=== PATIENT | female | born 1940 | race Two or more races ===

== ENCOUNTER 2018-12-18 15:25 | Emergency (ER) | payer OTHER ==
[~2018-12-18] VITALS: Ht 167.6 cm; Wt 72.6 kg
[2018-12-18] MEDS ORDERED: NKM (15:26)
[2018-12-18 15:50] VITALS: BP 106/74
--- NOTE | 2018-12-18 15:50 | NUR ---
ED Nurse Note: pt walked in with son c/o of vomiting and nause x more than a week. pt denies any past medical problems. per pt son, pt is healthy 79 yo but begining to have symptoms of dementia. ermd on bedside. will continue to monitor.
[2018-12-18 15:59] LABS: HEMATOCRIT 48.1 % (37.0-47.0); MEAN CORPUSCULAR VOLUME 87 FL (80-99); PLATELET COUNT 243 K/UL (150-450); RED BLOOD COUNT 5.52 M/UL (4.20-5.40); RED CELL DISTRIBUTION WIDTH 11.5 % (11.6-14.8); WHITE BLOOD COUNT 8.3 K/UL (4.8-10.8)
[2018-12-18 16:00] LABS: EOSINOPHILS % (AUTO) 0.1 % (0.0-3.0); LYMPHOCYTES % (AUTO) 7.9 % (20.0-45.0); MONOCYTES % (AUTO) 5.6 % (1.0-10.0)
[2018-12-18 16:01] LABS: BASOPHILS % (AUTO) 0.4 % (0.0-2.0)
[2018-12-18 16:05] LABS: ANION GAP 15 mmol/L (5-15); BLOOD UREA NITROGEN 45 mg/dL (7-18); CALCIUM 9.6 MG/DL (8.5-10.1); CARBON DIOXIDE 27 MMOL/L (21-32); CHLORIDE 98 MMOL/L (98-107); CREATININE 1.4 MG/DL (0.55-1.30); POTASSIUM 3.1 MMOL/L (3.5-5.1); SODIUM 140 MMOL/L (136-145)
--- NOTE | 2018-12-18 16:11 | NUR ---
ED Nurse Note: xray on bedside
[2018-12-18 16:16] LABS: ALANINE AMINOTRANSFERASE 74 U/L (12-78); ALBUMIN 4.1 G/DL (3.4-5.0); ALBUMIN/GLOBULIN RATIO 0.9 (1.0-2.7); ALKALINE PHOSPHATASE 79 U/L (46-116); ASPARTATE AMINO TRANSFERASE 55 U/L (15-37); BILIRUBIN,TOTAL 1.3 MG/DL (0.2-1.0)
[2018-12-18 16:18] LABS: BILIRUBIN,DIRECT 0.5 MG/DL (0.0-0.3)
--- NOTE | 2018-12-18 16:27 | Diagnostic Imaging Report ---
Indication: Dyspnea Comparison: None A single view chest radiograph was obtained. Findings: Lung volumes are low. Heart is borderline enlarged. Aorta is ectatic. Bones are slightly osteopenic. IMPRESSION: No acute findings
[2018-12-18] MEDS ORDERED: NS w/KCl 40mEq 1,000 ML IV SCH (17:15)
[2018-12-18 17:17] LABS: APPEARANCE,URINE CLEAR; BILIRUBIN, URINE 2+ (NEGATIVE); GLUCOSE, URINE (UA) NEGATIVE (NEGATIVE); KETONES,URINE 2+ (NEGATIVE); LEUKOCYTE ESTERASE ,URINE 1+ (NEGATIVE); NITRITE,URINE NEGATIVE (NEGATIVE); PH,URINE 5 (4.5-8.0); PROTEIN,URINE 2+ (NEGATIVE); UROBILINOGEN,URINE 4 MG/DL (0.0-1.0)
[2018-12-18 17:20] LABS: COLOR,URINE AMBER
--- NOTE | 2018-12-18 17:30 | NUR ---
ED Nurse Note: respiratory technician on bedside.
[2018-12-18 18:15] VITALS: BP 119/66
--- NOTE | 2018-12-18 18:20 | Diagnostic Imaging Report ---
Indication:Abdominal pain Technique: Grayscale and duplex Doppler imaging of the abdomen performed. Comparison: None Findings: Study is limited due to patient being uncooperative and body habitus. The demonstrated part of the pancreas appears unremarkable. Gallbladder sludge noted. There is no wall thickening. Sonographic Justice's is negative per technologist. There is no evidence of gallstones. The liver is unremarkable. The CBD is poorly seen but no obvious biliary ductal dilatation identified. The main portal vein is patent by Doppler examination. There is no hydronephrosis. There is no ascites. Spleen is normal in size. IMPRESSION: Gallbladder sludge. No obvious stones. Limited evaluation
--- NOTE | 2018-12-18 18:59 | Emergency Room Report ---
History of Present Illness General Chief Complaint: Vomiting Source: Patient, Family Member Present Illness HPI 78-year-old female presents ED for evaluation. Brought in by EMS from home. Family at bedside states patient is been complaining of vomiting times one week. Patient denies any abdominal pain. Has had multiple episodes of vomiting a day. Denies any fevers or chills. Denies dysuria or hematuria. Denies any diarrhea. No other aggravating relieving factors. Denies any other associated symptoms Allergies: Uncoded Allergies: PENACILLIN (Allergy, Unknown, 12/18/18) Patient History Past Medical History: none Past Surgical History: none Pertinent Family History: none Social History: Denies: smoking, alcohol use, drug use Now: No Immunizations: UTD Reviewed Nursing Documentation: PMH: Agreed; PSxH: Agreed Nursing Documentation-PMH Past Medical History: No Stated History Review of Systems All Other Systems: negative except mentioned in HPI Physical Exam Vital Signs Date Time Temp Pulse Resp B/P (MAP) Pulse Ox O2 Delivery O2 Flow Rate FiO2 12/18/18 15:21 97.3 100 16 97 Room Air 12/18/18 15:50 106/74 Sp02 EP Interpretation: reviewed, normal General Appearance: no apparent distress, alert, GCS 15, non-toxic Head: normocephalic, atraumatic Eyes: bilateral eye normal inspection, bilateral eye PERRL ENT: hearing grossly normal, normal pharynx, no angioedema, normal voice Neck: full range of motion, supple/symm/no masses Respiratory: chest non-tender, lungs clear, normal breath sounds, speaking full sentences Cardiovascular #1: regular rate, rhythm, no edema Cardiovascular #2: 2+ carotid (R), 2+ carotid (L), 2+ radial (R), 2+ radial (L) , 2+ dorsalis pedis (R), 2+ dorsalis pedis (L) Gastrointestinal: normal bowel sounds, non tender, soft, non-distended, no guarding, no rebound Rectal: deferred Genitourinary: normal inspection, no CVA tenderness Musculoskeletal: back normal, gait/station normal, normal range of motion, non- tender Neurologic: alert, oriented x3, responsive, motor strength/tone normal, sensory intact, speech normal Psychiatric: judgement/insight normal, memory normal, mood/affect normal, no suicidal/homicidal ideation Reflexes: 3+ bicep (R), 3+ bicep (L), 3+ tricep (R), 3+ tricep (L), 3+ knee (R) , 3+ knee (L) Skin: normal color, no rash, warm/dry, well hydrated Lymphatic: no adenopathy Medical Decision Making Diagnostic Impression: Primary Impression: Vomiting Qualified Codes: R11.2 - Nausea with vomiting, unspecified Additional Impressions: Dehydration Weakness ER Course Hospital Course 78-year-old female presents ED complaining of weakness, vomiting differential diagnosis: UTI, dehydration, anemia Clinical course Patient placed on stretcher. On cardiac surgeon. After initial history and physical I ordered labs, IV fluids, zofran Labs - no leukocytosis, K 3.1, BUN/Cr elevated, UA negative, LFts elevated CXR - no acute process US - sludege in GB, no stones, no evidence of cholecysitits Potassium repleted. IV hydration continued. Patient will be admitted. Because of insurance patient will be transferred I feel this is a highly complex case requiring extensive working including EKG/ Rhythm strip, Xray/CT/US, Blood/urine lab work, repeat exams while in ED, and administration of strong opiates/narcotics for pain control, admission to hospital or close patient follow up. Diagnosis - weakness, dehydration, vomiting Transferred in serious condition Labs Test 12/18/18 15:40 12/18/18 16:05 12/18/18 16:15 12/18/18 17:55 White Blood Count 8.3 K/UL (4.8-10.8) Red Blood Count 5.52 M/UL (4.20-5.40) Hemoglobin 17.0 G/DL (12.0-16.0) Hematocrit 48.1 % (37.0-47.0) Mean Corpuscular Volume 87 FL (80-99) Mean Corpuscular Hemoglobin 30.7 PG (27.0-31.0) Mean Corpuscular Hemoglobin Concent 35.2 G/DL (32.0-36.0) Red Cell Distribution Width 11.5 % (11.6-14.8) Platelet Count 243 K/UL (150-450) Mean Platelet Volume 6.9 FL (6.5-10.1) Neutrophils (%) (Auto) 86.0 % (45.0-75.0) Lymphocytes (%) (Auto) 7.9 % (20.0-45.0) Monocytes (%) (Auto) 5.6 % (1.0-10.0) Eosinophils (%) (Auto) 0.1 % (0.0-3.0) Basophils (%) (Auto) 0.4 % (0.0-2.0) Sodium Level 140 MMOL/L (136-145) Potassium Level 3.1 MMOL/L (3.5-5.1) Chloride Level 98 MMOL/L (98-107) Carbon Dioxide Level 27 MMOL/L (21-32) Anion Gap 15 mmol/L (5-15) Blood Urea Nitrogen 45 mg/dL (7-18) Creatinine 1.4 MG/DL (0.55-1.30) Estimat Glomerular Filtration Rate mL/min (>60) Glucose Level 247 MG/DL (74-106) Calcium Level 9.6 MG/DL (8.5-10.1) Total Bilirubin 1.3 MG/DL (0.2-1.0) Direct Bilirubin 0.5 MG/DL (0.0-0.3) Aspartate Amino Transf (AST/SGOT) 55 U/L (15-37) Alanine Aminotransferase (ALT/SGPT) 74 U/L (12-78) Alkaline Phosphatase 79 U/L (46-116) Total Protein 8.6 G/DL (6.4-8.2) Albumin 4.1 G/DL (3.4-5.0) Globulin 4.5 g/dL Albumin/Globulin Ratio 0.9 (1.0-2.7) Lactic Acid Level 3.30 mmol/L (0.4-2.0) 2.00 mmol/L (0.66-2.22) Urine Color Rosina Urine Appearance Clear Urine pH 5 (4.5-8.0) Urine Specific [place] 1.015 (1.005-1.035) Urine Protein 2+ (NEGATIVE) Urine Glucose (UA) Negative (NEGATIVE) Urine Ketones 2+ (NEGATIVE) Urine Blood 1+ (NEGATIVE) Urine Nitrite Negative (NEGATIVE) Urine Bilirubin 2+ (NEGATIVE) Urine Ictotest Negative (NEGATIVE) Urine Urobilinogen 4 MG/DL (0.0-1.0) Urine Leukocyte Esterase 1+ (NEGATIVE) Urine RBC 0-2 /HPF (0 - 2) Urine WBC 2-4 /HPF (0 - 2) Urine Squamous Epithelial Cells Occasional /LPF Urine Bacteria Few /HPF (NONE) Chest X-Ray Diagnostic Results Chest X-Ray Diagnostic Results : Chest X-Ray Ordered: Yes # of Views/Limited/Complete: 1 View Indication: Other EP Interpretation: Yes Interpretation: no consolidation, no effusion, no pneumothorax, no acute cardiopulmonary disease Impression: No acute disease Electronically Signed by: Electronically signed by West Le MD CT/MRI/US Diagnostic Results CT/MRI/US Diagnostic Results : Imaging Test Ordered: GB US Impression Study is limited due to patient being uncooperative and body habitus. The demonstrated part of the pancreas appears unremarkable. Gallbladder sludge noted. There is no wall thickening. Sonographic Justice's is negative per technologist. There is no evidence of gallstones. The liver is unremarkable. The CBD is poorly seen but no obvious biliary ductal dilatation identified. The main portal vein is patent by Doppler examination. There is no hydronephrosis. There is no ascites. Spleen is normal in size. Last Vital Signs Date Time Temp Pulse Resp B/P (MAP) Pulse Ox O2 Delivery O2 Flow Rate FiO2 12/18/18 18:15 98.8 68 18 119/66 98 Room Air Status: improved Disposition: XFER SHT-TRM HOSP Condition: Serious Referrals: [facility],REFERRING (PCP) West Le MD December 18, 2018 18:59
--- NOTE | 2018-12-18 19:22 | NUR ---
ED Nurse Note: RECEIVED PATIENT FROM [facility]. PATIENT RESTING IN BED WITH NO ACUTE DISTRESS. FAMILY MEMBER AT BEDSIDE. AWARE OF TRANSFER; AWAITING TRANSPORTATION.
[2018-12-18 19:32] VITALS: BP 116/58
--- NOTE | 2018-12-18 19:43 | NUR ---
ED Nurse Note: called for report to [facility]. per OLRNA Sánchez receiving RN unable to be found and request to call back. Will call back in 15 min
--- NOTE | 2018-12-18 19:59 | NUR ---
ED Nurse Note: telephone report given to lily alvarado of [facility]. patient tp be admitted to [facility] surg [facility]-a under the care of md huy
[2018-12-18 20:30] VITALS: BP 116/58
--- NOTE | 2018-12-18 20:30 | NUR ---
ED Nurse Note: REPORT GIVEN TO AMBULANCE PERSONNEL. PATIENT LEFT WITH [facility]. ACCOMPANIED BY FAMILY MEMBER. LEFT WITH ALL BELONGINGS.
== END 2018-12-18 20:30 | disposition short-term general hospital (02) ==
LOC: EDBD 15:25 → EMR 16:11
DX: R11.2 Nausea with vomiting, unspecified (principal); E86.0 Dehydration; R53.1 Weakness; Z88.0 Allergy status to penicillin
CPT/HCPCS: 36415; 71045; 76700; 80053; 81003; 82248; 83605; 85025; 87040; 96361; 96365; 96366; 96375; 99285; J2405

== ENCOUNTER 2019-12-13 01:02 | Inpatient (IN) | payer MEDICARE, MEDICAID ==
[~2019-12-13] VITALS: Ht 167.6 cm; Wt 64.6 kg
[2019-12-13] VITALS (40 sets, daily range): BP systolic 66–112; BP diastolic 33–66
[~2019-12-13 01:02] MED LIST: NKM
--- NOTE | 2019-12-13 01:10 | NUR ---
ED Nurse Note: Patient BG was critical value, over 600.
--- NOTE | 2019-12-13 01:10 | NUR ---
ED Nurse Note: Pt brought into ED by [facility] RA 58 for c/o respiratory distress and decreased altered mental status from [facility]. Pt is awake, opening eyes and nonverbal at this time. Per EMS, pt is normally able to moan and nod head, but staff states she has not been able to do so tonight. Last known well time is unknown. Upon [facility] arrival on scene pt oxygen saturation was 86% on RA, pt placed on 4L oxygen via NC and per [facility] oxygen saturation is now 97%. Pt presents in the ED tachypneic and has labored breathing. Per [facility], pt was also hypotensive on scene at 82/44, [facility] established IV line on L AC and gave approx 200ml NS bolus. Pt connected to court recording monitor and is tachy in the 120's. ERMD bedside.
[2019-12-13] MEDS ORDERED: Acetaminophen 650mg/20.3ml GT ONE (01:15)
[2019-12-13] MEDS ORDERED: Vancomycin 1.5 GM in NS 275 ML IVPB ONE (01:15)
[2019-12-13] MEDS ORDERED: Insulin Human Regular 100units/ml 3ml IV ONE (01:15)
--- NOTE | 2019-12-13 01:15 | NUR ---
ED Nurse Note: All labs sent.
--- NOTE | 2019-12-13 01:18 | Emergency Room Report ---
History of Present Illness General Source: Medical Record, EMS, Caregiver Present Illness HPI Patient is a 79-year-old female sent in from nursing facility after increased respiratory distress and hypotension. Patient had prior history of dementia and had been noted to have increased work of breathing. Per patient's paperwork patient is full code. Was noted to have blood sugar with EMS reading critical "high" patient was noted to be hypotensive at the facility as well as having diminished oxygen saturation in the 80s on room air. Patient was started on supplemental oxygen with some improvement in her saturation. History is limited by patient's mental status. Allergies: Coded Allergies: PENICILLINS (Verified Allergy, Unknown, 12/13/19) Patient History Past Medical History: see triage record Reviewed Nursing Documentation: PMH: Agreed; PSxH: Agreed Review of Systems All Other Systems: limited - Limited by mental status Physical Exam General Appearance: severe distress, Chronically Ill ENT: moist mucus membranes Neck: limited range of motion Respiratory: lungs clear, normal breath sounds Cardiovascular #1: tachycardia Gastrointestinal: soft, other - G-tube present Musculoskeletal: moves extm spontaneously Neurologic: motor weakness, aphasia Psychiatric: depressed affect Skin: no rash Procedures Critical Care Time Critical Care Time Patient had a critical medical condition which untreated could potentially result in life or limb threatening injury. Total critical care time excluding procedures approximately 45 minutes. Medical Decision Making Diagnostic Impression: Primary Impression: Suspected 2019 novel coronavirus infection Additional Impression: Uncontrolled diabetes mellitus ER Course Patient presented for respiratory distress. Differential diagnosis include was not limited to pneumonia, myocardial infarction, coronavirus infection, sepsis, abscess, diabetic ketoacidosis among others. Because of complexity of patient' s case laboratory tests and imaging studies were ordered. Patient was noted to have a initially high blood sugar consistent with possible diabetic ketoacidosis. Patient was given IV insulin. Patient was noted to be somewhat tachypneic and was started on IV fluids due to hypotension. Patient was noted to have adequate oxygen saturation. Arterial blood gas was ordered. Patient will require admission for further evaluation and treatment of presumed sepsis and possible coronavirus infection.Patient started on supplemental oxygen as well as IV antibiotics after cultures were obtained. Rhythm strip interpreted by me showed sinus tachycardia with a rate of 105 without PVCs or ectopy.EKG interpreted by me showed sinus tachycardia without any evidence of acute ST or T wave changes. QTC 458. Patient's initial troponin was 0.1. Patient was noted to have some evidence of urinary infection as well as lactic acidosis elevation. ABG showed metabolic acidosis with respiratory compensation. Patient was given IV fluids with improvement in her blood pressure and perfusion. Respiratory rate also somewhat improved.I attempted a central line without any success. Post procedure chest x-ray showed no evidence of pneumothorax. With increased vascular congestion. Dr. Humphrey was contacted for inpatient management due to panel physician.Dr. Campbell was contacted for surgical consult for placement of central line. Labs Test 12/13/19 01:00 12/13/19 01:15 12/13/19 01:30 12/13/19 02:15 White Blood Count 15.5 K/UL (4.8-10.8) Red Blood Count 3.87 M/UL (4.20-5.40) Hemoglobin 10.6 G/DL (12.0-16.0) Hematocrit 34.1 % (37.0-47.0) Mean Corpuscular Volume 88 FL (80-99) Mean Corpuscular Hemoglobin 27.3 PG (27.0-31.0) Mean Corpuscular Hemoglobin Concent 31.0 G/DL (32.0-36.0) Red Cell Distribution Width 14.3 % (11.6-14.8) Platelet Count 174 K/UL (150-450) Mean Platelet Volume 7.9 FL (6.5-10.1) Neutrophils (%) (Auto) % (45.0-75.0) Lymphocytes (%) (Auto) % (20.0-45.0) Monocytes (%) (Auto) % (1.0-10.0) Eosinophils (%) (Auto) % (0.0-3.0) Basophils (%) (Auto) % (0.0-2.0) Prothrombin Time 11.1 SEC (9.30-11.50) Prothromb Time International Ratio 1.0 (0.9-1.1) Activated Partial Thromboplast Time 28 SEC (23-33) Sodium Level 168 MMOL/L (136-145) Potassium Level 3.9 MMOL/L (3.5-5.1) Chloride Level 127 MMOL/L (98-107) Carbon Dioxide Level 25 MMOL/L (21-32) Anion Gap 17 mmol/L (5-15) Blood Urea Nitrogen 126 mg/dL (7-18) Creatinine 2.8 MG/DL (0.55-1.30) Estimat Glomerular Filtration Rate 16.4 mL/min (>60) Glucose Level 798 MG/DL (74-106) Calcium Level 8.2 MG/DL (8.5-10.1) Phosphorus Level 5.4 MG/DL (2.5-4.9) Magnesium Level 3.4 MG/DL (1.8-2.4) Total Bilirubin 0.3 MG/DL (0.2-1.0) Aspartate Amino Transf (AST/SGOT) 45 U/L (15-37) Alanine Aminotransferase (ALT/SGPT) 44 U/L (12-78) Alkaline Phosphatase 145 U/L (46-116) Total Creatine Kinase 650 U/L (26-308) Creatine Kinase MB 1.0 NG/ML (0.0-3.6) Creatine Kinase MB Relative Index 0.1 Troponin I 0.103 ng/mL (0.000-0.056) Pro-B-Type Natriuretic Peptide 827 pg/mL (0-125) Total Protein 7.0 G/DL (6.4-8.2) Albumin 1.8 G/DL (3.4-5.0) Globulin 5.2 g/dL Albumin/Globulin Ratio 0.3 (1.0-2.7) Acetone Level Negative (NEGATIVE) Arterial Blood pH 7.315 (7.350-7.450) Arterial Blood Partial Pressure CO2 28.4 mmHg (35.0-45.0) Arterial Blood Partial Pressure O2 53.2 mmHg (75.0-100.0) Arterial Blood HCO3 14.1 mmol/L (22.0-26.0) Arterial Blood Oxygen Saturation 79.2 % (95-100) Arterial Blood Base Excess -11 (-2-2) Miki Test Positive Urine Color Yellow Urine Appearance Cloudy Urine pH 5 (4.5-8.0) Urine Specific [place] 1.025 (1.005-1.035) Urine Protein 3+ (NEGATIVE) Urine Glucose (UA) 3+ (NEGATIVE) Urine Ketones 1+ (NEGATIVE) Urine Blood 2+ (NEGATIVE) Urine Nitrite Negative (NEGATIVE) Urine Bilirubin Negative (NEGATIVE) Urine Urobilinogen 1 MG/DL (0.0-1.0) Urine Leukocyte Esterase 3+ (NEGATIVE) Urine RBC 5-10 /HPF (0 - 2) Urine WBC Tntc /HPF (0 - 2) Urine Squamous Epithelial Cells Many /LPF (NONE/OCC) Urine Bacteria Many /HPF (NONE) Urine Yeast Few /HPF (NONE) Lactic Acid Level 5.60 mmol/L (0.66-2.22) EKG Diagnostic Results Rate: tachycardiac Status: unchanged Disposition: ADMITTED INPATIENT Condition: Critical Jaskaran Urbano MD December 13, 2019 01:18
[2019-12-13 01:29] LABS: HEMATOCRIT 34.1 % (37.0-47.0); HEMOGLOBIN 10.6 G/DL (12.0-16.0); MEAN CORPUSCULAR VOLUME 88 FL (80-99); PLATELET COUNT 174 K/UL (150-450); RED BLOOD COUNT 3.87 M/UL (4.20-5.40); RED CELL DISTRIBUTION WIDTH 14.3 % (11.6-14.8); WHITE BLOOD COUNT 15.5 K/UL (4.8-10.8)
--- NOTE | 2019-12-13 01:30 | NUR ---
ED Nurse Note: Pt rectal temp is 103.1, ERMD aware. Will give tylenol.
--- NOTE | 2019-12-13 01:30 | NUR ---
ED Nurse Note: Redness to sacral area noted. Redness to L heel and healing wound to R foot 5th digit
[2019-12-13 01:37] LABS: APPEARANCE,URINE CLOUDY; BILIRUBIN, URINE NEGATIVE (NEGATIVE); GLUCOSE, URINE (UA) 3+ (NEGATIVE); KETONES,URINE 1+ (NEGATIVE); LEUKOCYTE ESTERASE ,URINE 3+ (NEGATIVE); NITRITE,URINE NEGATIVE (NEGATIVE); PH,URINE 5 (4.5-8.0); PROTEIN,URINE 3+ (NEGATIVE); UROBILINOGEN,URINE 1 MG/DL (0.0-1.0)
[2019-12-13] MEDS ORDERED: Lidocaine 1% Plain 30 ml INJ ONE ×2 (01:45→07:00)
[2019-12-13] MEDS ORDERED: BISACODYL5 MG ORAL (01:46)
[2019-12-13] MEDS ORDERED: LACTULOSE20 GM/301 ORAL (01:46)
[2019-12-13] MEDS ORDERED: LEVSIN0.125 MG ORAL (01:46)
[2019-12-13] MEDS ORDERED: FERROUS SU220 MG/53 PO (01:46)
[2019-12-13] MEDS ORDERED: FOLIC ACID1 MG ORAL (01:46)
[2019-12-13] MEDS ORDERED: COLACE100 MG/10 GT (01:46)
[2019-12-13] MEDS ORDERED: MULTI VITAMIN1 EACH ORAL (01:46)
[2019-12-13] MEDS ORDERED: MORPHINE 22 MG/1 ML IV (01:46)
[2019-12-13] MEDS ORDERED: ATIVAN1 MG ORAL (01:46)
[2019-12-13] MEDS ORDERED: VITAMIN C500 M1 ORAL (01:46)
[2019-12-13] MEDS ORDERED: ACETAMINOPHEN120 MG RECTAL (01:46)
[2019-12-13 01:49] LABS: COLOR,URINE YELLOW
--- NOTE | 2019-12-13 02:00 | NUR ---
ED Nurse Note: Pt repositioned in bed and changed into new hospital gown. Skin is clean/dry.
--- NOTE | 2019-12-13 02:00 | NUR ---
ED Nurse Note: Griffin inserted without complication. Urine collected and sent to lab.
[2019-12-13 02:04] LABS: ALANINE AMINOTRANSFERASE 44 U/L (12-78); ALBUMIN 1.8 G/DL (3.4-5.0); ALBUMIN/GLOBULIN RATIO 0.3 (1.0-2.7); ALKALINE PHOSPHATASE 145 U/L (46-116); ANION GAP 17 mmol/L (5-15); ASPARTATE AMINO TRANSFERASE 45 U/L (15-37); BILIRUBIN,TOTAL 0.3 MG/DL (0.2-1.0); BLOOD UREA NITROGEN 126 mg/dL (7-18); CALCIUM 8.2 MG/DL (8.5-10.1); CARBON DIOXIDE 25 MMOL/L (21-32); CHLORIDE 127 MMOL/L (98-107); CREATINE KINASE 650 U/L (26-308); CREATININE 2.8 MG/DL (0.55-1.30); PHOSPHORUS 5.4 MG/DL (2.5-4.9); POTASSIUM 3.9 MMOL/L (3.5-5.1)
[2019-12-13 02:05] LABS: SODIUM 168 MMOL/L (136-145)
--- NOTE | 2019-12-13 02:15 | NUR ---
ED Nurse Note: Accu check done and blood sugar is 513, ERMD aware.
--- NOTE | 2019-12-13 03:00 | NUR ---
ED Nurse Note: Pt is hypotensive at 73/58, ERMD aware. Will administer (2) 1 liter boluses of NS, verbal order by ERMD at bedside.
--- NOTE | 2019-12-13 03:15 | NUR ---
ED Nurse Note: ERMD bedside for central line placement.
--- NOTE | 2019-12-13 04:00 | NUR ---
ED Nurse Note: Pt appears to be more awake at this time and is able to move extremities. Pt respiratory status has improved since ED arrival. Pt oxygen saturation is 100% on 6L and pt is breathing at 20 respirations/min. Pt appears to be using less accessory muscle use at this time and is breathing more normal.
--- NOTE | 2019-12-13 04:00 | NUR ---
Note justin in EDM - 12/13/19 at 0412 by JALEESA ED Nurse Note: Pt respirato
--- NOTE | 2019-12-13 04:00 | NUR ---
ED Nurse Note: Central line placement not obtained, willl continue to use peripheral lines for medications per CHARITY Urbano.
--- NOTE | 2019-12-13 04:30 | NUR ---
ED Nurse Note: Pt remains hypotensive, ERMD aware. Will initiate Dopamine per order.
[2019-12-13] MEDS ORDERED: DOPamine 400mg/250ml 250 ML IV SCH ×2 (04:45→10:45)
--- NOTE | 2019-12-13 04:45 | NUR ---
ED Nurse Note: Dopamine started at 5mcg/kg/min per CHARITY Urbano order. Dr. Urbano Ok'd to use peripheral IV for Dopamine at this time.
--- NOTE | 2019-12-13 04:45 | NUR ---
ED Nurse Note: CHARITY Urbano ordered to infuse NS with Dopamine since infusion is going through a peripheral line, not a central line.
--- NOTE | 2019-12-13 05:00 | NUR ---
ED Nurse Note: Dopamine titrated up to 7 mcg/kg/min at this time per CHARITY Urbano. Pt BP is currently 84/44. Will continue to monitor pt.
--- NOTE | 2019-12-13 05:15 | NUR ---
ED Nurse Note: Pt BP is currently 98/47 after titrating Dopamine up to 7 mcg/kg/min. ERMD is aware and orders to hold dopamine at 7 mcg/kg/min. Pt vital signs are otherwise stable, no acute distress. Pt is currently breathing normal with oxygen saturation of 100% on 6L O2 via NC.
--- NOTE | 2019-12-13 05:45 | NUR ---
ED Nurse Note: Endorsed plan to receiving LORNA Gomez that Dopamine will remain running at 7 mcg/kg/min per ERMD.
--- NOTE | 2019-12-13 05:45 | NUR ---
ED Nurse Note: Report given to LORNA Gomez.
--- NOTE | 2019-12-13 06:05 | NUR ---
TRANSFER TO FLOOR: Patient transferred to ICU as ordered, per CHARITY Urbano. Pt is awake, opening eyes, but remains nonverbal. Pt remains on 6L oxygen via NC with 100% oxygen saturation. She is breathing unlabored and even at this time. Pt taken to unit via gurney by ORTHODONTIC LAB TECHNICIAN and RN with dopamine infusion running as ordered by CHARITY and connected to pattern finisher. ISO precuations taken for transport. Pt belongings sent with pt. Vital signs are stable at this time per CHARITY. No acute distress noted. Pt IVs on L AC and R hand are patent and intact. Pt skin is clean/dry.
--- NOTE | 2019-12-13 06:30 | NUR ---
NURSE NOTES: Received a 79 y.o female pt from ER , with dx Resp distress and Hypotension (septic shock , DKa). pt respond to pain stimuli only, Bp labile currently 88/64. , NSR, hypothermic 95F and with multiple DTI to lower extremities, as well as open wound RT buttocks. Pt on Dopamine drip at 7mcg/kg/min infusing to RT AC. G20.Dr benson and ER md was aware. Picture taken done with pts wound and tx was initiated. Pt covered with warm blankets. will continue to monitor. And will call Dr Benson.
--- NOTE | 2019-12-13 07:46 | NUR ---
HAND-OFF: Report given to Glory ROTHMAN.
--- NOTE | 2019-12-13 08:00 | NUR ---
NURSE NOTES: Received change of shift report on a new admission from ER. Pt is drowsy, opens eyes to painful stimuli, however is nonverbal. Pt is on 4L of oxygen via nasal cannula. NSR on youth nutritional monitor. Pt is currently on Dopamine 7mcg/kg/min infusing via left AC #20G peripheral line per MD order. Pt currently has no central line and is awaiting for placement. Pt also has 2nd peripheral IV access on right hand #22G. Temp 97F axillary. Pt is cold to the touch, with weak peripheral pulses. Abdomen is soft, round, nontender to touch with hypoactive bowel sounds. GT present and NPO/no feeding order at this time. GT dressing is dry/intact, GT patent. Griffin catheter is present, draining cloudy/yellow urine to gravity. Skin has sacral and left buttock DTI, bilateral heels and scattered petechiae on extremities, all covered with optifoam dressings, wound photo taken and uploaded. HOB at 30degrees, three side rails up, bed locked, in lowest position. Will contact primary MD for new admission orders and follow plan of care.
[2019-12-13] MEDS ORDERED: Acetaminophen 650 MG SUPP RECTAL PRN (08:30)
[2019-12-13] MEDS ORDERED: Lidocaine 1% Plain 30 ml INJ PRN (08:30)
[2019-12-13] MEDS ORDERED: Heparin1,000 units/500ml Premix(Conc:2 units/ml) IV PRN (08:30)
--- NOTE | 2019-12-13 10:00 | NUR ---
NURSE NOTES: Dopamine is infusing at 7mcg/kg/min via peripheral IV access per MD order that states "ok to give Dopamine via peripheral line". Pt remains hypotensive. MD is at bedside and aware. Currently awaiting for central line placement. Pt was seen by Dr Humphrey. Order received for PICC placement. MD spoke with next of kin, pt's daughter over the phone and code status was changed to DNR/DNI per family request. Telephone consent was received for PICC placement. Dr Campbell has been contacted by Dr Humphrey to place central line. Order was received from Dr Ramirez to infuse 0.45%NS 1L wide open for BP control. MD aware of pt's lab values. Order was also noted to infuse D50.45NS at 125ml/hour.
--- NOTE | 2019-12-13 10:09 | Consultation ---
History of Present Illness General Chief Complaint: Dyspnea/Respdistress Present Illness HPI Patient is a 79-year-old female sent in from nursing facility after increased respiratory distress and hypotension. Patient had prior history of dementia and had been noted to have increased work of breathing. Per patient's paperwork patient is full code. Was noted to have blood sugar with EMS reading critical "high" patient was noted to be hypotensive at the facility as well as having diminished oxygen saturation in the 80s on room air. Patient was started on supplemental oxygen with some improvement in her saturation. History is limited by patient's mental status. admitted to ICU. surgery called to evaluate and assist with care Allergies: Coded Allergies: PENICILLINS (Verified Allergy, Unknown, 12/14/19) Medication History Scheduled Ascorbic Acid* (Vitamin C*), 500 MG ORAL DAILY, (Reported) Bisacodyl* (Dulcolax*), 10 MG ORAL ONCE, (Reported) Docusate Sodium (Docusate Sodium), 100 MG GT DAILY, (Reported) Folic Acid* (Folic Acid*), 1 MG ORAL DAILY, (Reported) Lorazepam* (Ativan*), 1 MG ORAL BEDTIME, (Reported) Multivitamin (Multi Vitamin Daily), 1 TAB ORAL DAILY, (Reported) No Known Medications* (NKM - No Known Medications*), 0 ., (Reported) Scheduled PRN Acetaminophen* (Tylenol*), 650 MG RECTAL Q4H PRN for Mild Pain/Temp > 100.5, ( Reported) Miscellaneous Medications Ferrous Sulfate (Ferrous Sulfate), 220 MG PO, (Reported) Hyoscyamine Sulfate (Levsin), 0.125 MG ORAL, (Reported) Lactulose (Lactulose*), 30 ML ORAL, (Reported) Morphine Sulfate* (Morphine Sulfate*), 2 MG IV, (Reported) Patient History Limited by: medical condition History Provided By: Medical Record Healthcare decision maker Resuscitation status Advanced Directive on File Past Medical/Surgical History Past Medical/Surgical History: (1) Uncontrolled diabetes mellitus (2) Suspected 2019 novel coronavirus infection (3) Septic shock (4) Lactic acidosis (5) Respiratory failure Review of Systems ROS Narrative unable to obtain given medical condition Physical Exam General Appearance: moderate distress Lines, tubes and drains: other HEENT: mucous membranes moist Neck: normal inspection Respiratory/Chest: decreased breath sounds, accessory muscle use Cardiovascular/Chest: tachycardia, other - hypotension Abdomen: soft, no organomegaly, no mass Extremities: no calf tenderness Skin Exam: warm/dry Neurologic: disoriented, unresponsiveness Last 24 Hour Vital Signs Date Time Temp Pulse Resp B/P (MAP) Pulse Ox O2 Delivery O2 Flow Rate FiO2 12/13/19 06:23 86 12/13/19 06:05 99.3 79 20 90/48 100 Nasal Cannula 6.0 12/13/19 06:00 90/48 12/13/19 05:30 94/50 12/13/19 05:30 99.3 82 18 94/50 100 Nasal Cannula 6.0 12/13/19 05:15 86 20 98/47 99 Nasal Cannula 6.0 12/13/19 05:15 98/47 12/13/19 05:00 81 19 84/44 100 Nasal Cannula 6.0 12/13/19 05:00 84/44 12/13/19 04:45 83/42 12/13/19 04:45 72 20 83/42 100 Nasal Cannula 6.0 12/13/19 04:00 73 20 89/50 100 Nasal Cannula 6.0 12/13/19 03:30 99.5 81 23 83/47 100 Nasal Cannula 6.0 12/13/19 03:00 99.5 84 22 73/58 100 Nasal Cannula 6.0 12/13/19 02:30 99.5 94 21 89/47 100 Nasal Cannula 6.0 12/13/19 02:00 103.1 95 35 112/52 99 Nasal Cannula 6.0 12/13/19 01:45 99.5 12/13/19 01:30 103.1 104 36 94/41 98 Nasal Cannula 4.0 12/13/19 01:10 127 35 Nasal Cannula 4.0 12/13/19 01:10 103.1 127 35 89/51 97 Nasal Cannula 4.0 12/13/19 01:09 103.1 110 26 89/51 (64) 97 Nasal Cannula 4.0 Intake and Output 12/12/19 12/13/19 19:00 07:00 Output Total 1300 ml Balance -1300 ml Output Urine Total 1300 ml Laboratory Tests Test 12/13/19 01:00 12/13/19 01:15 12/13/19 01:30 12/13/19 02:15 White Blood Count 15.5 K/UL (4.8-10.8) H Red Blood Count 3.87 M/UL (4.20-5.40) L Hemoglobin 10.6 G/DL (12.0-16.0) L Hematocrit 34.1 % (37.0-47.0) L Mean Corpuscular Volume 88 FL (80-99) Mean Corpuscular Hemoglobin 27.3 PG (27.0-31.0) Mean Corpuscular Hemoglobin Concent 31.0 G/DL (32.0-36.0) L Red Cell Distribution Width 14.3 % (11.6-14.8) Platelet Count 174 K/UL (150-450) Mean Platelet Volume 7.9 FL (6.5-10.1) Neutrophils (%) (Auto) % (45.0-75.0) Lymphocytes (%) (Auto) % (20.0-45.0) Monocytes (%) (Auto) % (1.0-10.0) Eosinophils (%) (Auto) % (0.0-3.0) Basophils (%) (Auto) % (0.0-2.0) Prothrombin Time 11.1 SEC (9.30-11.50) Prothromb Time International Ratio 1.0 (0.9-1.1) Activated Partial Thromboplast Time 28 SEC (23-33) Sodium Level 168 MMOL/L (136-145) *H Potassium Level 3.9 MMOL/L (3.5-5.1) Chloride Level 127 MMOL/L (98-107) H Carbon Dioxide Level 25 MMOL/L (21-32) Anion Gap 17 mmol/L (5-15) H Blood Urea Nitrogen 126 mg/dL (7-18) H Creatinine 2.8 MG/DL (0.55-1.30) H Estimat Glomerular Filtration Rate 16.4 mL/min (>60) Glucose Level 798 MG/DL (74-106) *H Hemoglobin A1c 8.5 % (4.3-6.0) H Lactic Acid Level 5.20 mmol/L (0.4-2.0) H 5.60 mmol/L (0.66-2.22) H Calcium Level 8.2 MG/DL (8.5-10.1) L Phosphorus Level 5.4 MG/DL (2.5-4.9) H Magnesium Level 3.4 MG/DL (1.8-2.4) H Total Bilirubin 0.3 MG/DL (0.2-1.0) Aspartate Amino Transf (AST/SGOT) 45 U/L (15-37) H Alanine Aminotransferase (ALT/SGPT) 44 U/L (12-78) Alkaline Phosphatase 145 U/L (46-116) H Total Creatine Kinase 650 U/L (26-308) H Creatine Kinase MB 1.0 NG/ML (0.0-3.6) Creatine Kinase MB Relative Index 0.1 Troponin I 0.103 ng/mL (0.000-0.056) Pro-B-Type Natriuretic Peptide 827 pg/mL (0-125) H Total Protein 7.0 G/DL (6.4-8.2) Albumin 1.8 G/DL (3.4-5.0) L Globulin 5.2 g/dL Albumin/Globulin Ratio 0.3 (1.0-2.7) L Acetone Level Negative (NEGATIVE) Arterial Blood pH 7.315 (7.350-7.450) Arterial Blood Partial Pressure CO2 28.4 mmHg (35.0-45.0) L Arterial Blood Partial Pressure O2 53.2 mmHg (75.0-100.0) L Arterial Blood HCO3 14.1 mmol/L (22.0-26.0) *L Arterial Blood Oxygen Saturation 79.2 % (95-100) *L Arterial Blood Base Excess -11 (-2-2) *L Miki Test Positive Urine Color Yellow Urine Appearance Cloudy Urine pH 5 (4.5-8.0) Urine Specific [place] 1.025 (1.005-1.035) Urine Protein 3+ (NEGATIVE) H Urine Glucose (UA) 3+ (NEGATIVE) H Urine Ketones 1+ (NEGATIVE) H Urine Blood 2+ (NEGATIVE) H Urine Nitrite Negative (NEGATIVE) Urine Bilirubin Negative (NEGATIVE) Urine Urobilinogen 1 MG/DL (0.0-1.0) H Urine Leukocyte Esterase 3+ (NEGATIVE) H Urine RBC 5-10 /HPF (0 - 2) H Urine WBC Tntc /HPF (0 - 2) H Urine Squamous Epithelial Cells Many /LPF (NONE/OCC) H Urine Bacteria Many /HPF (NONE) H Urine Yeast Few /HPF (NONE) H Microbiology Date/Time Source Procedure Growth Status 12/13/19 01:50 Nasal Nares - Final Complete 12/13/19 01:50 Nasal Nares - Final Complete 12/13/19 01:35 Rectum Received Height (Feet): 5 Height (Inches): 6.00 Weight (Pounds): 170 Medications Current Medications Medications (Trade) Dose Ordered Sig/Ebenezer Route PRN Reason Start Time Stop Time Status Last Admin Dose Admin Acetaminophen (Tylenol) 650 mg Q4H PRN RECTAL MILD/TEMP 12/13/19 08:30 01/12/20 08:29 Cefepime HCl 500 mg/Dextrose 55 ml @ 110 mls/hr EVERY 12 HOURS IVPB 12/13/19 09:00 12/20/19 08:59 UNV Chlorhexidine Gluconate (Dee-Hex 2%) 1 applic DAILY@2000 TOPIC 12/13/19 20:00 03/12/20 19:59 Dextrose (Dextrose 50%) 25 ml Q30M PRN IV Hypoglycemia 12/13/19 08:30 03/12/20 08:29 Dextrose (Dextrose 50%) 50 ml Q30M PRN IV Hypoglycemia 12/13/19 08:30 03/12/20 08:29 Dextrose/Sodium Chloride 1,000 ml @ 125 mls/hr Q8H IV 12/13/19 09:00 01/12/20 08:59 Dopamine HCl/ Dextrose 250 ml @ 0 mls/hr Q24H IV 12/13/19 04:45 03/12/20 04:44 12/13/19 04:45 Heparin Sodium (Porcine) (Heparin 5000 units/ml) 5,000 units EVERY 12 HOURS SUBQ 12/13/19 09:00 01/27/20 08:59 Heparin Sodium/ Sodium Chloride (Heparin 1000 units/500ml Premix) 1,000 unit ONCE PRN IV PICC LINE PLACEMENT 12/13/19 08:30 12/15/19 08:29 Insulin Aspart (NovoLOG) BEFORE MEALS AND HS SUBQ 12/13/19 11:30 03/12/20 11:29 Lidocaine HCl (Xylocaine 1% 30ml) 30 ml ONCE PRN INJ PICC LINE PLACEMENT 12/13/19 08:30 12/15/19 08:29 Sodium Chloride 1,000 ml @ 0 mls/hr Q0M IV 12/13/19 09:30 12/13/19 12:00 Vancomycin HCl (Vanco rx to dose) 1 ea DAILY PRN MISC Per rx protocol 12/13/19 08:30 01/12/20 08:29 Assessment/Plan Problem List: (1) Uncontrolled diabetes mellitus ICD Codes: E11.65 - Type 2 diabetes mellitus with hyperglycemia SNOMED: 53097871, 723310574 (2) Suspected 2019 novel coronavirus infection Assessment & Plan: pending test ICD Codes: Z20.828 - Contact with and (suspected) exposure to other viral communicable diseases SNOMED: 823369639 (3) Septic shock Assessment & Plan: septic hypotension line placed see note resuscitation initiated discussed in detail with daughter at bedside for ome time tren dlabs fluids pressors will follow with recs ICD Codes: A41.9 - Sepsis, unspecified organism; R65.21 - Severe sepsis with septic shock SNOMED: 26643165 (4) Lactic acidosis ICD Codes: E87.2 - Acidosis SNOMED: 57874269 (5) Respiratory failure ICD Codes: J96.90 - Respiratory failure, unspecified, unspecified whether with hypoxia or hypercapnia SNOMED: 606892690 Joce Campbell December 13, 2019 10:09
--- NOTE | 2019-12-13 10:10 | Operative Note - PDOC ---
Operative Note Operative Note Date of Operation/Procedure: December 13, 2019 Pre-op Diagnosis: covid + sepsis hypotension Procedure: left subclavian central venous catheter insertion Post-op Diagnosis: same as pre-op Surgeon: reyes Anesthesia: local Specimen: none Complications: none Condition: unstable Estimated Blood Loss: minimal Drains: none Implant(s) used?: No Indications for Procedure 79F septic in ICU on pressors need access discussed with daughter consent obtained procedure done emergently Description of Procedure patient made comfortable supine position. Trendelenburg. left cheest wall prepped and draped. finder needle used and left subclavian vein cannulated without difficulty. guidewire placed and needle removed. dilator used. line placed over wir and wire discarded. tolerate well sutured inp alce. dressings applied cxr noted okay . like okay to use. will monitor closely Joce Campbell December 13, 2019 10:10
[2019-12-13] MEDS: D5 1/2NS 1,000 ML IV SCH ×2 (10:50→17:19)
[2019-12-13] MEDS: Heparin 5000 units/ml inj SUBQ SCH ×2 (11:01→21:25)
[2019-12-13] MEDS: DOPAmine 400mg/250ml Premix IV SCH ×3 (11:02→22:25)
--- NOTE | 2019-12-13 12:00 | NUR ---
NURSE NOTES: Dr Campbell is at bedside, and is placing left subclavian TLC central line. Order received for chest xray to confirm placement. Dopamine is maintained at 7mcg/kg/hr via peripheral line per MD order while waiting for central line confirmation. Pt was visited by daughter who stood at the nurse's station and viewed her mother through the window/door.
[2019-12-13] MEDS: Cefepime HCl 500 MG in D5W 55 ML IVPB SCH ×2 (12:12→21:15)
[2019-12-13] MEDS: NovoLOG Insulin Flexpen SUBQ SCH ×3 (12:13→21:24)
--- NOTE | 2019-12-13 12:46 | NUR ---
RADIOLOGY DEPT., CHEST X-RAY FOR CENTRAL LINE PLCMT PERFORMED.-P.DYE
--- NOTE | 2019-12-13 14:28 | NUR ---
CLAIMS CUSTOMER SERVICE REPRESENTATIVE NOTE Pt has admitted to ICU on 12/13/2019. Per chart review, pt is non-verbal. Pt resids at [facility] [address] [place] [address]. There is a copy of POLST -full code signed by pt's son Ibrahima Vargas in April 2019. SW spoke w/ Ibrahima [phone] and informed this SW to contact Lucia Shetty to verify the code status as she communicated w/ earlier today. SW spoke w/ Lucia Shetty [phone] and confirmed she discussed the code status w/ and confirmed DNR and DNI. Per Ibrahima, both Ibrahima and Lucia are the decision makers for pt and the order of contact does not matter.
--- NOTE | 2019-12-13 15:00 | NUR ---
NURSE NOTES: Confirmation was received by radiologist regarding central line placement and ok to use line. Dopamine is now connected to left subclavian TLC and titrated up to 20mcg/kg/hour to maintain SBP above 90. Pt was switched from nasal cannula to venturi mask to maintain O2Sat above 90%. Pt was suctioned via nasopharynx x3 with output of large, thick, yellowish/greyinsh/white secretions. Pt has mid-chest wheezing upon auscultation.
[2019-12-13 16:30] LABS: ALANINE AMINOTRANSFERASE 37 U/L (12-78); ALBUMIN 1.4 G/DL (3.4-5.0); ALBUMIN/GLOBULIN RATIO 0.3 (1.0-2.7); ALKALINE PHOSPHATASE 148 U/L (46-116); ANION GAP 17 mmol/L (5-15); ASPARTATE AMINO TRANSFERASE 54 U/L (15-37); BILIRUBIN,TOTAL 0.3 MG/DL (0.2-1.0); BLOOD UREA NITROGEN 69 mg/dL (7-18); CALCIUM 6.5 MG/DL (8.5-10.1); CARBON DIOXIDE 21 MMOL/L (21-32); CHLORIDE 129 MMOL/L (98-107); CREATININE 1.2 MG/DL (0.55-1.30)
[2019-12-13 16:44] LABS: SODIUM 167 MMOL/L (136-145)
[2019-12-13 16:45] LABS: POTASSIUM 2.4 MMOL/L (3.5-5.1)
--- NOTE | 2019-12-13 17:00 | NUR ---
NURSE NOTES: Dr Humphrey has been contacted and message left regarding repeat CMP results, K=2.4, Ko=161. Awaiting for MD response. Charge nurse is aware. Pt remains with stable VS. Pt was cleaned and repositioned.
--- NOTE | 2019-12-13 17:05 | NUR ---
NURSE NOTES:WOUND CARE NOTES:Pt presented on admission with multiple pressure injuries. Unstageable Sacral Pressure injury with presents as open DTPI. Soft necrosis at Base of wound with marginal erythema along edges.Small opening noted to L sacrum. No odor or exudate noted. Periwound without evidence of further skin breakdown. DTPI noted to medial L malleolus. Base of wound is maroon with marginal erythema. DTPI medial L heel base of wound is maroon with fluctuance. DTPI L Hallux. Base of wound is maroon with marginal erythema along borders. Reabsorbing DTPI lateral L heel. Base of injury ids dry. Unstageable pressure injuries noted to distal/lateral R foot. Soft necrosis at base of wound. Unstageable pressure injury dorso/lateral R 5th metatarsal. Soft necrosis at base of wound. Unstageable pressure injury web space of R 4th metatarsal. Base of wound is necrotic and partially opened. no exudate noted. DTPI noted to R lateral malleolus. Base of wound is maroon and soft with marginal erythema along borders. Tx.Plan: Cleanse Sacral wound with Saline. Apply TheraHoney. Apply Moisture Barrier paste periwound. Cover with Optifoam drsg. Change every 3 days and prn. Apply Betadine to wounds Distal /lateral R foot, R 4th and 5th metatarsals. Cover with Optifoam drsg every 3 days and prn. Apply Cavilon to both heels, Both hallux and malleoli. Cover each site with Optifoam drgs. Change every 7 days and prn. Reposition at least every 2hours or as tolerated. Place Pillow between knees. Off-load heels with Pillow. APM/MELANIE Mattress overlay.
--- NOTE | 2019-12-13 17:15 | History and Physical Report ---
DATE OF ADMISSION: 12/13/2019 CHIEF COMPLAINT: Septic shock. HISTORY OF PRESENT ILLNESS: The patient is a 79-year-old female. She was transferred from a assisted facility with complaints of respiratory distress and shortness of breath. She is unable to provide any history as she is poorly responsive. She has an extensive past medical history which includes history of acute myocardial infarction, congestive heart failure, Alzheimer disease, prior history of sepsis, type 2 diabetes, atherosclerosis. She was transferred from assisted facility with complaints of respiratory distress. It appears from records from the assisted facility, she was being admitted to hospice. I spoke with family members who did state that they would spoke with hospice but were still undecided. In the ER, [place] [id number]. She was markedly dehydrated with sodium of 168, BUN of 126, creatinine of 2.8, glucose is 800. She had a lactic acid level of 5.2 and troponin 0.13. She had x-ray evidence of possible pneumonia as well as evidence of UTI. She has been started on low-dose pressors and now admitted for further evaluation and care. PAST MEDICAL HISTORY: As above. PAST SURGICAL HISTORY: Includes a history of a G-tube. CURRENT MEDICATIONS: Reconciled and reviewed. ALLERGIES: Include penicillin. FAMILY HISTORY: Noncontributory. SOCIAL HISTORY: There is no known history of tobacco, ethanol, or drugs. REVIEW OF SYSTEMS: From the patient is unobtainable as she is nonverbal and poorly responsive. PHYSICAL EXAMINATION: VITAL SIGNS: Temperature 99.3, pulse 79, respirations 20, and blood pressure 90/48. GENERAL: The patient is a chronically ill-appearing elderly female. She is poorly responsive. HEENT: Head was normocephalic atraumatic. Pupils are equal, round, reactive to light. Sclerae anicteric. The oropharynx is clear. Mucous membranes are dry. Neck is supple. There is no jugular venous distention. No thyroid masses. HEART: Regular rate and rhythm. No murmurs, rubs gallops. LUNGS: Lungs are clear to auscultation bilaterally with diminished breath sounds. No rales noted ABDOMEN: Soft, nontender, nondistended. EXTREMITIES: Without clubbing, cyanosis, or edema. NEUROLOGIC: The patient is nonverbal and does not respond to vigorous stimulation. SKIN: No rashes noted. LABORATORY AND DIAGNOSTIC DATA: White count 16, hemoglobin 10. Sodium 168, BUN of 126, creatinine was 2.8, glucose 798. Lactic acid was 5.2. Troponin was . Natriuretic peptide level 827. UA showed too numerous to count wbc's. ASSESSMENT: This is an unfortunate 79-year-old female with a history of dementia, ischemic cardiomyopathy, diabetes, hypertension admitted with septic shock secondary to urinary tract infection and pneumonia. Her status is currently critical and guarded. The family are agreeable to making her DNR at this point. We will continue conservative treatment for the time being. Family will consider hospice after discussion with the rest of the family members. Plan of care was discussed with the patient's son and the patient's daughter. Paxton Humphrey M.D. DR: Kishan JOB#: [id number] CC:
--- NOTE | 2019-12-13 17:29 | Consultation ---
DATE OF CONSULTATION: 12/13/2019 PULMONARY CONSULTATION REASON FOR CONSULTATION: Respiratory insufficiency, respiratory distress, hypoxemia. HISTORY OF PRESENT ILLNESS: The patient is a 79-year-old female admitted through the emergency room. The patient is seen and evaluated. The patient is a [facility] patient. The patient has underlying dementia, unable to give much in the way of history. The patient is noted to be with increasing respiratory distress. The patient with noted oxygen desaturations as well. The patient now admitted to ICU. I was called to assist and evaluate further. The patient's chart reviewed. ER notes reviewed. Care discussed with the primary physician. The patient's care discussed as well with the nursing staff. The patient has been tested for COVID, results are yet pending. PAST MEDICAL HISTORY: Notable for dementia, constipation, bedbound state. MEDICATIONS: Reviewed. ALLERGIES: Reviewed. SOCIAL HISTORY: long-term patient, nonsmoker, nondrinker. REVIEW OF SYSTEMS: Unobtainable. PHYSICAL EXAMINATION: GENERAL: The patient is chronically ill. VITAL SIGNS: Reviewed blood pressure 90/48, 100% on 6 liters, pulse 79, respiratory rate 20, temperature 99.3. The patient's overall T-max 103.1 HEENT: Overall negative. NECK: Supple. LUNGS: Moderate breath sounds. Scattered rhonchi. CARDIAC: S1 and S2, currently regular rate and rhythm. ABDOMEN: Overall soft, nontender. EXTREMITIES: No significant edema. Decreased range of motion. G-tube in place. Depressed affect. Aphasic. LABORATORY DATA: White count 15.5, hemoglobin 10.6, hematocrit 34. Chemistries, sodium is 168, BUN 126, creatinine 2.8, blood sugar was 798 and repeat is pending. Lactic acid elevated. Liver enzymes elevated. Troponin elevated. Albumin is 1.8. Blood gases 7.31/28/53/14. IMPRESSION: Respiratory distress, evidence of bilateral pulmonary infiltrates, hypernatremia, acute on chronic renal failure, severe protein-calorie malnutrition, toxic metabolic encephalopathy, dementia, metabolic acidosis, lactic acidemia, elevated troponin, possible demand ischemia, leukocytosis, probable sepsis, anemia. RECOMMENDATIONS: Supportive care. Agree with antibiotics, sliding scale for elevated blood sugars. DVT prophylaxis and monitor clinically. Wound care. Hydrate with hypotonic fluids, respiratory care and maintain isolation, pending COVID. Pressors as needed and close followup. Advance directives as this patient is very ill. We will resume BiPAP if arterial blood gases worsen, we will repeat and reassess and recommend. Tonny Ramirez M.D. DR: Richi JOB#: [id number] CC: JOSE CARLOS
--- NOTE | 2019-12-13 19:10 | NUR ---
HAND-OFF: Report given to Patricia ROTHMAN. Endorsed plan of care, including message left for Dr Humphrey regarding repeat CMP results; awaiting for response.
--- NOTE | 2019-12-13 19:30 | NUR ---
NURSE NOTES: Received pt hypotensive , bp been supported with Dopamine drip at 20mcg/kg/min. on warming blanket , lower extremities with scattered blancheable redness, aware charge coordinator castro, On ivf of D51/2ns at 125ml/hr, All IVF been infusing to RT SVC central line. Site with drsg dry and intact, SR on the monitor, skin warm and dry.Left buttocks wound covered with optifoam as well as lower extremities DTI. Turned q 2hrs prn with good skin care done.Griffin to gravity with lg amt of yellowish urine, Pts is NPO GT clamped. will continue to monitor.
[2019-12-13] MEDS: Dyna-Hex 2% Top Sol 2oz TOPIC SCH (20:07)
--- NOTE | 2019-12-13 22:47 | NUR ---
NURSE NOTES: Follow up call was made to Dr Abhishek Hsu regarding abnormal labs K 2.4, na 167, SBP 80s and max. out of Dopamine 20mcg/kg/min- awaiting for md to call back.
--- NOTE | 2019-12-13 23:45 | Consultation ---
DATE OF CONSULTATION: 12/13/2019 CARDIOLOGY CONSULTATION CONSULTING PHYSICIAN: Slava Hsu MD. REFERRING PHYSICIAN: Paxton Humphrey MD. REASON: Management of shock. HISTORY OF PRESENT ILLNESS: This 79-year-old female residing at a [facility] facility was transferred to the emergency room late last night with shortness of breath. She was poorly responsive and unable to give any further data. Records have been reviewed for the remainder of this text as well as discussions with the primary care physician. The patient was noted to be hypotensive with significant laboratory abnormalities. She was admitted to the intensive care unit. Pressor support was initiated and I have been asked to continue assistance with cardiovascular management. PAST MEDICAL HISTORY: Includes: 1. Coronary artery disease. 2. History of myocardial infarction. 3. History of congestive heart failure. 4. Cerebrovascular disease with dementia. 5. Type 2 diabetes mellitus. 6. Generalized atherosclerosis. 7. Osteoarthritis. 8. Dysphagia with G-tube. ALLERGIES: Penicillin. MEDICATIONS: Reviewed and reconciled. FAMILY HISTORY: Noncontributory. SOCIAL HISTORY: No record of prior smoking, alcohol, or substance abuse. REVIEW OF SYSTEMS: Cannot be obtained. However as noted above, 20 minutes time spent with reviewing [facility] records. PHYSICAL EXAMINATION: GENERAL: Ill-appearing, poorly responsive, withdrawn. VITAL SIGNS: Blood pressure 90/48, heart rate 79, respiratory rate 20, temperature 99.3. HEENT: Temporal wasting. Dry mucous membranes. Sclerae are anicteric. Conjunctiva pink. NECK: Supple. LUNGS: Diminished, but clear breath sounds. CARDIAC: Regular rhythm and rate. Normal S1, S2. A 1/6 systolic murmur at base. ABDOMEN: Soft and nontender. G-tube intact. EXTREMITIES: Without edema. SKIN: Poor turgor. No rash. LABORATORY DATA: White count 16, hemoglobin 10. Lactic acid 5.2. Natriuretic peptide 827. Urinalysis with too numerous to count white cells. Sodium 168, potassium 3.9, bicarb 25, chloride 127, BUN 126, glucose 798. Troponin 0.103. Albumin 1.8. CK is 650 with negative MB. IMPRESSION: 1. Sepsis. 2. Hypovolemia. 3. Shock. 4. Hypernatremia. 5. Dehydration. 6. Hyperchloremia. 7. Acute renal failure. 8. Rhabdomyolysis. 9. Type 2 diabetes mellitus with glucose out of control and possible hyperosmolar coma. 10. Severe protein-calorie malnutrition. 11. Ischemic heart disease. 12. Acute myocardial ischemia. 13. Chronic diastolic congestive heart failure with acute component due to coronary hypoperfusion. PLAN: 1. ICU care. 2. Condition is critical. 3. Prognosis is guarded. 4. DNR has been discussed with family members per Dr. Humphrey and that has been implemented. 5. Antimicrobials. 6. DVT prophylaxis. 7. Hypotonic IV fluids. 8. Pressor support. 9. Hold all cardiac medications otherwise at this time. 10. Maintain anti-platelet therapy. Slava Hsu M.D. DR: ANTHONY JOB#: [id number] CC:
[2019-12-14] VITALS (63 sets, daily range): BP systolic 60–139; BP diastolic 19–98
[2019-12-14] MEDS: D5W w/KCl 20mEq 1,000 ML IV SCH ×4 (00:12→20:43)
--- NOTE | 2019-12-14 00:15 | NUR ---
NURSE NOTES: Dr Hsu acknowledge the call, with orders given. pls see ordrs.
--- NOTE | 2019-12-14 02:00 | NUR ---
NURSE NOTES: Pt desat. to 70s- Suctioned tk beige secretions moderate in amt. placed on 100% nRB mask
--- NOTE | 2019-12-14 03:00 | NUR ---
NURSE NOTES: 02 sat 100% bp remained labile.
[2019-12-14] MEDS: DOPAmine 400mg/250ml Premix IV SCH ×3 (03:03→07:39)
--- NOTE | 2019-12-14 03:26 | NUR ---
NURSE NOTES: Aware DR Hsu that pt still hypotensive on the 70s and max of pressors, Dop. at 20mcg/kg/min, also aware md that pt passed some burgundy liquid stools- awaiting for md to call back., will continue to monitor.
[2019-12-14 04:15] LABS: HEMOGLOBIN 8.5 G/DL (12.0-16.0); MEAN CORPUSCULAR VOLUME 87 FL (80-99); PLATELET COUNT 88 K/UL (150-450); RED BLOOD COUNT 3.09 M/UL (4.20-5.40); RED CELL DISTRIBUTION WIDTH 14.1 % (11.6-14.8); WHITE BLOOD COUNT 8.8 K/UL (4.8-10.8)
[2019-12-14 04:37] LABS: ALANINE AMINOTRANSFERASE 30 U/L (12-78); ALBUMIN 1.2 G/DL (3.4-5.0); ALBUMIN/GLOBULIN RATIO 0.3 (1.0-2.7); ALKALINE PHOSPHATASE 100 U/L (46-116); ANION GAP 16 mmol/L (5-15); ASPARTATE AMINO TRANSFERASE 38 U/L (15-37); BILIRUBIN,TOTAL 0.3 MG/DL (0.2-1.0); BLOOD UREA NITROGEN 45 mg/dL (7-18); CALCIUM 6.3 MG/DL (8.5-10.1); CARBON DIOXIDE 21 MMOL/L (21-32); CHLORIDE 124 MMOL/L (98-107); CREATININE 1.3 MG/DL (0.55-1.30); POTASSIUM 2.9 MMOL/L (3.5-5.1)
[2019-12-14 04:47] LABS: SODIUM 162 MMOL/L (136-145)
--- NOTE | 2019-12-14 05:00 | NUR ---
NURSE NOTES: placed on [id number].
[2019-12-14] MEDS ORDERED: Vancomycin 1gm/D5W 275ml IVPB ONE ×2 (06:00)
[2019-12-14] MEDS: NovoLOG Insulin Flexpen SUBQ SCH ×4 (06:31→21:33)
--- NOTE | 2019-12-14 07:00 | NUR ---
NURSE NOTES: Dr Humphrey was here and aware that pt still hypotensive and passed some burgundy colored stools. with orders given and carried out.
--- NOTE | 2019-12-14 07:20 | NUR ---
HAND-OFF: Report given to Luz ROTHMAN.
--- NOTE | 2019-12-14 07:25 | NUR ---
NURSE NOTES: Received change of shift report from LORNA Gomez. Pt is nonverbal, opens eyes spontaneously; however not tracking. Pt is on 5L of oxygen via Simple Mask. 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 Pt is currently on Dopamine 20mcg/kg/min infusing via Left Subclavian TLC. B/P remains in the 70's- will call doc for Levophed. Pt has peripheral IV access on right AC #22G and Lt AC #20g. GT present and patent and NPO/no feeding order at this time. Griffin catheter is present, draining yellow urine to urometer. Skin has sacral and left buttock DTI, bilateral heels and scattered petechiae on extremities, all covered with optifoam dressings. HOB at 30degrees, three side rails up, bed locked, in lowest position. Will resume plan of care.
--- NOTE | 2019-12-14 08:03 | General Progress Note ---
Assessment/Plan Problem List: (1) Respiratory failure ICD Codes: J96.90 - Respiratory failure, unspecified, unspecified whether with hypoxia or hypercapnia SNOMED: 110939732 (2) Lactic acidosis ICD Codes: E87.2 - Acidosis SNOMED: 86157832 (3) Uncontrolled diabetes mellitus ICD Codes: E11.65 - Type 2 diabetes mellitus with hyperglycemia SNOMED: 27053297, 449920178 (4) Suspected 2019 novel coronavirus infection ICD Codes: Z20.828 - Contact with and (suspected) exposure to other viral communicable diseases SNOMED: 143111523 (5) Septic shock ICD Codes: A41.9 - Sepsis, unspecified organism; R65.21 - Severe sepsis with septic shock SNOMED: 49294678 Status: deteriorating Assessment/Plan: ivf added 2nd pressor monitor labs/abg o2 as needed free water flushes follow up cultures dvt/stress ulcer prophylaxis critical and guarded. prognosis grim d/w family. DNR. asked to reconsider hospice/comfort care cards/id/pulm input appreciated. Subjective ROS Limited/Unobtainable: No Constitutional: Reports: malaise, weakness HEENT: Reports: no symptoms Cardiovascular: Reports: edema Respiratory: Reports: shortness of breath Gastrointestinal/Abdominal: Reports: difficulty swallowing Genitourinary: Reports: no symptoms Neurologic/Psychiatric: Reports: pre-existing deficit Endocrine: Reports: no symptoms Hematologic/Lymphatic: Reports: anemia Allergies: Coded Allergies: PENICILLINS (Verified Allergy, Unknown, 12/13/19) All Systems: reviewed and negative except above Subjective doing poorly. worsening hypotension. shallow respiration. on iv abx. dark stools. labs noted. on dopamine max. poorly responsive. Objective Last 24 Hour Vital Signs Date Time Temp Pulse Resp B/P (MAP) Pulse Ox O2 Delivery O2 Flow Rate FiO2 12/14/19 07:39 75/30 12/14/19 07:00 81 30 83/38 (53) 100 12/14/19 06:30 85 28 71/33 (46) 100 12/14/19 06:00 83 27 73/33 (46) 100 12/14/19 05:47 78/38 12/14/19 05:30 90 30 78/38 (51) 100 12/14/19 05:00 91 31 90/39 (56) 100 12/14/19 04:30 94 35 72/37 (49) 100 12/14/19 04:21 83 28 60/38 (45) 100 12/14/19 04:00 Nasal Cannula 4.0 12/14/19 04:00 99.0 94 36 68/34 (45) 100 12/14/19 04:00 90 12/14/19 03:30 101 34 80/37 (51) 99 12/14/19 03:03 77/50 12/14/19 03:00 107 37 77/36 (50) 86 12/14/19 02:30 115 27 75/57 (63) 92 12/14/19 02:00 104 23 92/42 (59) 95 12/14/19 01:30 107 24 89/38 (55) 95 12/14/19 01:00 107 22 92/48 (63) 96 12/14/19 00:30 105 22 101/46 (64) 97 12/14/19 00:00 106 12/14/19 00:00 98.2 103 22 105/52 (69) 99 12/14/19 00:00 Nasal Cannula 4.0 12/13/19 23:30 100 24 109/53 (71) 99 12/13/19 23:00 104 25 111/54 (73) 99 12/13/19 22:30 99 21 105/53 (70) 96 12/13/19 22:25 72/28 12/13/19 22:00 108 25 99/51 (67) 95 12/13/19 21:30 113 27 98/51 (67) 96 12/13/19 21:15 113 28 93/48 (63) 96 12/13/19 21:00 117 26 101/48 (65) 96 12/13/19 20:45 117 28 97/50 (66) 97 12/13/19 20:30 122 31 103/52 (69) 96 12/13/19 20:00 Nasal Cannula 4.0 12/13/19 20:00 112 12/13/19 20:00 98.8 122 32 96/54 (68) 95 12/13/19 19:00 106/54 12/13/19 19:00 117 24 103/55 (71) 97 12/13/19 18:30 113 21 101/62 (75) 97 12/13/19 18:00 98.0 110 22 105/56 (72) 97 12/13/19 18:00 106/54 12/13/19 17:59 95 Venturi Mask 14.0 55 12/13/19 17:51 101/47 12/13/19 17:00 100/44 12/13/19 17:00 114 25 101/47 (65) 93 12/13/19 16:00 Nasal Cannula 4.0 12/13/19 16:00 110/53 12/13/19 16:00 110 25 104/49 (67) 94 12/13/19 16:00 112 12/13/19 15:00 106/62 12/13/19 15:00 94 22 66/33 (44) 100 12/13/19 14:00 98 29 92/48 (63) 100 12/13/19 14:00 81/44 12/13/19 13:00 75 16 78/40 (53) 100 12/13/19 13:00 79/40 12/13/19 12:00 94/51 12/13/19 12:00 71 12/13/19 12:00 Nasal Cannula 4.0 12/13/19 12:00 97.5 82 21 101/54 (70) 100 12/13/19 12:00 6.0 12/13/19 11:30 82 16 91/49 (63) 99 12/13/19 11:02 90/48 12/13/19 11:00 65 13 79/45 (56) 100 12/13/19 10:30 70 13 82/43 (56) 98 12/13/19 10:00 87 17 96/66 (76) 98 12/13/19 10:00 83/52 12/13/19 09:30 60 13 79/45 (56) 98 12/13/19 09:00 78/45 12/13/19 09:00 62 13 81/44 (56) 96 12/13/19 08:30 62 13 81/48 (59) 96 12/13/19 08:00 97.0 62 15 87/44 (58) 100 12/13/19 08:00 Nasal Cannula 6.0 12/13/19 08:00 69 12/13/19 08:00 83/50 12/13/19 08:00 6.0 12/13/19 08:00 Nasal Cannula 4.0 Intake and Output 12/13/19 12/14/19 19:00 07:00 Intake Total 1628.221 ml 500 ml Output Total 1090 ml 890 ml Balance 538.221 ml -390 ml Intake IV Total 1628.221 ml 500 ml Output Urine Total 1090 ml 890 ml # Bowel Movements 1 Laboratory Tests 12/13/19 15:50: Sodium Level 167*H, Potassium Level 2.4*L, Chloride Level 129H, Carbon Dioxide Level 21, Anion Gap 17H, Blood Urea Nitrogen 69H, Creatinine 1.2#, Estimat Glomerular Filtration Rate 43.6, Glucose Level 400#H, Lactic Acid Level 2.30H, Calcium Level 6.5#L, Total Bilirubin 0.3, Aspartate Amino Transf (AST/SGOT) 54H , Alanine Aminotransferase (ALT/SGPT) 37, Alkaline Phosphatase 148H, Total Protein 6.0L, Albumin 1.4L, Globulin 4.6, Albumin/Globulin Ratio 0.3L 12/13/19 21:50: Lactic Acid Level 4.50H 12/14/19 03:55: Sodium Level 162*H, Potassium Level 2.9L, Chloride Level 124H, Carbon Dioxide Level 21, Anion Gap 16H, Blood Urea Nitrogen 45H, Creatinine 1.3, Estimat Glomerular Filtration Rate 39.7, Glucose Level 533#*H, Lactic Acid Level 6.50H, Calcium Level 6.3L, Total Bilirubin 0.3, Aspartate Amino Transf (AST/SGOT) 38H, Alanine Aminotransferase (ALT/SGPT) 30, Alkaline Phosphatase 100, Total Protein 5.1L, Albumin 1.2L, Globulin 3.9, Albumin/Globulin Ratio 0.3L, White Blood Count 8.8, Red Blood Count 3.09L, Hemoglobin 8.5L, Hematocrit 27.0L, Mean Corpuscular Volume 87, Mean Corpuscular Hemoglobin 27.6, Mean Corpuscular Hemoglobin Concent 31.6L, Red Cell Distribution Width 14.1, Platelet Count 88L, Mean Platelet Volume 8.8, Neutrophils (%) (Auto) , Lymphocytes (%) (Auto) , Monocytes (%) (Auto) , Eosinophils (%) (Auto) , Basophils (%) (Auto) , Neutrophils % (Manual) [Pending], Lymphocytes % (Manual) [Pending], Platelet Estimate [Pending], Platelet Morphology [Pending], Magnesium Level 2.0, Troponin I 0.062H, Random Vancomycin Level 10.2 Height (Feet): 5 Height (Inches): 6.00 Weight (Pounds): 172 General Appearance: WD/WN, alert, confused EENT: PERRL/EOMI, normal ENT inspection Neck: non-tender, normal alignment, supple Cardiovascular: normal peripheral pulses, normal rate, regular rhythm Respiratory/Chest: chest wall non-tender, lungs clear, normal breath sounds, no respiratory distress, respiratory distress, accessory muscle use Abdomen: normal bowel sounds, non tender, soft, no organomegaly Edema: moderate edema Neurologic: disoriented, unresponsive, aphasia Skin: normal pigmentation Paxton Humphrey MD December 14, 2019 08:03
--- NOTE | 2019-12-14 08:30 | Critical Care Progress Note ---
Assessment/Plan Assessment/Plan IMPRESSION: Respiratory distress, evidence of bilateral pulmonary infiltrates, hypernatremia, acute on chronic renal failure, severe protein-calorie malnutrition, toxic metabolic encephalopathy, dementia, metabolic acidosis, lactic acidemia, elevated troponin, possible demand ischemia, leukocytosis, probable sepsis, anemia. PLAN care noted monitor blood pressure iv antibiotics oxygen needs DNR close follow up critical medications/laboratory data/nursing notes/ICU care reviewed in detail note reviewed and edited care discussed with RN and RT ICU time spent >40 minutes Critical Care - Subjective Interval Events: hypotensive DNR reduced LOC oxygen needs reviewed ROS Limited/Unobtainable: Yes Condition: critical EKG Rhythm: Sinus Rhythm I&O: Intake and Output 12/13/19 12/14/19 19:00 07:00 Intake Total 1628.221 ml 2243.900 ml Output Total 1090 ml 890 ml Balance 538.221 ml 1353.900 ml Intake IV Total 1628.221 ml 2243.900 ml Output Urine Total 1090 ml 890 ml # Bowel Movements 1 Critical Care - Objective Last 24 Hour Vital Signs Date Time Temp Pulse Resp B/P (MAP) Pulse Ox O2 Delivery O2 Flow Rate FiO2 12/14/19 07:39 75/30 12/14/19 07:00 81 30 83/38 (53) 100 12/14/19 07:00 78/50 12/14/19 06:30 85 28 71/33 (46) 100 12/14/19 06:00 83 27 73/33 (46) 100 12/14/19 06:00 75/30 12/14/19 05:47 78/38 12/14/19 05:30 90 30 78/38 (51) 100 12/14/19 05:00 55/42 12/14/19 05:00 91 31 90/39 (56) 100 12/14/19 04:30 94 35 72/37 (49) 100 12/14/19 04:21 83 28 60/38 (45) 100 12/14/19 04:00 Nasal Cannula 4.0 12/14/19 04:00 99.0 94 36 68/34 (45) 100 12/14/19 04:00 70/36 12/14/19 04:00 90 12/14/19 03:30 101 34 80/37 (51) 99 12/14/19 03:03 77/50 12/14/19 03:00 80/56 12/14/19 03:00 107 37 77/36 (50) 86 12/14/19 02:30 115 27 75/57 (63) 92 12/14/19 02:00 104 23 92/42 (59) 95 12/14/19 02:00 80/37 12/14/19 01:30 107 24 89/38 (55) 95 12/14/19 01:00 93/48 12/14/19 01:00 107 22 92/48 (63) 96 12/14/19 00:30 105 22 101/46 (64) 97 12/14/19 00:00 106/54 12/14/19 00:00 106 12/14/19 00:00 98.2 103 22 105/52 (69) 99 12/14/19 00:00 Nasal Cannula 4.0 12/13/19 23:30 100 24 109/53 (71) 99 12/13/19 23:00 104 25 111/54 (73) 99 12/13/19 23:00 108/56 12/13/19 22:30 99 21 105/53 (70) 96 12/13/19 22:25 72/28 12/13/19 22:00 108 25 99/51 (67) 95 12/13/19 22:00 68/35 12/13/19 21:30 113 27 98/51 (67) 96 12/13/19 21:15 113 28 93/48 (63) 96 12/13/19 21:00 93/46 12/13/19 21:00 117 26 101/48 (65) 96 12/13/19 20:45 117 28 97/50 (66) 97 12/13/19 20:30 122 31 103/52 (69) 96 12/13/19 20:00 Nasal Cannula 4.0 12/13/19 20:00 100/53 12/13/19 20:00 112 12/13/19 20:00 98.8 122 32 96/54 (68) 95 12/13/19 19:00 106/54 12/13/19 19:00 117 24 103/55 (71) 97 12/13/19 18:30 113 21 101/62 (75) 97 12/13/19 18:00 98.0 110 22 105/56 (72) 97 12/13/19 18:00 106/54 12/13/19 17:59 95 Venturi Mask 14.0 55 12/13/19 17:51 101/47 12/13/19 17:00 100/44 12/13/19 17:00 114 25 101/47 (65) 93 12/13/19 16:00 Nasal Cannula 4.0 12/13/19 16:00 110/53 12/13/19 16:00 110 25 104/49 (67) 94 12/13/19 16:00 112 12/13/19 15:00 106/62 12/13/19 15:00 94 22 66/33 (44) 100 12/13/19 14:00 98 29 92/48 (63) 100 12/13/19 14:00 81/44 12/13/19 13:00 75 16 78/40 (53) 100 12/13/19 13:00 79/40 12/13/19 12:00 94/51 12/13/19 12:00 71 12/13/19 12:00 Nasal Cannula 4.0 12/13/19 12:00 97.5 82 21 101/54 (70) 100 12/13/19 12:00 6.0 12/13/19 11:30 82 16 91/49 (63) 99 12/13/19 11:02 90/48 12/13/19 11:00 65 13 79/45 (56) 100 12/13/19 10:30 70 13 82/43 (56) 98 12/13/19 10:00 87 17 96/66 (76) 98 12/13/19 10:00 83/52 12/13/19 09:30 60 13 79/45 (56) 98 12/13/19 09:00 78/45 12/13/19 09:00 62 13 81/44 (56) 96 12/13/19 08:30 62 13 81/48 (59) 96 Labs: Labs Test 12/13/19 01:00 12/13/19 01:15 12/13/19 01:30 12/13/19 02:15 White Blood Count 15.5 K/UL (4.8-10.8) Red Blood Count 3.87 M/UL (4.20-5.40) Hemoglobin 10.6 G/DL (12.0-16.0) Hematocrit 34.1 % (37.0-47.0) Mean Corpuscular Volume 88 FL (80-99) Mean Corpuscular Hemoglobin 27.3 PG (27.0-31.0) Mean Corpuscular Hemoglobin Concent 31.0 G/DL (32.0-36.0) Red Cell Distribution Width 14.3 % (11.6-14.8) Platelet Count 174 K/UL (150-450) Mean Platelet Volume 7.9 FL (6.5-10.1) Neutrophils (%) (Auto) % (45.0-75.0) Lymphocytes (%) (Auto) % (20.0-45.0) Monocytes (%) (Auto) % (1.0-10.0) Eosinophils (%) (Auto) % (0.0-3.0) Basophils (%) (Auto) % (0.0-2.0) Prothrombin Time 11.1 SEC (9.30-11.50) Prothromb Time International Ratio 1.0 (0.9-1.1) Activated Partial Thromboplast Time 28 SEC (23-33) Sodium Level 168 MMOL/L (136-145) Potassium Level 3.9 MMOL/L (3.5-5.1) Chloride Level 127 MMOL/L (98-107) Carbon Dioxide Level 25 MMOL/L (21-32) Anion Gap 17 mmol/L (5-15) Blood Urea Nitrogen 126 mg/dL (7-18) Creatinine 2.8 MG/DL (0.55-1.30) Estimat Glomerular Filtration Rate 16.4 mL/min (>60) Glucose Level 798 MG/DL (74-106) Hemoglobin A1c 8.5 % (4.3-6.0) Lactic Acid Level 5.20 mmol/L (0.4-2.0) 5.60 mmol/L (0.66-2.22) Calcium Level 8.2 MG/DL (8.5-10.1) Phosphorus Level 5.4 MG/DL (2.5-4.9) Magnesium Level 3.4 MG/DL (1.8-2.4) Total Bilirubin 0.3 MG/DL (0.2-1.0) Aspartate Amino Transf (AST/SGOT) 45 U/L (15-37) Alanine Aminotransferase (ALT/SGPT) 44 U/L (12-78) Alkaline Phosphatase 145 U/L (46-116) Total Creatine Kinase 650 U/L (26-308) Creatine Kinase MB 1.0 NG/ML (0.0-3.6) Creatine Kinase MB Relative Index 0.1 Troponin I 0.103 ng/mL (0.000-0.056) Pro-B-Type Natriuretic Peptide 827 pg/mL (0-125) Total Protein 7.0 G/DL (6.4-8.2) Albumin 1.8 G/DL (3.4-5.0) Globulin 5.2 g/dL Albumin/Globulin Ratio 0.3 (1.0-2.7) Acetone Level Negative (NEGATIVE) Arterial Blood pH 7.315 (7.350-7.450) Arterial Blood Partial Pressure CO2 28.4 mmHg (35.0-45.0) Arterial Blood Partial Pressure O2 53.2 mmHg (75.0-100.0) Arterial Blood HCO3 14.1 mmol/L (22.0-26.0) Arterial Blood Oxygen Saturation 79.2 % (95-100) Arterial Blood Base Excess -11 (-2-2) Miki Test Positive Urine Color Yellow Urine Appearance Cloudy Urine pH 5 (4.5-8.0) Urine Specific [place] 1.025 (1.005-1.035) Urine Protein 3+ (NEGATIVE) Urine Glucose (UA) 3+ (NEGATIVE) Urine Ketones 1+ (NEGATIVE) Urine Blood 2+ (NEGATIVE) Urine Nitrite Negative (NEGATIVE) Urine Bilirubin Negative (NEGATIVE) Urine Urobilinogen 1 MG/DL (0.0-1.0) Urine Leukocyte Esterase 3+ (NEGATIVE) Urine RBC 5-10 /HPF (0 - 2) Urine WBC Tntc /HPF (0 - 2) Urine Squamous Epithelial Cells Many /LPF (NONE/OCC) Urine Bacteria Many /HPF (NONE) Urine Yeast Few /HPF (NONE) Test 12/13/19 15:50 12/13/19 21:50 12/14/19 03:55 Sodium Level 167 MMOL/L (136-145) 162 MMOL/L (136-145) Potassium Level 2.4 MMOL/L (3.5-5.1) 2.9 MMOL/L (3.5-5.1) Chloride Level 129 MMOL/L (98-107) 124 MMOL/L (98-107) Carbon Dioxide Level 21 MMOL/L (21-32) 21 MMOL/L (21-32) Anion Gap 17 mmol/L (5-15) 16 mmol/L (5-15) Blood Urea Nitrogen 69 mg/dL (7-18) 45 mg/dL (7-18) Creatinine 1.2 MG/DL (0.55-1.30) 1.3 MG/DL (0.55-1.30) Estimat Glomerular Filtration Rate 43.6 mL/min (>60) 39.7 mL/min (>60) Glucose Level 400 MG/DL (74-106) 533 MG/DL (74-106) Lactic Acid Level 2.30 mmol/L (0.4-2.0) 4.50 mmol/L (0.4-2.0) 6.50 mmol/L (0.4-2.0) Calcium Level 6.5 MG/DL (8.5-10.1) 6.3 MG/DL (8.5-10.1) Total Bilirubin 0.3 MG/DL (0.2-1.0) 0.3 MG/DL (0.2-1.0) Aspartate Amino Transf (AST/SGOT) 54 U/L (15-37) 38 U/L (15-37) Alanine Aminotransferase (ALT/SGPT) 37 U/L (12-78) 30 U/L (12-78) Alkaline Phosphatase 148 U/L (46-116) 100 U/L (46-116) Total Protein 6.0 G/DL (6.4-8.2) 5.1 G/DL (6.4-8.2) Albumin 1.4 G/DL (3.4-5.0) 1.2 G/DL (3.4-5.0) Globulin 4.6 g/dL 3.9 g/dL Albumin/Globulin Ratio 0.3 (1.0-2.7) 0.3 (1.0-2.7) White Blood Count 8.8 K/UL (4.8-10.8) Red Blood Count 3.09 M/UL (4.20-5.40) Hemoglobin 8.5 G/DL (12.0-16.0) Hematocrit 27.0 % (37.0-47.0) Mean Corpuscular Volume 87 FL (80-99) Mean Corpuscular Hemoglobin 27.6 PG (27.0-31.0) Mean Corpuscular Hemoglobin Concent 31.6 G/DL (32.0-36.0) Red Cell Distribution Width 14.1 % (11.6-14.8) Platelet Count 88 K/UL (150-450) Mean Platelet Volume 8.8 FL (6.5-10.1) Neutrophils (%) (Auto) % (45.0-75.0) Lymphocytes (%) (Auto) % (20.0-45.0) Monocytes (%) (Auto) % (1.0-10.0) Eosinophils (%) (Auto) % (0.0-3.0) Basophils (%) (Auto) % (0.0-2.0) Magnesium Level 2.0 MG/DL (1.8-2.4) Troponin I 0.062 ng/mL (0.000-0.056) Random Vancomycin Level 10.2 ug/mL Objective: GENERAL: The patient is chronically ill. HEENT: Overall negative. NECK: Supple. LUNGS: Moderate breath sounds. Scattered rhonchi. no wheeze CARDIAC: S1 and S2, currently regular rate and rhythm. ABDOMEN: Overall soft, nontender. EXTREMITIES: No significant edema. Decreased range of motion. G-tube in place. Depressed affect. Aphasic. reviewed and edited Micro: Microbiology Date/Time Source Procedure Growth Status 12/13/19 01:15 Blood Blood Culture - Preliminary NO GROWTH AFTER 24 HOURS Resulted 12/13/19 01:00 Blood Blood Culture - Preliminary NO GROWTH AFTER 24 HOURS Resulted 12/13/19 01:50 Nasal Nares - Final Complete 12/13/19 01:50 Nasal Nares - Final Complete 12/13/19 01:30 Urine,Clean Catch Urine Culture - Preliminary Gram Negative Jose Carlos Strep Species, Gamma-Hemolytic Resulted 12/13/19 01:35 Rectum Received Accucheck: 433 Tonny Ramirez MD December 14, 2019 08:30
--- NOTE | 2019-12-14 08:44 | NUR ---
CASE MANAGEMENT: INITIAL REVIEW 79YR OLD FEMALE [facility] CC: DYSPNEA / RESPIRATORY DISTRESS / O2 SAT 86% / HYPOTENSIVE 59/51 PMH: END STAGE RENAL DISEASE; ON HOSPICE; CHANGE TO FULL CODE SI: UNCONTROLLED DIABETES MELLITUS . COVID-19 SUSPECTED R/O . UTI 103.1 110 26 97 89% ON 4L NC TROP 0.103 BNP 827 ALB 1.8 NA+ 168 BG 798 CL-127 ANION GAP 17 BUN/CREAT 126/2.8 LACTIC ACID 5.2 PHOS 5.4 MG 3.4 ALKP 145 T CK 650 K+2.4 ABG: pH 7.315 pCO2 28.4 pO2 53.2 HCO3 14.1 O2 SAT 79.2 IS:IVF NS BOLUS X1 IV FLAGYL X1 IV VANCOMYCIN X1 TYLENOL GT X1 IV NOVOLIN R X1 \: INTENSIVE CARE UNIT DCP:[facility] PLAN: HYDRATE MONITOR BG START ON DOPAMINE URINE CX BLOOD CX CASE MANAGEMENT: REVIEW 12/14/2019 SI: UNCONTROLLED DIABETES MELLITUS . COVID-19 SUSPECTED R/O . UTI 99.0 94 36 68/34 100% ON 4L NC TROP 0.062 ALB 1.2 NA+ 162 K+ 2.9 BG 533 CL-124 BUN 45 LACTIC ACID 6.50 ABG: pH 7.478 pCO2 22.1 pO2 322.3 HCO3 16.0 IS:DOPAMINE Q24 IV CEFEPIME BID IV D5@ 150ML/HR HEPARIN SQ BID \: INTENSIVE CARE UNIT DCP:[facility] PLAN: HYDRATE MONITOR BG
--- NOTE | 2019-12-14 08:59 | NUR ---
RADIOLOGY DEPT., CHEST X-RAY DONE.-P.DYE
[2019-12-14] MEDS ORDERED: NovoLOG Insulin Flexpen SUBQ SCH (09:00)
--- NOTE | 2019-12-14 09:00 | NUR ---
NURSE NOTES: After ABG result, RT placed pt on Simple Mask 5L. Pt tolerating well. O2Sat 94%.
[2019-12-14] MEDS: Cefepime HCl 500 MG in D5W 55 ML IVPB SCH ×2 (09:29→20:47)
[2019-12-14] MEDS: Heparin 5000 units/ml inj SUBQ SCH ×2 (09:30→20:47)
[2019-12-14] MEDS: Levemir Flexpen SUBQ SCH ×2 (10:13→21:34)
--- NOTE | 2019-12-14 11:00 | NUR ---
NURSE NOTES: Dr Hsu at bedside assessing pt. Updated him on pt's current condition. No new orders at this time. Pt remains on Levophed at 14mcg/min to maintain SBP >90. No distress noted.
--- NOTE | 2019-12-14 13:00 | NUR ---
NURSE NOTES: Pt turned and repositioned for comfort. Oral care completed. No distress noted at this time. SBP being maintained >90.
--- NOTE | 2019-12-14 14:14 | Surgery Progress Note ---
Surgery Progress Note Subjective Procedure Performed left subclavian central venous catheter insertion Additional Comments Left central venous catheter remains in place. Prominent vascular markings again noted. There is slight increase in prominence of the bibasilar densities although this may be slightly exaggerated by underpenetrated technique. Cardiac and mediastinal silhouette are within normal limits. CP angles are sharp. The bony thorax appear unremarkable Bibasilar infiltrates may be slightly more prominent although this may be exaggerated by underpenetrated technique. resp unchaged Objective Last 24 Hour Vital Signs Date Time Temp Pulse Resp B/P (MAP) Pulse Ox O2 Delivery O2 Flow Rate FiO2 12/14/19 12:00 Simple Mask 5.0 12/14/19 11:00 83/42 12/14/19 10:00 132 25 138/58 (84) 96 12/14/19 10:00 138/58 12/14/19 10:00 138/58 12/14/19 09:45 87 31 92/45 (61) 97 12/14/19 09:31 71/29 12/14/19 09:30 90 31 73/30 (44) 97 12/14/19 09:15 84 29 71/29 (43) 96 12/14/19 09:00 65/31 12/14/19 09:00 84 31 65/31 (42) 97 12/14/19 08:45 89 33 66/31 (43) 100 12/14/19 08:30 78 28 70/33 (45) 100 12/14/19 08:15 78 29 62/35 (44) 100 12/14/19 08:00 Simple Mask 5.0 12/14/19 08:00 99.4 80 27 71/34 (46) 100 12/14/19 08:00 71/34 12/14/19 08:00 5.0 12/14/19 07:45 81 29 78/35 (49) 100 12/14/19 07:39 75/30 12/14/19 07:30 78 29 75/30 (45) 100 12/14/19 07:15 90 Non-Rebreather 15.0 100 12/14/19 07:00 81 30 83/38 (53) 100 12/14/19 07:00 78/50 12/14/19 06:30 85 28 71/33 (46) 100 12/14/19 06:00 83 27 73/33 (46) 100 12/14/19 06:00 75/30 12/14/19 05:47 78/38 12/14/19 05:30 90 30 78/38 (51) 100 12/14/19 05:00 55/42 12/14/19 05:00 91 31 90/39 (56) 100 12/14/19 04:30 94 35 72/37 (49) 100 12/14/19 04:21 83 28 60/38 (45) 100 12/14/19 04:00 Nasal Cannula 4.0 12/14/19 04:00 99.0 94 36 68/34 (45) 100 12/14/19 04:00 70/36 12/14/19 04:00 90 12/14/19 03:30 101 34 80/37 (51) 99 12/14/19 03:03 77/50 12/14/19 03:00 80/56 12/14/19 03:00 107 37 77/36 (50) 86 12/14/19 02:30 115 27 75/57 (63) 92 12/14/19 02:00 104 23 92/42 (59) 95 12/14/19 02:00 80/37 12/14/19 01:30 107 24 89/38 (55) 95 12/14/19 01:00 93/48 12/14/19 01:00 107 22 92/48 (63) 96 12/14/19 00:30 105 22 101/46 (64) 97 12/14/19 00:00 106/54 12/14/19 00:00 106 12/14/19 00:00 98.2 103 22 105/52 (69) 99 12/14/19 00:00 Nasal Cannula 4.0 12/13/19 23:30 100 24 109/53 (71) 99 12/13/19 23:00 104 25 111/54 (73) 99 12/13/19 23:00 108/56 12/13/19 22:30 99 21 105/53 (70) 96 12/13/19 22:25 72/28 12/13/19 22:00 108 25 99/51 (67) 95 12/13/19 22:00 68/35 12/13/19 21:30 113 27 98/51 (67) 96 12/13/19 21:15 113 28 93/48 (63) 96 12/13/19 21:00 93/46 12/13/19 21:00 117 26 101/48 (65) 96 12/13/19 20:45 117 28 97/50 (66) 97 12/13/19 20:30 122 31 103/52 (69) 96 12/13/19 20:00 Nasal Cannula 4.0 12/13/19 20:00 100/53 12/13/19 20:00 112 12/13/19 20:00 98.8 122 32 96/54 (68) 95 12/13/19 19:00 106/54 12/13/19 19:00 117 24 103/55 (71) 97 12/13/19 18:30 113 21 101/62 (75) 97 12/13/19 18:00 98.0 110 22 105/56 (72) 97 12/13/19 18:00 106/54 12/13/19 17:59 95 Venturi Mask 14.0 55 12/13/19 17:51 101/47 12/13/19 17:00 100/44 12/13/19 17:00 114 25 101/47 (65) 93 12/13/19 16:00 Nasal Cannula 4.0 12/13/19 16:00 110/53 12/13/19 16:00 110 25 104/49 (67) 94 12/13/19 16:00 112 12/13/19 15:00 106/62 12/13/19 15:00 94 22 66/33 (44) 100 I&O Intake and Output 12/13/19 12/14/19 19:00 07:00 Intake Total 1628.221 ml 2243.900 ml Output Total 1090 ml 890 ml Balance 538.221 ml 1353.900 ml IV Total 1628.221 ml 2243.900 ml Output Urine Total 1090 ml 890 ml # Bowel Movements 1 Dressing: other Wound: other Drains: other Cardiovascular: RSR Respiratory: decreased breath sounds Abdomen: soft, decreased bowel sounds Extremities: edema, no cyanosis Laboratory Tests Test 12/13/19 15:50 12/13/19 21:50 12/14/19 03:55 12/14/19 08:30 Sodium Level 167 MMOL/L (136-145) *H 162 MMOL/L (136-145) *H Potassium Level 2.4 MMOL/L (3.5-5.1) *L 2.9 MMOL/L (3.5-5.1) L Chloride Level 129 MMOL/L (98-107) H 124 MMOL/L (98-107) H Carbon Dioxide Level 21 MMOL/L (21-32) 21 MMOL/L (21-32) Anion Gap 17 mmol/L (5-15) H 16 mmol/L (5-15) H Blood Urea Nitrogen 69 mg/dL (7-18) H 45 mg/dL (7-18) H Creatinine 1.2 MG/DL (0.55-1.30) # 1.3 MG/DL (0.55-1.30) Estimat Glomerular Filtration Rate 43.6 mL/min (>60) 39.7 mL/min (>60) Glucose Level 400 MG/DL (74-106) #H 533 MG/DL (74-106) #*H Lactic Acid Level 2.30 mmol/L (0.4-2.0) H 4.50 mmol/L (0.4-2.0) H 6.50 mmol/L (0.4-2.0) H Calcium Level 6.5 MG/DL (8.5-10.1) #L 6.3 MG/DL (8.5-10.1) L Total Bilirubin 0.3 MG/DL (0.2-1.0) 0.3 MG/DL (0.2-1.0) Aspartate Amino Transf (AST/SGOT) 54 U/L (15-37) H 38 U/L (15-37) H Alanine Aminotransferase (ALT/SGPT) 37 U/L (12-78) 30 U/L (12-78) Alkaline Phosphatase 148 U/L (46-116) H 100 U/L (46-116) Total Protein 6.0 G/DL (6.4-8.2) L 5.1 G/DL (6.4-8.2) L Albumin 1.4 G/DL (3.4-5.0) L 1.2 G/DL (3.4-5.0) L Globulin 4.6 g/dL 3.9 g/dL Albumin/Globulin Ratio 0.3 (1.0-2.7) L 0.3 (1.0-2.7) L White Blood Count 8.8 K/UL (4.8-10.8) Red Blood Count 3.09 M/UL (4.20-5.40) L Hemoglobin 8.5 G/DL (12.0-16.0) L Hematocrit 27.0 % (37.0-47.0) L Mean Corpuscular Volume 87 FL (80-99) Mean Corpuscular Hemoglobin 27.6 PG (27.0-31.0) Mean Corpuscular Hemoglobin Concent 31.6 G/DL (32.0-36.0) L Red Cell Distribution Width 14.1 % (11.6-14.8) Platelet Count 88 K/UL (150-450) L Mean Platelet Volume 8.8 FL (6.5-10.1) Neutrophils (%) (Auto) % (45.0-75.0) Lymphocytes (%) (Auto) % (20.0-45.0) Monocytes (%) (Auto) % (1.0-10.0) Eosinophils (%) (Auto) % (0.0-3.0) Basophils (%) (Auto) % (0.0-2.0) Differential Total Cells Counted 100 Neutrophils % (Manual) 91 % (45-75) H Lymphocytes % (Manual) 6 % (20-45) L Monocytes % (Manual) 3 % (1-10) Eosinophils % (Manual) 0 % (0-3) Basophils % (Manual) 0 % (0-2) Band Neutrophils 0 % (0-8) Platelet Estimate Decreased L Platelet Morphology Normal Hypochromasia 1+ Anisocytosis 1+ Magnesium Level 2.0 MG/DL (1.8-2.4) Troponin I 0.062 ng/mL (0.000-0.056) Random Vancomycin Level 10.2 ug/mL Arterial Blood pH 7.478 (7.350-7.450) Arterial Blood Partial Pressure CO2 22.1 mmHg (35.0-45.0) *L Arterial Blood Partial Pressure O2 322.3 mmHg (75.0-100.0) H Arterial Blood HCO3 16.0 mmol/L (22.0-26.0) *L Arterial Blood Oxygen Saturation 98.9 % (95-100) Arterial Blood Base Excess -6.5 (-2-2) L Miki Test Positive Test 12/14/19 08:50 Lactic Acid Level 6.40 mmol/L (0.4-2.0) H Plan Problems: (1) Uncontrolled diabetes mellitus (2) Suspected 2019 novel coronavirus infection Assessment & Plan: pending test (3) Septic shock Assessment & Plan: septic hypotension line placed see note resuscitation initiated discussed in detail with daughter at bedside for ome time tren dlabs fluids pressors will follow with recs (4) Lactic acidosis (5) Respiratory failure (6) Decubitus skin ulcer Assessment & Plan: Pt presented on admission with multiple pressure injuries. Unstageable Sacral Pressure injury with presents as open DTPI. Soft necrosis at Base of wound with marginal erythema along edges.Small opening noted to L sacrum. No odor or exudate noted. Periwound without evidence of further skin breakdown. DTPI noted to medial L malleolus. Base of wound is maroon with marginal erythema. DTPI medial L heel base of wound is maroon with fluctuance. DTPI L Hallux. Base of wound is maroon with marginal erythema along borders. Reabsorbing DTPI lateral L heel. Base of injury ids dry. Unstageable pressure injuries noted to distal/lateral R foot. Soft necrosis at base of wound. Unstageable pressure injury dorso/lateral R 5th metatarsal. Soft necrosis at base of wound. Unstageable pressure injury web space of R 4th metatarsal. Base of wound is necrotic and partially opened. no exudate noted. DTPI noted to R lateral malleolus. Base of wound is maroon and soft with marginal erythema along borders. Tx.Plan: Cleanse Sacral wound with Saline. Apply TheraHoney. Apply Moisture Barrier paste periwound. Cover with Optifoam drsg. Change every 3 days and prn. Apply Betadine to wounds Distal /lateral R foot, R 4th and 5th metatarsals. Cover with Optifoam drsg every 3 days and prn. Apply Cavilon to both heels, Both hallux and malleoli. Cover each site with Optifoam drgs. Change every 7 days and prn. Reposition at least every 2hours or as tolerated. Place Pillow between knees. Off-load heels with Pillow. APM/MELANIE Mattress overlay. Joce Campbell December 14, 2019 14:14
--- NOTE | 2019-12-14 15:00 | NUR ---
NURSE NOTES: Pt on Levophed 12mcg/min. SBP maintained above 90. Pt turned and repositioned for comfort. Oral care done. Pt remains on a simple mask 5L. No respiratory distress noted.
--- NOTE | 2019-12-14 16:30 | Diagnostic Imaging Report ---
Procedure: XRAY Chest 1v Reason for study: Reason For Exam: SOB Comparison films: 12/13/2019. FINDINGS: Left central venous catheter remains in place. Prominent vascular markings again noted. There is slight increase in prominence of the bibasilar densities although this may be slightly exaggerated by underpenetrated technique. Cardiac and mediastinal silhouette are within normal limits. CP angles are sharp. The bony thorax appear unremarkable. IMPRESSION: Bibasilar infiltrates may be slightly more prominent although this may be exaggerated by underpenetrated technique.
--- NOTE | 2019-12-14 16:30 | Diagnostic Imaging Report ---
Procedure: XRAY Chest 1v Reason for study: Central line placement. Comparison films: 12/13/2019. FINDINGS: There is a left subclavian line with the tip in the SVC. No pneumothorax noted. Vascularity is normal. Bilateral alveolar infiltrates unchanged. Cardiac and mediastinal silhouette are within normal limits. CP angles are sharp. The bony thorax appear unremarkable. IMPRESSION: Left central venous catheter in place with tip in SVC. No pneumothorax. No change alveolar infiltrates.
--- NOTE | 2019-12-14 16:30 | Diagnostic Imaging Report ---
Procedure: XRAY Chest 1v Reason for study: Reason For Exam: SOB Comparison films: None. FINDINGS: A single one view chest is obtained. Vascularity is normal. Mild hazy bibasilar infiltrates noted. Cardiac and mediastinal silhouette are within normal limits. CP angles are sharp. The bony thorax appear unremarkable. IMPRESSION: Bibasilar infiltrates.
--- NOTE | 2019-12-14 17:00 | NUR ---
NURSE NOTES: Pt fully cleaned after a large soft brown/reddish tint BM. Pt turned and repositioned for comfort. Oral care done. Pt has difficulty clearing secretions and are easily heard when pt breathes; RT informed.
--- NOTE | 2019-12-14 19:12 | NUR ---
HAND-OFF: Report given to LORNA Nixon.
--- NOTE | 2019-12-14 19:15 | NUR ---
NURSE NOTES: Received change of shift report from LORNA Escobar. Pt is nonverbal, opens eyes spontaneously not tracking. Pt is on 5L of oxygen via Simple Mask satting 85-90% ST on cardiac monitor technician HR 111. Left Subclavian TLC infusing Levophed at 12mcg/min. BP 114/50. Pt has peripheral IV access on right AC #22G and Lt AC #20g. GT present and patent and NPO/no feeding order at this time. HOB elevated. Griffin catheter intact draining yellow urine to urometer. Skin has sacral and left buttock DTI, bilateral heels and scattered petechiae on extremities, all covered with Optifoam dressings. Droplet and contact isolation maintained and observed. PUI. Bed alarm on. bed locked and in low position. Code status DNR/DNI comfort measure provided. Will continue plan of care.
[2019-12-14] MEDS: Dyna-Hex 2% Top Sol 2oz TOPIC SCH (20:43)
--- NOTE | 2019-12-14 21:15 | NUR ---
NURSE NOTES: Patient in bed sleeping comfortably. continue on Levophed at 12mcg/min BP98/19. repositioned patient in bed. comfort measure provided. will continue plan of care. Addendum: 12/15/19 at 2220 by CESAR CAST RN noted patient with redness on right ear, initial treatment done.
--- NOTE | 2019-12-14 23:15 | NUR ---
NURSE NOTES: Patient in bed sleeping comfortably. continue on Levophed at 12mcg/min BP95/50. repositioned patient in bed. comfort measure provided. will continue plan of care.
[2019-12-15] VITALS (79 sets, daily range): BP systolic 58–151; BP diastolic 32–83
--- NOTE | 2019-12-15 01:00 | NUR ---
NURSE NOTES: Bed bath given. with large BM. Titrated Levophed to 15mcg/min BP 105/65. repositioned patient in bed. comfort measure provided. will continue plan of care.
--- NOTE | 2019-12-15 03:00 | NUR ---
NURSE NOTES: Patient in bed sleeping comfortably. Titrated Levophed to 20mcg/min BP96/48. repositioned patient in bed. comfort measure provided. will continue plan of care.
[2019-12-15] MEDS: D5W w/KCl 20mEq 1,000 ML IV SCH ×3 (03:02→15:17)
--- NOTE | 2019-12-15 03:44 | Progress Note ---
DATE: 12/14/2019 CARDIOLOGY PROGRESS NOTE SUBJECTIVE: The patient remains on pressor support. Blood pressure is tenuous. She remains in sinus rhythm. Low-grade temperatures. Episodes of sinus tachycardia as well. The patient has also had bright red blood per rectum. PHYSICAL EXAMINATION: VITAL SIGNS: Blood pressure 83/38, pulse 81, respiratory rate 30, afebrile, T-max 99. LUNGS: Bilateral breath sounds with rhonchi. CARDIAC: Regular rhythm and rate. Normal S1 and S2. ABDOMEN: Soft. Poorly responsive. EXTREMITIES: Positive dependent edema. LABORATORY DATA: White count 8.8, hemoglobin 8.5. Lactic acid 6.5. Troponin 0.062. Albumin 1.2. Glucose 533, BUN 45, creatinine 1.3. Sodium 162, potassium 2.9, chloride 124, bicarb 21. IMPRESSION: 1. Multiorgan system failure, critical and guarded. 2. Dehydration. 3. Hypokalemia. 4. Hypernatremia. 5. Hyperchloremia. 6. Prerenal azotemia. 7. Acute renal failure. 8. Type 2 diabetes mellitus, uncontrolled. 9. Sepsis with shock. 10. Hypovolemic shock. 11. Lactic acidosis. 12. Acute myocardial ischemia. PLAN: 1. Pressor support. 2. Respiratory hygiene. 3. Volume support. 4. Hypotonic fluids. 5. Replace potassium. 6. DVT prophylaxis. 7. Broad-spectrum antimicrobials. 8. Monitor acid-based status. 9. The patient is DNR and appropriate measure in this clinical scenario as per the patient's family discussions with Dr. Humphrey. Slava Hsu M.D. DR: MINA JOB#: [id number] CC:
[2019-12-15] MEDS: NovoLOG Insulin Flexpen SUBQ SCH ×6 (04:00→20:57)
--- NOTE | 2019-12-15 05:00 | NUR ---
NURSE NOTES: Patient in bed oral care provided. HOB elevated. Continue on 100% Non-rebreather mask satting 100%. HOB elevated. Comfort measure provided. Droplet nad contact isolation maintained and observed.
[2019-12-15 06:07] LABS: HEMATOCRIT 29.5 % (37.0-47.0); HEMOGLOBIN 9.7 G/DL (12.0-16.0); MEAN CORPUSCULAR VOLUME 84 FL (80-99); PLATELET COUNT 105 K/UL (150-450); RED BLOOD COUNT 3.52 M/UL (4.20-5.40); RED CELL DISTRIBUTION WIDTH 13.3 % (11.6-14.8); WHITE BLOOD COUNT 14.1 K/UL (4.8-10.8)
[2019-12-15 07:30] LABS: ANION GAP 16 mmol/L (5-15); BLOOD UREA NITROGEN 20 mg/dL (7-18); CALCIUM 6.4 MG/DL (8.5-10.1); CARBON DIOXIDE 20 MMOL/L (21-32); CHLORIDE 111 MMOL/L (98-107); CREATININE 0.9 MG/DL (0.55-1.30); POTASSIUM 3.4 MMOL/L (3.5-5.1); SODIUM 147 MMOL/L (136-145)
--- NOTE | 2019-12-15 07:38 | NUR ---
HAND-OFF: Report given to LORNA Doyle.
--- NOTE | 2019-12-15 07:39 | NUR ---
NURSE NOTES: Received patient in bed from Tiffani ROTHMAN. 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 patient is on 15L nonrebreather, tachypnic RR of 30's. patient has left subclavian TLC dressing dry intact, infusing Levophed at 20mcg/min. patient gtube intact, patent. HOB elevated. Griffin catheter intact draining clear yellow urine by gravity. patient's covid 19 test result came back negative, notified to CN. Contact isolation maintained. Bed in lowest position, bed alarm on and locked. Will continue to monitor.
--- NOTE | 2019-12-15 07:58 | NUR ---
RD ASSESSMENT & RECOMMENDATIONS SEE CARE ACTIVITY FOR COMPLETE ASSESSMENT DAILY ESTIMATED NEEDS: Needs based on Pulmonary, wounds, sepsis/ 51kg abw 25-30 kcals/kg 8659-6058 total kcals 1.25-2 g protein/kg 63-102 g total protein 25-30 mL/kg 2939-6004 total fluid mLs NUTRITION DIAGNOSIS: * Increased kcal/prot needs R/T wound healing as evidenced by pt admitted w/ multiple unstageable and DTPI wounds, refer to WC eval. * Swallowing difficulty R/T dysphagia as evidenced by PEG dep. CURRENT TF:NPO ENTERAL NUTRITION RECOMMENDATIONS: Glucerna 1.5 @ 40ml/hr x 24 hrs to provide 960ml, 1440kcal, 79g prot, 729ml free water * W/ hemodynamic stability, initiate Glucerna 1.5 @ 20ml/hr x 6hrs * Advance 10ml q 4-6 hrs as tolerated to goal rate * HOB over 30 degrees/ water flush per MD. WITHOUT HEMODYNAMIC STABILITY: rec trophic feeding of Glucerna 1.5 @ 10ml/hr x 24 hrs ADDITIONAL RECOMMENDATIONS: * Per SNF: HT=61" PO=825vtq ("October wts" per SNF) -> rec to re-calibrate bedscale wt * Monitor hemodynamic stability: on NE @ 20mcg * Monitor BGs closely: BG 798 upon adm -> improved monitor for hypoglycemia while NPO- on D5 IVF at this time * Wound healing: add Vit C 500mg QD Sae BID w/ TF order
[2019-12-15] MEDS: Heparin 5000 units/ml inj SUBQ SCH ×2 (08:30→21:00)
[2019-12-15] MEDS: Cefepime HCl 500 MG in D5W 55 ML IVPB SCH (08:30)
[2019-12-15] MEDS: Levemir Flexpen SUBQ SCH ×2 (08:31→20:56)
--- NOTE | 2019-12-15 09:20 | NUR ---
NURSE NOTES: Dr. Humphrey at bedside. notified to Dr. Humphrey regarding patient's covid 19 test done on 12/13/[address] Humphrey ok with the patient on levophed drip and not on dopamine drip. Dr. Humphrey made aware that patient is on nonrebreather 15L and urinary output is good.
--- NOTE | 2019-12-15 10:07 | General Progress Note ---
Assessment/Plan Problem List: (1) Respiratory failure ICD Codes: J96.90 - Respiratory failure, unspecified, unspecified whether with hypoxia or hypercapnia SNOMED: 930360399 (2) Lactic acidosis ICD Codes: E87.2 - Acidosis SNOMED: 79733820 (3) Uncontrolled diabetes mellitus ICD Codes: E11.65 - Type 2 diabetes mellitus with hyperglycemia SNOMED: 35828625, 120837176 (4) Suspected 2019 novel coronavirus infection ICD Codes: Z20.828 - Contact with and (suspected) exposure to other viral communicable diseases SNOMED: 566815889 (5) Septic shock ICD Codes: A41.9 - Sepsis, unspecified organism; R65.21 - Severe sepsis with septic shock SNOMED: 90109831 Status: deteriorating Assessment/Plan: ivf pressors as needed monitor labs/abg o2 as needed free water flushes follow up cultures replace lytes dvt/stress ulcer prophylaxis critical and guarded. prognosis grim d/w family. DNR. asked to reconsider hospice/comfort care cards/id/pulm input appreciated. Subjective ROS Limited/Unobtainable: No Constitutional: Reports: malaise, weakness HEENT: Reports: no symptoms Cardiovascular: Reports: edema Respiratory: Reports: shortness of breath Gastrointestinal/Abdominal: Reports: difficulty swallowing Genitourinary: Reports: no symptoms Neurologic/Psychiatric: Reports: pre-existing deficit Endocrine: Reports: no symptoms Hematologic/Lymphatic: Reports: anemia Allergies: Coded Allergies: PENICILLINS (Verified Allergy, Unknown, 12/14/19) All Systems: reviewed and negative except above Subjective doing poorly. worsening hypotension. on levophed. off dopamine, on nrb. on iv abx. dark stools. labs noted. poorly responsive. Objective Last 24 Hour Vital Signs Date Time Temp Pulse Resp B/P (MAP) Pulse Ox O2 Delivery O2 Flow Rate FiO2 12/15/19 09:50 112/52 12/15/19 08:00 15.0 12/15/19 08:00 86 12/15/19 08:00 Non-Rebreather 15.0 12/15/19 08:00 94 28 112/52 (72) 100 12/15/19 07:30 82 21 103/53 (70) 100 12/15/19 07:00 88 22 135/68 (90) 100 12/15/19 06:30 83 22 121/61 (81) 100 12/15/19 06:25 109/52 12/15/19 06:21 87 23 140/69 (92) 100 12/15/19 06:15 93 28 73/35 (48) 100 12/15/19 06:13 91 31 77/42 (54) 100 12/15/19 06:11 92 28 74/41 (52) 100 12/15/19 05:45 99.1 87 21 110/70 (83) 100 12/15/19 05:30 87 25 109/52 (71) 100 12/15/19 05:15 91 17 120/66 (84) 100 12/15/19 05:00 91 29 114/52 (72) 100 12/15/19 05:00 120/66 12/15/19 04:45 84 24 102/49 (66) 100 12/15/19 04:30 98 30 114/59 (77) 100 12/15/19 04:15 92 28 120/62 (81) 100 12/15/19 04:00 98.4 92 26 119/57 (77) 100 12/15/19 04:00 89 12/15/19 04:00 120/62 12/15/19 04:00 Non-Rebreather 12/15/19 03:45 82 21 103/58 (73) 100 12/15/19 03:30 81 19 101/54 (70) 100 12/15/19 03:26 91 25 109/60 (76) 100 12/15/19 03:15 77 22 81/45 (57) 100 12/15/19 03:08 85 27 96/48 (64) 100 12/15/19 03:00 96/48 12/15/19 03:00 77 21 79/45 (56) 100 12/15/19 02:45 87 26 96/42 (60) 100 12/15/19 02:34 109/76 12/15/19 02:33 109/76 12/15/19 02:30 87 25 109/76 (87) 100 12/15/19 02:23 91 26 120/66 (84) 100 12/15/19 02:19 96 28 74/41 (52) 100 12/15/19 02:16 97 29 83/41 (55) 100 12/15/19 02:15 97 26 76/45 (55) 100 12/15/19 02:00 76/45 12/15/19 02:00 83 25 105/57 (73) 100 12/15/19 01:45 83 27 109/63 (78) 100 12/15/19 01:30 94 31 118/51 (73) 100 12/15/19 01:15 103 29 105/65 (78) 100 12/15/19 01:00 105/65 12/15/19 01:00 91 28 96/48 (64) 100 12/15/19 00:49 95 34 98/52 (67) 100 12/15/19 00:45 85 25 83/53 (63) 100 12/15/19 00:30 88 27 85/36 (52) 100 12/15/19 00:15 92 26 107/59 (75) 100 12/15/19 00:00 107/59 12/15/19 00:00 98.5 99 30 94/45 (61) 100 12/15/19 00:00 100 12/15/19 00:00 Simple Mask 5.0 12/14/19 23:30 97 30 114/53 (73) 100 12/14/19 23:15 96 31 95/50 (65) 100 12/14/19 23:00 98 31 99/51 (67) 100 12/14/19 23:00 95/50 12/14/19 22:45 96 33 109/52 (71) 100 12/14/19 22:30 106 38 114/45 (68) 99 12/14/19 22:15 104 31 101/42 (61) 100 12/14/19 22:00 101/42 12/14/19 22:00 109 33 104/44 (64) 99 12/14/19 21:45 114 31 137/59 (85) 90 12/14/19 21:30 114 33 96/47 (63) 85 12/14/19 21:19 109 35 139/59 (85) 88 12/14/19 21:15 106 32 71/57 (62) 85 12/14/19 21:13 98/19 12/14/19 21:12 98/19 12/14/19 21:00 116 36 98/19 (45) 85 12/14/19 21:00 98/19 12/14/19 20:45 120 40 93/53 (66) 85 12/14/19 20:30 111 32 122/52 (75) 91 12/14/19 20:15 113 33 109/57 (74) 90 12/14/19 20:00 113 12/14/19 20:00 109/57 12/14/19 20:00 99.9 114 32 123/53 (76) 90 12/14/19 20:00 Simple Mask 8.0 12/14/19 19:45 111 29 114/80 (91) 85 12/14/19 19:30 116 32 118/67 (84) 89 12/14/19 19:00 102 30 123/58 (79) 93 12/14/19 19:00 123/58 12/14/19 18:44 87 Simple Mask 8.0 12/14/19 18:30 100 31 129/62 (84) 93 12/14/19 18:00 121/43 12/14/19 18:00 96 31 121/43 (69) 94 12/14/19 17:45 102 31 109/52 (71) 96 12/14/19 17:30 92 25 112/98 (103) 97 12/14/19 17:00 95 29 103/64 (77) 100 12/14/19 17:00 103/64 12/14/19 16:30 90 30 103/64 (77) 100 12/14/19 16:00 99.1 90 29 113/48 (69) 100 12/14/19 16:00 85 12/14/19 16:00 Simple Mask 5.0 12/14/19 15:30 100 32 113/48 (69) 98 12/14/19 15:00 81 24 114/48 (70) 100 12/14/19 15:00 113/48 12/14/19 14:30 80 24 114/48 (70) 100 12/14/19 14:29 99/48 12/14/19 14:00 99/48 12/14/19 14:00 85 31 99/48 (65) 100 12/14/19 13:30 86 27 102/54 (70) 100 12/14/19 13:00 103/46 12/14/19 13:00 83 28 103/46 (65) 100 5/15/20 12:30 82 29 102/45 (64) 100 12/14/19 12:00 Simple Mask 5.0 12/14/19 12:00 89 12/14/19 12:00 94/45 12/14/19 12:00 98.9 83 29 94/45 (61) 100 12/14/19 11:00 88 31 98/48 (65) 99 12/14/19 11:00 83/42 12/14/19 10:30 94 31 84/40 (55) 98 Intake and Output 12/14/19 12/15/19 19:00 07:00 Intake Total 2349.765 ml 2744.25 ml Output Total 1600 ml 930 ml Balance 749.765 ml 1814.25 ml Intake Free Water 300 ml 300 ml IV Total 2049.765 ml 2444.25 ml Output Urine Total 1600 ml 930 ml # Bowel Movements 1 4 Laboratory Tests 12/15/19 04:30: White Blood Count 14.1#H, Red Blood Count 3.52L, Hemoglobin 9.7L, Hematocrit 29.5L, Mean Corpuscular Volume 84, Mean Corpuscular Hemoglobin 27.6, Mean Corpuscular Hemoglobin Concent 33.0, Red Cell Distribution Width 13.3, Platelet Count 105L, Mean Platelet Volume 10.2H, Neutrophils (%) (Auto) , Lymphocytes (% ) (Auto) , Monocytes (%) (Auto) , Eosinophils (%) (Auto) , Basophils (%) (Auto) , Differential Total Cells Counted 100, Neutrophils % (Manual) 71, Lymphocytes % (Manual) 9L, Monocytes % (Manual) 2, Eosinophils % (Manual) 0, Basophils % ( Manual) 0, Band Neutrophils 18H, Platelet Estimate DecreasedL, Platelet Morphology Normal, Anisocytosis 1+, Sodium Level 147H, Potassium Level 3.4L, Chloride Level 111H, Carbon Dioxide Level 20L, Anion Gap 16H, Blood Urea Nitrogen 20H, Creatinine 0.9, Estimat Glomerular Filtration Rate > 60, Glucose Level 260#H, Lactic Acid Level 5.20H, Calcium Level 6.4L, Magnesium Level 1.4L, Troponin I 0.013 Height (Feet): 5 Height (Inches): 6.00 Weight (Pounds): 169 Objective General Appearance: WD/WN, alert, confused EENT: PERRL/EOMI, normal ENT inspection Neck: non-tender, normal alignment, supple Cardiovascular: normal peripheral pulses, normal rate, regular rhythm Respiratory/Chest: chest wall non-tender, lungs clear, normal breath sounds, no respiratory distress, respiratory distress, accessory muscle use Abdomen: normal bowel sounds, non tender, soft, no organomegaly Edema: moderate edema Neurologic: disoriented, unresponsive, aphasia Skin: normal pigmentation Paxton Humphrey MD December 15, 2019 10:07
[2019-12-15] MEDS: DOPAmine 400mg/250ml Premix IV SCH (10:17)
--- NOTE | 2019-12-15 10:27 | Critical Care Progress Note ---
Assessment/Plan Assessment/Plan IMPRESSION: Respiratory distress, evidence of bilateral pulmonary infiltrates, hypernatremia, acute on chronic renal failure, severe protein-calorie malnutrition, toxic metabolic encephalopathy, dementia, metabolic acidosis, lactic acidemia, elevated troponin, possible demand ischemia, leukocytosis, probable sepsis, anemia. worsening hypoxemia with hypoxemic respiratory failure PLAN care noted monitor blood pressure iv antibiotics oxygen needs worssening cxr worse difficult to optimze consider BIPAP DNR close follow up critical medications/laboratory data/nursing notes/ICU care reviewed in detail note reviewed and edited care discussed with RN and RT ICU time spent >40 minutes Critical Care - Subjective Interval Events: doing poorly on 100% still DNR poor hemodynamics ROS Limited/Unobtainable: Yes Condition: critical EKG Rhythm: Sinus Rhythm Residuals: minimal Tube Feeding Tolerated: yes I&O: Intake and Output 12/14/19 12/15/19 19:00 07:00 Intake Total 2349.765 ml 2744.25 ml Output Total 1600 ml 930 ml Balance 749.765 ml 1814.25 ml Intake Free Water 300 ml 300 ml IV Total 2049.765 ml 2444.25 ml Output Urine Total 1600 ml 930 ml # Bowel Movements 1 4 Critical Care - Objective Last 24 Hour Vital Signs Date Time Temp Pulse Resp B/P (MAP) Pulse Ox O2 Delivery O2 Flow Rate FiO2 12/15/19 10:00 97 30 129/64 (85) 100 12/15/19 09:50 112/52 12/15/19 09:30 100 42 58/40 (46) 99 12/15/19 09:00 99 35 109/51 (70) 100 12/15/19 08:30 99.0 90 24 114/48 (70) 100 12/15/19 08:00 15.0 12/15/19 08:00 86 12/15/19 08:00 Non-Rebreather 15.0 12/15/19 08:00 94 28 112/52 (72) 100 12/15/19 07:30 82 21 103/53 (70) 100 12/15/19 07:00 88 22 135/68 (90) 100 12/15/19 06:30 83 22 121/61 (81) 100 12/15/19 06:25 109/52 12/15/19 06:21 87 23 140/69 (92) 100 12/15/19 06:15 93 28 73/35 (48) 100 12/15/19 06:13 91 31 77/42 (54) 100 12/15/19 06:11 92 28 74/41 (52) 100 12/15/19 05:45 99.1 87 21 110/70 (83) 100 12/15/19 05:30 87 25 109/52 (71) 100 12/15/19 05:15 91 17 120/66 (84) 100 12/15/19 05:00 91 29 114/52 (72) 100 12/15/19 05:00 120/66 12/15/19 04:45 84 24 102/49 (66) 100 12/15/19 04:30 98 30 114/59 (77) 100 12/15/19 04:15 92 28 120/62 (81) 100 12/15/19 04:00 98.4 92 26 119/57 (77) 100 12/15/19 04:00 89 12/15/19 04:00 120/62 12/15/19 04:00 Non-Rebreather 12/15/19 03:45 82 21 103/58 (73) 100 12/15/19 03:30 81 19 101/54 (70) 100 12/15/19 03:26 91 25 109/60 (76) 100 12/15/19 03:15 77 22 81/45 (57) 100 12/15/19 03:08 85 27 96/48 (64) 100 12/15/19 03:00 96/48 12/15/19 03:00 77 21 79/45 (56) 100 12/15/19 02:45 87 26 96/42 (60) 100 12/15/19 02:34 109/76 12/15/19 02:33 109/76 12/15/19 02:30 87 25 109/76 (87) 100 12/15/19 02:23 91 26 120/66 (84) 100 12/15/19 02:19 96 28 74/41 (52) 100 12/15/19 02:16 97 29 83/41 (55) 100 12/15/19 02:15 97 26 76/45 (55) 100 12/15/19 02:00 76/45 12/15/19 02:00 83 25 105/57 (73) 100 12/15/19 01:45 83 27 109/63 (78) 100 12/15/19 01:30 94 31 118/51 (73) 100 12/15/19 01:15 103 29 105/65 (78) 100 12/15/19 01:00 105/65 12/15/19 01:00 91 28 96/48 (64) 100 12/15/19 00:49 95 34 98/52 (67) 100 12/15/19 00:45 85 25 83/53 (63) 100 12/15/19 00:30 88 27 85/36 (52) 100 12/15/19 00:15 92 26 107/59 (75) 100 12/15/19 00:00 107/59 12/15/19 00:00 98.5 99 30 94/45 (61) 100 12/15/19 00:00 100 12/15/19 00:00 Simple Mask 5.0 12/14/19 23:30 97 30 114/53 (73) 100 12/14/19 23:15 96 31 95/50 (65) 100 12/14/19 23:00 98 31 99/51 (67) 100 12/14/19 23:00 95/50 12/14/19 22:45 96 33 109/52 (71) 100 12/14/19 22:30 106 38 114/45 (68) 99 12/14/19 22:15 104 31 101/42 (61) 100 12/14/19 22:00 101/42 12/14/19 22:00 109 33 104/44 (64) 99 12/14/19 21:45 114 31 137/59 (85) 90 12/14/19 21:30 114 33 96/47 (63) 85 12/14/19 21:19 109 35 139/59 (85) 88 12/14/19 21:15 106 32 71/57 (62) 85 12/14/19 21:13 98/19 12/14/19 21:12 98/19 12/14/19 21:00 116 36 98/19 (45) 85 12/14/19 21:00 98/19 12/14/19 20:45 120 40 93/53 (66) 85 12/14/19 20:30 111 32 122/52 (75) 91 5/15/20 20:15 113 33 109/57 (74) 90 12/14/19 20:00 113 12/14/19 20:00 109/57 12/14/19 20:00 99.9 114 32 123/53 (76) 90 12/14/19 20:00 Simple Mask 8.0 12/14/19 19:45 111 29 114/80 (91) 85 12/14/19 19:30 116 32 118/67 (84) 89 12/14/19 19:00 102 30 123/58 (79) 93 12/14/19 19:00 123/58 12/14/19 18:44 87 Simple Mask 8.0 12/14/19 18:30 100 31 129/62 (84) 93 12/14/19 18:00 121/43 12/14/19 18:00 96 31 121/43 (69) 94 12/14/19 17:45 102 31 109/52 (71) 96 12/14/19 17:30 92 25 112/98 (103) 97 12/14/19 17:00 95 29 103/64 (77) 100 12/14/19 17:00 103/64 12/14/19 16:30 90 30 103/64 (77) 100 12/14/19 16:00 99.1 90 29 113/48 (69) 100 12/14/19 16:00 85 12/14/19 16:00 Simple Mask 5.0 12/14/19 15:30 100 32 113/48 (69) 98 12/14/19 15:00 81 24 114/48 (70) 100 12/14/19 15:00 113/48 12/14/19 14:30 80 24 114/48 (70) 100 12/14/19 14:29 99/48 12/14/19 14:00 99/48 12/14/19 14:00 85 31 99/48 (65) 100 12/14/19 13:30 86 27 102/54 (70) 100 12/14/19 13:00 103/46 12/14/19 13:00 83 28 103/46 (65) 100 12/14/19 12:30 82 29 102/45 (64) 100 12/14/19 12:00 Simple Mask 5.0 12/14/19 12:00 89 12/14/19 12:00 94/45 12/14/19 12:00 98.9 83 29 94/45 (61) 100 12/14/19 11:00 88 31 98/48 (65) 99 12/14/19 11:00 83/42 12/14/19 10:30 94 31 84/40 (55) 98 Labs: Laboratory Tests Test 12/15/19 04:30 White Blood Count 14.1 K/UL (4.8-10.8) #H Red Blood Count 3.52 M/UL (4.20-5.40) L Hemoglobin 9.7 G/DL (12.0-16.0) L Hematocrit 29.5 % (37.0-47.0) L Mean Corpuscular Volume 84 FL (80-99) Mean Corpuscular Hemoglobin 27.6 PG (27.0-31.0) Mean Corpuscular Hemoglobin Concent 33.0 G/DL (32.0-36.0) Red Cell Distribution Width 13.3 % (11.6-14.8) Platelet Count 105 K/UL (150-450) L Mean Platelet Volume 10.2 FL (6.5-10.1) H Neutrophils (%) (Auto) % (45.0-75.0) Lymphocytes (%) (Auto) % (20.0-45.0) Monocytes (%) (Auto) % (1.0-10.0) Eosinophils (%) (Auto) % (0.0-3.0) Basophils (%) (Auto) % (0.0-2.0) Differential Total Cells Counted 100 Neutrophils % (Manual) 71 % (45-75) Lymphocytes % (Manual) 9 % (20-45) L Monocytes % (Manual) 2 % (1-10) Eosinophils % (Manual) 0 % (0-3) Basophils % (Manual) 0 % (0-2) Band Neutrophils 18 % (0-8) H Platelet Estimate Decreased L Platelet Morphology Normal Anisocytosis 1+ Sodium Level 147 MMOL/L (136-145) H Potassium Level 3.4 MMOL/L (3.5-5.1) L Chloride Level 111 MMOL/L (98-107) H Carbon Dioxide Level 20 MMOL/L (21-32) L Anion Gap 16 mmol/L (5-15) H Blood Urea Nitrogen 20 mg/dL (7-18) H Creatinine 0.9 MG/DL (0.55-1.30) Estimat Glomerular Filtration Rate > 60 mL/min (>60) Glucose Level 260 MG/DL (74-106) #H Lactic Acid Level 5.20 mmol/L (0.4-2.0) H Calcium Level 6.4 MG/DL (8.5-10.1) L Magnesium Level 1.4 MG/DL (1.8-2.4) L Troponin I 0.013 ng/mL (0.000-0.056) Objective: GENERAL: The patient is chronically ill. HEENT: Overall negative. NECK: Supple. LUNGS: Moderate breath sounds. worsening rhonchi. no wheeze CARDIAC: S1 and S2, currently regular rate and rhythm. ABDOMEN: Overall soft, nontender. EXTREMITIES: No significant edema. Decreased range of motion. G-tube in place. Depressed affect. Aphasic. reviewed and edited Micro: Microbiology Date/Time Source Procedure Growth Status 12/13/19 01:15 Blood Blood Culture - Preliminary NO GROWTH AFTER 48 HOURS Resulted 12/13/19 01:00 Blood Blood Culture - Preliminary Gram Positive Cocci Resulted 12/13/19 01:50 Nasal Nares - Final Complete 12/13/19 01:50 Nasal Nares - Final Complete 12/13/19 01:35 Nasal Nares MRSA Culture - Final Staphylococcus Aureus - Mrsa Complete 12/13/19 01:30 Nasopharynx Coronavirus COVID-19 PCR ([facility]) - Final Complete 12/13/19 01:30 Urine,Clean Catch Urine Culture - Final Escherichia Coli - Esbl Streptococcus Viridans Complete 12/13/19 01:35 Rectum - Final NO CARBAPENEM-RESISTANT ENTEROBACTERI... Complete 12/13/19 01:35 Rectum VRE Culture - Final NO VANCOMYCIN RESISTANT ENTEROCOCCUS ... Complete Accucheck: 246 Tonny Ramirez MD December 15, 2019 10:27
--- NOTE | 2019-12-15 10:54 | NUR ---
NURSE NOTES: Dr. Ramirez at bedside, notified patient is on 15L nonrebreather and covid [address] Ramirez gave verbal order to give patient 2 amp of sodium bicarb, 100ml of sodium bicarb IV was placed after consulting with pharmacist Campbell.
[2019-12-15] MEDS ORDERED: Sodium Bicarbonate 50ml Carp IV SCH ×2 (10:56→11:15)
--- NOTE | 2019-12-15 11:11 | NUR ---
NURSE NOTES: sodium bicarb 1 amp was dropped on the floor and glass vial broke. spoke with Campbell pharmacist. placed additional order of sodium biacarb 1 amp.
[2019-12-15] MEDS: Norepinephrine Bitartrate 8 MG in D5W 500ml 492 ML IV SCH ×2 (12:44→20:17)
--- NOTE | 2019-12-15 13:00 | NUR ---
NURSE NOTES: patient switched to venturi mask 50%, tolerating well with O2 sat of 98% RR of 28. patient suctioned.
--- NOTE | 2019-12-15 14:43 | Surgery Progress Note ---
Surgery Progress Note Subjective Procedure Performed left subclavian central venous catheter insertion Additional Comments leukocytosis lactic acidosis ill appearing cxr reviewed Objective Last 24 Hour Vital Signs Date Time Temp Pulse Resp B/P (MAP) Pulse Ox O2 Delivery O2 Flow Rate FiO2 12/15/19 13:00 109 33 126/60 (82) 98 12/15/19 12:44 101/51 12/15/19 12:00 108 12/15/19 12:00 101/51 12/15/19 12:00 Non-Rebreather 15.0 12/15/19 12:00 106 31 101/51 (68) 98 12/15/19 11:30 110 27 121/59 (79) 100 12/15/19 11:07 98 Non-Rebreather 15.0 100 12/15/19 11:00 111/60 12/15/19 11:00 99 35 111/60 (77) 98 12/15/19 10:30 102 25 116/56 (76) 98 12/15/19 10:00 129/64 12/15/19 10:00 97 30 129/64 (85) 100 12/15/19 09:50 112/52 12/15/19 09:30 100 42 58/40 (46) 99 12/15/19 09:00 99 35 109/51 (70) 100 12/15/19 09:00 109/51 12/15/19 08:30 99.0 90 24 114/48 (70) 100 12/15/19 08:25 114/48 12/15/19 08:00 15.0 12/15/19 08:00 86 12/15/19 08:00 Non-Rebreather 15.0 12/15/19 08:00 94 28 112/52 (72) 100 12/15/19 07:30 82 21 103/53 (70) 100 12/15/19 07:25 103/53 12/15/19 07:00 88 22 135/68 (90) 100 12/15/19 06:30 83 22 121/61 (81) 100 12/15/19 06:25 109/52 12/15/19 06:21 87 23 140/69 (92) 100 12/15/19 06:15 93 28 73/35 (48) 100 12/15/19 06:13 91 31 77/42 (54) 100 12/15/19 06:11 92 28 74/41 (52) 100 12/15/19 05:45 99.1 87 21 110/70 (83) 100 12/15/19 05:30 87 25 109/52 (71) 100 12/15/19 05:15 91 17 120/66 (84) 100 12/15/19 05:00 91 29 114/52 (72) 100 12/15/19 05:00 120/66 12/15/19 04:45 84 24 102/49 (66) 100 12/15/19 04:30 98 30 114/59 (77) 100 12/15/19 04:15 92 28 120/62 (81) 100 12/15/19 04:00 98.4 92 26 119/57 (77) 100 12/15/19 04:00 89 12/15/19 04:00 120/62 12/15/19 04:00 Non-Rebreather 12/15/19 03:45 82 21 103/58 (73) 100 12/15/19 03:30 81 19 101/54 (70) 100 12/15/19 03:26 91 25 109/60 (76) 100 12/15/19 03:15 77 22 81/45 (57) 100 12/15/19 03:08 85 27 96/48 (64) 100 12/15/19 03:00 96/48 12/15/19 03:00 77 21 79/45 (56) 100 12/15/19 02:45 87 26 96/42 (60) 100 12/15/19 02:34 109/76 12/15/19 02:33 109/76 12/15/19 02:30 87 25 109/76 (87) 100 12/15/19 02:23 91 26 120/66 (84) 100 12/15/19 02:19 96 28 74/41 (52) 100 12/15/19 02:16 97 29 83/41 (55) 100 12/15/19 02:15 97 26 76/45 (55) 100 12/15/19 02:00 76/45 12/15/19 02:00 83 25 105/57 (73) 100 12/15/19 01:45 83 27 109/63 (78) 100 12/15/19 01:30 94 31 118/51 (73) 100 12/15/19 01:15 103 29 105/65 (78) 100 12/15/19 01:00 105/65 12/15/19 01:00 91 28 96/48 (64) 100 12/15/19 00:49 95 34 98/52 (67) 100 12/15/19 00:45 85 25 83/53 (63) 100 12/15/19 00:30 88 27 85/36 (52) 100 12/15/19 00:15 92 26 107/59 (75) 100 12/15/19 00:00 107/59 12/15/19 00:00 98.5 99 30 94/45 (61) 100 12/15/19 00:00 100 12/15/19 00:00 Simple Mask 5.0 12/14/19 23:30 97 30 114/53 (73) 100 12/14/19 23:15 96 31 95/50 (65) 100 12/14/19 23:00 98 31 99/51 (67) 100 12/14/19 23:00 95/50 12/14/19 22:45 96 33 109/52 (71) 100 12/14/19 22:30 106 38 114/45 (68) 99 12/14/19 22:15 104 31 101/42 (61) 100 12/14/19 22:00 101/42 12/14/19 22:00 109 33 104/44 (64) 99 12/14/19 21:45 114 31 137/59 (85) 90 12/14/19 21:30 114 33 96/47 (63) 85 12/14/19 21:19 109 35 139/59 (85) 88 12/14/19 21:15 106 32 71/57 (62) 85 12/14/19 21:13 98/19 12/14/19 21:12 98/19 12/14/19 21:00 116 36 98/19 (45) 85 12/14/19 21:00 98/19 12/14/19 20:45 120 40 93/53 (66) 85 12/14/19 20:30 111 32 122/52 (75) 91 12/14/19 20:15 113 33 109/57 (74) 90 12/14/19 20:00 113 12/14/19 20:00 109/57 12/14/19 20:00 99.9 114 32 123/53 (76) 90 12/14/19 20:00 Simple Mask 8.0 12/14/19 19:45 111 29 114/80 (91) 85 12/14/19 19:30 116 32 118/67 (84) 89 12/14/19 19:00 102 30 123/58 (79) 93 12/14/19 19:00 123/58 12/14/19 18:44 87 Simple Mask 8.0 12/14/19 18:30 100 31 129/62 (84) 93 12/14/19 18:00 121/43 12/14/19 18:00 96 31 121/43 (69) 94 12/14/19 17:45 102 31 109/52 (71) 96 12/14/19 17:30 92 25 112/98 (103) 97 12/14/19 17:00 95 29 103/64 (77) 100 12/14/19 17:00 103/64 12/14/19 16:30 90 30 103/64 (77) 100 12/14/19 16:00 99.1 90 29 113/48 (69) 100 12/14/19 16:00 85 12/14/19 16:00 Simple Mask 5.0 12/14/19 15:30 100 32 113/48 (69) 98 12/14/19 15:00 81 24 114/48 (70) 100 12/14/19 15:00 113/48 I&O Intake and Output 12/14/19 12/15/19 19:00 07:00 Intake Total 2349.765 ml 2744.25 ml Output Total 1600 ml 930 ml Balance 749.765 ml 1814.25 ml Intake Free Water 300 ml 300 ml IV Total 2049.765 ml 2444.25 ml Output Urine Total 1600 ml 930 ml # Bowel Movements 1 4 Dressing: other Wound: other Drains: other Cardiovascular: RSR Respiratory: decreased breath sounds Abdomen: soft, present bowel sounds, non-distended Extremities: no cyanosis, other Laboratory Tests Test 12/15/19 04:30 12/15/19 12:10 White Blood Count 14.1 K/UL (4.8-10.8) #H Red Blood Count 3.52 M/UL (4.20-5.40) L Hemoglobin 9.7 G/DL (12.0-16.0) L Hematocrit 29.5 % (37.0-47.0) L Mean Corpuscular Volume 84 FL (80-99) Mean Corpuscular Hemoglobin 27.6 PG (27.0-31.0) Mean Corpuscular Hemoglobin Concent 33.0 G/DL (32.0-36.0) Red Cell Distribution Width 13.3 % (11.6-14.8) Platelet Count 105 K/UL (150-450) L Mean Platelet Volume 10.2 FL (6.5-10.1) H Neutrophils (%) (Auto) % (45.0-75.0) Lymphocytes (%) (Auto) % (20.0-45.0) Monocytes (%) (Auto) % (1.0-10.0) Eosinophils (%) (Auto) % (0.0-3.0) Basophils (%) (Auto) % (0.0-2.0) Differential Total Cells Counted 100 Neutrophils % (Manual) 71 % (45-75) Lymphocytes % (Manual) 9 % (20-45) L Monocytes % (Manual) 2 % (1-10) Eosinophils % (Manual) 0 % (0-3) Basophils % (Manual) 0 % (0-2) Band Neutrophils 18 % (0-8) H Platelet Estimate Decreased L Platelet Morphology Normal Anisocytosis 1+ Sodium Level 147 MMOL/L (136-145) H Potassium Level 3.4 MMOL/L (3.5-5.1) L Chloride Level 111 MMOL/L (98-107) H Carbon Dioxide Level 20 MMOL/L (21-32) L Anion Gap 16 mmol/L (5-15) H Blood Urea Nitrogen 20 mg/dL (7-18) H Creatinine 0.9 MG/DL (0.55-1.30) Estimat Glomerular Filtration Rate > 60 mL/min (>60) Glucose Level 260 MG/DL (74-106) #H Lactic Acid Level 5.20 mmol/L (0.4-2.0) H 4.70 mmol/L (0.66-2.22) H Calcium Level 6.4 MG/DL (8.5-10.1) L Magnesium Level 1.4 MG/DL (1.8-2.4) L Troponin I 0.013 ng/mL (0.000-0.056) Plan Problems: (1) Uncontrolled diabetes mellitus (2) Suspected 2019 novel coronavirus infection Assessment & Plan: pending test (3) Septic shock Assessment & Plan: septic hypotension line placed see note resuscitation initiated discussed in detail with daughter at bedside for ome time tren dlabs fluids pressors will follow with recs (4) Lactic acidosis (5) Respiratory failure (6) Decubitus skin ulcer Assessment & Plan: Pt presented on admission with multiple pressure injuries. Unstageable Sacral Pressure injury with presents as open DTPI. Soft necrosis at Base of wound with marginal erythema along edges.Small opening noted to L sacrum. No odor or exudate noted. Periwound without evidence of further skin breakdown. DTPI noted to medial L malleolus. Base of wound is maroon with marginal erythema. DTPI medial L heel base of wound is maroon with fluctuance. DTPI L Hallux. Base of wound is maroon with marginal erythema along borders. Reabsorbing DTPI lateral L heel. Base of injury ids dry. Unstageable pressure injuries noted to distal/lateral R foot. Soft necrosis at base of wound. Unstageable pressure injury dorso/lateral R 5th metatarsal. Soft necrosis at base of wound. Unstageable pressure injury web space of R 4th metatarsal. Base of wound is necrotic and partially opened. no exudate noted. DTPI noted to R lateral malleolus. Base of wound is maroon and soft with marginal erythema along borders. Tx.Plan: Cleanse Sacral wound with Saline. Apply TheraHoney. Apply Moisture Barrier paste periwound. Cover with Optifoam drsg. Change every 3 days and prn. Apply Betadine to wounds Distal /lateral R foot, R 4th and 5th metatarsals. Cover with Optifoam drsg every 3 days and prn. Apply Cavilon to both heels, Both hallux and malleoli. Cover each site with Optifoam drgs. Change every 7 days and prn. Reposition at least every 2hours or as tolerated. Place Pillow between knees. Off-load heels with Pillow. APM/MELANIE Mattress overlay. Joce Campbell December 15, 2019 14:43
--- NOTE | 2019-12-15 15:30 | NUR ---
NURSE NOTES: patient is now on 6L NC, tolerating well O2 sat is 94-96%.
--- NOTE | 2019-12-15 17:00 | NUR ---
NURSE NOTES: patient had soft pasty BM x1, patient cleaned and kept dry. bed linens and gowns changed. patient had episode of desatting to 90% on 6L NC while changing position and cleaning. will continue to monitor.
--- NOTE | 2019-12-15 18:23 | NUR ---
NURSE NOTES: patient is clean and dry. patient is 96% on NC 2L RR 26.
--- NOTE | 2019-12-15 19:17 | NUR ---
HAND-OFF: Report given to Tiffani ROTHMAN. endorsed all plan of care using SBAR
--- NOTE | 2019-12-15 19:30 | NUR ---
NURSE NOTES: Received report from Yanira ROTHMAN. Pt is nonverbal, opens eyes spontaneously. 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 Left Subclavian TLC infusing Levophed at 30mcg/min. BP 88/41. Pt has peripheral IV access on right AC #22G and Lt AC #20g. GT present and patent and NPO/no feeding order at this time. HOB elevated. Griffin catheter intact draining yellow urine to urometer. Skin has sacral and left buttock DTI, bilateral heels and scattered petechiae on extremities, all covered with Optifoam dressings. Droplet and contact isolation maintained and observed. PUI. Bed alarm on. bed locked and in low position. Code status DNR/DNI comfort measure provided. Will continue plan of care.
[2019-12-15] MEDS: Dyna-Hex 2% Top Sol 2oz TOPIC SCH (20:17)
--- NOTE | 2019-12-15 21:30 | NUR ---
NURSE NOTES: Patient in bed awake,alert non verbal. no s/s of acute respiratory distress. Comfort measure provided. will continue plan of care.
[2019-12-16] VITALS (79 sets, daily range): BP systolic 68–164; BP diastolic 40–135
--- NOTE | 2019-12-16 | NUR ---
NURSE NOTES: bed bath given tolerated well.
[2019-12-16] MEDS: D5W w/KCl 20mEq 1,000 ML IV SCH ×3 (00:02→12:46)
[2019-12-16] MEDS: NovoLOG Insulin Flexpen SUBQ SCH ×6 (00:10→21:09)
--- NOTE | 2019-12-16 00:44 | Progress Note ---
DATE: 12/15/2019 SUBJECTIVE: The patient's condition remains critical. Prognosis guarded. She continues on intensive care unit care. The patient's blood pressure is marginal. She is on high-dose pressors with norepinephrine. Monitored rhythm sinus and sinus tachycardia. OBJECTIVE: VITAL SIGNS: Blood pressure down to 73/35, heart rate 93, respiratory rate 28. LUNGS: Bilateral breath sounds. CARDIAC: Regular rhythm and rate. Normal S1 and S2 with no murmur. ABDOMEN: Soft and slightly distended. EXTREMITIES: There is 1+ dependent edema. LABORATORY DATA: White count 14 and hemoglobin 9.7. Lactic acid remains elevated above 5. Magnesium is 1.4. Sodium 147, potassium 3.4, bicarb 20, BUN 20, creatinine 0.9. Troponin yesterday was 0.062. IMPRESSION: 1. Multiorgan system failure. 2. Sepsis with shock, hypovolemic shock. 3. Lactic acidosis. 4. Acute myocardial ischemia and possible non-ST elevation infarction. 5. Secondary sinus tachycardia. 6. Bilateral pneumonia. 7. Toxic and metabolic encephalopathies. 8. Hypomagnesemia. 9. Hypokalemia PLAN: 1. Oxygenation. 2. Respiratory hygiene. 3. BiPAP support as needed. 4. Volume support. 5. Antimicrobials. 6. Intravenous magnesium. 7. DVT and stress ulcer prophylaxis. 8. Replace potassium. 9. IV fluids with bicarb. Slava Hsu M.D. DR: MICHAEL JOB#: [id number] CC:
[2019-12-16] MEDS: Norepinephrine Bitartrate 8 MG in D5W 500ml 492 ML IV SCH ×5 (00:54→22:03)
--- NOTE | 2019-12-16 02:00 | NUR ---
NURSE NOTES: Patient in bed sleeping comfortably. Titrated Levophed to 30mcg/min BP 106/50, HR 90. repositioned patient in bed. comfort measure provided. will continue plan of care.
--- NOTE | 2019-12-16 04:00 | NUR ---
NURSE NOTES: Patient on Levophed to 24mcg/min BP 102/46, HR 90. repositioned patient in bed. comfort measure provided. will continue plan of care.
--- NOTE | 2019-12-16 06:00 | NUR ---
NURSE NOTES: Patient on Levophed to 24mcg/min BP 122/51 HR 90. repositioned patient in bed. comfort measure provided. will continue plan of care.
--- NOTE | 2019-12-16 07:30 | NUR ---
NURSE NOTES: Report received from Tiffani BallesterosRN Pt resting in bed drowsy, lethargic doesnt follow commands,noted no resp distress on 4 L NC,no signs of pain or discomfort,SR on the monitor,with GT clamped,NPO ,Griffin cath draining yellow urine,skin warm and dry with IV sites to LT SC with IVF D5 W + 20 meq KCL at 150ml/hr and Levephed at 24 mcg/kg /hr,Heplock sites LAC and RH intact,upper extremities swollen,SR up x2 HOB elevated bed lock in lowest position will continue with plans of care.
--- NOTE | 2019-12-16 07:30 | NUR ---
HAND-OFF: Report given to Rao ROTHMAN.
--- NOTE | 2019-12-16 08:08 | General Progress Note ---
Assessment/Plan Problem List: (1) Respiratory failure ICD Codes: J96.90 - Respiratory failure, unspecified, unspecified whether with hypoxia or hypercapnia SNOMED: 020718539 (2) Lactic acidosis ICD Codes: E87.2 - Acidosis SNOMED: 31554910 (3) Uncontrolled diabetes mellitus ICD Codes: E11.65 - Type 2 diabetes mellitus with hyperglycemia SNOMED: 35713648, 858112311 (4) Suspected 2019 novel coronavirus infection ICD Codes: Z20.828 - Contact with and (suspected) exposure to other viral communicable diseases SNOMED: 363895728 (5) Septic shock ICD Codes: A41.9 - Sepsis, unspecified organism; R65.21 - Severe sepsis with septic shock SNOMED: 57706721 Status: deteriorating Assessment/Plan: ivf pressors as needed monitor labs/abg o2 as needed free water flushes start feeds follow up cultures dvt/stress ulcer prophylaxis critical and guarded. prognosis poor dnr Subjective ROS Limited/Unobtainable: Yes Constitutional: Reports: malaise, weakness HEENT: Reports: no symptoms Cardiovascular: Reports: no symptoms Respiratory: Reports: shortness of breath Gastrointestinal/Abdominal: Reports: difficulty swallowing Genitourinary: Reports: no symptoms Neurologic/Psychiatric: Reports: pre-existing deficit Endocrine: Reports: no symptoms Hematologic/Lymphatic: Reports: anemia Allergies: Coded Allergies: PENICILLINS (Verified Allergy, Unknown, 12/14/19) All Systems: reviewed and negative except above Subjective no change. off nrb on nasal cannula. still on high dose pressor- levophed at 24. labs pending. poorly responsive. Objective Last 24 Hour Vital Signs Date Time Temp Pulse Resp B/P (MAP) Pulse Ox O2 Delivery O2 Flow Rate FiO2 12/16/19 07:11 99 Nasal Cannula 5.0 40 12/16/19 07:00 81 18 144/57 (86) 100 12/16/19 07:00 118/51 12/16/19 06:45 86 19 126/63 (84) 100 12/16/19 06:30 87 22 130/59 (82) 99 12/16/19 06:15 85 20 143/61 (88) 100 12/16/19 06:00 122/51 12/16/19 06:00 83 20 128/55 (79) 100 12/16/19 05:45 93 23 113/40 (64) 98 12/16/19 05:40 138/55 12/16/19 05:39 101/70 12/16/19 05:30 96 29 126/63 (84) 98 12/16/19 05:15 77 18 136/59 (84) 100 12/16/19 05:00 83 20 124/50 (74) 99 12/16/19 05:00 101/70 12/16/19 04:45 85 19 126/70 (88) 100 12/16/19 04:30 85 20 117/53 (74) 100 12/16/19 04:00 99.0 12/16/19 04:00 102/46 12/16/19 04:00 80 12/16/19 04:00 Nasal Cannula 4.0 12/16/19 03:15 84 20 138/55 (82) 99 12/16/19 03:00 128/56 12/16/19 03:00 88 24 139/56 (83) 98 12/16/19 02:45 87 27 131/95 (107) 96 12/16/19 02:30 86 27 133/60 (84) 98 12/16/19 02:00 87 27 134/53 (80) 99 12/16/19 02:00 106/50 12/16/19 01:30 95 27 144/67 (92) 98 12/16/19 01:00 90 27 139/61 (87) 99 12/16/19 01:00 144/49 12/16/19 00:54 106/54 12/16/19 00:53 132/58 12/16/19 00:30 86 26 128/77 (94) 99 12/16/19 00:15 94 27 132/58 (82) 97 12/16/19 00:00 99.0 93 29 145/77 (99) 100 12/16/19 00:00 105 12/16/19 00:00 88 12/16/19 00:00 132/58 12/16/19 00:00 Nasal Cannula 4.0 12/15/19 23:54 95 28 151/58 (89) 99 12/15/19 23:30 106 30 90/68 (75) 95 12/15/19 23:15 105 31 124/72 (89) 93 12/15/19 23:00 97 24 106/54 (71) 97 20 23:00 106/54 12/15/19 22:45 90 23 136/54 (81) 99 12/15/19 22:30 95 23 130/64 (86) 98 12/15/19 22:15 102 26 129/54 (79) 97 20 22:00 123/66 520 22:00 97 25 123/66 (85) 96 12/15/19 21:45 108 29 116/52 (73) 96 12/15/19 21:30 91 23 129/59 (82) 99 12/15/19 21:15 98 22 122/53 (76) 96 12/15/19 21:00 102 27 115/52 (73) 95 20 21:00 115/52 12/15/19 20:45 103 28 126/63 (84) 96 12/15/19 20:30 105 28 128/67 (87) 99 12/15/19 20:17 85/32 12/15/19 20:15 89 27 110/62 (78) 100 12/15/19 20:00 Nasal Cannula 6.0 12/15/19 20:00 85/32 20 20:00 102 12/15/19 20:00 99.9 108 38 85/32 (49) 95 12/15/19 19:45 106 37 94/54 (67) 94 12/15/19 19:30 98 Nasal Cannula 5.0 40 12/15/19 19:30 108 37 116/83 (94) 93 12/15/19 19:18 102 33 95/60 (72) 96 12/15/19 19:15 96 30 88/41 (57) 96 12/15/19 19:00 97/45 12/15/19 19:00 107 34 97/45 (62) 95 12/15/19 18:30 101 26 92/60 (71) 97 12/15/19 18:00 104 33 107/44 (65) 95 20 18:00 107/44 12/15/19 17:30 103 29 107/41 (63) 94 12/15/19 17:15 103 31 103/37 (59) 95 12/15/19 17:04 117 35 111/49 (69) 95 12/15/19 17:00 111/49 12/15/19 16:30 100 23 107/49 (68) 100 12/15/19 16:00 105 12/15/19 16:00 102 24 96/45 (62) 98 12/15/19 16:00 96/45 12/15/19 16:00 Non-Rebreather 15.0 12/15/19 15:30 107 33 112/55 (74) 99 12/15/19 15:00 110/52 12/15/19 15:00 100 24 110/52 (71) 99 12/15/19 14:30 104 34 110/53 (72) 98 12/15/19 14:00 100/47 12/15/19 14:00 101 32 100/47 (64) 98 12/15/19 13:00 126/60 12/15/19 13:00 109 33 126/60 (82) 98 12/15/19 12:44 101/51 12/15/19 12:00 108 12/15/19 12:00 101/51 12/15/19 12:00 Non-Rebreather 15.0 12/15/19 12:00 106 31 101/51 (68) 98 12/15/19 11:30 110 27 121/59 (79) 100 12/15/19 11:07 98 Non-Rebreather 15.0 100 12/15/19 11:00 111/60 12/15/19 11:00 99 35 111/60 (77) 98 12/15/19 10:30 102 25 116/56 (76) 98 12/15/19 10:00 129/64 12/15/19 10:00 97 30 129/64 (85) 100 12/15/19 09:50 112/52 12/15/19 09:30 100 42 58/40 (46) 99 12/15/19 09:00 99 35 109/51 (70) 100 12/15/19 09:00 109/51 12/15/19 08:30 99.0 90 24 114/48 (70) 100 12/15/19 08:25 114/48 Intake and Output 12/15/19 12/16/19 19:00 07:00 Intake Total 2677.5 ml 3090.750 ml Output Total 1800 ml 2370 ml Balance 877.5 ml 720.750 ml Intake Free Water 260 ml 150 ml IV Total 2417.5 ml 2940.750 ml Output Urine Total 1800 ml 2370 ml # Bowel Movements 4 Laboratory Tests 12/15/19 12:10: Lactic Acid Level 4.70H 12/15/19 14:30: Lactic Acid Level 5.80H 12/16/19 02:10: Lactic Acid Level 5.80H Height (Feet): 5 Height (Inches): 6.00 Weight (Pounds): 169 Objective General Appearance: WD/WN, alert, confused EENT: PERRL/EOMI, normal ENT inspection Neck: non-tender, normal alignment, supple Cardiovascular: normal peripheral pulses, normal rate, regular rhythm Respiratory/Chest: chest wall non-tender, lungs clear, normal breath sounds, no respiratory distress, respiratory distress, accessory muscle use Abdomen: normal bowel sounds, non tender, soft, no organomegaly Edema: moderate edema Neurologic: disoriented, unresponsive, aphasia Skin: normal pigmentation Paxton Humphrey MD December 16, 2019 08:08
--- NOTE | 2019-12-16 08:30 | NUR ---
NURSE NOTES: Dr Humphrey at bedside,updated re pt's status,ordered to start tube feeding Glucerna 1.5 at 20 ml/hr,order carried out.
[2019-12-16 08:40] LABS: ALANINE AMINOTRANSFERASE 39 U/L (12-78); ALBUMIN 1.2 G/DL (3.4-5.0); ALBUMIN/GLOBULIN RATIO 0.3 (1.0-2.7); ALKALINE PHOSPHATASE 129 U/L (46-116); ANION GAP 14 mmol/L (5-15); ASPARTATE AMINO TRANSFERASE 60 U/L (15-37); BILIRUBIN,TOTAL 0.6 MG/DL (0.2-1.0); BLOOD UREA NITROGEN 12 mg/dL (7-18); CALCIUM 6.5 MG/DL (8.5-10.1); CARBON DIOXIDE 23 MMOL/L (21-32); CHLORIDE 107 MMOL/L (98-107); CREATININE 0.8 MG/DL (0.55-1.30); POTASSIUM 3.1 MMOL/L (3.5-5.1); SODIUM 144 MMOL/L (136-145)
[2019-12-16] MEDS ORDERED: Cefepime HCl 1 GM in D5W 55 ML IVPB SCH (09:00)
[2019-12-16] MEDS: Heparin 5000 units/ml inj SUBQ SCH ×2 (09:01→20:10)
[2019-12-16] MEDS: Vancomycin 750 MG in NS 275 ML IVPB SCH (10:09)
[2019-12-16] MEDS: Levemir Flexpen SUBQ SCH ×2 (10:10→21:09)
[2019-12-16] MEDS: DOPAmine 400mg/250ml Premix IV SCH (11:00)
--- NOTE | 2019-12-16 11:00 | NUR ---
NURSE NOTES: Pt very congested,suctioned orally to large amount of thich white to gaona secretions,pulled up ,turned and repositioned,oral care done ,pt lips dry and cracking.
[2019-12-16 11:24] LABS: HEMATOCRIT 26.4 % (37.0-47.0); MEAN CORPUSCULAR VOLUME 82 FL (80-99); PLATELET COUNT 76 K/UL (150-450); RED BLOOD COUNT 3.23 M/UL (4.20-5.40); WHITE BLOOD COUNT 16.9 K/UL (4.8-10.8)
[2019-12-16] MEDS: Ertapenem 1gm in NS 55ml IVPB SCH (12:48)
--- NOTE | 2019-12-16 13:03 | Surgery Progress Note ---
Surgery Progress Note Subjective Procedure Performed left subclavian central venous catheter insertion Additional Comments on Levophed titrating labs noted ill appearing Objective Last 24 Hour Vital Signs Date Time Temp Pulse Resp B/P (MAP) Pulse Ox O2 Delivery O2 Flow Rate FiO2 12/16/19 12:00 Nasal Cannula 4.0 12/16/19 12:00 97.4 96 31 142/59 (86) 95 12/16/19 11:00 105 33 119/72 (88) 96 12/16/19 11:00 128/61 12/16/19 10:00 96 33 114/57 (76) 93 12/16/19 09:00 101 33 118/47 (70) 98 12/16/19 08:00 5.0 12/16/19 08:00 98.2 88 22 115/53 (73) 100 12/16/19 08:00 Nasal Cannula 4.0 12/16/19 08:00 85 12/16/19 07:11 99 Nasal Cannula 5.0 40 12/16/19 07:00 81 18 144/57 (86) 100 12/16/19 07:00 118/51 12/16/19 06:45 86 19 126/63 (84) 100 12/16/19 06:30 87 22 130/59 (82) 99 12/16/19 06:15 85 20 143/61 (88) 100 12/16/19 06:00 122/51 12/16/19 06:00 83 20 128/55 (79) 100 12/16/19 05:45 93 23 113/40 (64) 98 12/16/19 05:40 138/55 12/16/19 05:39 101/70 12/16/19 05:30 96 29 126/63 (84) 98 12/16/19 05:15 77 18 136/59 (84) 100 12/16/19 05:00 83 20 124/50 (74) 99 12/16/19 05:00 101/70 12/16/19 04:45 85 19 126/70 (88) 100 12/16/19 04:30 85 20 117/53 (74) 100 12/16/19 04:00 99.0 12/16/19 04:00 102/46 12/16/19 04:00 80 12/16/19 04:00 Nasal Cannula 4.0 12/16/19 03:15 84 20 138/55 (82) 99 12/16/19 03:00 128/56 12/16/19 03:00 88 24 139/56 (83) 98 12/16/19 02:45 87 27 131/95 (107) 96 12/16/19 02:30 86 27 133/60 (84) 98 12/16/19 02:00 87 27 134/53 (80) 99 12/16/19 02:00 106/50 12/16/19 01:30 95 27 144/67 (92) 98 12/16/19 01:00 90 27 139/61 (87) 99 12/16/19 01:00 144/49 12/16/19 00:54 106/54 12/16/19 00:53 132/58 12/16/19 00:30 86 26 128/77 (94) 99 12/16/19 00:15 94 27 132/58 (82) 97 12/16/19 00:00 99.0 93 29 145/77 (99) 100 12/16/19 00:00 105 12/16/19 00:00 88 12/16/19 00:00 132/58 12/16/19 00:00 Nasal Cannula 4.0 12/15/19 23:54 95 28 151/58 (89) 99 12/15/19 23:30 106 30 90/68 (75) 95 12/15/19 23:15 105 31 124/72 (89) 93 12/15/19 23:00 97 24 106/54 (71) 97 12/15/19 23:00 106/54 12/15/19 22:45 90 23 136/54 (81) 99 12/15/19 22:30 95 23 130/64 (86) 98 12/15/19 22:15 102 26 129/54 (79) 97 12/15/19 22:00 123/66 12/15/19 22:00 97 25 123/66 (85) 96 12/15/19 21:45 108 29 116/52 (73) 96 12/15/19 21:30 91 23 129/59 (82) 99 12/15/19 21:15 98 22 122/53 (76) 96 12/15/19 21:00 102 27 115/52 (73) 95 5/16/20 21:00 115/52 12/15/19 20:45 103 28 126/63 (84) 96 12/15/19 20:30 105 28 128/67 (87) 99 20 20:17 85/32 12/15/19 20:15 89 27 110/62 (78) 100 12/15/19 20:00 Nasal Cannula 6.0 12/15/19 20:00 85/32 12/15/19 20:00 102 12/15/19 20:00 99.9 108 38 85/32 (49) 95 12/15/19 19:45 106 37 94/54 (67) 94 12/15/19 19:30 98 Nasal Cannula 5.0 40 12/15/19 19:30 108 37 116/83 (94) 93 12/15/19 19:18 102 33 95/60 (72) 96 12/15/19 19:15 96 30 88/41 (57) 96 12/15/19 19:00 97/45 12/15/19 19:00 107 34 97/45 (62) 95 12/15/19 18:30 101 26 92/60 (71) 97 12/15/19 18:00 104 33 107/44 (65) 95 12/15/19 18:00 107/44 12/15/19 17:30 103 29 107/41 (63) 94 12/15/19 17:15 103 31 103/37 (59) 95 12/15/19 17:04 117 35 111/49 (69) 95 12/15/19 17:00 111/49 12/15/19 16:30 100 23 107/49 (68) 100 12/15/19 16:00 105 12/15/19 16:00 102 24 96/45 (62) 98 12/15/19 16:00 96/45 12/15/19 16:00 Non-Rebreather 15.0 12/15/19 15:30 107 33 112/55 (74) 99 12/15/19 15:00 110/52 12/15/19 15:00 100 24 110/52 (71) 99 12/15/19 14:30 104 34 110/53 (72) 98 12/15/19 14:00 100/47 12/15/19 14:00 101 32 100/47 (64) 98 I&O Intake and Output 12/15/19 12/16/19 19:00 07:00 Intake Total 2677.5 ml 3090.750 ml Output Total 1800 ml 2370 ml Balance 877.5 ml 720.750 ml Intake Free Water 260 ml 150 ml IV Total 2417.5 ml 2940.750 ml Output Urine Total 1800 ml 2370 ml # Bowel Movements 4 Dressing: other Wound: other Drains: other Cardiovascular: RSR Respiratory: decreased breath sounds Abdomen: soft, non-distended, decreased bowel sounds Extremities: no cyanosis Laboratory Tests Test 12/15/19 14:30 12/16/19 02:10 12/16/19 07:15 12/16/19 11:00 Lactic Acid Level 5.80 mmol/L (0.4-2.0) H 5.80 mmol/L (0.4-2.0) H 2.90 mmol/L (0.66-2.22) H Sodium Level 144 MMOL/L (136-145) Potassium Level 3.1 MMOL/L (3.5-5.1) L Chloride Level 107 MMOL/L (98-107) Carbon Dioxide Level 23 MMOL/L (21-32) Anion Gap 14 mmol/L (5-15) Blood Urea Nitrogen 12 mg/dL (7-18) Creatinine 0.8 MG/DL (0.55-1.30) Estimat Glomerular Filtration Rate > 60 mL/min (>60) Glucose Level 300 MG/DL (74-106) H Calcium Level 6.5 MG/DL (8.5-10.1) L Total Bilirubin 0.6 MG/DL (0.2-1.0) Aspartate Amino Transf (AST/SGOT) 60 U/L (15-37) H Alanine Aminotransferase (ALT/SGPT) 39 U/L (12-78) Alkaline Phosphatase 129 U/L (46-116) H Total Protein 5.3 G/DL (6.4-8.2) L Albumin 1.2 G/DL (3.4-5.0) L Globulin 4.1 g/dL Albumin/Globulin Ratio 0.3 (1.0-2.7) L White Blood Count 16.9 K/UL (4.8-10.8) H Red Blood Count 3.23 M/UL (4.20-5.40) L Hemoglobin 9.0 G/DL (12.0-16.0) L Hematocrit 26.4 % (37.0-47.0) L Mean Corpuscular Volume 82 FL (80-99) Mean Corpuscular Hemoglobin 27.9 PG (27.0-31.0) Mean Corpuscular Hemoglobin Concent 34.2 G/DL (32.0-36.0) Red Cell Distribution Width 13.0 % (11.6-14.8) Platelet Count 76 K/UL (150-450) L Mean Platelet Volume 13.4 FL (6.5-10.1) H Neutrophils (%) (Auto) % (45.0-75.0) Lymphocytes (%) (Auto) % (20.0-45.0) Monocytes (%) (Auto) % (1.0-10.0) Eosinophils (%) (Auto) % (0.0-3.0) Basophils (%) (Auto) % (0.0-2.0) Differential Total Cells Counted 100 Neutrophils % (Manual) 97 % (45-75) H Lymphocytes % (Manual) 2 % (20-45) L Monocytes % (Manual) 0 % (1-10) L Eosinophils % (Manual) 1 % (0-3) Basophils % (Manual) 0 % (0-2) Band Neutrophils 0 % (0-8) Platelet Estimate Decreased L Platelet Morphology Normal Hypochromasia 1+ Plan Problems: (1) Uncontrolled diabetes mellitus (2) Suspected 2019 novel coronavirus infection Assessment & Plan: pending test (3) Septic shock Assessment & Plan: septic hypotension line placed see note resuscitation initiated discussed in detail with daughter at bedside for ome time tren dlabs fluids pressors will follow with recs (4) Lactic acidosis (5) Respiratory failure (6) Decubitus skin ulcer Assessment & Plan: Pt presented on admission with multiple pressure injuries. Unstageable Sacral Pressure injury with presents as open DTPI. Soft necrosis at Base of wound with marginal erythema along edges.Small opening noted to L sacrum. No odor or exudate noted. Periwound without evidence of further skin breakdown. DTPI noted to medial L malleolus. Base of wound is maroon with marginal erythema. DTPI medial L heel base of wound is maroon with fluctuance. DTPI L Hallux. Base of wound is maroon with marginal erythema along borders. Reabsorbing DTPI lateral L heel. Base of injury ids dry. Unstageable pressure injuries noted to distal/lateral R foot. Soft necrosis at base of wound. Unstageable pressure injury dorso/lateral R 5th metatarsal. Soft necrosis at base of wound. Unstageable pressure injury web space of R 4th metatarsal. Base of wound is necrotic and partially opened. no exudate noted. DTPI noted to R lateral malleolus. Base of wound is maroon and soft with marginal erythema along borders. Tx.Plan: Cleanse Sacral wound with Saline. Apply TheraHoney. Apply Moisture Barrier paste periwound. Cover with Optifoam drsg. Change every 3 days and prn. Apply Betadine to wounds Distal /lateral R foot, R 4th and 5th metatarsals. Cover with Optifoam drsg every 3 days and prn. Apply Cavilon to both heels, Both hallux and malleoli. Cover each site with Optifoam drgs. Change every 7 days and prn. Reposition at least every 2hours or as tolerated. Place Pillow between knees. Off-load heels with Pillow. APM/MELANIE Mattress overlay. Joce Campbell December 16, 2019 13:03
--- NOTE | 2019-12-16 14:22 | Critical Care Progress Note ---
Assessment/Plan Assessment/Plan IMPRESSION: Respiratory distress, evidence of bilateral pulmonary infiltrates, hypernatremia, acute on chronic renal failure, severe protein-calorie malnutrition, toxic metabolic encephalopathy, dementia, metabolic acidosis, lactic acidemia, elevated troponin, possible demand ischemia, leukocytosis, probable sepsis, anemia. worsening hypoxemia with hypoxemic respiratory failure PLAN care noted monitor blood pressure iv antibiotics oxygen needs noted follow up needs for BIPAP DNR no intubation close follow up critical medications/laboratory data/nursing notes/ICU care reviewed in detail note reviewed and edited care discussed with RN and RT ICU time spent >40 minutes Critical Care - Subjective Interval Events: overall oxygenation improved seen earlier oxygenation improved ROS Limited/Unobtainable: Yes Condition: critical EKG Rhythm: Sinus Rhythm I&O: Intake and Output 12/15/19 12/16/19 19:00 07:00 Intake Total 2677.5 ml 3090.750 ml Output Total 1800 ml 2370 ml Balance 877.5 ml 720.750 ml Intake Free Water 260 ml 150 ml IV Total 2417.5 ml 2940.750 ml Output Urine Total 1800 ml 2370 ml # Bowel Movements 4 Critical Care - Objective Last 24 Hour Vital Signs Date Time Temp Pulse Resp B/P (MAP) Pulse Ox O2 Delivery O2 Flow Rate FiO2 12/16/19 12:00 Nasal Cannula 4.0 12/16/19 12:00 97.4 96 31 142/59 (86) 95 12/16/19 11:00 105 33 119/72 (88) 96 12/16/19 11:00 128/61 12/16/19 10:00 96 33 114/57 (76) 93 12/16/19 09:00 101 33 118/47 (70) 98 12/16/19 08:00 5.0 12/16/19 08:00 98.2 88 22 115/53 (73) 100 12/16/19 08:00 Nasal Cannula 4.0 12/16/19 08:00 85 12/16/19 07:11 99 Nasal Cannula 5.0 40 12/16/19 07:00 81 18 144/57 (86) 100 12/16/19 07:00 118/51 12/16/19 06:45 86 19 126/63 (84) 100 12/16/19 06:30 87 22 130/59 (82) 99 12/16/19 06:15 85 20 143/61 (88) 100 5/17/20 06:00 122/51 12/16/19 06:00 83 20 128/55 (79) 100 12/16/19 05:45 93 23 113/40 (64) 98 12/16/19 05:40 138/55 12/16/19 05:39 101/70 12/16/19 05:30 96 29 126/63 (84) 98 12/16/19 05:15 77 18 136/59 (84) 100 12/16/19 05:00 83 20 124/50 (74) 99 12/16/19 05:00 101/70 12/16/19 04:45 85 19 126/70 (88) 100 12/16/19 04:30 85 20 117/53 (74) 100 12/16/19 04:00 99.0 12/16/19 04:00 102/46 12/16/19 04:00 80 12/16/19 04:00 Nasal Cannula 4.0 12/16/19 03:15 84 20 138/55 (82) 99 12/16/19 03:00 128/56 12/16/19 03:00 88 24 139/56 (83) 98 12/16/19 02:45 87 27 131/95 (107) 96 12/16/19 02:30 86 27 133/60 (84) 98 12/16/19 02:00 87 27 134/53 (80) 99 12/16/19 02:00 106/50 12/16/19 01:30 95 27 144/67 (92) 98 12/16/19 01:00 90 27 139/61 (87) 99 12/16/19 01:00 144/49 12/16/19 00:54 106/54 12/16/19 00:53 132/58 12/16/19 00:30 86 26 128/77 (94) 99 12/16/19 00:15 94 27 132/58 (82) 97 12/16/19 00:00 99.0 93 29 145/77 (99) 100 12/16/19 00:00 105 12/16/19 00:00 88 12/16/19 00:00 132/58 12/16/19 00:00 Nasal Cannula 4.0 12/15/19 23:54 95 28 151/58 (89) 99 5/16/20 23:30 106 30 90/68 (75) 95 5/16/20 23:15 105 31 124/72 (89) 93 5/16/20 23:00 97 24 106/54 (71) 97 5/16/20 23:00 106/54 5/16/20 22:45 90 23 136/54 (81) 99 5/16/20 22:30 95 23 130/64 (86) 98 5/16/20 22:15 102 26 129/54 (79) 97 5/16/20 22:00 123/66 516/20 22:00 97 25 123/66 (85) 96 5/16/20 21:45 108 29 116/52 (73) 96 1620 21:30 91 23 129/59 (82) 99 516/20 21:15 98 22 122/53 (76) 96 5/1620 21:00 102 27 115/52 (73) 95 1620 21:00 115/52 51620 20:45 103 28 126/63 (84) 96 516/20 20:30 105 28 128/67 (87) 99 516/20 20:17 85/32 5/16/20 20:15 89 27 110/62 (78) 100 5/16/20 20:00 Nasal Cannula 6.0 516/20 20:00 85/32 5/16/20 20:00 102 5/16/20 20:00 99.9 108 38 85/32 (49) 95 20 19:45 106 37 94/54 (67) 94 516/20 19:30 98 Nasal Cannula 5.0 40 5/16/20 19:30 108 37 116/83 (94) 93 5/16/20 19:18 102 33 95/60 (72) 96 5/16/20 19:15 96 30 88/41 (57) 96 5/16/20 19:00 97/45 5/16/20 19:00 107 34 97/45 (62) 95 5/16/20 18:30 101 26 92/60 (71) 97 5/16/20 18:00 104 33 107/44 (65) 95 516/20 18:00 107/44 5/16/20 17:30 103 29 107/41 (63) 94 12/15/19 17:15 103 31 103/37 (59) 95 12/15/19 17:04 117 35 111/49 (69) 95 12/15/19 17:00 111/49 12/15/19 16:30 100 23 107/49 (68) 100 12/15/19 16:00 105 12/15/19 16:00 102 24 96/45 (62) 98 12/15/19 16:00 96/45 12/15/19 16:00 Non-Rebreather 15.0 12/15/19 15:30 107 33 112/55 (74) 99 12/15/19 15:00 110/52 12/15/19 15:00 100 24 110/52 (71) 99 12/15/19 14:30 104 34 110/53 (72) 98 Labs: Laboratory Tests Test 12/15/19 14:30 12/16/19 02:10 12/16/19 07:15 12/16/19 11:00 Lactic Acid Level 5.80 mmol/L (0.4-2.0) H 5.80 mmol/L (0.4-2.0) H 2.90 mmol/L (0.66-2.22) H Sodium Level 144 MMOL/L (136-145) Potassium Level 3.1 MMOL/L (3.5-5.1) L Chloride Level 107 MMOL/L (98-107) Carbon Dioxide Level 23 MMOL/L (21-32) Anion Gap 14 mmol/L (5-15) Blood Urea Nitrogen 12 mg/dL (7-18) Creatinine 0.8 MG/DL (0.55-1.30) Estimat Glomerular Filtration Rate > 60 mL/min (>60) Glucose Level 300 MG/DL (74-106) H Calcium Level 6.5 MG/DL (8.5-10.1) L Total Bilirubin 0.6 MG/DL (0.2-1.0) Aspartate Amino Transf (AST/SGOT) 60 U/L (15-37) H Alanine Aminotransferase (ALT/SGPT) 39 U/L (12-78) Alkaline Phosphatase 129 U/L (46-116) H Total Protein 5.3 G/DL (6.4-8.2) L Albumin 1.2 G/DL (3.4-5.0) L Globulin 4.1 g/dL Albumin/Globulin Ratio 0.3 (1.0-2.7) L White Blood Count 16.9 K/UL (4.8-10.8) H Red Blood Count 3.23 M/UL (4.20-5.40) L Hemoglobin 9.0 G/DL (12.0-16.0) L Hematocrit 26.4 % (37.0-47.0) L Mean Corpuscular Volume 82 FL (80-99) Mean Corpuscular Hemoglobin 27.9 PG (27.0-31.0) Mean Corpuscular Hemoglobin Concent 34.2 G/DL (32.0-36.0) Red Cell Distribution Width 13.0 % (11.6-14.8) Platelet Count 76 K/UL (150-450) L Mean Platelet Volume 13.4 FL (6.5-10.1) H Neutrophils (%) (Auto) % (45.0-75.0) Lymphocytes (%) (Auto) % (20.0-45.0) Monocytes (%) (Auto) % (1.0-10.0) Eosinophils (%) (Auto) % (0.0-3.0) Basophils (%) (Auto) % (0.0-2.0) Differential Total Cells Counted 100 Neutrophils % (Manual) 97 % (45-75) H Lymphocytes % (Manual) 2 % (20-45) L Monocytes % (Manual) 0 % (1-10) L Eosinophils % (Manual) 1 % (0-3) Basophils % (Manual) 0 % (0-2) Band Neutrophils 0 % (0-8) Platelet Estimate Decreased L Platelet Morphology Normal Hypochromasia 1+ Objective: GENERAL: The patient is chronically ill. HEENT: Overall negative. NECK: Supple. LUNGS: Moderate breath sounds. worsening rhonchi. no wheeze CARDIAC: S1 and S2, currently regular rate and rhythm. ABDOMEN: Overall soft, nontender. EXTREMITIES: No significant edema. Decreased range of motion. G-tube in place. Depressed affect. Aphasic. reviewed and edited Accucheck: 292 Tonny Ramirez MD December 16, 2019 14:21
--- NOTE | 2019-12-16 15:00 | NUR ---
NURSE NOTES: Pt with BM to soft brown stools in mod amount,kept dry and clean and turned to sides HOB elevated.
[2019-12-16] MEDS ORDERED: NS 275ml ONE (15:50)
--- NOTE | 2019-12-16 17:00 | NUR ---
NURSE NOTES: Pt very congested,with rales,called Dr Humphrey,ordered to hold IVF D5W+20 meq KCL at 150 ml/hr,and give Lasix 40 mg IV x1.Informed re K level 3.1 ordered to give 40 meq KCL IV,orders done and carried out.
--- NOTE | 2019-12-16 19:19 | NUR ---
HAND-OFF: Report given to Tiffani Ballesteros RN.
--- NOTE | 2019-12-16 19:30 | NUR ---
NURSE NOTES: Received report from Rao RN. Pt is nonverbal, opens eyes spontaneously. 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 Left Subclavian TLC infusing Levophed at 24mcg/min. BP 95/44, respiration 36. Pt has peripheral IV access on right AC #22G and Lt AC #20g. GT intact, running Glucerna 1.5 at 20cc/hr goal. no residual.HOB elevated. Griffin catheter intact draining yellow urine to urometer. Skin has sacral and left buttock DTI, bilateral heels and scattered petechiae on extremities, all covered with Optifoam dressings. Droplet and contact isolation maintained and observed. PUI negative x1. Bed alarm on. bed locked and in low position. Code status DNR/DNI comfort measure provided. Will continue plan of care.
--- NOTE | 2019-12-16 20:00 | NUR ---
NURSE NOTES: Patient desat to 85% with 4L oxygen via NC, suctioned patient.Placed patient on non-rebreather mask 100%. HOB elevated. Saturation increase to 100%.will continue to monitor patient.
[2019-12-16] MEDS: Dyna-Hex 2% Top Sol 2oz TOPIC SCH (20:07)
--- NOTE | 2019-12-16 22:00 | NUR ---
NURSE NOTES: Left Subclavian TLC infusing Levophed at 30mcg/min. BP 138/64 respiration 31. cooling measure provided. Temp 99.0 axillary. HOB elevated. patient DNR/DNI. Comfort measure provided. frequent visual checks continued. will continue plan of care.
--- NOTE | 2019-12-16 23:30 | Progress Note ---
DATE: 12/16/2019 CARDIOLOGY PROGRESS NOTE SUBJECTIVE: Condition remains critical. Prognosis guarded. Patient remains on pressor support with tapering ongoing. The patient has been on non-rebreather mask, but oxygen needs are being decreased as well. PHYSICAL EXAMINATION: VITAL SIGNS: Blood pressure 126/63, heart rate 86, respirations 19, afebrile, temperature max 99.9. LUNGS: Coarse breath sounds. Rhonchi. CARDIAC: Regular rhythm and rate. Normal S1, S2. ABDOMEN: Soft. EXTREMITIES: Trace edema. LABORATORY DATA: Urine culture positive for E. coli ESBL and strep viridans. Blood culture positive for gram-positive cocci. White count 17, hemoglobin 9. Sodium 144, potassium 3.1, bicarb 23, BUN 12, creatinine 0.8. Lactic acid 4.7. Albumin 1.2. IMPRESSION: 1. Sepsis with shock. 2. Hypokalemia. 3. Acute diastolic congestive heart failure. 4. Respiratory failure. 5. Hypoxia improved. 6. Non ST-elevation myocardial infarction. PLAN: 1. Taper oxygen. 2. Taper off pressors. 3. Cautious diuresis. 4. Replace potassium. 5. Recheck magnesium. 6. Continue DVT prophylaxis. 7. Adjust IV fluids. Slava Hsu M.D. DR: ANTHONY JOB#: [id number] CC:
[2019-12-17] VITALS (70 sets, daily range): BP systolic 68–169; BP diastolic 32–114
--- NOTE | 2019-12-17 00:15 | NUR ---
NURSE NOTES: Patient in bed sleeping comfortably. Continue on Non-rebreather 100% at 15L satting 100%. Left Subclavian TLC infusing Levophed at 30mcg/min. BP 99/54, Resp 38, HR 105 . cooling measure provided. HOB elevated. patient DNR/DNI. Comfort measure provided. frequent visual checks continued. will continue plan of care.
[2019-12-17] MEDS: Norepinephrine Bitartrate 8 MG in D5W 500ml 492 ML IV SCH ×4 (00:27→17:11)
[2019-12-17] MEDS: NovoLOG Insulin Flexpen SUBQ SCH ×6 (00:29→20:00)
--- NOTE | 2019-12-17 02:00 | NUR ---
NURSE NOTES: Patient in bed sleeping comfortably. Continue on Non-rebreather 100% at 15L satting 100%. Left Subclavian TLC infusing Levophed at 30mcg/min. BP 149/76, Resp 38, HR 86 . cooling measure provided. HOB elevated. patient DNR/DNI. Comfort measure provided. frequent visual checks continued. Repositioned patient in bed. Griffin draining 100-200cc/hr. will continue plan of care.
--- NOTE | 2019-12-17 03:00 | NUR ---
NURSE NOTES: Bed bath given tolerated well.
--- NOTE | 2019-12-17 05:00 | NUR ---
NURSE NOTES: Patient in bed awake. Continue on Non-rebreather 100% at 15L satting 100%. Left Subclavian TLC infusing Levophed at 26mcg/min. BP 130/114, Resp 31, HR 81. cooling measure provided. HOB elevated. patient DNR/DNI. Comfort measure provided. frequent visual checks continued. Repositioned patient in bed. Griffin draining 100-200cc/hr. will continue plan of care.
[2019-12-17 05:29] LABS: HEMOGLOBIN 8.5 G/DL (12.0-16.0); MEAN CORPUSCULAR VOLUME 81 FL (80-99); PLATELET COUNT 67 K/UL (150-450); RED BLOOD COUNT 3.08 M/UL (4.20-5.40); RED CELL DISTRIBUTION WIDTH 12.8 % (11.6-14.8); WHITE BLOOD COUNT 15.5 K/UL (4.8-10.8)
[2019-12-17 06:01] LABS: ALANINE AMINOTRANSFERASE 37 U/L (12-78); ALBUMIN 1.3 G/DL (3.4-5.0); ALBUMIN/GLOBULIN RATIO 0.3 (1.0-2.7); ALKALINE PHOSPHATASE 148 U/L (46-116); ANION GAP 11 mmol/L (5-15); ASPARTATE AMINO TRANSFERASE 53 U/L (15-37); BILIRUBIN,TOTAL 0.4 MG/DL (0.2-1.0); BLOOD UREA NITROGEN 17 mg/dL (7-18); CALCIUM 6.2 MG/DL (8.5-10.1); CARBON DIOXIDE 31 MMOL/L (21-32); CHLORIDE 101 MMOL/L (98-107); CREATININE 0.9 MG/DL (0.55-1.30); SODIUM 143 MMOL/L (136-145)
[2019-12-17 06:06] LABS: POTASSIUM 2.5 MMOL/L (3.5-5.1)
--- NOTE | 2019-12-17 07:19 | NUR ---
HAND-OFF: Report given to Yanira ROTHMAN. Called Dr. Humphrey regarding pottasium level 2.5 MD gave order noted and carried out.
--- NOTE | 2019-12-17 07:20 | NUR ---
NURSE NOTES: Received patient in bed from Tiffani ROTHMAN. patient is nonverbal, patient opens eyes spontaneously but does not follow commands. patient is on NRB 15L O2 sat 100%, labored breathing RR of 26. patient on a hall monitor SR of 76. patient has left subclavian TLC, levophed drip infusing at 26mcg/min. patient has gtube infusing glucerna 1.5 @ 20ml/hr. Griffin catheter intact draining clear yellow urine by gravity. Skin has sacral and left buttock DTI, bilateral heels and scattered petechiae on extremities noted, all covered with Optifoam dressings. patient's bed locked in lowest positions, bed brakes on.
--- NOTE | 2019-12-17 07:52 | NUR ---
NURSE NOTES: Dr. Humphrey at bedside updates given on K2.5 and patient on NRB 15L.
[2019-12-17] MEDS: Heparin 5000 units/ml inj SUBQ SCH ×2 (08:10→21:20)
--- NOTE | 2019-12-17 08:11 | NUR ---
NURSE NOTES: Heparin sub q held due to platelet level of 67.
[2019-12-17] MEDS: Vancomycin 750 MG in NS 275 ML IVPB SCH (08:30)
[2019-12-17] MEDS: Levemir Flexpen SUBQ SCH ×2 (08:34→21:21)
--- NOTE | 2019-12-17 09:41 | General Progress Note ---
Assessment/Plan Problem List: (1) Respiratory failure ICD Codes: J96.90 - Respiratory failure, unspecified, unspecified whether with hypoxia or hypercapnia SNOMED: 116423608 (2) Lactic acidosis ICD Codes: E87.2 - Acidosis SNOMED: 28246195 (3) Uncontrolled diabetes mellitus ICD Codes: E11.65 - Type 2 diabetes mellitus with hyperglycemia SNOMED: 97510401, 508698082 (4) Suspected 2019 novel coronavirus infection ICD Codes: Z20.828 - Contact with and (suspected) exposure to other viral communicable diseases SNOMED: 303217650 (5) Septic shock ICD Codes: A41.9 - Sepsis, unspecified organism; R65.21 - Severe sepsis with septic shock SNOMED: 33537858 Status: deteriorating Assessment/Plan: ivf dcd pressors as needed- try to wean monitor labs/abg o2 as needed free water flushes hold feeds until congestion better follow up cultures dvt/stress ulcer prophylaxis critical and guarded. prognosis poor dnr hospice offered but family declined xray labs cultures reviewed d/w cardiology poc time spent 60mins Subjective ROS Limited/Unobtainable: Yes Constitutional: Reports: malaise, weakness HEENT: Reports: no symptoms Cardiovascular: Reports: no symptoms Respiratory: Reports: cough, shortness of breath, SOB at rest Gastrointestinal/Abdominal: Reports: difficulty swallowing Genitourinary: Reports: no symptoms Neurologic/Psychiatric: Reports: pre-existing deficit Endocrine: Reports: no symptoms Hematologic/Lymphatic: Reports: anemia Allergies: Coded Allergies: PENICILLINS (Verified Allergy, Unknown, 12/14/19) All Systems: reviewed and negative except above Subjective more congested and sob yesterday. ivf dcd. given lasix x 1. on nrb(was on nasal cannula yesterday.) weak and poorly responsive. labs reviewed. levophed at 26 Objective Last 24 Hour Vital Signs Date Time Temp Pulse Resp B/P (MAP) Pulse Ox O2 Delivery O2 Flow Rate FiO2 12/17/19 08:00 15.0 12/17/19 08:00 97.6 77 26 130/52 (78) 100 12/17/19 08:00 130/52 12/17/19 07:30 83 29 125/48 (73) 100 12/17/19 07:15 80 33 115/54 (74) 100 5/18/20 07:00 130/52 20 07:00 86 30 130/52 (78) 100 12/17/19 06:45 83 30 134/61 (85) 100 12/17/19 06:30 81 28 123/39 (67) 100 12/17/19 06:15 80 26 141/56 (84) 100 12/17/19 06:00 82 27 140/57 (84) 100 12/17/19 06:00 140/57 12/17/19 05:46 63/32 12/17/19 05:46 91 27 160/73 (102) 100 12/17/19 05:45 63/47 12/17/19 05:30 84 35 68/32 (44) 100 12/17/19 05:15 83 30 137/55 (82) 100 12/17/19 05:00 88 34 130/114 (119) 100 12/17/19 05:00 130/114 12/17/19 04:48 104 37 117/46 (69) 97 12/17/19 04:47 107 36 72/35 (47) 97 12/17/19 04:30 103 33 112/74 (87) 100 12/17/19 04:15 97 35 134/63 (86) 100 12/17/19 04:00 98.9 96 32 131/67 (88) 100 12/17/19 04:00 Non-Rebreather 15.0 12/17/19 04:00 131/67 12/17/19 04:00 81 12/17/19 03:45 100 36 130/69 (89) 100 12/17/19 03:30 94 33 146/70 (95) 100 12/17/19 03:15 95 34 146/68 (94) 100 12/17/19 03:00 146/68 12/17/19 03:00 88 28 143/67 (92) 100 12/17/19 02:45 92 30 140/66 (90) 100 12/17/19 02:30 92 29 134/68 (90) 100 20 02:15 95 27 144/65 (91) 100 12/17/19 02:00 95 24 149/76 (100) 100 12/17/19 02:00 144/65 12/17/19 01:45 91 24 152/79 (103) 100 12/17/19 01:30 91 26 141/75 (97) 100 12/17/19 01:15 95 29 124/64 (84) 100 12/17/19 01:00 124/64 12/17/19 01:00 91 21 160/78 (105) 100 12/17/19 00:45 94 23 146/90 (108) 100 12/17/19 00:30 94 29 169/88 (115) 100 12/17/19 00:27 99/54 12/17/19 00:26 99/54 12/17/19 00:15 105 38 99/54 (69) 100 12/17/19 00:00 Non-Rebreather 15.0 12/17/19 00:00 98.8 90 30 152/78 (102) 100 12/17/19 00:00 99/54 12/17/19 00:00 86 12/16/19 23:45 99 29 139/74 (95) 100 12/16/19 23:30 105 39 127/75 (92) 100 12/16/19 23:15 103 34 134/69 (90) 100 12/16/19 23:00 97 31 131/79 (96) 100 12/16/19 23:00 134/69 12/16/19 22:45 93 30 120/63 (82) 100 12/16/19 22:30 85 28 142/61 (88) 100 12/16/19 22:15 88 30 138/64 (88) 100 12/16/19 22:03 123/56 12/16/19 22:00 88 28 137/68 (91) 100 12/16/19 21:45 90 30 131/69 (89) 100 12/16/19 21:30 93 35 117/62 (80) 100 12/16/19 21:15 99 35 123/56 (78) 100 12/16/19 21:00 95 32 126/57 (80) 100 12/16/19 20:45 101 39 116/64 (81) 100 12/16/19 20:30 95 29 122/53 (76) 99 12/16/19 20:15 94 34 142/61 (88) 100 12/16/19 20:09 68/44 12/16/19 20:09 108 32 147/71 (96) 100 12/16/19 20:04 120 42 68/44 (52) 94 12/16/19 20:00 95 Non-Rebreather 15.0 100 12/16/19 20:00 102 12/16/19 20:00 104 12/16/19 20:00 Non-Rebreather 15.0 12/16/19 20:00 99.8 115 43 79/45 (56) 94 12/16/19 19:45 114 40 89/42 (58) 88 12/16/19 19:30 102 34 95/44 (61) 95 12/16/19 19:15 105 35 110/54 (72) 94 12/16/19 19:00 98 34 99/47 (64) 93 12/16/19 18:01 102/49 12/16/19 18:00 104 33 95 12/16/19 17:02 115/45 12/16/19 17:00 92 31 114/60 (78) 94 12/16/19 16:30 81 33 105/49 (67) 99 12/16/19 16:15 92 39 154/79 (104) 97 12/16/19 16:10 129/72 12/16/19 16:01 104 12/16/19 16:00 98.0 105 29 129/72 (91) 96 12/16/19 16:00 Nasal Cannula 4.0 12/16/19 15:30 104 31 95/41 (59) 99 12/16/19 15:15 82 21 125/49 (74) 100 12/16/19 15:00 96 32 125/49 (74) 99 12/16/19 14:45 87 23 131/42 (71) 100 12/16/19 14:30 85 23 115/55 (75) 100 12/16/19 14:15 85 26 116/55 (75) 100 12/16/19 14:00 93 32 116/45 (68) 99 12/16/19 13:45 91 31 75/45 (55) 97 12/16/19 13:30 89 29 142/100 (114) 96 12/16/19 13:15 102 32 142/97 (112) 96 12/16/19 13:00 93 31 142/97 (112) 96 12/16/19 13:00 100 33 152/135 (141) 97 12/16/19 13:00 149/97 12/16/19 12:45 82 27 142/59 (86) 100 12/16/19 12:30 97 30 128/61 (83) 95 12/16/19 12:15 96 29 164/70 (101) 92 12/16/19 12:00 92 12/16/19 12:00 Nasal Cannula 4.0 12/16/19 12:00 98 32 152/70 (97) 95 12/16/19 12:00 152/70 12/16/19 12:00 97.4 96 31 142/59 (86) 95 12/16/19 11:45 100 32 153/62 (92) 93 12/16/19 11:30 105 31 142/79 (100) 92 12/16/19 11:15 83 24 119/72 (88) 98 12/16/19 11:00 105 33 119/72 (88) 96 12/16/19 11:00 119/72 12/16/19 11:00 128/61 12/16/19 10:15 91 29 114/57 (76) 98 12/16/19 10:00 96 33 114/57 (76) 93 12/16/19 10:00 114/57 12/16/19 09:45 101 31 110/46 (67) 97 Intake and Output 12/16/19 12/17/19 19:00 07:00 Intake Total 1115.0 ml 1329.25 ml Output Total 2000 ml 1800 ml Balance -885.0 ml -470.75 ml Intake Free Water 150 ml 50 ml IV Total 685.0 ml 1019.25 ml Tube Feeding 220 ml 260 ml Other 60 ml Output Urine Total 2000 ml 1800 ml # Bowel Movements 1 4 Laboratory Tests 12/16/19 11:00: White Blood Count 16.9H, Red Blood Count 3.23L, Hemoglobin 9.0L, Hematocrit 26.4L, Mean Corpuscular Volume 82, Mean Corpuscular Hemoglobin 27.9, Mean Corpuscular Hemoglobin Concent 34.2, Red Cell Distribution Width 13.0, Platelet Count 76L, Mean Platelet Volume 13.4H, Neutrophils (%) (Auto) , Lymphocytes (%) (Auto) , Monocytes (%) (Auto) , Eosinophils (%) (Auto) , Basophils (%) (Auto) , Differential Total Cells Counted 100, Neutrophils % (Manual) 97H, Lymphocytes % (Manual) 2L, Monocytes % (Manual) 0L, Eosinophils % (Manual) 1, Basophils % ( Manual) 0, Band Neutrophils 0, Platelet Estimate DecreasedL, Platelet Morphology Normal, Hypochromasia 1+ 12/16/19 15:35: Lactic Acid Level 4.70H 12/16/19 22:20: Lactic Acid Level 4.30H 12/16/19 23:40: Lactic Acid Level 3.00H 12/17/19 03:55: White Blood Count 15.5H, Red Blood Count 3.08L, Hemoglobin 8.5L, Hematocrit 25.0L, Mean Corpuscular Volume 81, Mean Corpuscular Hemoglobin 27.6, Mean Corpuscular Hemoglobin Concent 34.0, Red Cell Distribution Width 12.8, Platelet Count 67L, Mean Platelet Volume 9.3, Neutrophils (%) (Auto) , Lymphocytes (%) ( Auto) , Monocytes (%) (Auto) , Eosinophils (%) (Auto) , Basophils (%) (Auto) , Differential Total Cells Counted 100, Neutrophils % (Manual) 94H, Lymphocytes % (Manual) 6L, Monocytes % (Manual) 0L, Eosinophils % (Manual) 0, Basophils % ( Manual) 0, Band Neutrophils 0, Platelet Estimate DecreasedL, Platelet Morphology Normal, Hypochromasia 1+, Sodium Level 143, Potassium Level 2.5*L, Chloride Level 101, Carbon Dioxide Level 31, Anion Gap 11, Blood Urea Nitrogen 17, Creatinine 0.9, Estimat Glomerular Filtration Rate > 60, Glucose Level 229H , Lactic Acid Level 3.00H, Calcium Level 6.2L, Total Bilirubin 0.4, Aspartate Amino Transf (AST/SGOT) 53H, Alanine Aminotransferase (ALT/SGPT) 37, Alkaline Phosphatase 148H, Troponin I 0.009, Pro-B-Type Natriuretic Peptide 2949H, Total Protein 5.5L, Albumin 1.3L, Globulin 4.2, Albumin/Globulin Ratio 0.3L Height (Feet): 5 Height (Inches): 6.00 Weight (Pounds): 170 Objective General Appearance: WD/WN, alert, confused. on nrb EENT: PERRL/EOMI, normal ENT inspection Neck: non-tender, normal alignment, supple Cardiovascular: normal peripheral pulses, normal rate, regular rhythm Respiratory/Chest: chest wall non-tender, lungs clear, normal breath sounds, no respiratory distress, respiratory distress, accessory muscle use Abdomen: normal bowel sounds, non tender, soft, no organomegaly Edema: moderate edema Neurologic: disoriented, unresponsive, aphasia Skin: normal pigmentation Paxton Humphrey MD December 17, 2019 09:41
--- NOTE | 2019-12-17 10:00 | NUR ---
NURSE NOTES: patient switched to venturi mask 12L 50%, tolerating without complications.
--- NOTE | 2019-12-17 10:59 | Critical Care Progress Note ---
Assessment/Plan Assessment/Plan IMPRESSION: Respiratory distress, evidence of bilateral pulmonary infiltrates, hypernatremia, acute on chronic renal failure, severe protein-calorie malnutrition, toxic metabolic encephalopathy, dementia, metabolic acidosis, lactic acidemia, elevated troponin, possible demand ischemia, leukocytosis, probable sepsis, anemia. worsening hypoxemia with hypoxemic respiratory failure PLAN care noted taper fio2 as able d/w nursing in detail iv antibiotics had episodic desaturation follow up needs for BIPAP DNR no intubation per advance directives close follow up critical with guarded prognosis medications/laboratory data/nursing notes/ICU care reviewed in detail note reviewed and edited care discussed with RN and RT ICU time spent >40 minutes Critical Care - Subjective ROS Limited/Unobtainable: Yes Condition: critical EKG Rhythm: Sinus Rhythm I&O: Intake and Output 12/16/19 12/17/19 19:00 07:00 Intake Total 1115.0 ml 1329.25 ml Output Total 2000 ml 1800 ml Balance -885.0 ml -470.75 ml Intake Free Water 150 ml 50 ml IV Total 685.0 ml 1019.25 ml Tube Feeding 220 ml 260 ml Other 60 ml Output Urine Total 2000 ml 1800 ml # Bowel Movements 1 4 Critical Care - Objective Last 24 Hour Vital Signs Date Time Temp Pulse Resp B/P (MAP) Pulse Ox O2 Delivery O2 Flow Rate FiO2 12/17/19 10:54 101/45 12/17/19 10:00 91 29 101/45 (63) 97 12/17/19 09:30 88 26 126/56 (79) 100 12/17/19 09:00 126/50 12/17/19 09:00 77 21 126/50 (75) 100 12/17/19 08:00 Non-Rebreather 15.0 12/17/19 08:00 73 12/17/19 08:00 15.0 12/17/19 08:00 97.6 77 26 130/52 (78) 100 12/17/19 08:00 130/52 12/17/19 07:30 83 29 125/48 (73) 100 12/17/19 07:15 80 33 115/54 (74) 100 12/17/19 07:00 130/52 12/17/19 07:00 86 30 130/52 (78) 100 12/17/19 06:55 100 Non-Rebreather 15.0 100 12/17/19 06:45 83 30 134/61 (85) 100 12/17/19 06:30 81 28 123/39 (67) 100 12/17/19 06:15 80 26 141/56 (84) 100 12/17/19 06:00 82 27 140/57 (84) 100 12/17/19 06:00 140/57 12/17/19 05:46 63/32 12/17/19 05:46 91 27 160/73 (102) 100 12/17/19 05:45 63/47 12/17/19 05:30 84 35 68/32 (44) 100 12/17/19 05:15 83 30 137/55 (82) 100 12/17/19 05:00 88 34 130/114 (119) 100 12/17/19 05:00 130/114 12/17/19 04:48 104 37 117/46 (69) 97 12/17/19 04:47 107 36 72/35 (47) 97 12/17/19 04:30 103 33 112/74 (87) 100 12/17/19 04:15 97 35 134/63 (86) 100 12/17/19 04:00 98.9 96 32 131/67 (88) 100 12/17/19 04:00 Non-Rebreather 15.0 12/17/19 04:00 131/67 12/17/19 04:00 81 12/17/19 03:45 100 36 130/69 (89) 100 12/17/19 03:30 94 33 146/70 (95) 100 12/17/19 03:15 95 34 146/68 (94) 100 12/17/19 03:00 146/68 12/17/19 03:00 88 28 143/67 (92) 100 12/17/19 02:45 92 30 140/66 (90) 100 12/17/19 02:30 92 29 134/68 (90) 100 12/17/19 02:15 95 27 144/65 (91) 100 12/17/19 02:00 95 24 149/76 (100) 100 12/17/19 02:00 144/65 12/17/19 01:45 91 24 152/79 (103) 100 12/17/19 01:30 91 26 141/75 (97) 100 12/17/19 01:15 95 29 124/64 (84) 100 12/17/19 01:00 124/64 12/17/19 01:00 91 21 160/78 (105) 100 12/17/19 00:45 94 23 146/90 (108) 100 12/17/19 00:30 94 29 169/88 (115) 100 12/17/19 00:27 99/54 12/17/19 00:26 99/54 12/17/19 00:15 105 38 99/54 (69) 100 12/17/19 00:00 Non-Rebreather 15.0 12/17/19 00:00 98.8 90 30 152/78 (102) 100 12/17/19 00:00 99/54 12/17/19 00:00 86 12/16/19 23:45 99 29 139/74 (95) 100 12/16/19 23:30 105 39 127/75 (92) 100 12/16/19 23:15 103 34 134/69 (90) 100 12/16/19 23:00 97 31 131/79 (96) 100 12/16/19 23:00 134/69 12/16/19 22:45 93 30 120/63 (82) 100 12/16/19 22:30 85 28 142/61 (88) 100 12/16/19 22:15 88 30 138/64 (88) 100 12/16/19 22:03 123/56 12/16/19 22:00 88 28 137/68 (91) 100 12/16/19 21:45 90 30 131/69 (89) 100 12/16/19 21:30 93 35 117/62 (80) 100 12/16/19 21:15 99 35 123/56 (78) 100 12/16/19 21:00 95 32 126/57 (80) 100 12/16/19 20:45 101 39 116/64 (81) 100 12/16/19 20:30 95 29 122/53 (76) 99 12/16/19 20:15 94 34 142/61 (88) 100 12/16/19 20:09 68/44 12/16/19 20:09 108 32 147/71 (96) 100 12/16/19 20:04 120 42 68/44 (52) 94 12/16/19 20:00 95 Non-Rebreather 15.0 100 12/16/19 20:00 102 12/16/19 20:00 104 12/16/19 20:00 Non-Rebreather 15.0 12/16/19 20:00 99.8 115 43 79/45 (56) 94 12/16/19 19:45 114 40 89/42 (58) 88 12/16/19 19:30 102 34 95/44 (61) 95 12/16/19 19:15 105 35 110/54 (72) 94 12/16/19 19:00 98 34 99/47 (64) 93 12/16/19 18:01 102/49 12/16/19 18:00 104 33 95 12/16/19 17:02 115/45 12/16/19 17:00 92 31 114/60 (78) 94 12/16/19 16:30 81 33 105/49 (67) 99 12/16/19 16:15 92 39 154/79 (104) 97 12/16/19 16:10 129/72 12/16/19 16:01 104 12/16/19 16:00 98.0 105 29 129/72 (91) 96 12/16/19 16:00 Nasal Cannula 4.0 12/16/19 15:30 104 31 95/41 (59) 99 12/16/19 15:15 82 21 125/49 (74) 100 12/16/19 15:00 96 32 125/49 (74) 99 12/16/19 14:45 87 23 131/42 (71) 100 12/16/19 14:30 85 23 115/55 (75) 100 12/16/19 14:15 85 26 116/55 (75) 100 12/16/19 14:00 93 32 116/45 (68) 99 12/16/19 13:45 91 31 75/45 (55) 97 12/16/19 13:30 89 29 142/100 (114) 96 12/16/19 13:15 102 32 142/97 (112) 96 12/16/19 13:00 93 31 142/97 (112) 96 12/16/19 13:00 100 33 152/135 (141) 97 12/16/19 13:00 149/97 12/16/19 12:45 82 27 142/59 (86) 100 12/16/19 12:30 97 30 128/61 (83) 95 12/16/19 12:15 96 29 164/70 (101) 92 12/16/19 12:00 92 12/16/19 12:00 Nasal Cannula 4.0 12/16/19 12:00 98 32 152/70 (97) 95 12/16/19 12:00 152/70 12/16/19 12:00 97.4 96 31 142/59 (86) 95 12/16/19 11:45 100 32 153/62 (92) 93 12/16/19 11:30 105 31 142/79 (100) 92 12/16/19 11:15 83 24 119/72 (88) 98 12/16/19 11:00 105 33 119/72 (88) 96 12/16/19 11:00 119/72 12/16/19 11:00 128/61 Labs: Labs Test 12/15/19 04:30 12/15/19 12:10 12/15/19 14:30 12/16/19 02:10 White Blood Count 14.1 K/UL (4.8-10.8) Red Blood Count 3.52 M/UL (4.20-5.40) Hemoglobin 9.7 G/DL (12.0-16.0) Hematocrit 29.5 % (37.0-47.0) Mean Corpuscular Volume 84 FL (80-99) Mean Corpuscular Hemoglobin 27.6 PG (27.0-31.0) Mean Corpuscular Hemoglobin Concent 33.0 G/DL (32.0-36.0) Red Cell Distribution Width 13.3 % (11.6-14.8) Platelet Count 105 K/UL (150-450) Mean Platelet Volume 10.2 FL (6.5-10.1) Neutrophils (%) (Auto) % (45.0-75.0) Lymphocytes (%) (Auto) % (20.0-45.0) Monocytes (%) (Auto) % (1.0-10.0) Eosinophils (%) (Auto) % (0.0-3.0) Basophils (%) (Auto) % (0.0-2.0) Differential Total Cells Counted 100 Neutrophils % (Manual) 71 % (45-75) Lymphocytes % (Manual) 9 % (20-45) Monocytes % (Manual) 2 % (1-10) Eosinophils % (Manual) 0 % (0-3) Basophils % (Manual) 0 % (0-2) Band Neutrophils 18 % (0-8) Platelet Estimate Decreased Platelet Morphology Normal Anisocytosis 1+ Sodium Level 147 MMOL/L (136-145) Potassium Level 3.4 MMOL/L (3.5-5.1) Chloride Level 111 MMOL/L (98-107) Carbon Dioxide Level 20 MMOL/L (21-32) Anion Gap 16 mmol/L (5-15) Blood Urea Nitrogen 20 mg/dL (7-18) Creatinine 0.9 MG/DL (0.55-1.30) Estimat Glomerular Filtration Rate > 60 mL/min (>60) Glucose Level 260 MG/DL (74-106) Lactic Acid Level 5.20 mmol/L (0.4-2.0) 4.70 mmol/L (0.66-2.22) 5.80 mmol/L (0.4-2.0) 5.80 mmol/L (0.4-2.0) Calcium Level 6.4 MG/DL (8.5-10.1) Magnesium Level 1.4 MG/DL (1.8-2.4) Troponin I 0.013 ng/mL (0.000-0.056) Test 12/16/19 07:15 12/16/19 11:00 12/16/19 15:35 12/16/19 22:20 Sodium Level 144 MMOL/L (136-145) Potassium Level 3.1 MMOL/L (3.5-5.1) Chloride Level 107 MMOL/L (98-107) Carbon Dioxide Level 23 MMOL/L (21-32) Anion Gap 14 mmol/L (5-15) Blood Urea Nitrogen 12 mg/dL (7-18) Creatinine 0.8 MG/DL (0.55-1.30) Estimat Glomerular Filtration Rate > 60 mL/min (>60) Glucose Level 300 MG/DL (74-106) Lactic Acid Level 2.90 mmol/L (0.66-2.22) 4.70 mmol/L (0.4-2.0) 4.30 mmol/L (0.4-2.0) Calcium Level 6.5 MG/DL (8.5-10.1) Total Bilirubin 0.6 MG/DL (0.2-1.0) Aspartate Amino Transf (AST/SGOT) 60 U/L (15-37) Alanine Aminotransferase (ALT/SGPT) 39 U/L (12-78) Alkaline Phosphatase 129 U/L (46-116) Total Protein 5.3 G/DL (6.4-8.2) Albumin 1.2 G/DL (3.4-5.0) Globulin 4.1 g/dL Albumin/Globulin Ratio 0.3 (1.0-2.7) White Blood Count 16.9 K/UL (4.8-10.8) Red Blood Count 3.23 M/UL (4.20-5.40) Hemoglobin 9.0 G/DL (12.0-16.0) Hematocrit 26.4 % (37.0-47.0) Mean Corpuscular Volume 82 FL (80-99) Mean Corpuscular Hemoglobin 27.9 PG (27.0-31.0) Mean Corpuscular Hemoglobin Concent 34.2 G/DL (32.0-36.0) Red Cell Distribution Width 13.0 % (11.6-14.8) Platelet Count 76 K/UL (150-450) Mean Platelet Volume 13.4 FL (6.5-10.1) Neutrophils (%) (Auto) % (45.0-75.0) Lymphocytes (%) (Auto) % (20.0-45.0) Monocytes (%) (Auto) % (1.0-10.0) Eosinophils (%) (Auto) % (0.0-3.0) Basophils (%) (Auto) % (0.0-2.0) Differential Total Cells Counted 100 Neutrophils % (Manual) 97 % (45-75) Lymphocytes % (Manual) 2 % (20-45) Monocytes % (Manual) 0 % (1-10) Eosinophils % (Manual) 1 % (0-3) Basophils % (Manual) 0 % (0-2) Band Neutrophils 0 % (0-8) Platelet Estimate Decreased Platelet Morphology Normal Hypochromasia 1+ Test 12/16/19 23:40 12/17/19 03:55 Lactic Acid Level 3.00 mmol/L (0.66-2.22) 3.00 mmol/L (0.4-2.0) White Blood Count 15.5 K/UL (4.8-10.8) Red Blood Count 3.08 M/UL (4.20-5.40) Hemoglobin 8.5 G/DL (12.0-16.0) Hematocrit 25.0 % (37.0-47.0) Mean Corpuscular Volume 81 FL (80-99) Mean Corpuscular Hemoglobin 27.6 PG (27.0-31.0) Mean Corpuscular Hemoglobin Concent 34.0 G/DL (32.0-36.0) Red Cell Distribution Width 12.8 % (11.6-14.8) Platelet Count 67 K/UL (150-450) Mean Platelet Volume 9.3 FL (6.5-10.1) Neutrophils (%) (Auto) % (45.0-75.0) Lymphocytes (%) (Auto) % (20.0-45.0) Monocytes (%) (Auto) % (1.0-10.0) Eosinophils (%) (Auto) % (0.0-3.0) Basophils (%) (Auto) % (0.0-2.0) Differential Total Cells Counted 100 Neutrophils % (Manual) 94 % (45-75) Lymphocytes % (Manual) 6 % (20-45) Monocytes % (Manual) 0 % (1-10) Eosinophils % (Manual) 0 % (0-3) Basophils % (Manual) 0 % (0-2) Band Neutrophils 0 % (0-8) Platelet Estimate Decreased Platelet Morphology Normal Hypochromasia 1+ Sodium Level 143 MMOL/L (136-145) Potassium Level 2.5 MMOL/L (3.5-5.1) Chloride Level 101 MMOL/L (98-107) Carbon Dioxide Level 31 MMOL/L (21-32) Anion Gap 11 mmol/L (5-15) Blood Urea Nitrogen 17 mg/dL (7-18) Creatinine 0.9 MG/DL (0.55-1.30) Estimat Glomerular Filtration Rate > 60 mL/min (>60) Glucose Level 229 MG/DL (74-106) Calcium Level 6.2 MG/DL (8.5-10.1) Total Bilirubin 0.4 MG/DL (0.2-1.0) Aspartate Amino Transf (AST/SGOT) 53 U/L (15-37) Alanine Aminotransferase (ALT/SGPT) 37 U/L (12-78) Alkaline Phosphatase 148 U/L (46-116) Troponin I 0.009 ng/mL (0.000-0.056) Pro-B-Type Natriuretic Peptide 2949 pg/mL (0-125) Total Protein 5.5 G/DL (6.4-8.2) Albumin 1.3 G/DL (3.4-5.0) Globulin 4.2 g/dL Albumin/Globulin Ratio 0.3 (1.0-2.7) Objective: GENERAL: The patient is chronically ill. HEENT: Overall negative. NECK: Supple. LUNGS: Moderate breath sounds. noted rhonchi. CARDIAC: S1 and S2, currently regular rate and rhythm. ABDOMEN: Overall soft, nontender. EXTREMITIES: No significant edema. Decreased range of motion. G-tube in place. Depressed affect. Aphasic. reviewed and edited Accucheck: 232 Tonny Ramirez MD December 17, 2019 10:59
--- NOTE | 2019-12-17 11:16 | NUR ---
NURSE NOTES: updated daughter Lucia regarding patient's status.
--- NOTE | 2019-12-17 11:21 | Diagnostic Imaging Report ---
EXAM: ULTRASOUND Venous Duplex Scan [place] Leg CLINICAL HISTORY: Leg pain and edema. COMPARISON: None TECHNIQUE: Doppler examination include grayscale images obtained with and without compression, and color and spectral doppler analysis. FINDINGS: Doppler examination shows normal spontaneity, phasicity, compressibility in the bilateral lower extremities. There is no thrombus identified by grayscale. Normal color and spectral flow is identified. There is no evidence of valvular incompetency or insufficiency. IMPRESSION: UNREMARKABLE VENOUS DUPLEX.
--- NOTE | 2019-12-17 11:54 | NUR ---
CASE MANAGEMENT: REVIEW SI: DKA . SEPSIS LEFT SUBCLAVIAN CENTRAL VENOUS CATHETER INSERTION 12/13 T 97.6 HR 77 RR 26 BP 130/52 SAT 100% NON-REBREATHER FLOW RATE 15.0 WBC 15.5 H/H 8.5/25.0 K 2.5 GLUCOSE 229 BNP 2949 IS: LEVOPHED GTT VANCOMYCIN IV QD ERTAPENEM IV Q24HR NO INTUBATION PER ADVANCE DIRECTIVE ICU STATUS DCP: PATIENT IS FROM [facility]
--- NOTE | 2019-12-17 12:30 | NUR ---
NURSE NOTES: covid 19 swab done and sent to lab.
[2019-12-17] MEDS: Ertapenem 1gm in NS 55ml IVPB SCH (12:38)
--- NOTE | 2019-12-17 15:30 | NUR ---
NURSE NOTES: patient had moderate large soft brown BM. patient cleaned and kept dry. patient's gown and linens changed.
--- NOTE | 2019-12-17 16:50 | NUR ---
NURSE NOTES: patient switched to 3L 28% venturi mask tolerating without complication. will continue to monitor.
--- NOTE | 2019-12-17 17:00 | Consultation ---
DATE OF CONSULTATION: 12/17/2019 INFECTIOUS DISEASES CONSULTATION CONSULTING PHYSICIAN: Albert Scanlon MD. REFERRING PHYSICIAN: Paxton Humphrey MD. REASON FOR CONSULTATION: Pneumonia. HISTORY OF PRESENTING ILLNESS: This is a 79-year-old lady who was transferred from a [facility] facility with shortness of breath. She was found to have a pneumonia and a possible urinary tract infection. An Infectious Diseases consultation has been obtained for antibiotics. PAST MEDICAL HISTORY: 1. History of G-tube placement. 2. History of myocardial infarction. 3. Congestive heart failure. 4. Diabetes. 5. Dementia. SOCIAL HISTORY: No history of smoking, alcohol, or drug use. FAMILY HISTORY: Unknown. REVIEW OF SYSTEMS: Unable to obtain currently. MEDICATIONS: As an inpatient, she is on norepinephrine, ertapenem, IV vancomycin, insulin, chlorhexidine gluconate, subcutaneous heparin, Tylenol. ALLERGIES: To penicillin noted. PHYSICAL EXAMINATION: VITAL SIGNS: Temperature of 97.6, T-max of 98.9, pulse of 94, respiratory rate 27, blood pressure 106/56, O2 saturation of 96% on FiO2 of 100% on a non-rebreather mask. Examination deferred due to possibility of COVID-19. LABORATORY AND DIAGNOSTIC DATA: White count 15.5, hemoglobin 8.5, hematocrit 25, MCV 81, platelet count of 67, with neutrophils of 94%. Sodium 143, potassium 2.5, chloride 101, bicarb 31, BUN 17, creatinine 0.9, glucose 229, calcium 6.2. Total bilirubin 0.4, AST 53, ALT 37, alkaline phosphatase 148, total protein 5.5, albumin 1.3. UA is showing too numerous to count white cells. Blood cultures growing coagulase-negative Staph. On 12/13/2019 COVID-19 test is negative. Urine culture is growing E.coli which is an ESBL as well as Streptococcus viridans. Nasal swab was positive for MRSA. Rectal swab was negative for VRE. Nasal swab was negative for viruses. Chest x-ray is showing bibasilar infiltrate. Venous ultrasound legs was unremarkable. ASSESSMENT: This is a 79-year-old lady with history of congestive heart failure, diabetes who comes in with shortness of breath and is found to have. 1. Possible pneumonia. COVID-19 test is negative. 2. E.coli and Streptococcus urinary tract infection. 3. Positive blood cultures with coagulase-negative Staph is most likely a contaminant. PLAN: 1. Continue IV vancomycin and meropenem. 2. Continue isolation for now. 3. We will follow up cultures and adjust antibiotics accordingly. 4. We will order repeat COVID-19 testing. I would like to thank, Dr. Humphrey, for this consultation. Albert Scanlon M.D. DR: Tico JOB#: [id number] CC: Paxton Humphrey M.D.
--- NOTE | 2019-12-17 18:54 | Surgery Progress Note ---
Surgery Progress Note Subjective Procedure Performed left subclavian central venous catheter insertion Additional Comments ill appearing labs reviewed Objective Last 24 Hour Vital Signs Date Time Temp Pulse Resp B/P (MAP) Pulse Ox O2 Delivery O2 Flow Rate FiO2 12/17/19 18:30 83 24 115/44 (67) 96 12/17/19 18:00 80 23 136/53 (80) 96 12/17/19 17:30 81 26 132/49 (76) 96 12/17/19 17:11 108/45 12/17/19 17:10 88 29 128/54 (78) 94 12/17/19 16:30 97.8 87 32 108/45 (66) 96 12/17/19 16:00 90 31 131/44 (73) 96 12/17/19 16:00 102 12/17/19 16:00 Venturi Mask 12.0 12/17/19 16:00 131/44 12/17/19 15:30 84 29 124/49 (74) 97 12/17/19 15:00 121/53 12/17/19 15:00 83 29 121/53 (75) 98 12/17/19 14:30 90 35 118/53 (74) 98 12/17/19 14:00 86 30 118/47 (70) 99 12/17/19 14:00 118/47 12/17/19 13:30 86 29 117/43 (67) 97 12/17/19 13:00 83 32 141/60 (87) 98 12/17/19 13:00 141/60 12/17/19 12:00 97.8 90 29 120/51 (74) 99 12/17/19 12:00 83 12/17/19 12:00 120/51 12/17/19 12:00 Non-Rebreather 15.0 12/17/19 11:00 94 27 106/56 (73) 96 12/17/19 11:00 106/56 12/17/19 10:54 101/45 12/17/19 10:00 91 29 101/45 (63) 97 12/17/19 10:00 101/45 12/17/19 09:30 88 26 126/56 (79) 100 12/17/19 09:00 126/50 12/17/19 09:00 77 21 126/50 (75) 100 12/17/19 08:00 Non-Rebreather 15.0 12/17/19 08:00 73 12/17/19 08:00 15.0 12/17/19 08:00 97.6 77 26 130/52 (78) 100 12/17/19 08:00 130/52 12/17/19 07:30 83 29 125/48 (73) 100 12/17/19 07:15 80 33 115/54 (74) 100 12/17/19 07:00 130/52 12/17/19 07:00 86 30 130/52 (78) 100 12/17/19 06:55 100 Non-Rebreather 15.0 100 12/17/19 06:45 83 30 134/61 (85) 100 12/17/19 06:30 81 28 123/39 (67) 100 12/17/19 06:15 80 26 141/56 (84) 100 12/17/19 06:00 82 27 140/57 (84) 100 12/17/19 06:00 140/57 12/17/19 05:46 63/32 12/17/19 05:46 91 27 160/73 (102) 100 12/17/19 05:45 63/47 12/17/19 05:30 84 35 68/32 (44) 100 12/17/19 05:15 83 30 137/55 (82) 100 12/17/19 05:00 88 34 130/114 (119) 100 12/17/19 05:00 130/114 12/17/19 04:48 104 37 117/46 (69) 97 12/17/19 04:47 107 36 72/35 (47) 97 12/17/19 04:30 103 33 112/74 (87) 100 12/17/19 04:15 97 35 134/63 (86) 100 12/17/19 04:00 98.9 96 32 131/67 (88) 100 12/17/19 04:00 Non-Rebreather 15.0 12/17/19 04:00 131/67 12/17/19 04:00 81 12/17/19 03:45 100 36 130/69 (89) 100 12/17/19 03:30 94 33 146/70 (95) 100 12/17/19 03:15 95 34 146/68 (94) 100 12/17/19 03:00 146/68 12/17/19 03:00 88 28 143/67 (92) 100 12/17/19 02:45 92 30 140/66 (90) 100 12/17/19 02:30 92 29 134/68 (90) 100 12/17/19 02:15 95 27 144/65 (91) 100 12/17/19 02:00 95 24 149/76 (100) 100 12/17/19 02:00 144/65 12/17/19 01:45 91 24 152/79 (103) 100 12/17/19 01:30 91 26 141/75 (97) 100 12/17/19 01:15 95 29 124/64 (84) 100 12/17/19 01:00 124/64 12/17/19 01:00 91 21 160/78 (105) 100 12/17/19 00:45 94 23 146/90 (108) 100 12/17/19 00:30 94 29 169/88 (115) 100 12/17/19 00:27 99/54 12/17/19 00:26 99/54 12/17/19 00:15 105 38 99/54 (69) 100 12/17/19 00:00 Non-Rebreather 15.0 12/17/19 00:00 98.8 90 30 152/78 (102) 100 12/17/19 00:00 99/54 12/17/19 00:00 86 12/16/19 23:45 99 29 139/74 (95) 100 12/16/19 23:30 105 39 127/75 (92) 100 12/16/19 23:15 103 34 134/69 (90) 100 12/16/19 23:00 97 31 131/79 (96) 100 12/16/19 23:00 134/69 12/16/19 22:45 93 30 120/63 (82) 100 12/16/19 22:30 85 28 142/61 (88) 100 12/16/19 22:15 88 30 138/64 (88) 100 12/16/19 22:03 123/56 12/16/19 22:00 88 28 137/68 (91) 100 12/16/19 21:45 90 30 131/69 (89) 100 12/16/19 21:30 93 35 117/62 (80) 100 12/16/19 21:15 99 35 123/56 (78) 100 12/16/19 21:00 95 32 126/57 (80) 100 12/16/19 20:45 101 39 116/64 (81) 100 12/16/19 20:30 95 29 122/53 (76) 99 12/16/19 20:15 94 34 142/61 (88) 100 12/16/19 20:09 68/44 12/16/19 20:09 108 32 147/71 (96) 100 12/16/19 20:04 120 42 68/44 (52) 94 12/16/19 20:00 95 Non-Rebreather 15.0 100 12/16/19 20:00 102 12/16/19 20:00 104 12/16/19 20:00 Non-Rebreather 15.0 12/16/19 20:00 99.8 115 43 79/45 (56) 94 12/16/19 19:45 114 40 89/42 (58) 88 12/16/19 19:30 102 34 95/44 (61) 95 12/16/19 19:15 105 35 110/54 (72) 94 12/16/19 19:00 98 34 99/47 (64) 93 I&O Intake and Output 12/16/19 12/17/19 19:00 07:00 Intake Total 1115.0 ml 1329.25 ml Output Total 2000 ml 1800 ml Balance -885.0 ml -470.75 ml Intake Free Water 150 ml 50 ml IV Total 685.0 ml 1019.25 ml Tube Feeding 220 ml 260 ml Other 60 ml Output Urine Total 2000 ml 1800 ml # Bowel Movements 1 4 Dressing: other Wound: other Drains: other Cardiovascular: RSR Respiratory: decreased breath sounds Abdomen: soft, non-tender Extremities: no cyanosis Laboratory Tests Test 12/16/19 22:20 12/16/19 23:40 12/17/19 03:55 Lactic Acid Level 4.30 mmol/L (0.4-2.0) H 3.00 mmol/L (0.66-2.22) H 3.00 mmol/L (0.4-2.0) H White Blood Count 15.5 K/UL (4.8-10.8) H Red Blood Count 3.08 M/UL (4.20-5.40) L Hemoglobin 8.5 G/DL (12.0-16.0) L Hematocrit 25.0 % (37.0-47.0) L Mean Corpuscular Volume 81 FL (80-99) Mean Corpuscular Hemoglobin 27.6 PG (27.0-31.0) Mean Corpuscular Hemoglobin Concent 34.0 G/DL (32.0-36.0) Red Cell Distribution Width 12.8 % (11.6-14.8) Platelet Count 67 K/UL (150-450) L Mean Platelet Volume 9.3 FL (6.5-10.1) Neutrophils (%) (Auto) % (45.0-75.0) Lymphocytes (%) (Auto) % (20.0-45.0) Monocytes (%) (Auto) % (1.0-10.0) Eosinophils (%) (Auto) % (0.0-3.0) Basophils (%) (Auto) % (0.0-2.0) Differential Total Cells Counted 100 Neutrophils % (Manual) 94 % (45-75) H Lymphocytes % (Manual) 6 % (20-45) L Monocytes % (Manual) 0 % (1-10) L Eosinophils % (Manual) 0 % (0-3) Basophils % (Manual) 0 % (0-2) Band Neutrophils 0 % (0-8) Platelet Estimate Decreased L Platelet Morphology Normal Hypochromasia 1+ Sodium Level 143 MMOL/L (136-145) Potassium Level 2.5 MMOL/L (3.5-5.1) *L Chloride Level 101 MMOL/L (98-107) Carbon Dioxide Level 31 MMOL/L (21-32) Anion Gap 11 mmol/L (5-15) Blood Urea Nitrogen 17 mg/dL (7-18) Creatinine 0.9 MG/DL (0.55-1.30) Estimat Glomerular Filtration Rate > 60 mL/min (>60) Glucose Level 229 MG/DL (74-106) H Calcium Level 6.2 MG/DL (8.5-10.1) L Total Bilirubin 0.4 MG/DL (0.2-1.0) Aspartate Amino Transf (AST/SGOT) 53 U/L (15-37) H Alanine Aminotransferase (ALT/SGPT) 37 U/L (12-78) Alkaline Phosphatase 148 U/L (46-116) H Troponin I 0.009 ng/mL (0.000-0.056) Pro-B-Type Natriuretic Peptide 2949 pg/mL (0-125) H Total Protein 5.5 G/DL (6.4-8.2) L Albumin 1.3 G/DL (3.4-5.0) L Globulin 4.2 g/dL Albumin/Globulin Ratio 0.3 (1.0-2.7) L Plan Problems: (1) Uncontrolled diabetes mellitus (2) Suspected 2019 novel coronavirus infection Assessment & Plan: pending test (3) Septic shock Assessment & Plan: septic hypotension line placed see note resuscitation initiated discussed in detail with daughter at bedside for ome time tren dlabs fluids pressors will follow with recs (4) Lactic acidosis (5) Respiratory failure (6) Decubitus skin ulcer Assessment & Plan: Pt presented on admission with multiple pressure injuries. Unstageable Sacral Pressure injury with presents as open DTPI. Soft necrosis at Base of wound with marginal erythema along edges.Small opening noted to L sacrum. No odor or exudate noted. Periwound without evidence of further skin breakdown. DTPI noted to medial L malleolus. Base of wound is maroon with marginal erythema. DTPI medial L heel base of wound is maroon with fluctuance. DTPI L Hallux. Base of wound is maroon with marginal erythema along borders. Reabsorbing DTPI lateral L heel. Base of injury ids dry. Unstageable pressure injuries noted to distal/lateral R foot. Soft necrosis at base of wound. Unstageable pressure injury dorso/lateral R 5th metatarsal. Soft necrosis at base of wound. Unstageable pressure injury web space of R 4th metatarsal. Base of wound is necrotic and partially opened. no exudate noted. DTPI noted to R lateral malleolus. Base of wound is maroon and soft with marginal erythema along borders. Tx.Plan: Cleanse Sacral wound with Saline. Apply TheraHoney. Apply Moisture Barrier paste periwound. Cover with Optifoam drsg. Change every 3 days and prn. Apply Betadine to wounds Distal /lateral R foot, R 4th and 5th metatarsals. Cover with Optifoam drsg every 3 days and prn. Apply Cavilon to both heels, Both hallux and malleoli. Cover each site with Optifoam drgs. Change every 7 days and prn. Reposition at least every 2hours or as tolerated. Place Pillow between knees. Off-load heels with Pillow. APM/MELANIE Mattress overlay. Joce Campbell December 17, 2019 18:54
--- NOTE | 2019-12-17 19:09 | NUR ---
HAND-OFF: Report given to Herminia RN. endorsed all plan of care to Herminia RN using SBAR
--- NOTE | 2019-12-17 20:00 | NUR ---
NURSE NOTES: received report from xuna bautista vm 28% with o2 sat 90-93 pt congested suction and reposition levo drip at 18 mcg /min iv infusing lt subscl site intact and patent dressing dry and intact urinary output good
[2019-12-17] MEDS: Dyna-Hex 2% Top Sol 2oz TOPIC SCH (20:28)
[2019-12-17] MEDS ORDERED: Levophed 4mg/4mL Inj IV ONE (20:48)
--- NOTE | 2019-12-17 22:00 | NUR ---
NURSE NOTES: pt o2 sat 80%pt suction and reposition fio2>30% o2 sat 90-94 % pt dnr-dni
[2019-12-18] VITALS (53 sets, daily range): BP systolic 77–140; BP diastolic 37–74
--- NOTE | 2019-12-18 | NUR ---
NURSE NOTES: bs 190 insulin coverage tolerating tube feeding reposition and suction
[2019-12-18] MEDS: Norepinephrine Bitartrate 8 MG in D5W 500ml 492 ML IV SCH ×2 (02:40→11:34)
--- NOTE | 2019-12-18 04:00 | NUR ---
NURSE NOTES: complete bed bath oral care donereposition and suction
[2019-12-18] MEDS: NovoLOG Insulin Flexpen SUBQ SCH ×6 (04:08→20:39)
[2019-12-18 05:24] LABS: HEMOGLOBIN 7.8 G/DL (12.0-16.0); MEAN CORPUSCULAR VOLUME 81 FL (80-99); PLATELET COUNT 69 K/UL (150-450); RED BLOOD COUNT 2.84 M/UL (4.20-5.40); RED CELL DISTRIBUTION WIDTH 13.3 % (11.6-14.8); WHITE BLOOD COUNT 9.8 K/UL (4.8-10.8)
[2019-12-18 05:39] LABS: ALANINE AMINOTRANSFERASE 51 U/L (12-78); ALBUMIN 1.2 G/DL (3.4-5.0); ALBUMIN/GLOBULIN RATIO 0.3 (1.0-2.7); ALKALINE PHOSPHATASE 185 U/L (46-116); ANION GAP 8 mmol/L (5-15); ASPARTATE AMINO TRANSFERASE 91 U/L (15-37); BILIRUBIN,TOTAL 0.4 MG/DL (0.2-1.0); BLOOD UREA NITROGEN 20 mg/dL (7-18); CALCIUM 6.6 MG/DL (8.5-10.1); CARBON DIOXIDE 33 MMOL/L (21-32); CHLORIDE 104 MMOL/L (98-107); CREATININE 0.8 MG/DL (0.55-1.30); PHOSPHORUS 3.7 MG/DL (2.5-4.9); SODIUM 145 MMOL/L (136-145)
[2019-12-18 05:42] LABS: POTASSIUM 2.7 MMOL/L (3.5-5.1)
--- NOTE | 2019-12-18 06:00 | NUR ---
NURSE NOTES: pt levo drip at 16mcg/min with bp 127/6o well notify dr benson with k 2.7 and hg 7.8
--- NOTE | 2019-12-18 07:13 | NUR ---
HAND-OFF: Report given to .faib bautista using sbar
--- NOTE | 2019-12-18 07:29 | Progress Note ---
DATE: 12/17/2019 CARDIOLOGY PROGRESS NOTE SUBJECTIVE: The patient's condition remains critical. Prognosis guarded. Patient remains in the intensive care unit. The patient has been on pressor support, but that has now been discontinued. PHYSICAL EXAMINATION: VITAL SIGNS: Blood pressure 130/53, heart rate 77, respirations 26, afebrile. LUNGS: Bilateral breath sounds. Few rhonchi. CARDIAC: Regular rhythm and rate. Normal S1, S2. ABDOMEN: Soft. EXTREMITIES: 1+ dependent edema. LABORATORY DATA: White count 15, hemoglobin 8.5. Potassium 2.5, BUN 17, creatinine 0.9. Lactic acid 3. Troponin negative and Pro-natriuretic peptide 2900. Venous duplex negative for DVT. IMPRESSION: 1. Shock. 2. Sepsis. 3. Respiratory failure. 4. Lactic acidosis. 5. Hypokalemia. 6. Acute myocardial ischemia. 7. Acute diastolic congestive heart failure. PLAN: 1. Antimicrobials. 2. Pressors as needed. 3. Volume support. 4. Oxygenation. 5. Respiratory hygiene. 6. Electrolyte replacement. 7. Cautious diuresis. Slava Hsu M.D. DR: ANTHONY JOB#: [id number] CC:
--- NOTE | 2019-12-18 07:55 | NUR ---
NURSE NOTES Report received from LORNA Arora.Patient non verbal , afebrile at this time.Venturi mask in place at 30% and saturate between 88-91% at this time.Will follow up with RT and MD regarding low Hgb 7.8 and potassium 2.7.GT feeding running Glucerna 1.5 at 20cc with no residual at this time.HOB elevated to prevent aspiration. Left subclavian TLC running Levophed at 16mcg/hr .Mouth care done, turned and repositioned for skin management, patient on P200 for skin management.Will continue close monitoring.Isolation precaution to be maintained at all the times:MRSA nares and ESBL urine. Good handwashing done before and after care.COV (-) 12/12.
--- NOTE | 2019-12-18 08:18 | NUR ---
RADIOLOGY DEPT., CHEST X-RAY DONE.-P.DYE
[2019-12-18] MEDS: Heparin 5000 units/ml inj SUBQ SCH ×2 (08:20→20:41)
[2019-12-18] MEDS: Vancomycin 750 MG in NS 275 ML IVPB SCH (08:22)
[2019-12-18] MEDS: Levemir Flexpen SUBQ SCH ×2 (08:23→20:41)
--- NOTE | 2019-12-18 08:25 | Critical Care Progress Note ---
Assessment/Plan Assessment/Plan IMPRESSION: Respiratory distress, evidence of bilateral pulmonary infiltrates, hypernatremia, acute on chronic renal failure, severe protein-calorie malnutrition, toxic metabolic encephalopathy, dementia, metabolic acidosis, lactic acidemia, elevated troponin, possible demand ischemia, leukocytosis, probable sepsis, anemia. worsening hypoxemia with hypoxemic respiratory failure PLAN care noted taper fio2 as able venous US negative d/w nursing in detail iv antibiotics follow up needs for BIPAP and monitor acid base DNR no intubation per advance directives close follow up and monitoring in ICU off load position change critical with guarded prognosis medications/laboratory data/nursing notes/ICU care reviewed in detail note reviewed and edited care discussed with RN and RT ICU time spent >40 minutes Critical Care - Subjective Interval Events: still on high oxygen care noted reduced LOC overnight events reviewed seen earlier ROS Limited/Unobtainable: Yes Condition: critical EKG Rhythm: Sinus Rhythm I&O: Intake and Output 12/17/19 12/18/19 19:00 07:00 Intake Total 1545.000 ml 895.0 ml Output Total 1200 ml 1350 ml Balance 345.000 ml -455.0 ml Intake Free Water 100 ml IV Total 1305.000 ml 555.0 ml Tube Feeding 240 ml 240 ml Output Urine Total 1200 ml 1350 ml # Bowel Movements 1 5 Critical Care - Objective Last 24 Hour Vital Signs Date Time Temp Pulse Resp B/P (MAP) Pulse Ox O2 Delivery O2 Flow Rate FiO2 12/18/19 06:00 121/57 12/18/19 06:00 82 30 121/57 (78) 95 12/18/19 05:45 86 33 126/56 (79) 92 12/18/19 05:30 84 26 133/55 (81) 95 12/18/19 05:15 82 23 124/55 (78) 91 12/18/19 05:00 124/55 12/18/19 05:00 91 36 122/56 (78) 89 12/18/19 04:45 89 28 134/74 (94) 97 12/18/19 04:30 79 29 129/57 (81) 94 12/18/19 04:15 89 24 133/57 (82) 95 12/18/19 04:00 85 12/18/19 04:00 Venturi Mask 12.0 12/18/19 04:00 98.5 83 26 135/62 (86) 94 12/18/19 03:45 82 31 132/60 (84) 96 12/18/19 03:30 86 33 120/60 (80) 95 12/18/19 03:15 96 29 123/54 (77) 89 12/18/19 03:00 123/54 12/18/19 03:00 86 35 118/54 (75) 93 12/18/19 02:45 86 29 121/55 (77) 92 12/18/19 02:40 80/39 12/18/19 02:30 106 34 78/40 (53) 91 12/18/19 02:15 106 34 77/44 (55) 91 12/18/19 02:00 108 36 81/38 (52) 90 12/18/19 01:00 129/40 12/18/19 00:47 94 36 92/39 (56) 91 12/18/19 00:45 87 33 98/38 (58) 92 12/18/19 00:30 96 31 124/64 (84) 90 12/18/19 00:15 85 27 115/48 (70) 95 12/18/19 00:00 98.5 90 31 111/47 (68) 94 12/18/19 00:00 Venturi Mask 12.0 12/18/19 00:00 115/48 12/18/19 00:00 108 12/17/19 23:45 91 28 107/47 (67) 92 12/17/19 23:30 90 28 107/42 (63) 92 12/17/19 23:15 93 28 98/47 (64) 90 12/17/19 23:00 97 30 94/41 (58) 89 12/17/19 23:00 98/47 20 22:45 101 33 95/44 (61) 89 1820 22:30 110 31 127/55 (79) 86 12/17/19 22:15 109 38 113/46 (68) 81 20 22:00 98 33 114/48 (70) 81 1820 22:00 113/46 20 21:45 98 33 129/52 (77) 86 20 21:30 98 29 124/49 (74) 86 20 21:15 96 32 120/46 (70) 86 5/18/20 21:00 90 26 122/44 (70) 89 5/18/20 21:00 120/46 5/18/20 20:45 94 28 123/52 (75) 91 5/18/20 20:30 87 29 114/51 (72) 91 5/18/20 20:15 92 34 85/38 (54) 92 5/18/20 20:02 95 Venturi Mask 4.0 30 5/18/20 20:00 Venturi Mask 12.0 5/18/20 20:00 89 5/18/20 20:00 98.0 92 31 122/51 (74) 89 5/18/20 20:00 85/38 5/18/20 19:45 94 28 115/47 (69) 92 5/18/20 19:30 89 30 120/49 (72) 89 5/18/20 19:15 88 29 121/47 (71) 92 5/18/20 19:00 115/47 5/18/20 19:00 83 27 115/50 (71) 95 5/18/20 18:30 83 24 115/44 (67) 96 5/18/20 18:00 80 23 136/53 (80) 96 5/18/20 18:00 136/53 5/18/20 17:30 81 26 132/49 (76) 96 5/18/20 17:11 108/45 5/18/20 17:10 88 29 128/54 (78) 94 5/18/20 17:00 128/54 5/18/20 16:30 97.8 87 32 108/45 (66) 96 5/18/20 16:00 90 31 131/44 (73) 96 5/18/20 16:00 102 5/18/20 16:00 Venturi Mask 12.0 5/18/20 16:00 131/44 5/18/20 15:30 84 29 124/49 (74) 97 5/18/20 15:00 121/53 5/18/20 15:00 83 29 121/53 (75) 98 5/18/20 14:30 90 35 118/53 (74) 98 5/18/20 14:00 86 30 118/47 (70) 99 5/18/20 14:00 118/47 5/18/20 13:30 86 29 117/43 (67) 97 12/17/19 13:00 83 32 141/60 (87) 98 12/17/19 13:00 141/60 12/17/19 12:00 97.8 90 29 120/51 (74) 99 12/17/19 12:00 83 12/17/19 12:00 120/51 12/17/19 12:00 Non-Rebreather 15.0 12/17/19 11:00 94 27 106/56 (73) 96 12/17/19 11:00 106/56 12/17/19 10:54 101/45 12/17/19 10:00 91 29 101/45 (63) 97 12/17/19 10:00 101/45 12/17/19 09:30 88 26 126/56 (79) 100 12/17/19 09:00 126/50 12/17/19 09:00 77 21 126/50 (75) 100 Labs: Laboratory Tests Test 12/18/19 03:50 White Blood Count 9.8 K/UL (4.8-10.8) Red Blood Count 2.84 M/UL (4.20-5.40) L Hemoglobin 7.8 G/DL (12.0-16.0) L Hematocrit 23.0 % (37.0-47.0) L Mean Corpuscular Volume 81 FL (80-99) Mean Corpuscular Hemoglobin 27.4 PG (27.0-31.0) Mean Corpuscular Hemoglobin Concent 33.8 G/DL (32.0-36.0) Red Cell Distribution Width 13.3 % (11.6-14.8) Platelet Count 69 K/UL (150-450) L Mean Platelet Volume 10.9 FL (6.5-10.1) H Neutrophils (%) (Auto) % (45.0-75.0) Lymphocytes (%) (Auto) % (20.0-45.0) Monocytes (%) (Auto) % (1.0-10.0) Eosinophils (%) (Auto) % (0.0-3.0) Basophils (%) (Auto) % (0.0-2.0) Neutrophils % (Manual) Pending Lymphocytes % (Manual) Pending Platelet Estimate Pending Platelet Morphology Pending Sodium Level 145 MMOL/L (136-145) Potassium Level 2.7 MMOL/L (3.5-5.1) *L Chloride Level 104 MMOL/L (98-107) Carbon Dioxide Level 33 MMOL/L (21-32) H Anion Gap 8 mmol/L (5-15) Blood Urea Nitrogen 20 mg/dL (7-18) H Creatinine 0.8 MG/DL (0.55-1.30) Estimat Glomerular Filtration Rate > 60 mL/min (>60) Glucose Level 194 MG/DL (74-106) H Calcium Level 6.6 MG/DL (8.5-10.1) L Phosphorus Level 3.7 MG/DL (2.5-4.9) Magnesium Level 1.9 MG/DL (1.8-2.4) Total Bilirubin 0.4 MG/DL (0.2-1.0) Aspartate Amino Transf (AST/SGOT) 91 U/L (15-37) H Alanine Aminotransferase (ALT/SGPT) 51 U/L (12-78) Alkaline Phosphatase 185 U/L (46-116) H Total Protein 5.2 G/DL (6.4-8.2) L Albumin 1.2 G/DL (3.4-5.0) L Globulin 4.0 g/dL Albumin/Globulin Ratio 0.3 (1.0-2.7) L Objective: GENERAL: The patient is chronically ill. HEENT: Overall negative. NECK: Supple. LUNGS: Moderate breath sounds. noted scattered rhonchi. CARDIAC: S1 and S2, currently regular rate and rhythm. without MRG ABDOMEN: Overall soft, nontender. EXTREMITIES: No significant edema. Decreased range of motion. G-tube in place. Depressed affect. Aphasic. reviewed and edited Accucheck: 171 Tonny Ramirez MD December 18, 2019 08:25
--- NOTE | 2019-12-18 09:03 | General Progress Note ---
Assessment/Plan Problem List: (1) Respiratory failure ICD Codes: J96.90 - Respiratory failure, unspecified, unspecified whether with hypoxia or hypercapnia SNOMED: 999756663 (2) Lactic acidosis ICD Codes: E87.2 - Acidosis SNOMED: 06023670 (3) Uncontrolled diabetes mellitus ICD Codes: E11.65 - Type 2 diabetes mellitus with hyperglycemia SNOMED: 04020441, 113372171 (4) Suspected 2019 novel coronavirus infection ICD Codes: Z20.828 - Contact with and (suspected) exposure to other viral communicable diseases SNOMED: 817389972 (5) Septic shock ICD Codes: A41.9 - Sepsis, unspecified organism; R65.21 - Severe sepsis with septic shock SNOMED: 99933495 Status: deteriorating Assessment/Plan: ivf dcd pressors as needed- try to wean monitor labs/abg o2 as needed free water flushes retry low rate feeds follow up cultures dvt/stress ulcer prophylaxis monitor h/h may need transfusion critical and guarded. prognosis poor dnr hospice offered but family declined xray labs cultures reviewed d/w cardiology poc time spent 60mins Subjective ROS Limited/Unobtainable: Yes Constitutional: Reports: malaise, weakness HEENT: Reports: no symptoms Cardiovascular: Reports: no symptoms Respiratory: Reports: cough, shortness of breath Gastrointestinal/Abdominal: Reports: difficulty swallowing Genitourinary: Reports: no symptoms Neurologic/Psychiatric: Reports: pre-existing deficit Endocrine: Reports: no symptoms Hematologic/Lymphatic: Reports: anemia Allergies: Coded Allergies: PENICILLINS (Verified Allergy, Unknown, 12/14/19) All Systems: reviewed and negative except above Subjective less congested now. on venti mask. appears more comfortable. levo weaned to 16. off feeds due to increased congestion. wbc trending down. h/h lower. no signs of bleeding. d/w staff Objective Last 24 Hour Vital Signs Date Time Temp Pulse Resp B/P (MAP) Pulse Ox O2 Delivery O2 Flow Rate FiO2 12/18/19 06:00 121/57 12/18/19 06:00 82 30 121/57 (78) 95 12/18/19 05:45 86 33 126/56 (79) 92 12/18/19 05:30 84 26 133/55 (81) 95 12/18/19 05:15 82 23 124/55 (78) 91 12/18/19 05:00 124/55 12/18/19 05:00 91 36 122/56 (78) 89 12/18/19 04:45 89 28 134/74 (94) 97 12/18/19 04:30 79 29 129/57 (81) 94 12/18/19 04:15 89 24 133/57 (82) 95 12/18/19 04:00 85 12/18/19 04:00 Venturi Mask 12.0 12/18/19 04:00 98.5 83 26 135/62 (86) 94 12/18/19 03:45 82 31 132/60 (84) 96 12/18/19 03:30 86 33 120/60 (80) 95 12/18/19 03:15 96 29 123/54 (77) 89 12/18/19 03:00 123/54 12/18/19 03:00 86 35 118/54 (75) 93 12/18/19 02:45 86 29 121/55 (77) 92 12/18/19 02:40 80/39 12/18/19 02:30 106 34 78/40 (53) 91 12/18/19 02:15 106 34 77/44 (55) 91 12/18/19 02:00 108 36 81/38 (52) 90 12/18/19 01:00 129/40 12/18/19 00:47 94 36 92/39 (56) 91 12/18/19 00:45 87 33 98/38 (58) 92 12/18/19 00:30 96 31 124/64 (84) 90 12/18/19 00:15 85 27 115/48 (70) 95 12/18/19 00:00 98.5 90 31 111/47 (68) 94 12/18/19 00:00 Venturi Mask 12.0 12/18/19 00:00 115/48 12/18/19 00:00 108 18 23:45 91 28 107/47 (67) 92 12/17/19 23:30 90 28 107/42 (63) 92 12/17/19 23:15 93 28 98/47 (64) 90 12/17/19 23:00 97 30 94/41 (58) 89 12/17/19 23:00 98/47 5/18/20 22:45 101 33 95/44 (61) 89 5/18/20 22:30 110 31 127/55 (79) 86 5/18/20 22:15 109 38 113/46 (68) 81 5/18/20 22:00 98 33 114/48 (70) 81 5/18/20 22:00 113/46 5/18/20 21:45 98 33 129/52 (77) 86 5/18/20 21:30 98 29 124/49 (74) 86 5/18/20 21:15 96 32 120/46 (70) 86 5/18/20 21:00 90 26 122/44 (70) 89 5/18/20 21:00 120/46 5/18/20 20:45 94 28 123/52 (75) 91 5/18/20 20:30 87 29 114/51 (72) 91 5/18/20 20:15 92 34 85/38 (54) 92 5/18/20 20:02 95 Venturi Mask 4.0 30 5/18/20 20:00 Venturi Mask 12.0 5/18/20 20:00 89 5/18/20 20:00 98.0 92 31 122/51 (74) 89 5/18/20 20:00 85/38 5/18/20 19:45 94 28 115/47 (69) 92 5/18/20 19:30 89 30 120/49 (72) 89 5/18/20 19:15 88 29 121/47 (71) 92 5/18/20 19:00 115/47 5/18/20 19:00 83 27 115/50 (71) 95 5/18/20 18:30 83 24 115/44 (67) 96 5/18/20 18:00 80 23 136/53 (80) 96 5/18/20 18:00 136/53 5/18/20 17:30 81 26 132/49 (76) 96 5/18/20 17:11 108/45 5/18/20 17:10 88 29 128/54 (78) 94 5/18/20 17:00 128/54 5/18/20 16:30 97.8 87 32 108/45 (66) 96 5/18/20 16:00 90 31 131/44 (73) 96 5/18/20 16:00 102 5/18/20 16:00 Venturi Mask 12.0 12/17/19 16:00 131/44 12/17/19 15:30 84 29 124/49 (74) 97 12/17/19 15:00 121/53 12/17/19 15:00 83 29 121/53 (75) 98 12/17/19 14:30 90 35 118/53 (74) 98 12/17/19 14:00 86 30 118/47 (70) 99 12/17/19 14:00 118/47 12/17/19 13:30 86 29 117/43 (67) 97 12/17/19 13:00 83 32 141/60 (87) 98 12/17/19 13:00 141/60 12/17/19 12:00 97.8 90 29 120/51 (74) 99 12/17/19 12:00 83 12/17/19 12:00 120/51 12/17/19 12:00 Non-Rebreather 15.0 12/17/19 11:00 94 27 106/56 (73) 96 12/17/19 11:00 106/56 12/17/19 10:54 101/45 12/17/19 10:00 91 29 101/45 (63) 97 12/17/19 10:00 101/45 12/17/19 09:30 88 26 126/56 (79) 100 Intake and Output 12/17/19 12/18/19 19:00 07:00 Intake Total 1545.000 ml 895.0 ml Output Total 1200 ml 1350 ml Balance 345.000 ml -455.0 ml Intake Free Water 100 ml IV Total 1305.000 ml 555.0 ml Tube Feeding 240 ml 240 ml Output Urine Total 1200 ml 1350 ml # Bowel Movements 1 5 Laboratory Tests 12/18/19 03:50: White Blood Count 9.8, Red Blood Count 2.84L, Hemoglobin 7.8L, Hematocrit 23.0L , Mean Corpuscular Volume 81, Mean Corpuscular Hemoglobin 27.4, Mean Corpuscular Hemoglobin Concent 33.8, Red Cell Distribution Width 13.3, Platelet Count 69L, Mean Platelet Volume 10.9H, Neutrophils (%) (Auto) , Lymphocytes (%) (Auto) , Monocytes (%) (Auto) , Eosinophils (%) (Auto) , Basophils (%) (Auto) , Neutrophils % (Manual) [Pending], Lymphocytes % (Manual) [Pending], Platelet Estimate [Pending], Platelet Morphology [Pending], Sodium Level 145, Potassium Level 2.7*L, Chloride Level 104, Carbon Dioxide Level 33H, Anion Gap 8, Blood Urea Nitrogen 20H, Creatinine 0.8, Estimat Glomerular Filtration Rate > 60, Glucose Level 194H, Calcium Level 6.6L, Phosphorus Level 3.7, Magnesium Level 1.9, Total Bilirubin 0.4, Aspartate Amino Transf (AST/SGOT) 91H, Alanine Aminotransferase (ALT/SGPT) 51, Alkaline Phosphatase 185H, Total Protein 5.2L, Albumin 1.2L, Globulin 4.0, Albumin/Globulin Ratio 0.3L Height (Feet): 5 Height (Inches): 6.00 Weight (Pounds): 168 Objective General Appearance: WD/WN, alert, confused. on venti mask EENT: PERRL/EOMI, normal ENT inspection Neck: non-tender, normal alignment, supple Cardiovascular: normal peripheral pulses, normal rate, regular rhythm Respiratory/Chest: chest wall non-tender, lungs clear, normal breath sounds, no respiratory distress, respiratory distress, accessory muscle use Abdomen: normal bowel sounds, non tender, soft, no organomegaly Edema: moderate edema Neurologic: disoriented, unresponsive, aphasia Skin: normal pigmentation Paxton Humphrey MD December 18, 2019 09:03
--- NOTE | 2019-12-18 09:34 | Diagnostic Imaging Report ---
Procedure: XRAY Chest 1v Reason for study: Reason For Exam: SOB Comparison films: 12/18/2018. FINDINGS: There is a left central venous catheter in place with the tip in the SVC. No pneumothorax noted. Vascular markings are indistinct. There is increased hazy densities of both lungs left greater than right likely developing infiltrates. Underlying edema cannot be excluded. Cardiac and mediastinal silhouette are within normal limits. CP angles are sharp. The bony thorax appear unremarkable. IMPRESSION: New left central venous catheter with the tip in the SVC. No pneumothorax. Increased bilateral alveolar densities left greater than right suggestive of infiltrate. Underlying edema cannot be excluded.
--- NOTE | 2019-12-18 09:57 | NUR ---
RD ASSESSMENT & RECOMMENDATIONS SEE CARE ACTIVITY FOR COMPLETE ASSESSMENT DAILY ESTIMATED NEEDS: Needs based on Pulmonary, wounds, sepsis/ 51kg abw 25-30 kcals/kg 5495-3946 total kcals 1.25-2 g protein/kg 63-102 g total protein 25-30 mL/kg 1675-6714 total fluid mLs NUTRITION DIAGNOSIS: * Increased kcal/prot needs R/T wound healing as evidenced by pt admitted w/ multiple unstageable and DTPI wounds, refer to WC eval. * Swallowing difficulty R/T dysphagia as evidenced by PEG dep. ENTERAL NUTRITION RECOMMENDATIONS: Glucerna 1.5 @ 40ml/hr x 24 hrs to provide 960ml, 1440kcal, 79g prot, 729ml free water * W/ hemodynamic stability, initiate Glucerna 1.5 @ 20ml/hr x 6hrs * Advance 10ml q 4-6 hrs as tolerated to goal rate * HOB over 30 degrees/ water flush per MD. WITHOUT HEMODYNAMIC STABILITY: rec trophic feeding of Glucerna 1.5 @ 10ml/hr x 24 hrs ADDITIONAL RECOMMENDATIONS: * Per SNF: HT=61" VX=476ota ("October wts" per SNF) -> rec to re-calibrate bedscale wt * Monitor hemodynamic stability: on NE @ 20mcg * Monitor BGs closely: BG 798 upon adm -> improved rec D5 while NPO to prevent hypoglycemia. * Wound healing: add Vit C 500mg QD Sae BID w/ TF order
--- NOTE | 2019-12-18 10:24 | NUR ---
NURSE NOTES: Spoke with daughter Lucia and update given.Patient turned and repositioned, HOB elevated at 35 degree to prevent aspiration.No significant change, patient continuously suctioned due to large amount of suction.Will continue close monitoring
--- NOTE | 2019-12-18 11:38 | Infectious Diseases Prog Note ---
Assessment/Plan Assessment/Plan antibiotics ; vancomycin iv, ertapenem A 1. Possible pneumonia. COVID-19 test is negative. 2. E.coli and Streptococcus urinary tract infection. 3. Positive blood cultures with coagulase-negative Staph is most likely a contaminant. PLAN: 1. Continue ertapenem. 2. d/c iv vancomycin 3. Continue isolation for now. 3. We will follow up cultures and adjust antibiotics Subjective ROS Limited/Unobtainable: Yes Allergies: Coded Allergies: PENICILLINS (Verified Allergy, Unknown, 12/14/19) Objective Vital Signs Last 24 Hour Vital Signs Date Time Temp Pulse Resp B/P (MAP) Pulse Ox O2 Delivery O2 Flow Rate FiO2 12/18/19 11:00 85 29 83/38 (53) 95 12/18/19 10:00 72 23 138/60 (86) 100 12/18/19 10:00 138/60 12/18/19 09:30 82 33 124/50 (74) 97 12/18/19 09:00 84 26 137/60 (85) 96 12/18/19 09:00 137/60 12/18/19 08:30 78 23 109/50 (69) 95 12/18/19 08:00 86 31 126/55 (78) 91 12/18/19 08:00 Venturi Mask 12.0 12/18/19 08:00 85 12/18/19 08:00 126/55 12/18/19 08:00 4.0 12/18/19 07:30 85 24 129/63 (85) 92 12/18/19 07:00 137/57 12/18/19 07:00 98.8 86 23 137/66 (89) 92 12/18/19 06:00 121/57 12/18/19 06:00 82 30 121/57 (78) 95 12/18/19 05:45 86 33 126/56 (79) 92 12/18/19 05:30 84 26 133/55 (81) 95 12/18/19 05:15 82 23 124/55 (78) 91 12/18/19 05:00 124/55 12/18/19 05:00 91 36 122/56 (78) 89 12/18/19 04:45 89 28 134/74 (94) 97 12/18/19 04:30 79 29 129/57 (81) 94 12/18/19 04:15 89 24 133/57 (82) 95 12/18/19 04:00 85 12/18/19 04:00 Venturi Mask 12.0 12/18/19 04:00 98.5 83 26 135/62 (86) 94 12/18/19 03:45 82 31 132/60 (84) 96 12/18/19 03:30 86 33 120/60 (80) 95 12/18/19 03:15 96 29 123/54 (77) 89 12/18/19 03:00 123/54 12/18/19 03:00 86 35 118/54 (75) 93 12/18/19 02:45 86 29 121/55 (77) 92 12/18/19 02:40 80/39 12/18/19 02:30 106 34 78/40 (53) 91 12/18/19 02:15 106 34 77/44 (55) 91 12/18/19 02:00 108 36 81/38 (52) 90 12/18/19 01:00 129/40 12/18/19 00:47 94 36 92/39 (56) 91 12/18/19 00:45 87 33 98/38 (58) 92 12/18/19 00:30 96 31 124/64 (84) 90 12/18/19 00:15 85 27 115/48 (70) 95 12/18/19 00:00 98.5 90 31 111/47 (68) 94 12/18/19 00:00 Venturi Mask 12.0 12/18/19 00:00 115/48 12/18/19 00:00 108 12/17/19 23:45 91 28 107/47 (67) 92 20 23:30 90 28 107/42 (63) 92 12/17/19 23:15 93 28 98/47 (64) 90 12/17/19 23:00 97 30 94/41 (58) 89 12/17/19 23:00 98/47 12/17/19 22:45 101 33 95/44 (61) 89 12/17/19 22:30 110 31 127/55 (79) 86 12/17/19 22:15 109 38 113/46 (68) 81 12/17/19 22:00 98 33 114/48 (70) 81 5/18/20 22:00 113/46 5/18/20 21:45 98 33 129/52 (77) 86 5/18/20 21:30 98 29 124/49 (74) 86 5/18/20 21:15 96 32 120/46 (70) 86 5/18/20 21:00 90 26 122/44 (70) 89 5/18/20 21:00 120/46 5/18/20 20:45 94 28 123/52 (75) 91 5/18/20 20:30 87 29 114/51 (72) 91 5/18/20 20:15 92 34 85/38 (54) 92 5/18/20 20:02 95 Venturi Mask 4.0 30 5/18/20 20:00 Venturi Mask 12.0 5/18/20 20:00 89 5/18/20 20:00 98.0 92 31 122/51 (74) 89 5/18/20 20:00 85/38 5/18/20 19:45 94 28 115/47 (69) 92 5/18/20 19:30 89 30 120/49 (72) 89 5/18/20 19:15 88 29 121/47 (71) 92 5/18/20 19:00 115/47 5/18/20 19:00 83 27 115/50 (71) 95 5/18/20 18:30 83 24 115/44 (67) 96 5/18/20 18:00 80 23 136/53 (80) 96 5/18/20 18:00 136/53 5/18/20 17:30 81 26 132/49 (76) 96 5/18/20 17:11 108/45 5/18/20 17:10 88 29 128/54 (78) 94 5/18/20 17:00 128/54 5/18/20 16:30 97.8 87 32 108/45 (66) 96 5/18/20 16:00 90 31 131/44 (73) 96 5/18/20 16:00 102 5/18/20 16:00 Venturi Mask 12.0 5/18/20 16:00 131/44 5/18/20 15:30 84 29 124/49 (74) 97 5/18/20 15:00 121/53 5/18/20 15:00 83 29 121/53 (75) 98 12/17/19 14:30 90 35 118/53 (74) 98 12/17/19 14:00 86 30 118/47 (70) 99 12/17/19 14:00 118/47 12/17/19 13:30 86 29 117/43 (67) 97 12/17/19 13:00 83 32 141/60 (87) 98 12/17/19 13:00 141/60 12/17/19 12:00 97.8 90 29 120/51 (74) 99 12/17/19 12:00 83 12/17/19 12:00 120/51 12/17/19 12:00 Non-Rebreather 15.0 Height (Feet): 5 Height (Inches): 6.00 Weight (Pounds): 168 HEENT: other - face mask Laboratory Tests Test 12/18/19 03:50 12/18/19 08:59 12/18/19 10:15 White Blood Count 9.8 K/UL (4.8-10.8) Red Blood Count 2.84 M/UL (4.20-5.40) L Hemoglobin 7.8 G/DL (12.0-16.0) L Hematocrit 23.0 % (37.0-47.0) L Mean Corpuscular Volume 81 FL (80-99) Mean Corpuscular Hemoglobin 27.4 PG (27.0-31.0) Mean Corpuscular Hemoglobin Concent 33.8 G/DL (32.0-36.0) Red Cell Distribution Width 13.3 % (11.6-14.8) Platelet Count 69 K/UL (150-450) L Mean Platelet Volume 10.9 FL (6.5-10.1) H Neutrophils (%) (Auto) % (45.0-75.0) Lymphocytes (%) (Auto) % (20.0-45.0) Monocytes (%) (Auto) % (1.0-10.0) Eosinophils (%) (Auto) % (0.0-3.0) Basophils (%) (Auto) % (0.0-2.0) Differential Total Cells Counted 100 Neutrophils % (Manual) 92 % (45-75) H Lymphocytes % (Manual) 5 % (20-45) L Monocytes % (Manual) 2 % (1-10) Eosinophils % (Manual) 1 % (0-3) Basophils % (Manual) 0 % (0-2) Band Neutrophils 0 % (0-8) Platelet Estimate Decreased L Platelet Morphology Normal Hypochromasia 3+ Spherocytes 1+ Sodium Level 145 MMOL/L (136-145) Potassium Level 2.7 MMOL/L (3.5-5.1) *L Chloride Level 104 MMOL/L (98-107) Carbon Dioxide Level 33 MMOL/L (21-32) H Anion Gap 8 mmol/L (5-15) Blood Urea Nitrogen 20 mg/dL (7-18) H Creatinine 0.8 MG/DL (0.55-1.30) Estimat Glomerular Filtration Rate > 60 mL/min (>60) Glucose Level 194 MG/DL (74-106) H Calcium Level 6.6 MG/DL (8.5-10.1) L Phosphorus Level 3.7 MG/DL (2.5-4.9) Magnesium Level 1.9 MG/DL (1.8-2.4) Total Bilirubin 0.4 MG/DL (0.2-1.0) Aspartate Amino Transf (AST/SGOT) 91 U/L (15-37) H Alanine Aminotransferase (ALT/SGPT) 51 U/L (12-78) Alkaline Phosphatase 185 U/L (46-116) H Total Protein 5.2 G/DL (6.4-8.2) L Albumin 1.2 G/DL (3.4-5.0) L Globulin 4.0 g/dL Albumin/Globulin Ratio 0.3 (1.0-2.7) L Arterial Blood pH 7.424 (7.350-7.450) Arterial Blood Partial Pressure CO2 55.6 mmHg (35.0-45.0) *H Arterial Blood Partial Pressure O2 66.9 mmHg (75.0-100.0) L Arterial Blood HCO3 35.6 mmol/L (22.0-26.0) H Arterial Blood Oxygen Saturation 91.4 % (95-100) L Arterial Blood Base Excess 9.9 (-2-2) *H Miki Test Positive Lactic Acid Level 2.00 mmol/L (0.4-2.0) Current Medications Medications (Trade) Dose Ordered Sig/Ebenezer Route PRN Reason Start Time Stop Time Status Last Admin Dose Admin Acetaminophen (Tylenol) 650 mg Q4H PRN RECTAL MILD/TEMP 12/13/19 08:30 01/12/20 08:29 Chlorhexidine Gluconate (Dee-Hex 2%) 1 applic DAILY@2000 TOPIC 12/13/19 20:00 03/12/20 19:59 12/17/19 20:28 Dextrose (Dextrose 50%) 25 ml Q30M PRN IV Hypoglycemia 12/13/19 08:30 03/12/20 08:29 Dextrose (Dextrose 50%) 50 ml Q30M PRN IV Hypoglycemia 12/13/19 08:30 03/12/20 08:29 Ertapenem 1 gm/ Sodium Chloride 55 ml @ 110 mls/hr Q24H IVPB 12/16/19 13:00 12/21/19 12:59 12/17/19 12:38 Heparin Sodium (Porcine) (Heparin 5000 units/ml) 5,000 units EVERY 12 HOURS SUBQ 12/13/19 09:00 01/27/20 08:59 12/17/19 21:20 Insulin Aspart (NovoLOG) Q4H SUBQ 12/14/19 12:00 03/13/20 11:59 12/18/19 08:24 Insulin Detemir (Levemir) 10 units Q12HR SUBQ 12/14/19 09:00 03/13/20 08:59 12/18/19 08:23 Norepinephrine Bitartrate 8 mg/ Dextrose 500 ml @ 0 mls/hr Q24H IV 12/16/19 21:30 01/15/20 21:29 12/18/19 02:40 Potassium Chloride 100 ml @ 100 mls/hr Q1HR IVPB 12/18/19 10:00 12/18/19 12:59 Vancomycin HCl (Vanco rx to dose) 1 ea DAILY PRN MISC Per rx protocol 12/13/19 08:30 01/12/20 08:29 Vancomycin HCl 750 mg/Sodium Chloride 275 ml @ 183.333 mls/hr DAILY IVPB 12/16/19 09:00 12/21/19 08:59 12/18/19 08:22 Albert Scanlon MD December 18, 2019 11:38
--- NOTE | 2019-12-18 12:17 | NUR ---
NURSE NOTES: Patient turned and repositioned for skin management. Suctioned as tolerate and mouth care done, remains on Levophed and titrate as tolerated.Will continue close monitoring.Call light within easy reach.
[2019-12-18] MEDS: Ertapenem 1gm in NS 55ml IVPB SCH (13:20)
--- NOTE | 2019-12-18 13:37 | Surgery Progress Note ---
Surgery Progress Note Subjective Procedure Performed left subclavian central venous catheter insertion Additional Comments leukocytosis resolved electrolytes being replaced no n/v Objective Last 24 Hour Vital Signs Date Time Temp Pulse Resp B/P (MAP) Pulse Ox O2 Delivery O2 Flow Rate FiO2 12/18/19 12:00 94 12/18/19 12:00 98.3 80 29 101/37 (58) 99 12/18/19 12:00 Venturi Mask 12.0 12/18/19 11:34 84/44 12/18/19 11:30 88 29 83/38 (53) 94 12/18/19 11:00 85 29 83/38 (53) 95 12/18/19 11:00 84/44 12/18/19 10:30 75 27 124/50 (74) 97 12/18/19 10:00 72 23 138/60 (86) 100 12/18/19 10:00 138/60 12/18/19 09:30 82 33 124/50 (74) 97 12/18/19 09:00 84 26 137/60 (85) 96 12/18/19 09:00 137/60 12/18/19 08:30 78 23 109/50 (69) 95 12/18/19 08:00 86 31 126/55 (78) 91 12/18/19 08:00 Venturi Mask 12.0 12/18/19 08:00 85 12/18/19 08:00 126/55 12/18/19 08:00 4.0 12/18/19 07:30 85 24 129/63 (85) 92 12/18/19 07:00 137/57 12/18/19 07:00 98.8 86 23 137/66 (89) 92 12/18/19 06:00 121/57 12/18/19 06:00 82 30 121/57 (78) 95 12/18/19 05:45 86 33 126/56 (79) 92 12/18/19 05:30 84 26 133/55 (81) 95 12/18/19 05:15 82 23 124/55 (78) 91 12/18/19 05:00 124/55 12/18/19 05:00 91 36 122/56 (78) 89 12/18/19 04:45 89 28 134/74 (94) 97 12/18/19 04:30 79 29 129/57 (81) 94 5/19/20 04:15 89 24 133/57 (82) 95 12/18/19 04:00 85 12/18/19 04:00 Venturi Mask 12.0 12/18/19 04:00 98.5 83 26 135/62 (86) 94 12/18/19 03:45 82 31 132/60 (84) 96 12/18/19 03:30 86 33 120/60 (80) 95 12/18/19 03:15 96 29 123/54 (77) 89 12/18/19 03:00 123/54 12/18/19 03:00 86 35 118/54 (75) 93 12/18/19 02:45 86 29 121/55 (77) 92 12/18/19 02:40 80/39 12/18/19 02:30 106 34 78/40 (53) 91 12/18/19 02:15 106 34 77/44 (55) 91 12/18/19 02:00 108 36 81/38 (52) 90 12/18/19 01:00 129/40 12/18/19 00:47 94 36 92/39 (56) 91 12/18/19 00:45 87 33 98/38 (58) 92 12/18/19 00:30 96 31 124/64 (84) 90 12/18/19 00:15 85 27 115/48 (70) 95 12/18/19 00:00 98.5 90 31 111/47 (68) 94 12/18/19 00:00 Venturi Mask 12.0 12/18/19 00:00 115/48 12/18/19 00:00 108 12/17/19 23:45 91 28 107/47 (67) 92 12/17/19 23:30 90 28 107/42 (63) 92 12/17/19 23:15 93 28 98/47 (64) 90 12/17/19 23:00 97 30 94/41 (58) 89 12/17/19 23:00 98/47 12/17/19 22:45 101 33 95/44 (61) 89 12/17/19 22:30 110 31 127/55 (79) 86 12/17/19 22:15 109 38 113/46 (68) 81 12/17/19 22:00 98 33 114/48 (70) 81 5/18/20 22:00 113/46 5/18/20 21:45 98 33 129/52 (77) 86 5/18/20 21:30 98 29 124/49 (74) 86 5/18/20 21:15 96 32 120/46 (70) 86 5/18/20 21:00 90 26 122/44 (70) 89 5/18/20 21:00 120/46 5/18/20 20:45 94 28 123/52 (75) 91 5/18/20 20:30 87 29 114/51 (72) 91 5/18/20 20:15 92 34 85/38 (54) 92 5/18/20 20:02 95 Venturi Mask 4.0 30 5/18/20 20:00 Venturi Mask 12.0 5/18/20 20:00 89 5/18/20 20:00 98.0 92 31 122/51 (74) 89 5/18/20 20:00 85/38 5/18/20 19:45 94 28 115/47 (69) 92 5/18/20 19:30 89 30 120/49 (72) 89 5/18/20 19:15 88 29 121/47 (71) 92 5/18/20 19:00 115/47 5/18/20 19:00 83 27 115/50 (71) 95 5/18/20 18:30 83 24 115/44 (67) 96 5/18/20 18:00 80 23 136/53 (80) 96 5/18/20 18:00 136/53 5/18/20 17:30 81 26 132/49 (76) 96 5/18/20 17:11 108/45 5/18/20 17:10 88 29 128/54 (78) 94 5/18/20 17:00 128/54 5/18/20 16:30 97.8 87 32 108/45 (66) 96 5/18/20 16:00 90 31 131/44 (73) 96 5/18/20 16:00 102 5/18/20 16:00 Venturi Mask 12.0 5/18/20 16:00 131/44 5/18/20 15:30 84 29 124/49 (74) 97 5/18/20 15:00 121/53 5/18/20 15:00 83 29 121/53 (75) 98 12/17/19 14:30 90 35 118/53 (74) 98 12/17/19 14:00 86 30 118/47 (70) 99 12/17/19 14:00 118/47 I&O Intake and Output 12/17/19 12/18/19 19:00 07:00 Intake Total 1545.000 ml 1035.0 ml Output Total 1200 ml 1430 ml Balance 345.000 ml -395.0 ml Intake Free Water 160 ml IV Total 1305.000 ml 615.0 ml Tube Feeding 240 ml 260 ml Output Urine Total 1200 ml 1430 ml # Bowel Movements 1 5 Dressing: saturated Wound: other Drains: other Cardiovascular: RSR Respiratory: decreased breath sounds Abdomen: soft, non-tender, present bowel sounds Extremities: no cyanosis Laboratory Tests Test 12/18/19 03:50 12/18/19 08:59 12/18/19 10:15 White Blood Count 9.8 K/UL (4.8-10.8) Red Blood Count 2.84 M/UL (4.20-5.40) L Hemoglobin 7.8 G/DL (12.0-16.0) L Hematocrit 23.0 % (37.0-47.0) L Mean Corpuscular Volume 81 FL (80-99) Mean Corpuscular Hemoglobin 27.4 PG (27.0-31.0) Mean Corpuscular Hemoglobin Concent 33.8 G/DL (32.0-36.0) Red Cell Distribution Width 13.3 % (11.6-14.8) Platelet Count 69 K/UL (150-450) L Mean Platelet Volume 10.9 FL (6.5-10.1) H Neutrophils (%) (Auto) % (45.0-75.0) Lymphocytes (%) (Auto) % (20.0-45.0) Monocytes (%) (Auto) % (1.0-10.0) Eosinophils (%) (Auto) % (0.0-3.0) Basophils (%) (Auto) % (0.0-2.0) Differential Total Cells Counted 100 Neutrophils % (Manual) 92 % (45-75) H Lymphocytes % (Manual) 5 % (20-45) L Monocytes % (Manual) 2 % (1-10) Eosinophils % (Manual) 1 % (0-3) Basophils % (Manual) 0 % (0-2) Band Neutrophils 0 % (0-8) Platelet Estimate Decreased L Platelet Morphology Normal Hypochromasia 3+ Spherocytes 1+ Sodium Level 145 MMOL/L (136-145) Potassium Level 2.7 MMOL/L (3.5-5.1) *L Chloride Level 104 MMOL/L (98-107) Carbon Dioxide Level 33 MMOL/L (21-32) H Anion Gap 8 mmol/L (5-15) Blood Urea Nitrogen 20 mg/dL (7-18) H Creatinine 0.8 MG/DL (0.55-1.30) Estimat Glomerular Filtration Rate > 60 mL/min (>60) Glucose Level 194 MG/DL (74-106) H Calcium Level 6.6 MG/DL (8.5-10.1) L Phosphorus Level 3.7 MG/DL (2.5-4.9) Magnesium Level 1.9 MG/DL (1.8-2.4) Total Bilirubin 0.4 MG/DL (0.2-1.0) Aspartate Amino Transf (AST/SGOT) 91 U/L (15-37) H Alanine Aminotransferase (ALT/SGPT) 51 U/L (12-78) Alkaline Phosphatase 185 U/L (46-116) H Total Protein 5.2 G/DL (6.4-8.2) L Albumin 1.2 G/DL (3.4-5.0) L Globulin 4.0 g/dL Albumin/Globulin Ratio 0.3 (1.0-2.7) L Arterial Blood pH 7.424 (7.350-7.450) Arterial Blood Partial Pressure CO2 55.6 mmHg (35.0-45.0) *H Arterial Blood Partial Pressure O2 66.9 mmHg (75.0-100.0) L Arterial Blood HCO3 35.6 mmol/L (22.0-26.0) H Arterial Blood Oxygen Saturation 91.4 % (95-100) L Arterial Blood Base Excess 9.9 (-2-2) *H Miki Test Positive Lactic Acid Level 2.00 mmol/L (0.4-2.0) Plan Problems: (1) Uncontrolled diabetes mellitus (2) Suspected 2019 novel coronavirus infection Assessment & Plan: neg (3) Septic shock Assessment & Plan: septic hypotension line placed see note resuscitation initiated discussed in detail with daughter at bedside for ome time tren dlabs fluids pressors will follow with recs DAILY ESTIMATED NEEDS: Needs based on Pulmonary, wounds, sepsis/ 51kg abw 25-30 kcals/kg 7451-3720 total kcals 1.25-2 g protein/kg 63-102 g total protein 25-30 mL/kg 8356-3502 total fluid mLs NUTRITION DIAGNOSIS: * Increased kcal/prot needs R/T wound healing as evidenced by pt admitted w/ multiple unstageable and DTPI wounds, refer to WC eval. * Swallowing difficulty R/T dysphagia as evidenced by PEG dep. ENTERAL NUTRITION RECOMMENDATIONS: Glucerna 1.5 @ 40ml/hr x 24 hrs to provide 960ml, 1440kcal, 79g prot, 729ml free water * W/ hemodynamic stability, initiate Glucerna 1.5 @ 20ml/hr x 6hrs * Advance 10ml q 4-6 hrs as tolerated to goal rate * HOB over 30 degrees/ water flush per MD. WITHOUT HEMODYNAMIC STABILITY: rec trophic feeding of Glucerna 1.5 @ 10ml/hr x 24 hrs ADDITIONAL RECOMMENDATIONS: * Per SNF: HT=61" NU=749ptw ("October wts" per SNF) -> rec to re-calibrate bedscale wt * Monitor hemodynamic stability: on NE @ 20mcg * Monitor BGs closely: BG 798 upon adm -> improved rec D5 while NPO to prevent hypoglycemia. * Wound healing: add Vit C 500mg QD Sae BID w/ TF order (4) Lactic acidosis (5) Respiratory failure (6) Decubitus skin ulcer Assessment & Plan: Pt presented on admission with multiple pressure injuries. Unstageable Sacral Pressure injury with presents as open DTPI. Soft necrosis at Base of wound with marginal erythema along edges.Small opening noted to L sacrum. No odor or exudate noted. Periwound without evidence of further skin breakdown. DTPI noted to medial L malleolus. Base of wound is maroon with marginal erythema. DTPI medial L heel base of wound is maroon with fluctuance. DTPI L Hallux. Base of wound is maroon with marginal erythema along borders. Reabsorbing DTPI lateral L heel. Base of injury ids dry. Unstageable pressure injuries noted to distal/lateral R foot. Soft necrosis at base of wound. Unstageable pressure injury dorso/lateral R 5th metatarsal. Soft necrosis at base of wound. Unstageable pressure injury web space of R 4th metatarsal. Base of wound is necrotic and partially opened. no exudate noted. DTPI noted to R lateral malleolus. Base of wound is maroon and soft with marginal erythema along borders. Tx.Plan: Cleanse Sacral wound with Saline. Apply TheraHoney. Apply Moisture Barrier paste periwound. Cover with Optifoam drsg. Change every 3 days and prn. Apply Betadine to wounds Distal /lateral R foot, R 4th and 5th metatarsals. Cover with Optifoam drsg every 3 days and prn. Apply Cavilon to both heels, Both hallux and malleoli. Cover each site with Optifoam drgs. Change every 7 days and prn. Reposition at least every 2hours or as tolerated. Place Pillow between knees. Off-load heels with Pillow. APM/MELANIE Mattress overlay. Joce Campbell December 18, 2019 13:37
--- NOTE | 2019-12-18 14:07 | NUR ---
NURSE NOTES: Turned and repositioned for skin management.HOB elevated at 35 degree to prevent aspiration.No significant change in condition at this time.Will continue close monitoring
--- NOTE | 2019-12-18 15:47 | NUR ---
CASE MANAGEMENT: REVIEW SI: DKA . SEPSIS . RESP FAILURE LEFT SUBCLAVIAN CENTRAL VENOUS CATHETER INSERTION 12/13 T 98.5 HR 83 RR 33 BP 77/44 SAT 91% VENTURI MASK FLOW RATE 12.0 H/H 7.8/23.0 K 2.7 ABG: PCO2 55.6 PO2 66.9 PO2 35.6 SAT 91.4 CXR -- INCREASED BILATERAL ALVEOLAR DENSITIES REPEAT COVID-19 PENDING IS: LEVOPHED GTT ERTAPENEM IV Q24HR NO INTUBATION PER ADVANCE DIRECTIVE ICU STATUS DCP: PATIENT IS FROM [facility]
--- NOTE | 2019-12-18 16:01 | NUR ---
NURSE NOTES: GT feeding held due to residual and episode of SOB. Will continue close monitoring.Turned and repositioned for skin management.On P200 for skin management. Call light within easy reach.
--- NOTE | 2019-12-18 17:02 | NUR ---
NURSE NOTES: Accu check 36 , repeat 31. Dextrose 50 % / 50cc given . Recheck BS 158, will continue to monitor
[2019-12-18 18:04] LABS: HEMATOCRIT 23.3 % (37.0-47.0); HEMOGLOBIN 7.2 G/DL (12.0-16.0); MEAN CORPUSCULAR VOLUME 87 FL (80-99); PLATELET COUNT 60 K/UL (150-450); RED BLOOD COUNT 2.67 M/UL (4.20-5.40); RED CELL DISTRIBUTION WIDTH 15.4 % (11.6-14.8); WHITE BLOOD COUNT 6.1 K/UL (4.8-10.8)
[2019-12-18 18:05] LABS: BASOPHILS % (AUTO) 0.5 % (0.0-2.0); EOSINOPHILS % (AUTO) 0.2 % (0.0-3.0); LYMPHOCYTES % (AUTO) 5.7 % (20.0-45.0); MONOCYTES % (AUTO) 3.5 % (1.0-10.0); NEUTROPHILS % (AUTO) 90.1 % (45.0-75.0)
[2019-12-18 18:10] LABS: ANION GAP 6 mmol/L (5-15); BLOOD UREA NITROGEN 17 mg/dL (7-18); CALCIUM 6.8 MG/DL (8.5-10.1); CARBON DIOXIDE 33 MMOL/L (21-32); CHLORIDE 108 MMOL/L (98-107); CREATININE 0.8 MG/DL (0.55-1.30); POTASSIUM 3.8 MMOL/L (3.5-5.1); SODIUM 147 MMOL/L (136-145)
--- NOTE | 2019-12-18 18:18 | NUR ---
NURSE NOTES: Adls done, pt turned and repositioned.HOB elevated at 35 degree to prevent aspiration.Will continue to monitor.No significant changed, still noted with large amount of secretion.Suctioned as tolerated.Pt very sensitive to titration Levophed , will continue as tolerated.
--- NOTE | 2019-12-18 19:41 | NUR ---
HAND-OFF: Report given to LORNA ROJAS.
[2019-12-18] MEDS: Dyna-Hex 2% Top Sol 2oz TOPIC SCH (20:00)
--- NOTE | 2019-12-18 20:00 | NUR ---
NURSE NOTES: received report fabi rn pt nan verbal does not follows command on vm 30% with o2 sat at 88-94% ramos/ction and oral care done reposition done tolerating tube feeding with minimal residual iv infusing site well on levo drip at 6mcg/min well nt monitor pt
--- NOTE | 2019-12-18 22:00 | NUR ---
NURSE NOTES: reposition and suction
[2019-12-19] VITALS (51 sets, daily range): BP systolic 72–129; BP diastolic 34–66
--- NOTE | 2019-12-19 | NUR ---
NURSE NOTES: reposition and suction dr saxena order made medication given as order
--- NOTE | 2019-12-19 03:00 | Progress Note ---
DATE: 12/18/2019 CARDIOLOGY PROGRESS NOTE SUBJECTIVE: The patient is on a Ventimask, appearing to be more comfortable, but still congested, remains on pressors. She continues to require ICU care and remains critical and guarded. PHYSICAL EXAMINATION: VITAL SIGNS: Blood pressure 121/57, pulse 82, respiratory rate 30, afebrile, oxygen saturation on 12 L mask is in the low 90s. LUNGS: Coarse breath sounds with rhonchi. HEART: Regular rhythm and rate. Normal S1, S2. Monitor, sinus with occasional ectopy. ABDOMEN: Soft. EXTREMITIES: No edema. LABORATORY DATA: White count 6.1, hemoglobin 7.2. Sodium 147, potassium 3.8, bicarb 108, BUN 17, and creatinine 0.8. ABG, pH 7.42, pCO2 of 56, pO2 of 67. Chest x-ray today reveals left subclavian catheter; bilateral interstitial alveolar densities, left greater than right; and possible edema. IMPRESSION: 1. Sepsis. 2. Shock. 3. Respiratory failure. 4. Healthcare-acquired pneumonia. 5. Hypokalemia, corrected. 6. Dehydration. 7. Hypernatremia, improved. 8. Acute diastolic congestive heart failure. 9. Anemia, worsening, likely due to hydration and sepsis. No signs of bleeding at this time. PLAN: 1. Tapering off pressors. 2. Continue oxygen supplementation and respiratory hygiene. 3. Consider packed red blood cell transfusion. 4. DVT and stress ulcer prophylaxis. 5. Diuresis trial. Slava Hsu M.D. DR: Leslie JOB#: [id number] CC:
[2019-12-19] MEDS: NovoLOG Insulin Flexpen SUBQ SCH ×6 (04:00→20:00)
--- NOTE | 2019-12-19 04:00 | NUR ---
NURSE NOTES: complete bed bath oral care done reposition and suction
--- NOTE | 2019-12-19 06:00 | NUR ---
NURSE NOTES: pt asleep levo drip at 6mcg/min tolerating tube feeding no distress noted
--- NOTE | 2019-12-19 07:20 | NUR ---
NURSE NOTES: Report received from LORNA Arora.Patient afebrile at this time and remains on Venturi mask in place at 50% and saturate at 98% at this time.Mouth care done and suctioned as tolerate moderate amount secretion.GT placement intact,running Glucerna 1.5 at 30cc with no residual at this time.HOB elevated to prevent aspiration. Left subclavian TLC dressing clean,dry and intact running Levophed at 6mcg/hr .Patient started on Lasix previous shift and increase urine output.Patient on P200 mattress, turned and repositioned for skin management.Good handwashing done before and after care.COV (-) 12/12, MRSA nares and ESBL urine. Isolation precaution to be maintained at all the times.Will continue close monitoring.
[2019-12-19] MEDS: Heparin 5000 units/ml inj SUBQ SCH ×2 (08:12→20:47)
[2019-12-19 08:14] LABS: HEMATOCRIT 22.8 % (37.0-47.0); HEMOGLOBIN 7.7 G/DL (12.0-16.0); MEAN CORPUSCULAR VOLUME 81 FL (80-99); PLATELET COUNT 86 K/UL (150-450); RED BLOOD COUNT 2.82 M/UL (4.20-5.40); WHITE BLOOD COUNT 7.7 K/UL (4.8-10.8)
[2019-12-19] MEDS: Levemir Flexpen SUBQ SCH ×2 (08:18→20:48)
[2019-12-19 08:37] LABS: ANION GAP 8 mmol/L (5-15); BLOOD UREA NITROGEN 18 mg/dL (7-18); CALCIUM 7.1 MG/DL (8.5-10.1); CARBON DIOXIDE 34 MMOL/L (21-32); CHLORIDE 106 MMOL/L (98-107); CREATININE 0.7 MG/DL (0.55-1.30); POTASSIUM 2.9 MMOL/L (3.5-5.1); SODIUM 147 MMOL/L (136-145)
[2019-12-19 08:42] LABS: ALANINE AMINOTRANSFERASE 57 U/L (12-78); ALBUMIN 1.2 G/DL (3.4-5.0); ALBUMIN/GLOBULIN RATIO 0.3 (1.0-2.7); ALKALINE PHOSPHATASE 187 U/L (46-116); ASPARTATE AMINO TRANSFERASE 74 U/L (15-37); BILIRUBIN,TOTAL 0.4 MG/DL (0.2-1.0)
--- NOTE | 2019-12-19 08:45 | NUR ---
NURSE NOTES: Decrease feeding rate due to instable blood pressure: increase Levophed now at 8mcg/hr
[2019-12-19] MEDS: Norepinephrine Bitartrate 8 MG in D5W 500ml 492 ML IV SCH ×2 (09:18→13:25)
--- NOTE | 2019-12-19 09:19 | Critical Care Progress Note ---
Assessment/Plan Assessment/Plan IMPRESSION: Respiratory distress, evidence of bilateral pulmonary infiltrates, hypernatremia, acute on chronic renal failure, severe protein-calorie malnutrition, toxic metabolic encephalopathy, dementia, metabolic acidosis, lactic acidemia, elevated troponin, possible demand ischemia, leukocytosis, probable sepsis, anemia. worsening hypoxemia with hypoxemic respiratory failure PLAN care noted taper fio2 as able to low flow d/w nursing in detail iv antibiotics imaging still with significant infiltrates monitor fluid status follow up needs for BIPAP and monitor acid base DNR replace K tube feeds no intubation per advance directives close follow up and monitoring in ICU off load position change critical with guarded prognosis medications/laboratory data/nursing notes/ICU care reviewed in detail note reviewed and edited care discussed with RN and RT ICU time spent >40 minutes Critical Care - Subjective Interval Events: still on high fio2 care noted imaging reviewed ICU care reviewed ROS Limited/Unobtainable: Yes Condition: critical EKG Rhythm: Sinus Rhythm I&O: Intake and Output 12/18/19 12/19/19 19:00 07:00 Intake Total 1341.60 ml 727.5 ml Output Total 615 ml 1420 ml Balance 726.60 ml -692.5 ml Intake Free Water 40 ml 120 ml IV Total 1081.60 ml 247.5 ml Tube Feeding 220 ml 360 ml Output Urine Total 615 ml 1420 ml # Bowel Movements 4 3 Critical Care - Objective CXR: Increased bilateral alveolar densities left greater than right suggestive of infiltrate. Underlying edema cannot be excluded. Last 24 Hour Vital Signs Date Time Temp Pulse Resp B/P (MAP) Pulse Ox O2 Delivery O2 Flow Rate FiO2 12/19/19 09:00 80 28 108/35 (59) 97 12/19/19 08:30 90 28 100/40 (60) 96 12/19/19 08:15 101 33 81/34 (50) 92 12/19/19 08:00 104 12/19/19 08:00 Venturi Mask 12.0 12/19/19 08:00 4.0 12/19/19 08:00 96 27 85/43 (57) 96 12/19/19 07:30 86 24 99/47 (64) 98 12/19/19 07:00 98.8 85 25 99/44 (62) 99 12/19/19 06:30 88 27 106/52 (70) 98 5/20/20 06:00 93 26 113/66 (82) 97 12/19/19 06:00 111/53 12/19/19 05:30 94 27 100/51 (67) 98 12/19/19 05:00 93/39 12/19/19 05:00 90 28 99/44 (62) 97 12/19/19 04:30 97 29 105/52 (69) 97 12/19/19 04:00 98.8 100 32 102/45 (64) 96 12/19/19 04:00 102/49 12/19/19 04:00 Venturi Mask 12.0 12/19/19 04:00 97 12/19/19 03:30 110 34 105/53 (70) 93 12/19/19 03:00 105/52 12/19/19 03:00 106 37 101/51 (68) 91 12/19/19 02:30 116 35 117/56 (76) 89 12/19/19 02:00 117/56 12/19/19 02:00 124 35 89/36 (53) 94 12/19/19 01:30 122 36 91/36 (54) 92 12/19/19 01:00 91/42 12/19/19 01:00 125 41 98/38 (58) 92 12/19/19 00:30 117 32 101/45 (63) 91 12/19/19 00:00 98.8 95 33 108/47 (67) 93 12/19/19 00:00 Venturi Mask 12.0 12/19/19 00:00 90 12/19/19 00:00 118/48 12/18/19 23:30 85 30 116/41 (66) 95 20 23:00 93 32 119/47 (71) 97 20 23:00 119/47 20 22:30 86 27 117/43 (67) 96 20 22:00 112/45 20 22:00 79 31 112/45 (67) 96 20 21:30 75 36 111/41 (64) 96 20 21:00 117/46 51920 21:00 74 28 117/46 (69) 99 20 20:30 69 29 118/47 (70) 100 12/18/19 20:18 92 Venturi Mask 14.0 55 12/18/19 20:00 98.5 67 25 111/45 (67) 100 12/18/19 20:00 111/45 12/18/19 20:00 Venturi Mask 12.0 12/18/19 20:00 86 12/18/19 19:30 66 24 104/45 (64) 99 20 19:00 101/45 12/18/19 19:00 68 27 101/48 (65) 99 12/18/19 18:00 132/51 20 18:00 62 23 140/51 (80) 100 12/18/19 17:00 77 27 101/44 (63) 12/18/19 17:00 101/44 12/18/19 16:30 75 24 85/43 (57) 98 12/18/19 16:00 83 12/18/19 16:00 Venturi Mask 12.0 12/18/19 16:00 98.8 89 28 89/46 (60) 95 12/18/19 16:00 89/46 12/18/19 15:30 93 34 92/46 (61) 98 12/18/19 15:00 116/55 12/18/19 15:00 80 25 116/55 (75) 89 20 14:30 81 28 111/53 (72) 95 12/18/19 14:00 85 28 117/57 (77) 99 12/18/19 14:00 117/57 12/18/19 13:30 83 27 119/53 (75) 99 20 13:00 119/53 12/18/19 13:00 81 28 106/55 (72) 97 20 12:00 101/37 12/18/19 12:00 94 12/18/19 12:00 98.3 80 29 101/37 (58) 99 12/18/19 12:00 Venturi Mask 12.0 12/18/19 11:34 84/44 1920 11:30 88 29 83/38 (53) 94 12/18/19 11:00 85 29 83/38 (53) 95 12/18/19 11:00 84/44 20 10:30 75 27 124/50 (74) 97 12/18/19 10:00 72 23 138/60 (86) 100 12/18/19 10:00 138/60 12/18/19 09:30 82 33 124/50 (74) 97 Labs: Laboratory Tests Test 12/18/19 10:15 12/18/19 17:20 12/19/19 08:05 Lactic Acid Level 2.00 mmol/L (0.4-2.0) White Blood Count 6.1 K/UL (4.8-10.8) 7.7 K/UL (4.8-10.8) Red Blood Count 2.67 M/UL (4.20-5.40) L 2.82 M/UL (4.20-5.40) L Hemoglobin 7.2 G/DL (12.0-16.0) L 7.7 G/DL (12.0-16.0) L Hematocrit 23.3 % (37.0-47.0) L 22.8 % (37.0-47.0) L Mean Corpuscular Volume 87 FL (80-99) 81 FL (80-99) Mean Corpuscular Hemoglobin 26.9 PG (27.0-31.0) L 27.3 PG (27.0-31.0) Mean Corpuscular Hemoglobin Concent 30.8 G/DL (32.0-36.0) L 33.8 G/DL (32.0-36.0) Red Cell Distribution Width 15.4 % (11.6-14.8) H 13.0 % (11.6-14.8) Platelet Count 60 K/UL (150-450) L 86 K/UL (150-450) L Mean Platelet Volume 11.1 FL (6.5-10.1) H 9.0 FL (6.5-10.1) Neutrophils (%) (Auto) 90.1 % (45.0-75.0) H % (45.0-75.0) Lymphocytes (%) (Auto) 5.7 % (20.0-45.0) L % (20.0-45.0) Monocytes (%) (Auto) 3.5 % (1.0-10.0) % (1.0-10.0) Eosinophils (%) (Auto) 0.2 % (0.0-3.0) % (0.0-3.0) Basophils (%) (Auto) 0.5 % (0.0-2.0) % (0.0-2.0) Sodium Level 147 MMOL/L (136-145) H 147 MMOL/L (136-145) H Potassium Level 3.8 MMOL/L (3.5-5.1) 2.9 MMOL/L (3.5-5.1) L Chloride Level 108 MMOL/L (98-107) H 106 MMOL/L (98-107) Carbon Dioxide Level 33 MMOL/L (21-32) H 34 MMOL/L (21-32) H Anion Gap 6 mmol/L (5-15) 8 mmol/L (5-15) Blood Urea Nitrogen 17 mg/dL (7-18) 18 mg/dL (7-18) Creatinine 0.8 MG/DL (0.55-1.30) 0.7 MG/DL (0.55-1.30) Estimat Glomerular Filtration Rate > 60 mL/min (>60) > 60 mL/min (>60) Glucose Level 169 MG/DL (74-106) H 140 MG/DL (74-106) H Calcium Level 6.8 MG/DL (8.5-10.1) L 7.1 MG/DL (8.5-10.1) L Neutrophils % (Manual) Pending Lymphocytes % (Manual) Pending Platelet Estimate Pending Platelet Morphology Pending Total Bilirubin 0.4 MG/DL (0.2-1.0) Aspartate Amino Transf (AST/SGOT) 74 U/L (15-37) H Alanine Aminotransferase (ALT/SGPT) 57 U/L (12-78) Alkaline Phosphatase 187 U/L (46-116) H Total Protein 5.2 G/DL (6.4-8.2) L Albumin 1.2 G/DL (3.4-5.0) L Globulin 4.0 g/dL Albumin/Globulin Ratio 0.3 (1.0-2.7) L Objective: GENERAL: The patient is chronically ill. on oxygen HEENT: Overall negative. NECK: Supple. LUNGS: Moderate breath sounds. some rhonchi noted CARDIAC: S1 and S2, currently regular rate and rhythm. without MRG ABDOMEN: Overall soft, nontender. no distention EXTREMITIES: No significant edema. Decreased range of motion. G-tube in place. Depressed affect. Aphasic. reviewed and edited Micro: Microbiology Date/Time Source Procedure Growth Status 12/17/19 12:30 Nasopharynx Coronavirus COVID-19 PCR ([facility]) - Final Complete Accucheck: 132 Tonny Ramirez MD December 19, 2019 09:19
--- NOTE | 2019-12-19 09:20 | NUR ---
NURSE NOTES: Patient seen by Dr Humphrey and Dr Marshall will follow up with new order
--- NOTE | 2019-12-19 10:25 | NUR ---
NURSE NOTES: Pt noted again with an increase amount of secretion ,episode of restless, desaturation in the 80 , tachycardia 111 and RR 50. GT feeding held.Patient placed on 15 liters non rebreathing mask and Dr Humphrey made aware for stat chest x ray, ABG, Morphine 1mg Q4HRS PRN and one time Lasix 40mg once. Order noted and carried out. Called daughter Lucia and update given, as stated she will visit at 1600. Will continue close monitoring. Addendum: 12/19/19 at 1033 by Britney Rock RN Patient turned and repositioned for skin management,HOB elevated to prevent aspiration. Good mouth care performed and suctioned as tolerated.
[2019-12-19] MEDS: Morphine Sulfate 2mg/ml Inj(IV/IM USE ONLY) IVP PRN ×2 (10:54→15:41)
--- NOTE | 2019-12-19 11:04 | Infectious Diseases Prog Note ---
Assessment/Plan Assessment/Plan antibiotics ; ertapenem A 1. Possible pneumonia. COVID-19 test is negative x2 2. E.coli and Streptococcus urinary tract infection. 3. Positive blood cultures with coagulase-negative Staph is most likely a contaminant. 4. shock improving PLAN: 1. Continue ertapenem. 2. Continue isolation for now. 3. We will follow up cultures and adjust antibiotics Subjective ROS Limited/Unobtainable: Yes Allergies: Coded Allergies: PENICILLINS (Verified Allergy, Unknown, 12/14/19) Objective Vital Signs Last 24 Hour Vital Signs Date Time Temp Pulse Resp B/P (MAP) Pulse Ox O2 Delivery O2 Flow Rate FiO2 12/19/19 10:30 94 31 90/37 (54) 96 12/19/19 10:15 108 38 108/41 (63) 84 12/19/19 10:00 90/37 12/19/19 10:00 114 42 117/45 (69) 84 12/19/19 09:30 86 25 127/53 (77) 97 12/19/19 09:18 88/41 12/19/19 09:00 80 28 108/35 (59) 97 12/19/19 08:30 90 28 100/40 (60) 96 12/19/19 08:15 101 33 81/34 (50) 92 12/19/19 08:00 104 12/19/19 08:00 Venturi Mask 12.0 12/19/19 08:00 4.0 12/19/19 08:00 96 27 85/43 (57) 96 12/19/19 07:30 86 24 99/47 (64) 98 12/19/19 07:00 98.8 85 25 99/44 (62) 99 12/19/19 06:30 88 27 106/52 (70) 98 12/19/19 06:00 93 26 113/66 (82) 97 12/19/19 06:00 111/53 12/19/19 05:30 94 27 100/51 (67) 98 12/19/19 05:00 93/39 12/19/19 05:00 90 28 99/44 (62) 97 12/19/19 04:30 97 29 105/52 (69) 97 12/19/19 04:00 98.8 100 32 102/45 (64) 96 5/20/20 04:00 102/49 5/20/20 04:00 Venturi Mask 12.0 12/19/19 04:00 97 12/19/19 03:30 110 34 105/53 (70) 93 12/19/19 03:00 105/52 12/19/19 03:00 106 37 101/51 (68) 91 12/19/19 02:30 116 35 117/56 (76) 89 12/19/19 02:00 117/56 12/19/19 02:00 124 35 89/36 (53) 94 12/19/19 01:30 122 36 91/36 (54) 92 12/19/19 01:00 91/42 12/19/19 01:00 125 41 98/38 (58) 92 12/19/19 00:30 117 32 101/45 (63) 91 12/19/19 00:00 98.8 95 33 108/47 (67) 93 12/19/19 00:00 Venturi Mask 12.0 12/19/19 00:00 90 12/19/19 00:00 118/48 12/18/19 23:30 85 30 116/41 (66) 95 12/18/19 23:00 93 32 119/47 (71) 97 20 23:00 119/47 12/18/19 22:30 86 27 117/43 (67) 96 20 22:00 112/45 20 22:00 79 31 112/45 (67) 96 20 21:30 75 36 111/41 (64) 96 20 21:00 117/46 20 21:00 74 28 117/46 (69) 99 20 20:30 69 29 118/47 (70) 100 20 20:18 92 Venturi Mask 14.0 55 12/18/19 20:00 98.5 67 25 111/45 (67) 100 20 20:00 111/45 20 20:00 Venturi Mask 12.0 12/18/19 20:00 86 20 19:30 66 24 104/45 (64) 99 1920 19:00 101/45 20 19:00 68 27 101/48 (65) 99 12/18/19 18:00 132/51 12/18/19 18:00 62 23 140/51 (80) 100 12/18/19 17:00 77 27 101/44 (63) 12/18/19 17:00 101/44 12/18/19 16:30 75 24 85/43 (57) 98 12/18/19 16:00 83 12/18/19 16:00 Venturi Mask 12.0 12/18/19 16:00 98.8 89 28 89/46 (60) 95 12/18/19 16:00 89/46 12/18/19 15:30 93 34 92/46 (61) 98 12/18/19 15:00 116/55 12/18/19 15:00 80 25 116/55 (75) 89 12/18/19 14:30 81 28 111/53 (72) 95 12/18/19 14:00 85 28 117/57 (77) 99 12/18/19 14:00 117/57 12/18/19 13:30 83 27 119/53 (75) 99 12/18/19 13:00 119/53 12/18/19 13:00 81 28 106/55 (72) 97 12/18/19 12:00 101/37 12/18/19 12:00 94 12/18/19 12:00 98.3 80 29 101/37 (58) 99 12/18/19 12:00 Venturi Mask 12.0 12/18/19 11:34 84/44 12/18/19 11:30 88 29 83/38 (53) 94 Height (Feet): 5 Height (Inches): 6.00 Weight (Pounds): 154 Microbiology Date/Time Source Procedure Growth Status 12/17/19 12:30 Nasopharynx Coronavirus COVID-19 PCR ([facility]) - Final Complete Laboratory Tests Test 12/18/19 17:20 12/19/19 08:05 12/19/19 10:33 White Blood Count 6.1 K/UL (4.8-10.8) 7.7 K/UL (4.8-10.8) Red Blood Count 2.67 M/UL (4.20-5.40) L 2.82 M/UL (4.20-5.40) L Hemoglobin 7.2 G/DL (12.0-16.0) L 7.7 G/DL (12.0-16.0) L Hematocrit 23.3 % (37.0-47.0) L 22.8 % (37.0-47.0) L Mean Corpuscular Volume 87 FL (80-99) 81 FL (80-99) Mean Corpuscular Hemoglobin 26.9 PG (27.0-31.0) L 27.3 PG (27.0-31.0) Mean Corpuscular Hemoglobin Concent 30.8 G/DL (32.0-36.0) L 33.8 G/DL (32.0-36.0) Red Cell Distribution Width 15.4 % (11.6-14.8) H 13.0 % (11.6-14.8) Platelet Count 60 K/UL (150-450) L 86 K/UL (150-450) L Mean Platelet Volume 11.1 FL (6.5-10.1) H 9.0 FL (6.5-10.1) Neutrophils (%) (Auto) 90.1 % (45.0-75.0) H % (45.0-75.0) Lymphocytes (%) (Auto) 5.7 % (20.0-45.0) L % (20.0-45.0) Monocytes (%) (Auto) 3.5 % (1.0-10.0) % (1.0-10.0) Eosinophils (%) (Auto) 0.2 % (0.0-3.0) % (0.0-3.0) Basophils (%) (Auto) 0.5 % (0.0-2.0) % (0.0-2.0) Sodium Level 147 MMOL/L (136-145) H 147 MMOL/L (136-145) H Potassium Level 3.8 MMOL/L (3.5-5.1) 2.9 MMOL/L (3.5-5.1) L Chloride Level 108 MMOL/L (98-107) H 106 MMOL/L (98-107) Carbon Dioxide Level 33 MMOL/L (21-32) H 34 MMOL/L (21-32) H Anion Gap 6 mmol/L (5-15) 8 mmol/L (5-15) Blood Urea Nitrogen 17 mg/dL (7-18) 18 mg/dL (7-18) Creatinine 0.8 MG/DL (0.55-1.30) 0.7 MG/DL (0.55-1.30) Estimat Glomerular Filtration Rate > 60 mL/min (>60) > 60 mL/min (>60) Glucose Level 169 MG/DL (74-106) H 140 MG/DL (74-106) H Calcium Level 6.8 MG/DL (8.5-10.1) L 7.1 MG/DL (8.5-10.1) L Differential Total Cells Counted 100 Neutrophils % (Manual) 90 % (45-75) H Lymphocytes % (Manual) 9 % (20-45) L Monocytes % (Manual) 1 % (1-10) Eosinophils % (Manual) 0 % (0-3) Basophils % (Manual) 0 % (0-2) Band Neutrophils 0 % (0-8) Platelet Estimate Decreased L Platelet Morphology Normal Hypochromasia 1+ Total Bilirubin 0.4 MG/DL (0.2-1.0) Aspartate Amino Transf (AST/SGOT) 74 U/L (15-37) H Alanine Aminotransferase (ALT/SGPT) 57 U/L (12-78) Alkaline Phosphatase 187 U/L (46-116) H Total Protein 5.2 G/DL (6.4-8.2) L Albumin 1.2 G/DL (3.4-5.0) L Globulin 4.0 g/dL Albumin/Globulin Ratio 0.3 (1.0-2.7) L Arterial Blood pH 7.466 (7.350-7.450) Arterial Blood Partial Pressure CO2 51.1 mmHg (35.0-45.0) H Arterial Blood Partial Pressure O2 80.1 mmHg (75.0-100.0) Arterial Blood HCO3 36.0 mmol/L (22.0-26.0) H Arterial Blood Oxygen Saturation 94.5 % (95-100) L Arterial Blood Base Excess 11.1 (-2-2) *H Miki Test Positive Current Medications Medications (Trade) Dose Ordered Sig/Ebenezer Route PRN Reason Start Time Stop Time Status Last Admin Dose Admin Acetaminophen (Tylenol) 650 mg Q4H PRN RECTAL MILD/TEMP 12/13/19 08:30 01/12/20 08:29 Chlorhexidine Gluconate (Dee-Hex 2%) 1 applic DAILY@2000 TOPIC 12/13/19 20:00 03/12/20 19:59 12/18/19 20:00 Dextrose (Dextrose 50%) 25 ml Q30M PRN IV Hypoglycemia 12/13/19 08:30 03/12/20 08:29 Dextrose (Dextrose 50%) 50 ml Q30M PRN IV Hypoglycemia 12/13/19 08:30 03/12/20 08:29 12/18/19 17:11 Ertapenem 1 gm/ Sodium Chloride 55 ml @ 110 mls/hr Q24H IVPB 12/16/19 13:00 12/21/19 12:59 12/18/19 13:20 Furosemide (Lasix) 40 mg ONCE IV 12/19/19 10:45 12/19/19 12:30 12/19/19 10:52 Heparin Sodium (Porcine) (Heparin 5000 units/ml) 5,000 units EVERY 12 HOURS SUBQ 12/13/19 09:00 01/27/20 08:59 12/17/19 21:20 Insulin Aspart (NovoLOG) Q4H SUBQ 12/14/19 12:00 03/13/20 11:59 12/18/19 20:39 Insulin Detemir (Levemir) 10 units Q12HR SUBQ 12/14/19 09:00 03/13/20 08:59 12/19/19 08:18 Morphine Sulfate (Morphine Sulfate) 1 mg Q4H PRN IVP For Pain 12/19/19 10:38 12/26/19 10:37 12/19/19 10:54 Norepinephrine Bitartrate 8 mg/ Dextrose 500 ml @ 0 mls/hr Q24H IV 12/16/19 21:30 01/15/20 21:29 12/19/19 09:18 Potassium Chloride (K-Dur) 40 meq ONCE ORAL 12/19/19 14:00 12/19/19 15:00 Albert Scanlon MD December 19, 2019 11:04
--- NOTE | 2019-12-19 11:14 | NUR ---
RADIOLOGY DEPT., CHEST X-RAY DONE.-P.DYE
--- NOTE | 2019-12-19 11:29 | Diagnostic Imaging Report ---
Procedure: XRAY Chest 1v Reason for study: Reason For Exam: [id number] Comparison films: 12/18/2019. FINDINGS: Left central venous catheter remains in place. Vascular and interstitial prominence unchanged. There is slight increase of bilateral infiltrates particularly in the left lung base. Cardiac and mediastinal silhouette are within normal limits. Small left effusion noted. The bony thorax appear unremarkable. IMPRESSION: Slight worsening of infiltrates particularly left lung base.
--- NOTE | 2019-12-19 12:11 | NUR ---
NURSE NOTES: Pt turned and repositioned.ADLs done, mouth care done and suctioned as tolerate.Improvement in respiration rate and saturation. BP remains on the low side and continue to titrate Levophed as tolerated. Call light within easy. Will continue to monitor
--- NOTE | 2019-12-19 12:29 | NUR ---
CASE MANAGEMENT: REVIEW SI: DKA . SEPSIS . RESP FAILURE LEFT SUBCLAVIAN CENTRAL VENOUS CATHETER INSERTION 12/13 T 98.8 HR 96 RR 27 BP 85/43 SAT 96% VENTURI MASK FLOW RATE 12.0 H/H 7.7/22.8 NA 147 K+ 2.9 ABG: PH 7.466 PCO2 51.1 HCO3 36.0 SAT 94.5 IS: LEVOPHED GTT ERTAPENEM IV Q24HR HEPARIN SUBQ Q12HR NOVOLOG SUBQ Q4HR NO INTUBATION PER ADVANCE DIRECTIVE ICU STATUS DCP: PATIENT IS FROM [facility]
[2019-12-19] MEDS: Ertapenem 1gm in NS 55ml IVPB SCH (13:10)
--- NOTE | 2019-12-19 14:32 | NUR ---
NURSE NOTES: Patient suctioned as tolerate and improvement of amount secretion, saturation 100% , HR 79 and respiratory rate 20. Blood pressure remains in the low size and increase to 15 mcg/hr at this time.Will continue close monitoring.Turned and repositioned for skin management. HOB elevated to prevent aspiration.Call light within easy reach.Will continue close monitoring.
--- NOTE | 2019-12-19 14:39 | Surgery Progress Note ---
Surgery Progress Note Subjective Procedure Performed left subclavian central venous catheter insertion Additional Comments labs reviewed comfortable appearing line okay Objective Last 24 Hour Vital Signs Date Time Temp Pulse Resp B/P (MAP) Pulse Ox O2 Delivery O2 Flow Rate FiO2 12/19/19 14:00 78 26 90/38 (55) 100 12/19/19 14:00 94/39 12/19/19 13:30 76 24 84/37 (53) 100 12/19/19 13:25 99/47 12/19/19 13:00 83 23 99/47 (64) 100 12/19/19 12:30 73 26 93/41 (58) 100 12/19/19 12:00 75 27 90/38 (55) 100 12/19/19 12:00 Venturi Mask 12.0 12/19/19 12:00 89 12/19/19 11:30 86 27 110/48 (68) 97 12/19/19 11:24 98.2 12/19/19 11:00 110/48 12/19/19 11:00 93 35 122/54 (76) 96 12/19/19 10:30 94 31 90/37 (54) 96 12/19/19 10:15 108 38 108/41 (63) 84 12/19/19 10:00 90/37 12/19/19 10:00 114 42 117/45 (69) 84 12/19/19 09:30 86 25 127/53 (77) 97 12/19/19 09:18 88/41 12/19/19 09:00 80 28 108/35 (59) 97 12/19/19 08:30 90 28 100/40 (60) 96 12/19/19 08:15 101 33 81/34 (50) 92 12/19/19 08:00 104 12/19/19 08:00 Venturi Mask 12.0 12/19/19 08:00 4.0 12/19/19 08:00 96 27 85/43 (57) 96 12/19/19 07:30 86 24 99/47 (64) 98 12/19/19 07:00 98.8 85 25 99/44 (62) 99 12/19/19 06:30 88 27 106/52 (70) 98 12/19/19 06:00 93 26 113/66 (82) 97 12/19/19 06:00 111/53 5/20/20 05:30 94 27 100/51 (67) 98 12/19/19 05:00 93/39 12/19/19 05:00 90 28 99/44 (62) 97 12/19/19 04:30 97 29 105/52 (69) 97 12/19/19 04:00 98.8 100 32 102/45 (64) 96 12/19/19 04:00 102/49 12/19/19 04:00 Venturi Mask 12.0 12/19/19 04:00 97 12/19/19 03:30 110 34 105/53 (70) 93 12/19/19 03:00 105/52 12/19/19 03:00 106 37 101/51 (68) 91 12/19/19 02:30 116 35 117/56 (76) 89 12/19/19 02:00 117/56 12/19/19 02:00 124 35 89/36 (53) 94 12/19/19 01:30 122 36 91/36 (54) 92 12/19/19 01:00 91/42 12/19/19 01:00 125 41 98/38 (58) 92 12/19/19 00:30 117 32 101/45 (63) 91 12/19/19 00:00 98.8 95 33 108/47 (67) 93 12/19/19 00:00 Venturi Mask 12.0 12/19/19 00:00 90 12/19/19 00:00 118/48 12/18/19 23:30 85 30 116/41 (66) 95 12/18/19 23:00 93 32 119/47 (71) 97 20 23:00 119/47 12/18/19 22:30 86 27 117/43 (67) 96 20 22:00 112/45 12/18/19 22:00 79 31 112/45 (67) 96 20 21:30 75 36 111/41 (64) 96 20 21:00 117/46 20 21:00 74 28 117/46 (69) 99 20 20:30 69 29 118/47 (70) 100 12/18/19 20:18 92 Venturi Mask 14.0 55 12/18/19 20:00 98.5 67 25 111/45 (67) 100 12/18/19 20:00 111/45 12/18/19 20:00 Venturi Mask 12.0 12/18/19 20:00 86 12/18/19 19:30 66 24 104/45 (64) 99 12/18/19 19:00 101/45 12/18/19 19:00 68 27 101/48 (65) 99 12/18/19 18:00 132/51 12/18/19 18:00 62 23 140/51 (80) 100 12/18/19 17:00 77 27 101/44 (63) 12/18/19 17:00 101/44 12/18/19 16:30 75 24 85/43 (57) 98 12/18/19 16:00 83 12/18/19 16:00 Venturi Mask 12.0 12/18/19 16:00 98.8 89 28 89/46 (60) 95 12/18/19 16:00 89/46 12/18/19 15:30 93 34 92/46 (61) 98 12/18/19 15:00 116/55 12/18/19 15:00 80 25 116/55 (75) 89 I&O Intake and Output 12/18/19 12/19/19 19:00 07:00 Intake Total 1341.60 ml 727.5 ml Output Total 615 ml 1420 ml Balance 726.60 ml -692.5 ml Intake Free Water 40 ml 120 ml IV Total 1081.60 ml 247.5 ml Tube Feeding 220 ml 360 ml Output Urine Total 615 ml 1420 ml # Bowel Movements 4 3 Dressing: other Wound: other Drains: none Cardiovascular: RSR Respiratory: decreased breath sounds Abdomen: soft, non-tender, present bowel sounds Extremities: no cyanosis Laboratory Tests Test 12/18/19 17:20 12/19/19 08:05 12/19/19 10:33 White Blood Count 6.1 K/UL (4.8-10.8) 7.7 K/UL (4.8-10.8) Red Blood Count 2.67 M/UL (4.20-5.40) L 2.82 M/UL (4.20-5.40) L Hemoglobin 7.2 G/DL (12.0-16.0) L 7.7 G/DL (12.0-16.0) L Hematocrit 23.3 % (37.0-47.0) L 22.8 % (37.0-47.0) L Mean Corpuscular Volume 87 FL (80-99) 81 FL (80-99) Mean Corpuscular Hemoglobin 26.9 PG (27.0-31.0) L 27.3 PG (27.0-31.0) Mean Corpuscular Hemoglobin Concent 30.8 G/DL (32.0-36.0) L 33.8 G/DL (32.0-36.0) Red Cell Distribution Width 15.4 % (11.6-14.8) H 13.0 % (11.6-14.8) Platelet Count 60 K/UL (150-450) L 86 K/UL (150-450) L Mean Platelet Volume 11.1 FL (6.5-10.1) H 9.0 FL (6.5-10.1) Neutrophils (%) (Auto) 90.1 % (45.0-75.0) H % (45.0-75.0) Lymphocytes (%) (Auto) 5.7 % (20.0-45.0) L % (20.0-45.0) Monocytes (%) (Auto) 3.5 % (1.0-10.0) % (1.0-10.0) Eosinophils (%) (Auto) 0.2 % (0.0-3.0) % (0.0-3.0) Basophils (%) (Auto) 0.5 % (0.0-2.0) % (0.0-2.0) Sodium Level 147 MMOL/L (136-145) H 147 MMOL/L (136-145) H Potassium Level 3.8 MMOL/L (3.5-5.1) 2.9 MMOL/L (3.5-5.1) L Chloride Level 108 MMOL/L (98-107) H 106 MMOL/L (98-107) Carbon Dioxide Level 33 MMOL/L (21-32) H 34 MMOL/L (21-32) H Anion Gap 6 mmol/L (5-15) 8 mmol/L (5-15) Blood Urea Nitrogen 17 mg/dL (7-18) 18 mg/dL (7-18) Creatinine 0.8 MG/DL (0.55-1.30) 0.7 MG/DL (0.55-1.30) Estimat Glomerular Filtration Rate > 60 mL/min (>60) > 60 mL/min (>60) Glucose Level 169 MG/DL (74-106) H 140 MG/DL (74-106) H Calcium Level 6.8 MG/DL (8.5-10.1) L 7.1 MG/DL (8.5-10.1) L Differential Total Cells Counted 100 Neutrophils % (Manual) 90 % (45-75) H Lymphocytes % (Manual) 9 % (20-45) L Monocytes % (Manual) 1 % (1-10) Eosinophils % (Manual) 0 % (0-3) Basophils % (Manual) 0 % (0-2) Band Neutrophils 0 % (0-8) Platelet Estimate Decreased L Platelet Morphology Normal Hypochromasia 1+ Total Bilirubin 0.4 MG/DL (0.2-1.0) Aspartate Amino Transf (AST/SGOT) 74 U/L (15-37) H Alanine Aminotransferase (ALT/SGPT) 57 U/L (12-78) Alkaline Phosphatase 187 U/L (46-116) H Total Protein 5.2 G/DL (6.4-8.2) L Albumin 1.2 G/DL (3.4-5.0) L Globulin 4.0 g/dL Albumin/Globulin Ratio 0.3 (1.0-2.7) L Arterial Blood pH 7.466 (7.350-7.450) Arterial Blood Partial Pressure CO2 51.1 mmHg (35.0-45.0) H Arterial Blood Partial Pressure O2 80.1 mmHg (75.0-100.0) Arterial Blood HCO3 36.0 mmol/L (22.0-26.0) H Arterial Blood Oxygen Saturation 94.5 % (95-100) L Arterial Blood Base Excess 11.1 (-2-2) *H Miki Test Positive Plan Problems: (1) Uncontrolled diabetes mellitus (2) Suspected 2019 novel coronavirus infection Assessment & Plan: neg (3) Septic shock Assessment & Plan: septic hypotension line placed see note resuscitation initiated discussed in detail with daughter at bedside for ome time tren dlabs fluids pressors will follow with recs DAILY ESTIMATED NEEDS: Needs based on Pulmonary, wounds, sepsis/ 51kg abw 25-30 kcals/kg 2673-5622 total kcals 1.25-2 g protein/kg 63-102 g total protein 25-30 mL/kg 0995-6816 total fluid mLs NUTRITION DIAGNOSIS: * Increased kcal/prot needs R/T wound healing as evidenced by pt admitted w/ multiple unstageable and DTPI wounds, refer to WC eval. * Swallowing difficulty R/T dysphagia as evidenced by PEG dep. ENTERAL NUTRITION RECOMMENDATIONS: Glucerna 1.5 @ 40ml/hr x 24 hrs to provide 960ml, 1440kcal, 79g prot, 729ml free water * W/ hemodynamic stability, initiate Glucerna 1.5 @ 20ml/hr x 6hrs * Advance 10ml q 4-6 hrs as tolerated to goal rate * HOB over 30 degrees/ water flush per MD. WITHOUT HEMODYNAMIC STABILITY: rec trophic feeding of Glucerna 1.5 @ 10ml/hr x 24 hrs ADDITIONAL RECOMMENDATIONS: * Per SNF: HT=61" CQ=536wdr ("October wts" per SNF) -> rec to re-calibrate bedscale wt * Monitor hemodynamic stability: on NE @ 20mcg * Monitor BGs closely: BG 798 upon adm -> improved rec D5 while NPO to prevent hypoglycemia. * Wound healing: add Vit C 500mg QD Sae BID w/ TF order (4) Lactic acidosis (5) Respiratory failure (6) Decubitus skin ulcer Assessment & Plan: Pt presented on admission with multiple pressure injuries. Unstageable Sacral Pressure injury with presents as open DTPI. Soft necrosis at Base of wound with marginal erythema along edges.Small opening noted to L sacrum. No odor or exudate noted. Periwound without evidence of further skin breakdown. DTPI noted to medial L malleolus. Base of wound is maroon with marginal erythema. DTPI medial L heel base of wound is maroon with fluctuance. DTPI L Hallux. Base of wound is maroon with marginal erythema along borders. Reabsorbing DTPI lateral L heel. Base of injury ids dry. Unstageable pressure injuries noted to distal/lateral R foot. Soft necrosis at base of wound. Unstageable pressure injury dorso/lateral R 5th metatarsal. Soft necrosis at base of wound. Unstageable pressure injury web space of R 4th metatarsal. Base of wound is necrotic and partially opened. no exudate noted. DTPI noted to R lateral malleolus. Base of wound is maroon and soft with marginal erythema along borders. Tx.Plan: Cleanse Sacral wound with Saline. Apply TheraHoney. Apply Moisture Barrier paste periwound. Cover with Optifoam drsg. Change every 3 days and prn. Apply Betadine to wounds Distal /lateral R foot, R 4th and 5th metatarsals. Cover with Optifoam drsg every 3 days and prn. Apply Cavilon to both heels, Both hallux and malleoli. Cover each site with Optifoam drgs. Change every 7 days and prn. Reposition at least every 2hours or as tolerated. Place Pillow between knees. Off-load heels with Pillow. APM/MELANIE Mattress overlay. Joce Campbell December 19, 2019 14:39
--- NOTE | 2019-12-19 15:05 | General Progress Note ---
Assessment/Plan Problem List: (1) Respiratory failure ICD Codes: J96.90 - Respiratory failure, unspecified, unspecified whether with hypoxia or hypercapnia SNOMED: 084003603 (2) Lactic acidosis ICD Codes: E87.2 - Acidosis SNOMED: 89380465 (3) Uncontrolled diabetes mellitus ICD Codes: E11.65 - Type 2 diabetes mellitus with hyperglycemia SNOMED: 17955154, 710288494 (4) Suspected 2019 novel coronavirus infection ICD Codes: Z20.828 - Contact with and (suspected) exposure to other viral communicable diseases SNOMED: 861306071 (5) Septic shock ICD Codes: A41.9 - Sepsis, unspecified organism; R65.21 - Severe sepsis with septic shock SNOMED: 51534140 Status: deteriorating Assessment/Plan: replace lytes pressors as needed- try to wean monitor labs/abg o2 as needed tube feeds- titrate up. monitor residuals follow up cultures dvt/stress ulcer prophylaxis monitor h/h may need transfusion critical and guarded. prognosis poor dnr d/w cardiology poc time spent 60mins Subjective ROS Limited/Unobtainable: Yes Constitutional: Reports: malaise, weakness HEENT: Reports: no symptoms Cardiovascular: Reports: no symptoms Respiratory: Reports: shortness of breath Gastrointestinal/Abdominal: Reports: difficulty swallowing, poor appetite, poor fluid intake Genitourinary: Reports: no symptoms Neurologic/Psychiatric: Reports: pre-existing deficit Endocrine: Reports: no symptoms Hematologic/Lymphatic: Reports: anemia Allergies: Coded Allergies: PENICILLINS (Verified Allergy, Unknown, 12/14/19) All Systems: reviewed and negative except above Subjective no change. remains on the facemask. poorly responsive. withdrawn. on levophed at 6. on iv abx. labs reviewed. low k noted. Objective Last 24 Hour Vital Signs Date Time Temp Pulse Resp B/P (MAP) Pulse Ox O2 Delivery O2 Flow Rate FiO2 12/19/19 14:30 76 22 129/44 (72) 100 12/19/19 14:00 78 26 90/38 (55) 100 12/19/19 14:00 94/39 12/19/19 13:30 76 24 84/37 (53) 100 12/19/19 13:25 99/47 12/19/19 13:00 83 23 99/47 (64) 100 5/20/20 12:30 73 26 93/41 (58) 100 5/20/20 12:00 75 27 90/38 (55) 100 520 12:00 Venturi Mask 12.0 520 12:00 89 5/2020 11:30 98.2 86 27 110/48 (68) 97 52020 11:24 98.2 52020 11:00 110/48 520 11:00 93 35 122/54 (76) 96 20 10:30 94 31 90/37 (54) 96 20 10:15 108 38 108/41 (63) 84 52020 10:00 90/37 52020 10:00 114 42 117/45 (69) 84 20 09:30 86 25 127/53 (77) 97 20 09:18 88/41 520 09:00 80 28 108/35 (59) 97 520 08:30 90 28 100/40 (60) 96 20 08:15 101 33 81/34 (50) 92 20 08:00 104 520 08:00 Venturi Mask 12.0 12/19/19 08:00 4.0 12/19/19 08:00 96 27 85/43 (57) 96 520 07:30 86 24 99/47 (64) 98 520 07:00 98.8 85 25 99/44 (62) 99 520 06:30 88 27 106/52 (70) 98 520 06:00 93 26 113/66 (82) 97 52020 06:00 111/53 520/20 05:30 94 27 100/51 (67) 98 52020 05:00 93/39 52020 05:00 90 28 99/44 (62) 97 520 04:30 97 29 105/52 (69) 97 52020 04:00 98.8 100 32 102/45 (64) 96 20 04:00 102/49 52020 04:00 Venturi Mask 12.0 520 04:00 97 5/2020 03:30 110 34 105/53 (70) 93 12/19/19 03:00 105/52 12/19/19 03:00 106 37 101/51 (68) 91 12/19/19 02:30 116 35 117/56 (76) 89 12/19/19 02:00 117/56 12/19/19 02:00 124 35 89/36 (53) 94 12/19/19 01:30 122 36 91/36 (54) 92 12/19/19 01:00 91/42 12/19/19 01:00 125 41 98/38 (58) 92 12/19/19 00:30 117 32 101/45 (63) 91 12/19/19 00:00 98.8 95 33 108/47 (67) 93 12/19/19 00:00 Venturi Mask 12.0 12/19/19 00:00 90 12/19/19 00:00 118/48 12/18/19 23:30 85 30 116/41 (66) 95 12/18/19 23:00 93 32 119/47 (71) 97 12/18/19 23:00 119/47 12/18/19 22:30 86 27 117/43 (67) 96 20 22:00 112/45 12/18/19 22:00 79 31 112/45 (67) 96 12/18/19 21:30 75 36 111/41 (64) 96 12/18/19 21:00 117/46 20 21:00 74 28 117/46 (69) 99 12/18/19 20:30 69 29 118/47 (70) 100 12/18/19 20:18 92 Venturi Mask 14.0 55 12/18/19 20:00 98.5 67 25 111/45 (67) 100 20 20:00 111/45 12/18/19 20:00 Venturi Mask 12.0 12/18/19 20:00 86 12/18/19 19:30 66 24 104/45 (64) 99 12/18/19 19:00 101/45 20 19:00 68 27 101/48 (65) 99 20 18:00 132/51 12/18/19 18:00 62 23 140/51 (80) 100 12/18/19 17:00 77 27 101/44 (63) 12/18/19 17:00 101/44 12/18/19 16:30 75 24 85/43 (57) 98 12/18/19 16:00 83 12/18/19 16:00 Venturi Mask 12.0 12/18/19 16:00 98.8 89 28 89/46 (60) 95 12/18/19 16:00 89/46 12/18/19 15:30 93 34 92/46 (61) 98 12/18/19 15:00 116/55 12/18/19 15:00 80 25 116/55 (75) 89 Intake and Output 12/18/19 12/19/19 19:00 07:00 Intake Total 1341.60 ml 727.5 ml Output Total 615 ml 1420 ml Balance 726.60 ml -692.5 ml Intake Free Water 40 ml 120 ml IV Total 1081.60 ml 247.5 ml Tube Feeding 220 ml 360 ml Output Urine Total 615 ml 1420 ml # Bowel Movements 4 3 Laboratory Tests 12/18/19 17:20: White Blood Count 6.1, Red Blood Count 2.67L, Hemoglobin 7.2L, Hematocrit 23.3L , Mean Corpuscular Volume 87, Mean Corpuscular Hemoglobin 26.9L, Mean Corpuscular Hemoglobin Concent 30.8L, Red Cell Distribution Width 15.4H, Platelet Count 60L, Mean Platelet Volume 11.1H, Neutrophils (%) (Auto) 90.1H, Lymphocytes (%) (Auto) 5.7L, Monocytes (%) (Auto) 3.5, Eosinophils (%) (Auto) 0.2, Basophils (%) (Auto) 0.5, Sodium Level 147H, Potassium Level 3.8, Chloride Level 108H, Carbon Dioxide Level 33H, Anion Gap 6, Blood Urea Nitrogen 17, Creatinine 0.8, Estimat Glomerular Filtration Rate > 60, Glucose Level 169H, Calcium Level 6.8L 12/19/19 08:05: White Blood Count 7.7, Red Blood Count 2.82L, Hemoglobin 7.7L, Hematocrit 22.8L , Mean Corpuscular Volume 81, Mean Corpuscular Hemoglobin 27.3, Mean Corpuscular Hemoglobin Concent 33.8, Red Cell Distribution Width 13.0, Platelet Count 86L, Mean Platelet Volume 9.0, Neutrophils (%) (Auto) , Lymphocytes (%) ( Auto) , Monocytes (%) (Auto) , Eosinophils (%) (Auto) , Basophils (%) (Auto) , Sodium Level 147H, Potassium Level 2.9L, Chloride Level 106, Carbon Dioxide Level 34H, Anion Gap 8, Blood Urea Nitrogen 18, Creatinine 0.7, Estimat Glomerular Filtration Rate > 60, Glucose Level 140H, Calcium Level 7.1L, Differential Total Cells Counted 100, Neutrophils % (Manual) 90H, Lymphocytes % (Manual) 9L, Monocytes % (Manual) 1, Eosinophils % (Manual) 0, Basophils % ( Manual) 0, Band Neutrophils 0, Platelet Estimate DecreasedL, Platelet Morphology Normal, Hypochromasia 1+, Total Bilirubin 0.4, Aspartate Amino Transf (AST/SGOT) 74H, Alanine Aminotransferase (ALT/SGPT) 57, Alkaline Phosphatase 187H, Total Protein 5.2L, Albumin 1.2L, Globulin 4.0, Albumin/ Globulin Ratio 0.3L 12/19/19 10:33: Arterial Blood pH 7.466H, Arterial Blood Partial Pressure CO2 51.1H, Arterial Blood Partial Pressure O2 80.1, Arterial Blood HCO3 36.0H, Arterial Blood Oxygen Saturation 94.5L, Arterial Blood Base Excess 11.1*H, Miki Test Positive Height (Feet): 5 Height (Inches): 6.00 Weight (Pounds): 154 Objective General Appearance: WD/WN, alert, confused. on venti mask EENT: PERRL/EOMI, normal ENT inspection Neck: non-tender, normal alignment, supple Cardiovascular: normal peripheral pulses, normal rate, regular rhythm Respiratory/Chest: chest wall non-tender, lungs clear, normal breath sounds, no respiratory distress, respiratory distress, accessory muscle use Abdomen: normal bowel sounds, non tender, soft, no organomegaly Edema: moderate edema Neurologic: disoriented, unresponsive, aphasia Skin: normal pigmentation Paxton Humphrey MD December 19, 2019 15:05
--- NOTE | 2019-12-19 16:24 | NUR ---
NURSE NOTES: ADLs done, mouth care provided and suctioned as tolerated. Morphine 1mg given due to facial grimacing and increase RR to 43.Remains on non rebreathing mask at 15L and saturate at 96-98 %. Son (Ibrahima) and daughter (Lucia) visited and were able through their phone to great their mother.Pt turned and repositioned, kept clean and comfortable.Call light within easy reach. Will continue close monitoring.
--- NOTE | 2019-12-19 18:47 | NUR ---
NURSE NOTES: Adls done, suctioned as tolerated.Remains on close monitoring. No significant change , remains with on and off episode of tachypnea. Ket on close monitoring. Wound care done and all dressings changed.
--- NOTE | 2019-12-19 19:45 | NUR ---
NURSE NOTES: received report from fabi rn pt nan verbal does not follows command on vm 30% fo2 sat98% rr21 no acute resp distress iv infusing tko site good lt ij dry and intact tolerating tube feeding on residual reposition and suction
--- NOTE | 2019-12-19 19:57 | NUR ---
HAND-OFF: Report given to LORNA Arora.
[2019-12-19] MEDS: Dyna-Hex 2% Top Sol 2oz TOPIC SCH (20:47)
--- NOTE | 2019-12-19 22:00 | NUR ---
NURSE NOTES: on levo drip at 15mcg/min with bp82/43-104/44
[2019-12-20] VITALS (71 sets, daily range): BP systolic 71–155; BP diastolic 31–85
--- NOTE | 2019-12-20 | NUR ---
NURSE NOTES: reposition and suction
--- NOTE | 2019-12-20 01:00 | Progress Note ---
DATE: 12/19/2019 CARDIOLOGY PROGRESS NOTE SUBJECTIVE: The patient's condition remains critical. Prognosis guarded. She remains in the intensive care unit. She is on oxygen mask. She is poorly responsive, withdrawn, lethargic and on pressor support with Levophed. Monitor sinus with occasional ectopic beats. PHYSICAL EXAMINATION: VITAL SIGNS: Blood pressure 90/38, heart rate 78, respiratory rate 26, no noted temperature spikes. LUNGS: Bilateral breath sounds. Coarse rhonchi. CARDIAC: Regular rhythm and rate. Normal S1, S2. ABDOMEN: Soft. EXTREMITIES: A 1+ dependent edema. LABORATORY AND DIAGNOSTIC DATA: ABG 7.46, pulse 51, 80. Sodium 147, potassium 2.9, bicarb 34, BUN 18, creatinine 0.7. Albumin 1.2. White count 7.7, hemoglobin 7.7. IMPRESSION: 1. Shock. 2. Sepsis. 3. Hypovolemia. 4. Dehydration. 5. Severe anemia. 6. Metabolic alkalosis. 7. Dehydration. 8. Hypernatremia. 9. Hypokalemia. 10. Acute myocardial ischemia. 11. Bacteremia. 12. Increased risk for endocarditis. PLAN: 1. Hydration. 2. Pressors. 3. Antimicrobials. 4. Oxygenation. 5. Respiratory hygiene. 6. Consider packed red blood cell transfusion. 7. DNR based on advanced directives. 8. Nutrition by feeding tube. Slava Hsu M.D. DR: Leslie JOB#: [id number] CC:
--- NOTE | 2019-12-20 02:00 | NUR ---
NURSE NOTES: rr 40-50 o2 sat 80-84 % hr 130 and restless 1mg ms ivp rr21 hr 90 o2sat 94% after 15min ms is given
[2019-12-20] MEDS: Morphine Sulfate 2mg/ml Inj(IV/IM USE ONLY) IVP PRN ×2 (02:03→16:45)
[2019-12-20] MEDS: Norepinephrine Bitartrate 8 MG in D5W 500ml 492 ML IV SCH ×2 (02:30→17:00)
--- NOTE | 2019-12-20 03:30 | NUR ---
NURSE NOTES: NSR on the monitor. BP 99/38. complete bed bath with bed changed was done.
[2019-12-20] MEDS: NovoLOG Insulin Flexpen SUBQ SCH ×6 (04:00→20:00)
--- NOTE | 2019-12-20 04:00 | NUR ---
NURSE NOTES: complete bed bath oral and back care done
[2019-12-20 04:51] LABS: HEMATOCRIT 22.5 % (37.0-47.0); HEMOGLOBIN 7.5 G/DL (12.0-16.0); MEAN CORPUSCULAR VOLUME 82 FL (80-99); PLATELET COUNT 112 K/UL (150-450); RED BLOOD COUNT 2.74 M/UL (4.20-5.40); RED CELL DISTRIBUTION WIDTH 13.5 % (11.6-14.8); WHITE BLOOD COUNT 10.5 K/UL (4.8-10.8)
[2019-12-20 05:19] LABS: ALANINE AMINOTRANSFERASE 51 U/L (12-78); ALBUMIN 1.2 G/DL (3.4-5.0); ALBUMIN/GLOBULIN RATIO 0.3 (1.0-2.7); ALKALINE PHOSPHATASE 167 U/L (46-116); ANION GAP 2 mmol/L (5-15); ASPARTATE AMINO TRANSFERASE 58 U/L (15-37); BILIRUBIN,TOTAL 0.3 MG/DL (0.2-1.0); BLOOD UREA NITROGEN 19 mg/dL (7-18); CARBON DIOXIDE 38 MMOL/L (21-32); CHLORIDE 105 MMOL/L (98-107); CREATININE 0.7 MG/DL (0.55-1.30); POTASSIUM 4.1 MMOL/L (3.5-5.1); SODIUM 145 MMOL/L (136-145)
--- NOTE | 2019-12-20 06:00 | NUR ---
NURSE NOTES: NURSE NOTES: asleep levo drip at 15mcg/min WITH BB 120 /60
--- NOTE | 2019-12-20 07:21 | NUR ---
HAND-OFF: Report given to dasha bautista using sbar.
--- NOTE | 2019-12-20 07:22 | NUR ---
NURSE NOTES: Pt received from LORNA Hope. Pt is obtunded, opens eyes spontaneously but does not track or follow commands, bilat pupils sluggish 3 mm bilaterally. Pt is SR to cardfiac monitor, bilateral radial pulses 3+ and dorsalis pedis pulses 2+. @+ pitting edema noted to left hand and 1+ to right hand. Pt is on 15 L O2 via non-rebreather mask with spO2 98-99%. Will attempt to titrate down O2 at this time. Pt has a GT with normal-appearing stoma without drainage, redness, or swelling- with dry and intact dressing. GT is running Glucerna 1.5 at 10 cc/hr- no gastric residuals noted- Glucerna increased to goal of 20 cc/hr at this time. Abd is soft, non-distended, and non-tender with active bowel sounds to all quadrants. Pt has a F/C with small amount of yellow urine draining. Skin alterations are noted. Pt has a Left subclavian TLC with dry and intact dressing running levophed at 15 mcg/min. Will attempt titrating levophed down at this time (SBP noted in 120s). Dr Humphrey at bedside assessing pt- care plan and labs discussed at this time- Hgb level noted. Pt in no acute distress at this time. No visible signs of bleeding notable- some bruising noted to dorsal aspect of both hands. Will continue to monitor pt. Addendum: 12/20/19 at 0929 by Daniella Proctor RN 2+ pitting edema noted to left hand. Late entry: Right lower lung lobe noted diminished, left lower lung lobe and bilateral upper lobes noted with crackles upon auscultation.
[2019-12-20] MEDS: Heparin 5000 units/ml inj SUBQ SCH ×2 (08:41→21:00)
--- NOTE | 2019-12-20 08:56 | Critical Care Progress Note ---
Assessment/Plan Assessment/Plan IMPRESSION: Respiratory distress, evidence of bilateral pulmonary infiltrates, hypernatremia, acute on chronic renal failure, severe protein-calorie malnutrition, toxic metabolic encephalopathy, dementia, metabolic acidosis, lactic acidemia, elevated troponin, possible demand ischemia, leukocytosis, probable sepsis, anemia. worsening hypoxemia with hypoxemic respiratory failure PLAN care noted taper fio2 d/w nursing in detail iv antibiotics noted imaging reviewed monitor fluid status elevate head DNR replace lytes tube feeds monitor for residuals no intubation per advance directives close follow up and monitoring in ICU off load position change critical with guarded prognosis medications/laboratory data/nursing notes/ICU care reviewed in detail note reviewed and edited care discussed with RN and RT ICU time spent >40 minutes Critical Care - Subjective Interval Events: oxygenation better CXR worse still with reduced LOC ICu care noted ROS Limited/Unobtainable: Yes Condition: critical EKG Rhythm: Sinus Rhythm Residuals: minimal Tube Feeding Tolerated: yes I&O: Intake and Output 12/19/19 12/20/19 19:00 07:00 Intake Total 475.00 ml 746.25 ml Output Total 2110 ml 655 ml Balance -1635.00 ml 91.25 ml Intake Free Water 10 ml 110 ml IV Total 365.00 ml 506.25 ml Tube Feeding 100 ml 130 ml Output Urine Total 2110 ml 655 ml # Bowel Movements 4 3 Critical Care - Objective Last 24 Hour Vital Signs Date Time Temp Pulse Resp B/P (MAP) Pulse Ox O2 Delivery O2 Flow Rate FiO2 12/20/19 08:30 94 22 95/42 (59) 100 12/20/19 08:15 84 21 96/38 (57) 100 12/20/19 08:00 15.0 30 12/20/19 08:00 98.4 99 22 102/41 (61) 98 12/20/19 08:00 102/41 12/20/19 08:00 Venturi Mask 12.0 Venturi Mask 12.0 Venturi Mask 12.0 12/20/19 08:00 97 12/20/19 07:45 90 23 104/48 (66) 94 12/20/19 07:30 90 25 105/44 (64) 93 12/20/19 07:15 97 25 101/48 (65) 91 12/20/19 07:00 124/85 12/20/19 07:00 88 29 124/85 (98) 93 12/20/19 06:30 101 42 126/56 (79) 99 12/20/19 06:00 91 31 142/80 (100) 100 12/20/19 06:00 120/57 12/20/19 05:30 91 38 85/59 (68) 100 12/20/19 05:00 107/46 12/20/19 05:00 85 26 89/50 (63) 100 12/20/19 04:30 80 25 71/31 (44) 100 12/20/19 04:00 Venturi Mask 12.0 12/20/19 04:00 75 12/20/19 04:00 78 29 99/38 (58) 100 12/20/19 04:00 95/37 12/20/19 03:30 98.2 90 26 92/43 (59) 99 12/20/19 03:00 105 31 100/49 (66) 94 12/20/19 03:00 101/62 12/20/19 02:30 91/44 12/20/19 02:30 113 31 123/56 (78) 91 12/20/19 02:00 119 38 116/73 (87) 80 12/20/19 01:30 94 24 142/67 (92) 98 12/20/19 01:00 91 22 113/49 (70) 99 12/20/19 00:30 91 28 116/64 (81) 99 12/20/19 00:00 Venturi Mask 12.0 12/20/19 00:00 97.5 92 24 120/54 (76) 100 12/19/19 23:30 90 27 116/58 (77) 100 12/19/19 23:00 94/46 12/19/19 23:00 77 24 90/46 (61) 100 12/19/19 22:30 82 20 104/44 (64) 100 12/19/19 22:00 85 23 104/57 (73) 100 12/19/19 22:00 98/52 12/19/19 21:30 87 27 125/57 (79) 100 12/19/19 21:00 101 33 82/43 (56) 99 20 21:00 125/57 12/19/19 20:30 86 24 97/54 (68) 100 12/19/19 20:00 98.0 86 23 95/46 (62) 100 5/20/20 20:00 86 5/20/20 20:00 104/46 5/20/20 20:00 Venturi Mask 12.0 5/20/20 19:30 91 25 95/49 (64) 96 5/20/20 19:00 89/46 5/20/20 19:00 95 24 100/49 (66) 95 5/20/20 18:30 96/50 5/20/20 18:30 101 26 96/50 (65) 95 5/20/20 18:00 97 27 125/58 (80) 99 5/20/20 17:30 94 32 114/65 (81) 100 5/20/20 17:00 96/50 5/20/20 17:00 97 28 125/62 (83) 100 5/20/20 16:30 89 35 118/54 (75) 100 5/20/20 16:11 98.8 520/20 16:00 97.8 81 37 126/52 (76) 100 520/20 16:00 111 520 16:00 Venturi Mask 12.0 520 16:00 126/52 5/20/20 15:45 88 25 99/59 (72) 99 5/20/20 15:30 109 34 72/47 (55) 96 520/20 15:00 107 34 81/42 (55) 100 5/20/20 15:00 81/42 5/20/20 14:30 76 22 129/44 (72) 100 5/20/20 14:00 78 26 90/38 (55) 100 520/20 14:00 94/39 5/20/20 13:30 76 24 84/37 (53) 100 5/20/20 13:25 99/47 5/20/20 13:00 83 23 99/47 (64) 100 5/20/20 12:30 73 26 93/41 (58) 100 5/20/20 12:00 75 27 90/38 (55) 100 5/20/20 12:00 Venturi Mask 12.0 520/20 12:00 89 5/20/20 11:30 98.2 86 27 110/48 (68) 97 5/20/20 11:00 110/48 5/20/20 11:00 93 35 122/54 (76) 96 12/19/19 10:30 94 31 90/37 (54) 96 12/19/19 10:15 108 38 108/41 (63) 84 12/19/19 10:00 90/37 12/19/19 10:00 114 42 117/45 (69) 84 12/19/19 09:30 86 25 127/53 (77) 97 12/19/19 09:18 88/41 12/19/19 09:00 80 28 108/35 (59) 97 Labs: Labs Test 12/18/19 03:50 12/18/19 08:59 12/18/19 10:15 12/18/19 17:20 White Blood Count 9.8 K/UL (4.8-10.8) 6.1 K/UL (4.8-10.8) Red Blood Count 2.84 M/UL (4.20-5.40) 2.67 M/UL (4.20-5.40) Hemoglobin 7.8 G/DL (12.0-16.0) 7.2 G/DL (12.0-16.0) Hematocrit 23.0 % (37.0-47.0) 23.3 % (37.0-47.0) Mean Corpuscular Volume 81 FL (80-99) 87 FL (80-99) Mean Corpuscular Hemoglobin 27.4 PG (27.0-31.0) 26.9 PG (27.0-31.0) Mean Corpuscular Hemoglobin Concent 33.8 G/DL (32.0-36.0) 30.8 G/DL (32.0-36.0) Red Cell Distribution Width 13.3 % (11.6-14.8) 15.4 % (11.6-14.8) Platelet Count 69 K/UL (150-450) 60 K/UL (150-450) Mean Platelet Volume 10.9 FL (6.5-10.1) 11.1 FL (6.5-10.1) Neutrophils (%) (Auto) % (45.0-75.0) 90.1 % (45.0-75.0) Lymphocytes (%) (Auto) % (20.0-45.0) 5.7 % (20.0-45.0) Monocytes (%) (Auto) % (1.0-10.0) 3.5 % (1.0-10.0) Eosinophils (%) (Auto) % (0.0-3.0) 0.2 % (0.0-3.0) Basophils (%) (Auto) % (0.0-2.0) 0.5 % (0.0-2.0) Differential Total Cells Counted 100 Neutrophils % (Manual) 92 % (45-75) Lymphocytes % (Manual) 5 % (20-45) Monocytes % (Manual) 2 % (1-10) Eosinophils % (Manual) 1 % (0-3) Basophils % (Manual) 0 % (0-2) Band Neutrophils 0 % (0-8) Platelet Estimate Decreased Platelet Morphology Normal Hypochromasia 3+ Spherocytes 1+ Sodium Level 145 MMOL/L (136-145) 147 MMOL/L (136-145) Potassium Level 2.7 MMOL/L (3.5-5.1) 3.8 MMOL/L (3.5-5.1) Chloride Level 104 MMOL/L (98-107) 108 MMOL/L (98-107) Carbon Dioxide Level 33 MMOL/L (21-32) 33 MMOL/L (21-32) Anion Gap 8 mmol/L (5-15) 6 mmol/L (5-15) Blood Urea Nitrogen 20 mg/dL (7-18) 17 mg/dL (7-18) Creatinine 0.8 MG/DL (0.55-1.30) 0.8 MG/DL (0.55-1.30) Estimat Glomerular Filtration Rate > 60 mL/min (>60) > 60 mL/min (>60) Glucose Level 194 MG/DL (74-106) 169 MG/DL (74-106) Calcium Level 6.6 MG/DL (8.5-10.1) 6.8 MG/DL (8.5-10.1) Phosphorus Level 3.7 MG/DL (2.5-4.9) Magnesium Level 1.9 MG/DL (1.8-2.4) Total Bilirubin 0.4 MG/DL (0.2-1.0) Aspartate Amino Transf (AST/SGOT) 91 U/L (15-37) Alanine Aminotransferase (ALT/SGPT) 51 U/L (12-78) Alkaline Phosphatase 185 U/L (46-116) Total Protein 5.2 G/DL (6.4-8.2) Albumin 1.2 G/DL (3.4-5.0) Globulin 4.0 g/dL Albumin/Globulin Ratio 0.3 (1.0-2.7) Arterial Blood pH 7.424 (7.350-7.450) Arterial Blood Partial Pressure CO2 55.6 mmHg (35.0-45.0) Arterial Blood Partial Pressure O2 66.9 mmHg (75.0-100.0) Arterial Blood HCO3 35.6 mmol/L (22.0-26.0) Arterial Blood Oxygen Saturation 91.4 % (95-100) Arterial Blood Base Excess 9.9 (-2-2) Miki Test Positive Lactic Acid Level 2.00 mmol/L (0.4-2.0) Test 12/19/19 08:05 12/19/19 10:33 12/20/19 03:45 White Blood Count 7.7 K/UL (4.8-10.8) 10.5 K/UL (4.8-10.8) Red Blood Count 2.82 M/UL (4.20-5.40) 2.74 M/UL (4.20-5.40) Hemoglobin 7.7 G/DL (12.0-16.0) 7.5 G/DL (12.0-16.0) Hematocrit 22.8 % (37.0-47.0) 22.5 % (37.0-47.0) Mean Corpuscular Volume 81 FL (80-99) 82 FL (80-99) Mean Corpuscular Hemoglobin 27.3 PG (27.0-31.0) 27.5 PG (27.0-31.0) Mean Corpuscular Hemoglobin Concent 33.8 G/DL (32.0-36.0) 33.5 G/DL (32.0-36.0) Red Cell Distribution Width 13.0 % (11.6-14.8) 13.5 % (11.6-14.8) Platelet Count 86 K/UL (150-450) 112 K/UL (150-450) Mean Platelet Volume 9.0 FL (6.5-10.1) 7.6 FL (6.5-10.1) Neutrophils (%) (Auto) % (45.0-75.0) % (45.0-75.0) Lymphocytes (%) (Auto) % (20.0-45.0) % (20.0-45.0) Monocytes (%) (Auto) % (1.0-10.0) % (1.0-10.0) Eosinophils (%) (Auto) % (0.0-3.0) % (0.0-3.0) Basophils (%) (Auto) % (0.0-2.0) % (0.0-2.0) Differential Total Cells Counted 100 100 Neutrophils % (Manual) 90 % (45-75) 84 % (45-75) Lymphocytes % (Manual) 9 % (20-45) 9 % (20-45) Monocytes % (Manual) 1 % (1-10) 4 % (1-10) Eosinophils % (Manual) 0 % (0-3) 0 % (0-3) Basophils % (Manual) 0 % (0-2) 0 % (0-2) Band Neutrophils 0 % (0-8) 3 % (0-8) Platelet Estimate Decreased Decreased Platelet Morphology Normal Normal Hypochromasia 1+ Sodium Level 147 MMOL/L (136-145) 145 MMOL/L (136-145) Potassium Level 2.9 MMOL/L (3.5-5.1) 4.1 MMOL/L (3.5-5.1) Chloride Level 106 MMOL/L (98-107) 105 MMOL/L (98-107) Carbon Dioxide Level 34 MMOL/L (21-32) 38 MMOL/L (21-32) Anion Gap 8 mmol/L (5-15) 2 mmol/L (5-15) Blood Urea Nitrogen 18 mg/dL (7-18) 19 mg/dL (7-18) Creatinine 0.7 MG/DL (0.55-1.30) 0.7 MG/DL (0.55-1.30) Estimat Glomerular Filtration Rate > 60 mL/min (>60) > 60 mL/min (>60) Glucose Level 140 MG/DL (74-106) 111 MG/DL (74-106) Calcium Level 7.1 MG/DL (8.5-10.1) 8.0 MG/DL (8.5-10.1) Total Bilirubin 0.4 MG/DL (0.2-1.0) 0.3 MG/DL (0.2-1.0) Aspartate Amino Transf (AST/SGOT) 74 U/L (15-37) 58 U/L (15-37) Alanine Aminotransferase (ALT/SGPT) 57 U/L (12-78) 51 U/L (12-78) Alkaline Phosphatase 187 U/L (46-116) 167 U/L (46-116) Total Protein 5.2 G/DL (6.4-8.2) 5.4 G/DL (6.4-8.2) Albumin 1.2 G/DL (3.4-5.0) 1.2 G/DL (3.4-5.0) Globulin 4.0 g/dL 4.2 g/dL Albumin/Globulin Ratio 0.3 (1.0-2.7) 0.3 (1.0-2.7) Arterial Blood pH 7.466 (7.350-7.450) Arterial Blood Partial Pressure CO2 51.1 mmHg (35.0-45.0) Arterial Blood Partial Pressure O2 80.1 mmHg (75.0-100.0) Arterial Blood HCO3 36.0 mmol/L (22.0-26.0) Arterial Blood Oxygen Saturation 94.5 % (95-100) Arterial Blood Base Excess 11.1 (-2-2) Miki Test Positive Objective: GENERAL: The patient is chronically ill. on fm oxygen HEENT: Overall negative. NECK: Supple. LUNGS: Moderate breath sounds. some rhonchi noted CARDIAC: S1 and S2, currently regular rate and rhythm. without MRG ABDOMEN: Overall soft, nontender. no distention EXTREMITIES: No significant edema. Decreased range of motion. G-tube in place. Depressed affect. Aphasic. reviewed and edited Micro: Microbiology Date/Time Source Procedure Growth Status 12/17/19 12:30 Nasopharynx Coronavirus COVID-19 PCR ([facility]) - Final Complete Accucheck: 90 Tonny Ramirez MD December 20, 2019 08:56
[2019-12-20] MEDS: Levemir Flexpen SUBQ SCH ×2 (09:39→21:20)
--- NOTE | 2019-12-20 09:45 | NUR ---
NURSE NOTES: Pt repositioned and suctioned nasotracheally- moderate amount of gaona secretions noted. Pt still saturating at spO2 99-100%. Pt placed on Venturi mask with FiO2 of 55% per Jack, RT. Pt started to desaturate (88-89% spO2) and was placed back on 15L O2 via non-rebreather. Will reattempt to titrate down O2 at noon. Pt in no distress.
--- NOTE | 2019-12-20 11:32 | Infectious Diseases Prog Note ---
Assessment/Plan Assessment/Plan A 1. Pneumonia. COVID-19 test is negative x2 2. E.coli and Streptococcus urinary tract infection. 3. Positive blood cultures with coagulase-negative Staph likely a contaminant. 4. shock improving 5. Anemia 6. Hypoxic respiratory failure 7. MRSA carrier PLAN: 1. Continue Ertapenem. 2. We will follow up cultures and adjust antibiotics Subjective ROS Limited/Unobtainable: Yes Constitutional: Denies: fever Cardiovascular: Reports: other - on Levophed Allergies: Coded Allergies: PENICILLINS (Verified Allergy, Unknown, 12/14/19) Objective Vital Signs Last 24 Hour Vital Signs Date Time Temp Pulse Resp B/P (MAP) Pulse Ox O2 Delivery O2 Flow Rate FiO2 12/20/19 11:00 92 26 107/47 (67) 100 12/20/19 11:00 107/47 12/20/19 10:45 88 21 115/52 (73) 100 12/20/19 10:30 85 30 102/47 (65) 100 12/20/19 10:15 87 24 102/52 (69) 100 12/20/19 10:00 90/46 12/20/19 10:00 95 31 90/46 (61) 91 12/20/19 09:45 90 22 123/46 (71) 98 12/20/19 09:30 77 24 94/37 (56) 100 12/20/19 09:15 87 21 98/49 (65) 100 12/20/19 09:00 102/41 12/20/19 09:00 91 25 102/41 (61) 100 12/20/19 08:45 86 24 94/41 (58) 100 12/20/19 08:30 94 22 95/42 (59) 100 12/20/19 08:15 84 21 96/38 (57) 100 12/20/19 08:00 15.0 12/20/19 08:00 98.4 99 22 102/41 (61) 98 12/20/19 08:00 102/41 12/20/19 08:00 Non-Rebreather 15.0 Non-Rebreather 15.0 Non-Rebreather 15.0 12/20/19 08:00 97 12/20/19 07:45 90 23 104/48 (66) 94 12/20/19 07:30 90 25 105/44 (64) 93 5/21/20 07:15 97 25 101/48 (65) 91 12/20/19 07:00 124/85 12/20/19 07:00 88 29 124/85 (98) 93 12/20/19 06:30 101 42 126/56 (79) 99 12/20/19 06:00 91 31 142/80 (100) 100 12/20/19 06:00 120/57 12/20/19 05:30 91 38 85/59 (68) 100 12/20/19 05:00 107/46 12/20/19 05:00 85 26 89/50 (63) 100 12/20/19 04:30 80 25 71/31 (44) 100 12/20/19 04:00 Venturi Mask 12.0 12/20/19 04:00 75 12/20/19 04:00 78 29 99/38 (58) 100 12/20/19 04:00 95/37 12/20/19 03:30 98.2 90 26 92/43 (59) 99 12/20/19 03:00 105 31 100/49 (66) 94 12/20/19 03:00 101/62 12/20/19 02:30 91/44 12/20/19 02:30 113 31 123/56 (78) 91 12/20/19 02:00 119 38 116/73 (87) 80 12/20/19 01:30 94 24 142/67 (92) 98 12/20/19 01:00 91 22 113/49 (70) 99 12/20/19 00:30 91 28 116/64 (81) 99 12/20/19 00:00 Venturi Mask 12.0 12/20/19 00:00 97.5 92 24 120/54 (76) 100 12/19/19 23:30 90 27 116/58 (77) 100 12/19/19 23:00 94/46 12/19/19 23:00 77 24 90/46 (61) 100 12/19/19 22:30 82 20 104/44 (64) 100 12/19/19 22:00 85 23 104/57 (73) 100 12/19/19 22:00 98/52 12/19/19 21:30 87 27 125/57 (79) 100 5/20/20 21:00 101 33 82/43 (56) 99 5/20/20 21:00 125/57 5/20/20 20:30 86 24 97/54 (68) 100 5/20/20 20:00 98.0 86 23 95/46 (62) 100 5/20/20 20:00 86 5/20/20 20:00 104/46 5/20/20 20:00 Venturi Mask 12.0 520/20 19:30 91 25 95/49 (64) 96 5/20/20 19:00 89/46 5/20/20 19:00 95 24 100/49 (66) 95 5/20/20 18:30 96/50 5/20/20 18:30 101 26 96/50 (65) 95 5/20/20 18:00 97 27 125/58 (80) 99 5/20/20 17:30 94 32 114/65 (81) 100 5/20/20 17:00 96/50 520/20 17:00 97 28 125/62 (83) 100 5/20/20 16:30 89 35 118/54 (75) 100 520/20 16:11 98.8 5/20/20 16:00 97.8 81 37 126/52 (76) 100 520/20 16:00 111 520 16:00 Venturi Mask 12.0 520 16:00 126/52 520/20 15:45 88 25 99/59 (72) 99 5/20/20 15:30 109 34 72/47 (55) 96 520/20 15:00 107 34 81/42 (55) 100 5/20/20 15:00 81/42 5/20/20 14:30 76 22 129/44 (72) 100 5/20/20 14:00 78 26 90/38 (55) 100 5/20/20 14:00 94/39 5/20/20 13:30 76 24 84/37 (53) 100 5/20/20 13:25 99/47 5/20/20 13:00 83 23 99/47 (64) 100 5/20/20 12:30 73 26 93/41 (58) 100 520/20 12:00 75 27 90/38 (55) 100 5/20/20 12:00 Venturi Mask 12.0 12/19/19 12:00 89 12/19/19 11:30 98.2 86 27 110/48 (68) 97 Height (Feet): 5 Height (Inches): 6.00 Weight (Pounds): 150 HEENT: mucous membranes moist Respiratory/Chest: crackles/rales, rhonchi - bilaterally, other - oxygen by rebreathing mask Cardiovascular: normal rate Abdomen: soft, non tender, other - GT feeding Extremities: other - edema Neurologic/Psychiatric: alert, aphasia Microbiology Date/Time Source Procedure Growth Status 12/17/19 12:30 Nasopharynx Coronavirus COVID-19 PCR ([facility]) - Final Complete Laboratory Tests Test 12/20/19 03:45 White Blood Count 10.5 K/UL (4.8-10.8) Red Blood Count 2.74 M/UL (4.20-5.40) L Hemoglobin 7.5 G/DL (12.0-16.0) L Hematocrit 22.5 % (37.0-47.0) L Mean Corpuscular Volume 82 FL (80-99) Mean Corpuscular Hemoglobin 27.5 PG (27.0-31.0) Mean Corpuscular Hemoglobin Concent 33.5 G/DL (32.0-36.0) Red Cell Distribution Width 13.5 % (11.6-14.8) Platelet Count 112 K/UL (150-450) L Mean Platelet Volume 7.6 FL (6.5-10.1) Neutrophils (%) (Auto) % (45.0-75.0) Lymphocytes (%) (Auto) % (20.0-45.0) Monocytes (%) (Auto) % (1.0-10.0) Eosinophils (%) (Auto) % (0.0-3.0) Basophils (%) (Auto) % (0.0-2.0) Differential Total Cells Counted 100 Neutrophils % (Manual) 84 % (45-75) H Lymphocytes % (Manual) 9 % (20-45) L Monocytes % (Manual) 4 % (1-10) Eosinophils % (Manual) 0 % (0-3) Basophils % (Manual) 0 % (0-2) Band Neutrophils 3 % (0-8) Platelet Estimate Decreased L Platelet Morphology Normal Sodium Level 145 MMOL/L (136-145) Potassium Level 4.1 MMOL/L (3.5-5.1) Chloride Level 105 MMOL/L (98-107) Carbon Dioxide Level 38 MMOL/L (21-32) H Anion Gap 2 mmol/L (5-15) L Blood Urea Nitrogen 19 mg/dL (7-18) H Creatinine 0.7 MG/DL (0.55-1.30) Estimat Glomerular Filtration Rate > 60 mL/min (>60) Glucose Level 111 MG/DL (74-106) H Calcium Level 8.0 MG/DL (8.5-10.1) L Total Bilirubin 0.3 MG/DL (0.2-1.0) Aspartate Amino Transf (AST/SGOT) 58 U/L (15-37) H Alanine Aminotransferase (ALT/SGPT) 51 U/L (12-78) Alkaline Phosphatase 167 U/L (46-116) H Total Protein 5.4 G/DL (6.4-8.2) L Albumin 1.2 G/DL (3.4-5.0) L Globulin 4.2 g/dL Albumin/Globulin Ratio 0.3 (1.0-2.7) L Current Medications Medications (Trade) Dose Ordered Sig/Ebenezer Route PRN Reason Start Time Stop Time Status Last Admin Dose Admin Acetaminophen (Tylenol) 650 mg Q4H PRN RECTAL MILD/TEMP 12/13/19 08:30 01/12/20 08:29 Chlorhexidine Gluconate (Dee-Hex 2%) 1 applic DAILY@1999 TOPIC 12/13/19 20:00 03/12/20 19:59 12/19/19 20:47 Dextrose (Dextrose 50%) 25 ml Q30M PRN IV Hypoglycemia 12/13/19 08:30 03/12/20 08:29 Dextrose (Dextrose 50%) 50 ml Q30M PRN IV Hypoglycemia 12/13/19 08:30 03/12/20 08:29 12/19/19 15:54 Ertapenem 1 gm/ Sodium Chloride 55 ml @ 110 mls/hr Q24H IVPB 12/16/19 13:00 12/25/19 12:59 12/19/19 13:10 Heparin Sodium (Porcine) (Heparin 5000 units/ml) 5,000 units EVERY 12 HOURS SUBQ 12/13/19 09:00 01/27/20 08:59 12/17/19 21:20 Insulin Aspart (NovoLOG) Q4H SUBQ 12/14/19 12:00 03/13/20 11:59 12/18/19 20:39 Insulin Detemir (Levemir) 10 units Q12HR SUBQ 12/14/19 09:00 03/13/20 08:59 12/20/19 09:39 Morphine Sulfate (Morphine Sulfate) 1 mg Q4H PRN IVP For Pain 12/19/19 10:38 12/26/19 10:37 12/20/19 02:03 Norepinephrine Bitartrate 8 mg/ Dextrose 500 ml @ 0 mls/hr Q24H IV 12/16/19 21:30 01/15/20 21:29 12/20/19 02:30 Luciano Stevens MD December 20, 2019 11:31
--- NOTE | 2019-12-20 12:00 | NUR ---
NURSE NOTES: Pt nasotracheally suctioned by Jack RT. SpO2s noted 85-90%. Pt remains on 15 L O2 via non-rebreather mask at this time. No distress noted.
--- NOTE | 2019-12-20 12:21 | NUR ---
CASE MANAGEMENT: REVIEW 12/20/2019 SI:SEPSIS. COVID (+) VS: T 98.6 HR 105 RR 28 B/P 84/38 SATS 95% ON 15L/NRB LABS: HGB 7.5 HCT 22.5 PLT 112 CO2 38 BUN 19 GLU 111 CA 8 AST 58 ALP 167 IS:LEVEMIR SUBQ Q12H ERTAPENEM IV Q24H LEVOPHED PER PARAMETERS INSULIN SUBQ Q4H ICU
[2019-12-20] MEDS: Ertapenem 1gm in NS 55ml IVPB SCH (13:05)
--- NOTE | 2019-12-20 13:37 | NUR ---
NURSE NOTES: Pt placed on FiO2 55% via venturi mask per Jack, RT at this time. SpO2 noted 98%. Will continue to monitor.
--- NOTE | 2019-12-20 14:30 | NUR ---
NURSE NOTES: Pt repositioned, no distress noted. SpO2 97%. Will continue to monitor.
--- NOTE | 2019-12-20 16:03 | General Progress Note ---
Assessment/Plan Problem List: (1) Respiratory failure ICD Codes: J96.90 - Respiratory failure, unspecified, unspecified whether with hypoxia or hypercapnia SNOMED: 357153257 (2) Lactic acidosis ICD Codes: E87.2 - Acidosis SNOMED: 82553540 (3) Uncontrolled diabetes mellitus ICD Codes: E11.65 - Type 2 diabetes mellitus with hyperglycemia SNOMED: 68354981, 695475189 (4) Suspected 2019 novel coronavirus infection ICD Codes: Z20.828 - Contact with and (suspected) exposure to other viral communicable diseases SNOMED: 981396330 (5) Septic shock ICD Codes: A41.9 - Sepsis, unspecified organism; R65.21 - Severe sepsis with septic shock SNOMED: 18298495 Status: deteriorating Assessment/Plan: replace lytes pressors as needed- try to wean monitor labs/abg o2 as needed tube feeds- titrate up. monitor residuals follow up cultures dvt/stress ulcer prophylaxis monitor h/h may need transfusion critical and guarded. prognosis poor dnr d/w cardiology poc time spent 60mins Subjective ROS Limited/Unobtainable: Yes Constitutional: Reports: malaise, weakness HEENT: Reports: no symptoms Cardiovascular: Reports: no symptoms Respiratory: Reports: shortness of breath, SOB at rest, sputum Gastrointestinal/Abdominal: Reports: difficulty swallowing Genitourinary: Reports: no symptoms Neurologic/Psychiatric: Reports: pre-existing deficit Endocrine: Reports: no symptoms Hematologic/Lymphatic: Reports: anemia Allergies: Coded Allergies: PENICILLINS (Verified Allergy, Unknown, 12/14/19) All Systems: reviewed and negative except above Subjective no change. on nrb. poorly responsive. withdrawn. on levophed at 16. on iv abx. labs reviewed. Objective Last 24 Hour Vital Signs Date Time Temp Pulse Resp B/P (MAP) Pulse Ox O2 Delivery O2 Flow Rate FiO2 12/20/19 14:30 87 27 116/63 (80) 97 12/20/19 14:15 87 25 113/60 (77) 95 12/20/19 14:00 114/51 12/20/19 14:00 87 26 114/51 (72) 95 12/20/19 13:45 91 26 108/60 (76) 96 12/20/19 13:38 55 12/20/19 13:30 78 26 103/55 (71) 100 12/20/19 13:15 84 27 112/54 (73) 100 12/20/19 13:00 122/58 12/20/19 13:00 79 22 122/58 (79) 100 12/20/19 12:45 84 28 112/56 (74) 98 12/20/19 12:30 90 30 118/59 (78) 99 12/20/19 12:15 93 33 105/49 (67) 87 12/20/19 12:00 105 12/20/19 12:00 Non-Rebreather 15.0 Non-Rebreather 15.0 Non-Rebreather 15.0 12/20/19 12:00 128/59 12/20/19 12:00 104 28 128/59 (82) 95 12/20/19 12:00 98.6 101 28 84/38 (53) 91 12/20/19 11:45 102 24 108/47 (67) 95 12/20/19 11:30 92 28 117/44 (68) 100 12/20/19 11:00 92 26 107/47 (67) 100 12/20/19 11:00 107/47 12/20/19 10:45 88 21 115/52 (73) 100 12/20/19 10:30 85 30 102/47 (65) 100 12/20/19 10:15 87 24 102/52 (69) 100 12/20/19 10:00 90/46 12/20/19 10:00 95 31 90/46 (61) 91 12/20/19 09:45 90 22 123/46 (71) 98 12/20/19 09:30 77 24 94/37 (56) 100 12/20/19 09:15 87 21 98/49 (65) 100 12/20/19 09:00 102/41 12/20/19 09:00 91 25 102/41 (61) 100 12/20/19 08:45 86 24 94/41 (58) 100 12/20/19 08:30 94 22 95/42 (59) 100 12/20/19 08:15 84 21 96/38 (57) 100 12/20/19 08:00 15.0 12/20/19 08:00 98.4 99 22 102/41 (61) 98 12/20/19 08:00 102/41 12/20/19 08:00 Non-Rebreather 15.0 Non-Rebreather 15.0 Non-Rebreather 15.0 12/20/19 08:00 97 12/20/19 07:45 90 23 104/48 (66) 94 12/20/19 07:30 90 25 105/44 (64) 93 12/20/19 07:15 97 25 101/48 (65) 91 12/20/19 07:00 124/85 12/20/19 07:00 88 29 124/85 (98) 93 12/20/19 06:30 101 42 126/56 (79) 99 12/20/19 06:00 91 31 142/80 (100) 100 12/20/19 06:00 120/57 12/20/19 05:30 91 38 85/59 (68) 100 12/20/19 05:00 107/46 12/20/19 05:00 85 26 89/50 (63) 100 12/20/19 04:30 80 25 71/31 (44) 100 12/20/19 04:00 Venturi Mask 12.0 12/20/19 04:00 75 12/20/19 04:00 78 29 99/38 (58) 100 12/20/19 04:00 95/37 12/20/19 03:30 98.2 90 26 92/43 (59) 99 12/20/19 03:00 105 31 100/49 (66) 94 12/20/19 03:00 101/62 12/20/19 02:30 91/44 12/20/19 02:30 113 31 123/56 (78) 91 12/20/19 02:00 119 38 116/73 (87) 80 12/20/19 01:30 94 24 142/67 (92) 98 12/20/19 01:00 91 22 113/49 (70) 99 12/20/19 00:30 91 28 116/64 (81) 99 12/20/19 00:00 Venturi Mask 12.0 12/20/19 00:00 97.5 92 24 120/54 (76) 100 12/19/19 23:30 90 27 116/58 (77) 100 12/19/19 23:00 94/46 12/19/19 23:00 77 24 90/46 (61) 100 12/19/19 22:30 82 20 104/44 (64) 100 12/19/19 22:00 85 23 104/57 (73) 100 12/19/19 22:00 98/52 12/19/19 21:30 87 27 125/57 (79) 100 12/19/19 21:00 101 33 82/43 (56) 99 12/19/19 21:00 125/57 12/19/19 20:30 86 24 97/54 (68) 100 12/19/19 20:00 98.0 86 23 95/46 (62) 100 12/19/19 20:00 86 12/19/19 20:00 104/46 12/19/19 20:00 Venturi Mask 12.0 12/19/19 19:30 91 25 95/49 (64) 96 12/19/19 19:00 89/46 12/19/19 19:00 95 24 100/49 (66) 95 12/19/19 18:30 96/50 12/19/19 18:30 101 26 96/50 (65) 95 12/19/19 18:00 97 27 125/58 (80) 99 12/19/19 17:30 94 32 114/65 (81) 100 12/19/19 17:00 96/50 12/19/19 17:00 97 28 125/62 (83) 100 12/19/19 16:30 89 35 118/54 (75) 100 12/19/19 16:11 98.8 Intake and Output 12/19/19 12/20/19 19:00 07:00 Intake Total 475.00 ml 746.25 ml Output Total 2110 ml 655 ml Balance -1635.00 ml 91.25 ml Intake Free Water 10 ml 110 ml IV Total 365.00 ml 506.25 ml Tube Feeding 100 ml 130 ml Output Urine Total 2110 ml 655 ml # Bowel Movements 4 3 Laboratory Tests 12/20/19 03:45: White Blood Count 10.5, Red Blood Count 2.74L, Hemoglobin 7.5L, Hematocrit 22.5L , Mean Corpuscular Volume 82, Mean Corpuscular Hemoglobin 27.5, Mean Corpuscular Hemoglobin Concent 33.5, Red Cell Distribution Width 13.5, Platelet Count 112L, Mean Platelet Volume 7.6, Neutrophils (%) (Auto) , Lymphocytes (%) ( Auto) , Monocytes (%) (Auto) , Eosinophils (%) (Auto) , Basophils (%) (Auto) , Differential Total Cells Counted 100, Neutrophils % (Manual) 84H, Lymphocytes % (Manual) 9L, Monocytes % (Manual) 4, Eosinophils % (Manual) 0, Basophils % ( Manual) 0, Band Neutrophils 3, Platelet Estimate DecreasedL, Platelet Morphology Normal, Sodium Level 145, Potassium Level 4.1, Chloride Level 105, Carbon Dioxide Level 38H, Anion Gap 2L, Blood Urea Nitrogen 19H, Creatinine 0.7 , Estimat Glomerular Filtration Rate > 60, Glucose Level 111H, Calcium Level 8.0L, Total Bilirubin 0.3, Aspartate Amino Transf (AST/SGOT) 58H, Alanine Aminotransferase (ALT/SGPT) 51, Alkaline Phosphatase 167H, Total Protein 5.4L, Albumin 1.2L, Globulin 4.2, Albumin/Globulin Ratio 0.3L Height (Feet): 5 Height (Inches): 6.00 Weight (Pounds): 150 Objective General Appearance: WD/WN, alert, confused. on venti mask EENT: PERRL/EOMI, normal ENT inspection Neck: non-tender, normal alignment, supple Cardiovascular: normal peripheral pulses, normal rate, regular rhythm Respiratory/Chest: chest wall non-tender, lungs clear, normal breath sounds, no respiratory distress, respiratory distress, accessory muscle use Abdomen: normal bowel sounds, non tender, soft, no organomegaly Edema: moderate edema Neurologic: disoriented, unresponsive, aphasia Skin: normal pigmentation Paxton Humphrey MD December 20, 2019 16:03
--- NOTE | 2019-12-20 16:30 | NUR ---
NURSE NOTES: Pt noted desaturating with spO2 in mid 80s. Pt nasotracheally suctioned and placed back on 15 L O2 via non-rebreather mask per Jack, RT. Pt repositioned, no acute distress noted.
--- NOTE | 2019-12-20 16:43 | Surgery Progress Note ---
Surgery Progress Note Subjective Procedure Performed left subclavian central venous catheter insertion Additional Comments labs reviewed imaging revied ill appearing Objective Last 24 Hour Vital Signs Date Time Temp Pulse Resp B/P (MAP) Pulse Ox O2 Delivery O2 Flow Rate FiO2 12/20/19 16:00 Non-Rebreather 15.0 Non-Rebreather 15.0 Non-Rebreather 15.0 12/20/19 16:00 15.0 12/20/19 14:30 87 27 116/63 (80) 97 12/20/19 14:15 87 25 113/60 (77) 95 12/20/19 14:00 114/51 12/20/19 14:00 87 26 114/51 (72) 95 12/20/19 13:45 91 26 108/60 (76) 96 12/20/19 13:38 55 12/20/19 13:30 78 26 103/55 (71) 100 12/20/19 13:15 84 27 112/54 (73) 100 12/20/19 13:00 122/58 12/20/19 13:00 79 22 122/58 (79) 100 12/20/19 12:45 84 28 112/56 (74) 98 12/20/19 12:30 90 30 118/59 (78) 99 12/20/19 12:15 93 33 105/49 (67) 87 12/20/19 12:00 105 12/20/19 12:00 Non-Rebreather 15.0 Non-Rebreather 15.0 Non-Rebreather 15.0 12/20/19 12:00 128/59 12/20/19 12:00 104 28 128/59 (82) 95 12/20/19 12:00 15.0 12/20/19 12:00 98.6 101 28 84/38 (53) 91 12/20/19 11:45 102 24 108/47 (67) 95 12/20/19 11:30 92 28 117/44 (68) 100 12/20/19 11:00 92 26 107/47 (67) 100 12/20/19 11:00 107/47 12/20/19 10:45 88 21 115/52 (73) 100 12/20/19 10:30 85 30 102/47 (65) 100 12/20/19 10:15 87 24 102/52 (69) 100 12/20/19 10:00 90/46 12/20/19 10:00 95 31 90/46 (61) 91 12/20/19 09:45 90 22 123/46 (71) 98 12/20/19 09:30 77 24 94/37 (56) 100 12/20/19 09:15 87 21 98/49 (65) 100 12/20/19 09:00 102/41 12/20/19 09:00 91 25 102/41 (61) 100 12/20/19 08:45 86 24 94/41 (58) 100 12/20/19 08:30 94 22 95/42 (59) 100 12/20/19 08:15 84 21 96/38 (57) 100 12/20/19 08:00 15.0 12/20/19 08:00 98.4 99 22 102/41 (61) 98 12/20/19 08:00 102/41 12/20/19 08:00 Non-Rebreather 15.0 Non-Rebreather 15.0 Non-Rebreather 15.0 12/20/19 08:00 97 12/20/19 07:45 90 23 104/48 (66) 94 12/20/19 07:30 90 25 105/44 (64) 93 12/20/19 07:15 97 25 101/48 (65) 91 12/20/19 07:00 124/85 12/20/19 07:00 88 29 124/85 (98) 93 12/20/19 06:30 101 42 126/56 (79) 99 12/20/19 06:00 91 31 142/80 (100) 100 12/20/19 06:00 120/57 12/20/19 05:30 91 38 85/59 (68) 100 12/20/19 05:00 107/46 12/20/19 05:00 85 26 89/50 (63) 100 12/20/19 04:30 80 25 71/31 (44) 100 12/20/19 04:00 Venturi Mask 12.0 12/20/19 04:00 75 12/20/19 04:00 78 29 99/38 (58) 100 12/20/19 04:00 95/37 12/20/19 03:30 98.2 90 26 92/43 (59) 99 5/21/20 03:00 105 31 100/49 (66) 94 52120 03:00 101/62 520 02:30 91/44 520 02:30 113 31 123/56 (78) 91 20 02:00 119 38 116/73 (87) 80 520 01:30 94 24 142/67 (92) 98 20 01:00 91 22 113/49 (70) 99 20 00:30 91 28 116/64 (81) 99 20 00:00 Venturi Mask 12.0 12/20/19 00:00 97.5 92 24 120/54 (76) 100 520/20 23:30 90 27 116/58 (77) 100 520/20 23:00 94/46 52020 23:00 77 24 90/46 (61) 100 52020 22:30 82 20 104/44 (64) 100 520/20 22:00 85 23 104/57 (73) 100 5/20/20 22:00 98/52 520/20 21:30 87 27 125/57 (79) 100 5/20/20 21:00 101 33 82/43 (56) 99 520/20 21:00 125/57 520/20 20:30 86 24 97/54 (68) 100 5/20/20 20:00 98.0 86 23 95/46 (62) 100 520/20 20:00 86 5/20/20 20:00 104/46 52020 20:00 Venturi Mask 12.0 20 19:30 91 25 95/49 (64) 96 5/20/20 19:00 89/46 5/20/20 19:00 95 24 100/49 (66) 95 5/20/20 18:30 96/50 5/20/20 18:30 101 26 96/50 (65) 95 5/20/20 18:00 97 27 125/58 (80) 99 5/20/20 17:30 94 32 114/65 (81) 100 5/20/20 17:00 96/50 5/20/20 17:00 97 28 125/62 (83) 100 I&O Intake and Output 5/20/20 5/21/20 19:00 07:00 Intake Total 475.00 ml 746.25 ml Output Total 2110 ml 655 ml Balance -1635.00 ml 91.25 ml Intake Free Water 10 ml 110 ml IV Total 365.00 ml 506.25 ml Tube Feeding 100 ml 130 ml Output Urine Total 2110 ml 655 ml # Bowel Movements 4 3 Dressing: other Wound: other Drains: other Cardiovascular: RSR Respiratory: decreased breath sounds Abdomen: soft, present bowel sounds Extremities: no cyanosis Laboratory Tests Test 12/20/19 03:45 White Blood Count 10.5 K/UL (4.8-10.8) Red Blood Count 2.74 M/UL (4.20-5.40) L Hemoglobin 7.5 G/DL (12.0-16.0) L Hematocrit 22.5 % (37.0-47.0) L Mean Corpuscular Volume 82 FL (80-99) Mean Corpuscular Hemoglobin 27.5 PG (27.0-31.0) Mean Corpuscular Hemoglobin Concent 33.5 G/DL (32.0-36.0) Red Cell Distribution Width 13.5 % (11.6-14.8) Platelet Count 112 K/UL (150-450) L Mean Platelet Volume 7.6 FL (6.5-10.1) Neutrophils (%) (Auto) % (45.0-75.0) Lymphocytes (%) (Auto) % (20.0-45.0) Monocytes (%) (Auto) % (1.0-10.0) Eosinophils (%) (Auto) % (0.0-3.0) Basophils (%) (Auto) % (0.0-2.0) Differential Total Cells Counted 100 Neutrophils % (Manual) 84 % (45-75) H Lymphocytes % (Manual) 9 % (20-45) L Monocytes % (Manual) 4 % (1-10) Eosinophils % (Manual) 0 % (0-3) Basophils % (Manual) 0 % (0-2) Band Neutrophils 3 % (0-8) Platelet Estimate Decreased L Platelet Morphology Normal Sodium Level 145 MMOL/L (136-145) Potassium Level 4.1 MMOL/L (3.5-5.1) Chloride Level 105 MMOL/L (98-107) Carbon Dioxide Level 38 MMOL/L (21-32) H Anion Gap 2 mmol/L (5-15) L Blood Urea Nitrogen 19 mg/dL (7-18) H Creatinine 0.7 MG/DL (0.55-1.30) Estimat Glomerular Filtration Rate > 60 mL/min (>60) Glucose Level 111 MG/DL (74-106) H Calcium Level 8.0 MG/DL (8.5-10.1) L Total Bilirubin 0.3 MG/DL (0.2-1.0) Aspartate Amino Transf (AST/SGOT) 58 U/L (15-37) H Alanine Aminotransferase (ALT/SGPT) 51 U/L (12-78) Alkaline Phosphatase 167 U/L (46-116) H Total Protein 5.4 G/DL (6.4-8.2) L Albumin 1.2 G/DL (3.4-5.0) L Globulin 4.2 g/dL Albumin/Globulin Ratio 0.3 (1.0-2.7) L Plan Problems: (1) Uncontrolled diabetes mellitus (2) Suspected 2019 novel coronavirus infection Assessment & Plan: neg (3) Septic shock Assessment & Plan: septic hypotension line placed see note resuscitation initiated discussed in detail with daughter at bedside for ome time tren dlabs fluids pressors will follow with recs DAILY ESTIMATED NEEDS: Needs based on Pulmonary, wounds, sepsis/ 51kg abw 25-30 kcals/kg 5819-5152 total kcals 1.25-2 g protein/kg 63-102 g total protein 25-30 mL/kg 4347-7123 total fluid mLs NUTRITION DIAGNOSIS: * Increased kcal/prot needs R/T wound healing as evidenced by pt admitted w/ multiple unstageable and DTPI wounds, refer to WC eval. * Swallowing difficulty R/T dysphagia as evidenced by PEG dep. ENTERAL NUTRITION RECOMMENDATIONS: Glucerna 1.5 @ 40ml/hr x 24 hrs to provide 960ml, 1440kcal, 79g prot, 729ml free water * W/ hemodynamic stability, initiate Glucerna 1.5 @ 20ml/hr x 6hrs * Advance 10ml q 4-6 hrs as tolerated to goal rate * HOB over 30 degrees/ water flush per MD. WITHOUT HEMODYNAMIC STABILITY: rec trophic feeding of Glucerna 1.5 @ 10ml/hr x 24 hrs ADDITIONAL RECOMMENDATIONS: * Per SNF: HT=61" WK=743etu ("October wts" per SNF) -> rec to re-calibrate bedscale wt * Monitor hemodynamic stability: on NE @ 20mcg * Monitor BGs closely: BG 798 upon adm -> improved rec D5 while NPO to prevent hypoglycemia. * Wound healing: add Vit C 500mg QD Sae BID w/ TF order (4) Lactic acidosis (5) Respiratory failure (6) Decubitus skin ulcer Assessment & Plan: Pt presented on admission with multiple pressure injuries. Unstageable Sacral Pressure injury with presents as open DTPI. Soft necrosis at Base of wound with marginal erythema along edges.Small opening noted to L sacrum. No odor or exudate noted. Periwound without evidence of further skin breakdown. DTPI noted to medial L malleolus. Base of wound is maroon with marginal erythema. DTPI medial L heel base of wound is maroon with fluctuance. DTPI L Hallux. Base of wound is maroon with marginal erythema along borders. Reabsorbing DTPI lateral L heel. Base of injury ids dry. Unstageable pressure injuries noted to distal/lateral R foot. Soft necrosis at base of wound. Unstageable pressure injury dorso/lateral R 5th metatarsal. Soft necrosis at base of wound. Unstageable pressure injury web space of R 4th metatarsal. Base of wound is necrotic and partially opened. no exudate noted. DTPI noted to R lateral malleolus. Base of wound is maroon and soft with marginal erythema along borders. Tx.Plan: Cleanse Sacral wound with Saline. Apply TheraHoney. Apply Moisture Barrier paste periwound. Cover with Optifoam drsg. Change every 3 days and prn. Apply Betadine to wounds Distal /lateral R foot, R 4th and 5th metatarsals. Cover with Optifoam drsg every 3 days and prn. Apply Cavilon to both heels, Both hallux and malleoli. Cover each site with Optifoam drgs. Change every 7 days and prn. Reposition at least every 2hours or as tolerated. Place Pillow between knees. Off-load heels with Pillow. APM/MELANIE Mattress overlay. Joce Campbell December 20, 2019 16:43
--- NOTE | 2019-12-20 18:29 | NUR ---
NURSE NOTES: Pt repositioned, no distress noted at this time.
--- NOTE | 2019-12-20 19:22 | NUR ---
HAND-OFF: Report given to LORNA Hope. Pt now on 1 mcg/min of levophed with BP of 104/57. No acute distress at this time.
--- NOTE | 2019-12-20 19:41 | NUR ---
NURSE NOTES: received report from mindy bautista pt on nbm 100% fi02 o2 sat 100% levo 1mcg/min tolerating tube feeding no residual reposition and suction
[2019-12-20] MEDS: Dyna-Hex 2% Top Sol 2oz TOPIC SCH (21:19)
--- NOTE | 2019-12-20 22:00 | NUR ---
NURSE NOTES: reposition and suction no acute resp distress noted
[2019-12-21] VITALS (37 sets, daily range): BP systolic 97–165; BP diastolic 43–88
--- NOTE | 2019-12-21 | NUR ---
NURSE NOTES: bs 118 no coverage no acute resp distress noted reposition and suction
--- NOTE | 2019-12-21 02:00 | NUR ---
NURSE NOTES: complete bed bath oral and wound care done
--- NOTE | 2019-12-21 02:45 | Progress Note ---
DATE: 12/20/2019 CARDIOLOGY PROGRESS NOTE SUBJECTIVE: The patient remains on a non-rebreather mask. Poorly responsive, withdrawn, hypotensive, requiring Levophed support. She is on broad-spectrum antibiotics. The case was reviewed with the ICU team. The patient was examined. PHYSICAL EXAMINATION: VITAL SIGNS: Blood pressure 116/63, heart rate 87, respiratory rate 27, sinus rhythm with ectopy. She is afebrile, oxygen saturation is about 95%. GENERAL: Poorly responsive. LUNGS: Diminished breath sounds with rhonchi. CARDIAC: Regular rhythm and rate. Normal S1, S2 with no new murmur. ABDOMEN: Soft, slightly distended. EXTREMITIES: With trace dependent edema. LABORATORY DATA: White count 10, hemoglobin 7.5. Sodium 145, potassium 4.1, bicarb 38, BUN 19, creatinine 0.7. Albumin 1.2. IMPRESSION: 1. Dehydration. 2. Hyponatremia. 3. alkalosis. 4. Sepsis. 5. Shock. 6. Severe protein-calorie malnutrition. 7. Acute myocardial ischemia. 8. Chronic diastolic congestive heart failure. PLAN: [id number] has been reviewed and updated. Methods for tapering off pressors was discussed with nursing staff. Slava Hsu M.D. DR: ASAF JOB#: [id number] CC:
[2019-12-21] MEDS: NovoLOG Insulin Flexpen SUBQ SCH ×6 (04:00→20:00)
--- NOTE | 2019-12-21 04:00 | NUR ---
NURSE NOTES: levo drip off bp 124/39 bs 138 no coverage
--- NOTE | 2019-12-21 06:00 | NUR ---
NURSE NOTES: asleep no acute resp distress
--- NOTE | 2019-12-21 07:10 | NUR ---
HAND-OFF: Report given to wayne bautista using sbar.
--- NOTE | 2019-12-21 07:11 | NUR ---
NURSE NOTES: Pt received from [facility]. Pt is obtunded, opens eyes spontaneously but does not track or follow commands, bilat pupils sluggish 3 mm bilaterally. 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 2+ pitting edema noted to left hand and 1+ to right hand. Pt is on 15 L O2 via non-rebreather mask with spO2 100%. Right lower lung lobe noted diminished, left lower lung lobe and bilateral upper lobes noted with crackles upon auscultation. Pt has a GT with normal-appearing stoma without drainage, redness, or swelling- with dry and intact dressing. GT is running Glucerna 1.5 at 40 cc/hr- no gastric residuals noted. Abd is soft, non-distended, and non-tender with active bowel sounds to all quadrants. Pt has a F/C with draining yellow, cloudy urine. Skin alterations are noted. Pt has a Left subclavian TLC with dry and intact dressing running NS TKO at 5 cc/hr. Bed in lowest position, alarm on, side rails up x 3, call light within reach. Will continue to monitor pt.
--- NOTE | 2019-12-21 07:20 | General Progress Note ---
Assessment/Plan Problem List: (1) Respiratory failure ICD Codes: J96.90 - Respiratory failure, unspecified, unspecified whether with hypoxia or hypercapnia SNOMED: 372773286 (2) Lactic acidosis ICD Codes: E87.2 - Acidosis SNOMED: 65982853 (3) Uncontrolled diabetes mellitus ICD Codes: E11.65 - Type 2 diabetes mellitus with hyperglycemia SNOMED: 89776650, 237529311 (4) Suspected 2019 novel coronavirus infection ICD Codes: Z20.828 - Contact with and (suspected) exposure to other viral communicable diseases SNOMED: 587682326 (5) Septic shock ICD Codes: A41.9 - Sepsis, unspecified organism; R65.21 - Severe sepsis with septic shock SNOMED: 74054211 Status: stable, not improved Assessment/Plan: follow up labs monitor labs/abg o2 as needed tube feeds- titrate up. monitor residuals follow up cultures dvt/stress ulcer prophylaxis monitor h/h transfuse as needed critical and guarded. prognosis poor dnr d/w cardiology poc time spent 60mins Subjective ROS Limited/Unobtainable: Yes Constitutional: Reports: malaise, weakness HEENT: Reports: no symptoms Cardiovascular: Reports: edema Respiratory: Reports: cough, shortness of breath Gastrointestinal/Abdominal: Reports: difficulty swallowing Genitourinary: Reports: no symptoms Neurologic/Psychiatric: Reports: depressed, pre-existing deficit Endocrine: Reports: no symptoms Hematologic/Lymphatic: Reports: anemia Allergies: Coded Allergies: PENICILLINS (Verified Allergy, Unknown, 12/14/19) All Systems: reviewed and negative except above Subjective no change. on nrb. poorly responsive. withdrawn. off levophed. +tachypnea and tachycardia. + better after getting morphine. Am labs pending. cxr worse(12/18) on tube feeds. tolerating so far. Objective Last 24 Hour Vital Signs Date Time Temp Pulse Resp B/P (MAP) Pulse Ox O2 Delivery O2 Flow Rate FiO2 12/21/19 07:00 85 28 105/51 (69) 98 12/21/19 06:30 88 34 113/52 (72) 99 12/21/19 06:00 102 35 128/64 (85) 100 12/21/19 05:30 90 24 112/60 (77) 100 12/21/19 05:00 87 30 111/51 (71) 100 12/21/19 05:00 117/45 12/21/19 04:30 94 32 110/58 (75) 100 12/21/19 04:00 99.0 96 29 107/58 (74) 100 12/21/19 04:00 Non-Rebreather 15.0 Non-Rebreather 15.0 Non-Rebreather 15.0 12/21/19 04:00 90 12/21/19 04:00 123/57 12/21/19 03:30 97 30 124/59 (80) 100 12/21/19 03:00 110 31 126/59 (81) 100 12/21/19 03:00 123/57 12/21/19 02:30 102 35 147/59 (88) 96 12/21/19 02:30 102 35 147/59 (88) 96 12/21/19 02:15 95 37 160/71 (100) 99 12/21/19 02:00 92 27 156/78 (104) 100 12/21/19 02:00 92 27 156/78 (104) 100 12/21/19 02:00 160/71 12/21/19 01:45 89 27 134/69 (90) 100 12/21/19 01:30 90 27 116/62 (80) 100 12/21/19 01:30 90 27 116/62 (80) 100 12/21/19 01:15 90 27 118/58 (78) 100 12/21/19 01:00 87 25 119/60 (79) 100 12/21/19 01:00 160/71 12/21/19 01:00 87 25 119/60 (79) 100 12/21/19 00:45 87 25 110/55 (73) 100 12/21/19 00:30 93 24 109/55 (73) 100 12/21/19 00:30 93 24 109/55 (73) 100 12/21/19 00:15 89 27 121/60 (80) 100 12/21/19 00:00 89 12/21/19 00:00 88 30 112/51 (71) 100 12/21/19 00:00 99.5 88 30 112/51 (71) 100 12/21/19 00:00 88 30 112/51 (71) 100 12/21/19 00:00 Non-Rebreather 15.0 Non-Rebreather 15.0 Non-Rebreather 15.0 12/21/19 00:00 121/54 12/20/19 23:30 89 25 109/60 (76) 100 12/20/19 23:00 118/56 12/20/19 23:00 88 30 108/54 (72) 100 12/20/19 22:30 90 25 108/55 (72) 100 12/20/19 22:00 107/53 12/20/19 22:00 87 31 112/56 (74) 100 12/20/19 21:30 87 27 110/52 (71) 100 12/20/19 21:00 92 33 103/56 (72) 100 12/20/19 21:00 103/54 12/20/19 20:30 90 29 106/59 (75) 100 12/20/19 20:16 100 Non-Rebreather 15.0 100 12/20/19 20:00 84 12/20/19 20:00 98.5 90 26 109/59 (76) 100 12/20/19 20:00 Non-Rebreather 15.0 Non-Rebreather 15.0 Non-Rebreather 15.0 12/20/19 20:00 104/57 12/20/19 19:30 90 37 109/61 (77) 100 12/20/19 19:00 90 31 103/56 (72) 100 12/20/19 19:00 103/56 12/20/19 18:45 80 35 115/59 (77) 100 12/20/19 18:30 85 35 111/64 (80) 100 12/20/19 18:30 81 29 111/64 (80) 100 12/20/19 18:15 92 29 106/67 (80) 100 12/20/19 18:00 88 31 106/56 (73) 100 12/20/19 18:00 106/56 12/20/19 17:45 86 30 105/52 (69) 100 12/20/19 17:30 97 27 127/60 (82) 100 12/20/19 17:15 96 31 104/55 (71) 100 12/20/19 17:00 95 28 107/58 (74) 100 12/20/19 17:00 107/55 12/20/19 16:45 107 36 106/55 (72) 100 12/20/19 16:30 118 28 135/61 (85) 88 12/20/19 16:15 104 38 135/65 (88) 88 12/20/19 16:00 Non-Rebreather 15.0 Non-Rebreather 15.0 Non-Rebreather 15.0 12/20/19 16:00 15.0 12/20/19 16:00 151/67 12/20/19 16:00 92 12/20/19 16:00 98.7 94 36 151/67 (95) 90 12/20/19 15:45 91 31 155/72 (99) 92 12/20/19 15:30 94 19 127/70 (89) 95 12/20/19 15:15 89 30 128/65 (86) 97 12/20/19 15:00 90 40 124/69 (87) 95 12/20/19 15:00 124/69 12/20/19 14:45 85 26 122/57 (78) 98 12/20/19 14:30 87 27 116/63 (80) 97 12/20/19 14:15 87 25 113/60 (77) 95 12/20/19 14:00 114/51 12/20/19 14:00 87 26 114/51 (72) 95 12/20/19 13:45 91 26 108/60 (76) 96 12/20/19 13:38 55 12/20/19 13:30 78 26 103/55 (71) 100 12/20/19 13:15 84 27 112/54 (73) 100 12/20/19 13:00 122/58 12/20/19 13:00 79 22 122/58 (79) 100 12/20/19 12:45 84 28 112/56 (74) 98 12/20/19 12:30 90 30 118/59 (78) 99 12/20/19 12:15 93 33 105/49 (67) 87 12/20/19 12:00 105 12/20/19 12:00 Non-Rebreather 15.0 Non-Rebreather 15.0 Non-Rebreather 15.0 12/20/19 12:00 128/59 12/20/19 12:00 104 28 128/59 (82) 95 12/20/19 12:00 15.0 12/20/19 12:00 98.6 101 28 84/38 (53) 91 12/20/19 11:45 102 24 108/47 (67) 95 12/20/19 11:30 92 28 117/44 (68) 100 12/20/19 11:00 92 26 107/47 (67) 100 12/20/19 11:00 107/47 12/20/19 10:45 88 21 115/52 (73) 100 12/20/19 10:30 85 30 102/47 (65) 100 12/20/19 10:15 87 24 102/52 (69) 100 12/20/19 10:00 90/46 12/20/19 10:00 95 31 90/46 (61) 91 12/20/19 09:45 90 22 123/46 (71) 98 12/20/19 09:30 77 24 94/37 (56) 100 12/20/19 09:15 87 21 98/49 (65) 100 12/20/19 09:00 102/41 12/20/19 09:00 91 25 102/41 (61) 100 12/20/19 08:45 86 24 94/41 (58) 100 12/20/19 08:30 94 22 95/42 (59) 100 12/20/19 08:15 84 21 96/38 (57) 100 12/20/19 08:00 15.0 12/20/19 08:00 98.4 99 22 102/41 (61) 98 12/20/19 08:00 102/41 12/20/19 08:00 Non-Rebreather 15.0 Non-Rebreather 15.0 Non-Rebreather 15.0 12/20/19 08:00 97 12/20/19 07:45 90 23 104/48 (66) 94 12/20/19 07:30 90 25 105/44 (64) 93 Intake and Output 12/20/19 12/21/19 19:00 07:00 Intake Total 655.00 ml 516.25 ml Output Total 550 ml 450 ml Balance 105.00 ml 66.25 ml Intake Free Water 150 ml IV Total 415.00 ml 26.25 ml Tube Feeding 240 ml 340 ml Output Urine Total 550 ml 450 ml # Bowel Movements 1 Height (Feet): 5 Height (Inches): 6.00 Weight (Pounds): 143 Objective General Appearance: WD/WN, alert, confused. on venti mask EENT: PERRL/EOMI, normal ENT inspection Neck: non-tender, normal alignment, supple Cardiovascular: normal peripheral pulses, normal rate, regular rhythm Respiratory/Chest: chest wall non-tender, lungs clear, normal breath sounds, no respiratory distress, respiratory distress, accessory muscle use Abdomen: normal bowel sounds, non tender, soft, no organomegaly Edema: moderate edema Neurologic: disoriented, unresponsive, aphasia Skin: normal pigmentation Paxton Humphrey MD December 21, 2019 07:20
[2019-12-21] MEDS: Levemir Flexpen SUBQ SCH ×2 (08:37→20:40)
[2019-12-21] MEDS: Heparin 5000 units/ml inj SUBQ SCH ×2 (08:38→21:00)
[2019-12-21 08:47] LABS: HEMATOCRIT 20.4 % (37.0-47.0); MEAN CORPUSCULAR VOLUME 83 FL (80-99); PLATELET COUNT 110 K/UL (150-450); RED BLOOD COUNT 2.46 M/UL (4.20-5.40); RED CELL DISTRIBUTION WIDTH 13.3 % (11.6-14.8); WHITE BLOOD COUNT 7.6 K/UL (4.8-10.8)
[2019-12-21 08:58] LABS: ALANINE AMINOTRANSFERASE 48 U/L (12-78); ALBUMIN 1.1 G/DL (3.4-5.0); ALBUMIN/GLOBULIN RATIO 0.3 (1.0-2.7); ALKALINE PHOSPHATASE 159 U/L (46-116); ASPARTATE AMINO TRANSFERASE 64 U/L (15-37); BILIRUBIN,TOTAL 0.4 MG/DL (0.2-1.0); BLOOD UREA NITROGEN 23 mg/dL (7-18); CARBON DIOXIDE 39 MMOL/L (21-32); CHLORIDE 108 MMOL/L (98-107); CREATININE 0.6 MG/DL (0.55-1.30); POTASSIUM 4.5 MMOL/L (3.5-5.1); SODIUM 150 MMOL/L (136-145)
[2019-12-21 09:00] LABS: HEMOGLOBIN 6.7 G/DL (12.0-16.0)
--- NOTE | 2019-12-21 09:00 | NUR ---
NURSE NOTES: Pt placed on 55% O2 via venturi mask per RT. Pt in no distress, spO2 96%.
--- NOTE | 2019-12-21 09:09 | NUR ---
RD ASSESSMENT & RECOMMENDATIONS SEE CARE ACTIVITY FOR COMPLETE ASSESSMENT DAILY ESTIMATED NEEDS: Needs based on Pulmonary, wounds, sepsis/ 51kg abw 25-35 kcals/kg 9928-0452 total kcals 1.25-2 g protein/kg 63-102 g total protein 25-30 mL/kg 5309-7765 total fluid mLs NUTRITION DIAGNOSIS: * Increased kcal/prot needs R/T wound healing as evidenced by pt admitted w/ multiple unstageable and DTPI wounds, refer to WC eval. * Swallowing difficulty R/T dysphagia as evidenced by PEG dep. ENTERAL NUTRITION RECOMMENDATIONS: Glucerna 1.5 @ 40ml/hr x 24 hrs to provide 960ml, 1440kcal, 79g prot, 729ml free water * W/ hemodynamic stability, initiate Glucerna 1.5 @ 20ml/hr x 6hrs * Advance 10ml q 4-6 hrs as tolerated to goal rate * HOB over 30 degrees/ water flush per MD. WITHOUT HEMODYNAMIC STABILITY: rec trophic feeding of Glucerna 1.5 @ 10ml/hr x 24 hrs ADDITIONAL RECOMMENDATIONS: * Per SNF: HT=61" TI=[id number] ("October wts" per SNF) -> rec to re-calibrate bedscale wt (Daily wts 168lbs->143lbs) * Monitor hemodynamic stability: pressors held * Monitor BGs closely: BG 798 upon adm -> improved rec D5 while NPO to prevent hypoglycemia. * Wound healing: add Vit C 500mg QD Sae BID w/ TF order
--- NOTE | 2019-12-21 09:30 | NUR ---
NURSE NOTES: Left message for Dr Humphrey with Hgb level of 6.7.
--- NOTE | 2019-12-21 09:39 | NUR ---
CASE MANAGEMENT: REVIEW 12/21/2019 SI:SEPSIS. COVID (+) VS: T 99 HR 96 RR 29 B/P 107/58 SATS 100% ON 15L/NRB LABS: HGB 6.7 HCT 20.4 NA 150 CL 108 CO2 39 BUN 23 GLU 153 CA 8 AST 64 ALP 159 IS:LEVEMIR SUBQ Q12H ERTAPENEM IV Q24H LEVOPHED PER PARAMETERS INSULIN SUBQ Q4H ICU
--- NOTE | 2019-12-21 11:22 | Infectious Diseases Prog Note ---
Assessment/Plan Assessment/Plan antibiotics ; ertapenem A 1. Possible pneumonia. COVID-19 test is negative x2 2. E.coli and Streptococcus urinary tract infection. 3. Positive blood cultures with coagulase-negative Staph is most likely a contaminant. 4. shock resolved PLAN: 1. Continue ertapenem 1 more day 2. d/c isolation 3. We will follow up cultures and adjust antibiotics Subjective ROS Limited/Unobtainable: Yes Allergies: Coded Allergies: PENICILLINS (Verified Allergy, Unknown, 12/14/19) Objective Vital Signs Last 24 Hour Vital Signs Date Time Temp Pulse Resp B/P (MAP) Pulse Ox O2 Delivery O2 Flow Rate FiO2 12/21/19 11:00 94 38 117/61 (79) 99 12/21/19 10:00 83 28 120/63 (82) 96 12/21/19 10:00 Venturi Mask Venturi Mask Venturi Mask 12/21/19 09:00 55 12/21/19 09:00 92 39 109/55 (73) 95 12/21/19 08:57 99 Venturi Mask 12.0 50 12/21/19 08:00 Non-Rebreather 15.0 Non-Rebreather 15.0 Non-Rebreather 15.0 12/21/19 08:00 98.4 89 30 126/55 (78) 100 12/21/19 08:00 15.0 12/21/19 08:00 79 12/21/19 07:30 86 31 117/58 (77) 100 12/21/19 07:00 85 28 105/51 (69) 98 12/21/19 06:30 88 34 113/52 (72) 99 12/21/19 06:00 102 35 128/64 (85) 100 12/21/19 05:30 90 24 112/60 (77) 100 12/21/19 05:00 87 30 111/51 (71) 100 12/21/19 05:00 117/45 12/21/19 04:30 94 32 110/58 (75) 100 12/21/19 04:00 99.0 96 29 107/58 (74) 100 12/21/19 04:00 Non-Rebreather 15.0 Non-Rebreather 15.0 Non-Rebreather 15.0 12/21/19 04:00 90 12/21/19 04:00 123/57 5/22/20 03:30 97 30 124/59 (80) 100 12/21/19 03:00 110 31 126/59 (81) 100 12/21/19 03:00 123/57 12/21/19 02:30 102 35 147/59 (88) 96 12/21/19 02:30 102 35 147/59 (88) 96 12/21/19 02:15 95 37 160/71 (100) 99 12/21/19 02:00 92 27 156/78 (104) 100 12/21/19 02:00 92 27 156/78 (104) 100 12/21/19 02:00 160/71 12/21/19 01:45 89 27 134/69 (90) 100 12/21/19 01:30 90 27 116/62 (80) 100 12/21/19 01:30 90 27 116/62 (80) 100 12/21/19 01:15 90 27 118/58 (78) 100 12/21/19 01:00 87 25 119/60 (79) 100 12/21/19 01:00 160/71 12/21/19 01:00 87 25 119/60 (79) 100 12/21/19 00:45 87 25 110/55 (73) 100 12/21/19 00:30 93 24 109/55 (73) 100 12/21/19 00:30 93 24 109/55 (73) 100 12/21/19 00:15 89 27 121/60 (80) 100 12/21/19 00:00 89 12/21/19 00:00 88 30 112/51 (71) 100 12/21/19 00:00 99.5 88 30 112/51 (71) 100 12/21/19 00:00 88 30 112/51 (71) 100 12/21/19 00:00 Non-Rebreather 15.0 Non-Rebreather 15.0 Non-Rebreather 15.0 12/21/19 00:00 121/54 12/20/19 23:30 89 25 109/60 (76) 100 12/20/19 23:00 118/56 12/20/19 23:00 88 30 108/54 (72) 100 12/20/19 22:30 90 25 108/55 (72) 100 12/20/19 22:00 107/53 12/20/19 22:00 87 31 112/56 (74) 100 12/20/19 21:30 87 27 110/52 (71) 100 12/20/19 21:00 92 33 103/56 (72) 100 12/20/19 21:00 103/54 12/20/19 20:30 90 29 106/59 (75) 100 12/20/19 20:16 100 Non-Rebreather 15.0 100 12/20/19 20:00 84 12/20/19 20:00 98.5 90 26 109/59 (76) 100 12/20/19 20:00 Non-Rebreather 15.0 Non-Rebreather 15.0 Non-Rebreather 15.0 12/20/19 20:00 104/57 12/20/19 19:30 90 37 109/61 (77) 100 12/20/19 19:00 90 31 103/56 (72) 100 12/20/19 19:00 103/56 12/20/19 18:45 80 35 115/59 (77) 100 12/20/19 18:30 85 35 111/64 (80) 100 12/20/19 18:30 81 29 111/64 (80) 100 12/20/19 18:15 92 29 106/67 (80) 100 12/20/19 18:00 88 31 106/56 (73) 100 12/20/19 18:00 106/56 12/20/19 17:45 86 30 105/52 (69) 100 12/20/19 17:30 97 27 127/60 (82) 100 12/20/19 17:15 96 31 104/55 (71) 100 12/20/19 17:00 95 28 107/58 (74) 100 12/20/19 17:00 107/55 12/20/19 16:45 107 36 106/55 (72) 100 12/20/19 16:30 118 28 135/61 (85) 88 12/20/19 16:15 104 38 135/65 (88) 88 12/20/19 16:00 Non-Rebreather 15.0 Non-Rebreather 15.0 Non-Rebreather 15.0 12/20/19 16:00 15.0 12/20/19 16:00 151/67 12/20/19 16:00 92 12/20/19 16:00 98.7 94 36 151/67 (95) 90 12/20/19 15:45 91 31 155/72 (99) 92 12/20/19 15:30 94 19 127/70 (89) 95 12/20/19 15:15 89 30 128/65 (86) 97 12/20/19 15:00 90 40 124/69 (87) 95 12/20/19 15:00 124/69 12/20/19 14:45 85 26 122/57 (78) 98 12/20/19 14:30 87 27 116/63 (80) 97 12/20/19 14:15 87 25 113/60 (77) 95 12/20/19 14:00 114/51 12/20/19 14:00 87 26 114/51 (72) 95 12/20/19 13:45 91 26 108/60 (76) 96 12/20/19 13:38 55 12/20/19 13:30 78 26 103/55 (71) 100 12/20/19 13:15 84 27 112/54 (73) 100 12/20/19 13:00 122/58 12/20/19 13:00 79 22 122/58 (79) 100 12/20/19 12:45 84 28 112/56 (74) 98 12/20/19 12:30 90 30 118/59 (78) 99 12/20/19 12:15 93 33 105/49 (67) 87 12/20/19 12:00 105 12/20/19 12:00 Non-Rebreather 15.0 Non-Rebreather 15.0 Non-Rebreather 15.0 12/20/19 12:00 128/59 12/20/19 12:00 104 28 128/59 (82) 95 12/20/19 12:00 15.0 12/20/19 12:00 98.6 101 28 84/38 (53) 91 12/20/19 11:45 102 24 108/47 (67) 95 12/20/19 11:30 92 28 117/44 (68) 100 Height (Feet): 5 Height (Inches): 6.00 Weight (Pounds): 143 Respiratory/Chest: lungs clear Cardiovascular: normal rate, regular rhythm, no gallop/murmur Abdomen: soft, non tender, other - GT Extremities: no edema, other - left subclavian Laboratory Tests Test 12/21/19 08:15 White Blood Count 7.6 K/UL (4.8-10.8) Red Blood Count 2.46 M/UL (4.20-5.40) L Hemoglobin 6.7 G/DL (12.0-16.0) *L Hematocrit 20.4 % (37.0-47.0) L Mean Corpuscular Volume 83 FL (80-99) Mean Corpuscular Hemoglobin 27.2 PG (27.0-31.0) Mean Corpuscular Hemoglobin Concent 32.8 G/DL (32.0-36.0) Red Cell Distribution Width 13.3 % (11.6-14.8) Platelet Count 110 K/UL (150-450) L Mean Platelet Volume 8.3 FL (6.5-10.1) Neutrophils (%) (Auto) % (45.0-75.0) Lymphocytes (%) (Auto) % (20.0-45.0) Monocytes (%) (Auto) % (1.0-10.0) Eosinophils (%) (Auto) % (0.0-3.0) Basophils (%) (Auto) % (0.0-2.0) Neutrophils % (Manual) Pending Lymphocytes % (Manual) Pending Platelet Estimate Pending Platelet Morphology Pending Sodium Level 150 MMOL/L (136-145) H Potassium Level 4.5 MMOL/L (3.5-5.1) Chloride Level 108 MMOL/L (98-107) H Carbon Dioxide Level 39 MMOL/L (21-32) H Blood Urea Nitrogen 23 mg/dL (7-18) H Creatinine 0.6 MG/DL (0.55-1.30) Estimat Glomerular Filtration Rate > 60 mL/min (>60) Glucose Level 153 MG/DL (74-106) H Calcium Level 8.0 MG/DL (8.5-10.1) L Total Bilirubin 0.4 MG/DL (0.2-1.0) Aspartate Amino Transf (AST/SGOT) 64 U/L (15-37) H Alanine Aminotransferase (ALT/SGPT) 48 U/L (12-78) Alkaline Phosphatase 159 U/L (46-116) H Total Protein 5.3 G/DL (6.4-8.2) L Albumin 1.1 G/DL (3.4-5.0) L Globulin 4.2 g/dL Albumin/Globulin Ratio 0.3 (1.0-2.7) L Current Medications Medications (Trade) Dose Ordered Sig/Ebenezer Route PRN Reason Start Time Stop Time Status Last Admin Dose Admin Acetaminophen (Tylenol) 650 mg Q4H PRN RECTAL MILD/TEMP 12/13/19 08:30 01/12/20 08:29 Chlorhexidine Gluconate (Dee-Hex 2%) 1 applic DAILY@2000 TOPIC 12/13/19 20:00 03/12/20 19:59 12/20/19 21:19 Dextrose (Dextrose 50%) 25 ml Q30M PRN IV Hypoglycemia 12/13/19 08:30 03/12/20 08:29 Dextrose (Dextrose 50%) 50 ml Q30M PRN IV Hypoglycemia 12/13/19 08:30 03/12/20 08:29 12/19/19 15:54 Ertapenem 1 gm/ Sodium Chloride 55 ml @ 110 mls/hr Q24H IVPB 12/16/19 13:00 12/25/19 12:59 12/20/19 13:05 Heparin Sodium (Porcine) (Heparin 5000 units/ml) 5,000 units EVERY 12 HOURS SUBQ 12/13/19 09:00 01/27/20 08:59 12/17/19 21:20 Insulin Aspart (NovoLOG) Q4H SUBQ 12/14/19 12:00 03/13/20 11:59 12/21/19 08:36 Insulin Detemir (Levemir) 10 units Q12HR SUBQ 12/14/19 09:00 03/13/20 08:59 12/21/19 08:37 Morphine Sulfate (Morphine Sulfate) 1 mg Q4H PRN IVP For Pain 12/19/19 10:38 12/26/19 10:37 12/20/19 16:45 Norepinephrine Bitartrate 8 mg/ Dextrose 500 ml @ 0 mls/hr Q24H IV 12/16/19 21:30 01/15/20 21:29 12/20/19 17:00 Albert Scanlon MD December 21, 2019 11:21
--- NOTE | 2019-12-21 11:56 | Critical Care Progress Note ---
Assessment/Plan Assessment/Plan IMPRESSION: Respiratory distress, evidence of bilateral pulmonary infiltrates, hypernatremia, acute on chronic renal failure, severe protein-calorie malnutrition, toxic metabolic encephalopathy, dementia, metabolic acidosis, lactic acidemia, elevated troponin, possible demand ischemia, leukocytosis, probable sepsis, anemia. worsening hypoxemia with hypoxemic respiratory failure PLAN care noted taper fio2 as able d/w nursing in detail iv antibiotics noted imaging reviewed- none new monitor fluid status elevate head DNR replace lytes tube feeds monitor for residuals no intubation per advance directives close follow up and monitoring and hope to transition out of ICU flow sheets reviewed off load position change critical with guarded prognosis medications/laboratory data/nursing notes/ICU care reviewed in detail note reviewed and edited care discussed with RN and RT ICU time spent >40 minutes Critical Care - Subjective Interval Events: improved off isolation oxygen better no distress ICU care reviewed ROS Limited/Unobtainable: Yes Condition: critical EKG Rhythm: Sinus Rhythm Residuals: minimal Tube Feeding Tolerated: yes I&O: Intake and Output 12/20/19 12/21/19 19:00 07:00 Intake Total 655.00 ml 516.25 ml Output Total 550 ml 450 ml Balance 105.00 ml 66.25 ml Intake Free Water 150 ml IV Total 415.00 ml 26.25 ml Tube Feeding 240 ml 340 ml Output Urine Total 550 ml 450 ml # Bowel Movements 1 Critical Care - Objective Last 24 Hour Vital Signs Date Time Temp Pulse Resp B/P (MAP) Pulse Ox O2 Delivery O2 Flow Rate FiO2 12/21/19 11:00 94 38 117/61 (79) 99 12/21/19 10:00 83 28 120/63 (82) 96 12/21/19 10:00 Venturi Mask Venturi Mask Venturi Mask 12/21/19 09:00 55 12/21/19 09:00 92 39 109/55 (73) 95 12/21/19 08:57 99 Venturi Mask 12.0 50 12/21/19 08:00 Non-Rebreather 15.0 Non-Rebreather 15.0 Non-Rebreather 15.0 12/21/19 08:00 98.4 89 30 126/55 (78) 100 12/21/19 08:00 15.0 12/21/19 08:00 79 12/21/19 07:30 86 31 117/58 (77) 100 12/21/19 07:00 85 28 105/51 (69) 98 12/21/19 06:30 88 34 113/52 (72) 99 12/21/19 06:00 102 35 128/64 (85) 100 12/21/19 05:30 90 24 112/60 (77) 100 12/21/19 05:00 87 30 111/51 (71) 100 12/21/19 05:00 117/45 12/21/19 04:30 94 32 110/58 (75) 100 12/21/19 04:00 99.0 96 29 107/58 (74) 100 12/21/19 04:00 Non-Rebreather 15.0 Non-Rebreather 15.0 Non-Rebreather 15.0 12/21/19 04:00 90 12/21/19 04:00 123/57 12/21/19 03:30 97 30 124/59 (80) 100 12/21/19 03:00 110 31 126/59 (81) 100 12/21/19 03:00 123/57 12/21/19 02:30 102 35 147/59 (88) 96 12/21/19 02:30 102 35 147/59 (88) 96 12/21/19 02:15 95 37 160/71 (100) 99 12/21/19 02:00 92 27 156/78 (104) 100 12/21/19 02:00 92 27 156/78 (104) 100 12/21/19 02:00 160/71 12/21/19 01:45 89 27 134/69 (90) 100 12/21/19 01:30 90 27 116/62 (80) 100 12/21/19 01:30 90 27 116/62 (80) 100 12/21/19 01:15 90 27 118/58 (78) 100 12/21/19 01:00 87 25 119/60 (79) 100 12/21/19 01:00 160/71 12/21/19 01:00 87 25 119/60 (79) 100 12/21/19 00:45 87 25 110/55 (73) 100 12/21/19 00:30 93 24 109/55 (73) 100 12/21/19 00:30 93 24 109/55 (73) 100 12/21/19 00:15 89 27 121/60 (80) 100 12/21/19 00:00 89 12/21/19 00:00 88 30 112/51 (71) 100 12/21/19 00:00 99.5 88 30 112/51 (71) 100 12/21/19 00:00 88 30 112/51 (71) 100 12/21/19 00:00 Non-Rebreather 15.0 Non-Rebreather 15.0 Non-Rebreather 15.0 12/21/19 00:00 121/54 12/20/19 23:30 89 25 109/60 (76) 100 12/20/19 23:00 118/56 12/20/19 23:00 88 30 108/54 (72) 100 12/20/19 22:30 90 25 108/55 (72) 100 12/20/19 22:00 107/53 12/20/19 22:00 87 31 112/56 (74) 100 12/20/19 21:30 87 27 110/52 (71) 100 12/20/19 21:00 92 33 103/56 (72) 100 12/20/19 21:00 103/54 12/20/19 20:30 90 29 106/59 (75) 100 12/20/19 20:16 100 Non-Rebreather 15.0 100 12/20/19 20:00 84 12/20/19 20:00 98.5 90 26 109/59 (76) 100 12/20/19 20:00 Non-Rebreather 15.0 Non-Rebreather 15.0 Non-Rebreather 15.0 12/20/19 20:00 104/57 12/20/19 19:30 90 37 109/61 (77) 100 12/20/19 19:00 90 31 103/56 (72) 100 12/20/19 19:00 103/56 12/20/19 18:45 80 35 115/59 (77) 100 12/20/19 18:30 85 35 111/64 (80) 100 12/20/19 18:30 81 29 111/64 (80) 100 12/20/19 18:15 92 29 106/67 (80) 100 12/20/19 18:00 88 31 106/56 (73) 100 12/20/19 18:00 106/56 5/21/20 17:45 86 30 105/52 (69) 100 12/20/19 17:30 97 27 127/60 (82) 100 12/20/19 17:15 96 31 104/55 (71) 100 12/20/19 17:00 95 28 107/58 (74) 100 12/20/19 17:00 107/55 12/20/19 16:45 107 36 106/55 (72) 100 12/20/19 16:30 118 28 135/61 (85) 88 12/20/19 16:15 104 38 135/65 (88) 88 12/20/19 16:00 Non-Rebreather 15.0 Non-Rebreather 15.0 Non-Rebreather 15.0 12/20/19 16:00 15.0 12/20/19 16:00 151/67 12/20/19 16:00 92 12/20/19 16:00 98.7 94 36 151/67 (95) 90 12/20/19 15:45 91 31 155/72 (99) 92 12/20/19 15:30 94 19 127/70 (89) 95 12/20/19 15:15 89 30 128/65 (86) 97 12/20/19 15:00 90 40 124/69 (87) 95 12/20/19 15:00 124/69 12/20/19 14:45 85 26 122/57 (78) 98 12/20/19 14:30 87 27 116/63 (80) 97 12/20/19 14:15 87 25 113/60 (77) 95 12/20/19 14:00 114/51 12/20/19 14:00 87 26 114/51 (72) 95 12/20/19 13:45 91 26 108/60 (76) 96 12/20/19 13:38 55 12/20/19 13:30 78 26 103/55 (71) 100 12/20/19 13:15 84 27 112/54 (73) 100 12/20/19 13:00 122/58 12/20/19 13:00 79 22 122/58 (79) 100 12/20/19 12:45 84 28 112/56 (74) 98 12/20/19 12:30 90 30 118/59 (78) 99 12/20/19 12:15 93 33 105/49 (67) 87 12/20/19 12:00 105 12/20/19 12:00 Non-Rebreather 15.0 Non-Rebreather 15.0 Non-Rebreather 15.0 12/20/19 12:00 128/59 12/20/19 12:00 104 28 128/59 (82) 95 12/20/19 12:00 15.0 12/20/19 12:00 98.6 101 28 84/38 (53) 91 Labs: Labs Test 12/18/19 17:20 12/19/19 08:05 12/19/19 10:33 12/20/19 03:45 White Blood Count 6.1 K/UL (4.8-10.8) 7.7 K/UL (4.8-10.8) 10.5 K/UL (4.8-10.8) Red Blood Count 2.67 M/UL (4.20-5.40) 2.82 M/UL (4.20-5.40) 2.74 M/UL (4.20-5.40) Hemoglobin 7.2 G/DL (12.0-16.0) 7.7 G/DL (12.0-16.0) 7.5 G/DL (12.0-16.0) Hematocrit 23.3 % (37.0-47.0) 22.8 % (37.0-47.0) 22.5 % (37.0-47.0) Mean Corpuscular Volume 87 FL (80-99) 81 FL (80-99) 82 FL (80-99) Mean Corpuscular Hemoglobin 26.9 PG (27.0-31.0) 27.3 PG (27.0-31.0) 27.5 PG (27.0-31.0) Mean Corpuscular Hemoglobin Concent 30.8 G/DL (32.0-36.0) 33.8 G/DL (32.0-36.0) 33.5 G/DL (32.0-36.0) Red Cell Distribution Width 15.4 % (11.6-14.8) 13.0 % (11.6-14.8) 13.5 % (11.6-14.8) Platelet Count 60 K/UL (150-450) 86 K/UL (150-450) 112 K/UL (150-450) Mean Platelet Volume 11.1 FL (6.5-10.1) 9.0 FL (6.5-10.1) 7.6 FL (6.5-10.1) Neutrophils (%) (Auto) 90.1 % (45.0-75.0) % (45.0-75.0) % (45.0-75.0) Lymphocytes (%) (Auto) 5.7 % (20.0-45.0) % (20.0-45.0) % (20.0-45.0) Monocytes (%) (Auto) 3.5 % (1.0-10.0) % (1.0-10.0) % (1.0-10.0) Eosinophils (%) (Auto) 0.2 % (0.0-3.0) % (0.0-3.0) % (0.0-3.0) Basophils (%) (Auto) 0.5 % (0.0-2.0) % (0.0-2.0) % (0.0-2.0) Sodium Level 147 MMOL/L (136-145) 147 MMOL/L (136-145) 145 MMOL/L (136-145) Potassium Level 3.8 MMOL/L (3.5-5.1) 2.9 MMOL/L (3.5-5.1) 4.1 MMOL/L (3.5-5.1) Chloride Level 108 MMOL/L (98-107) 106 MMOL/L (98-107) 105 MMOL/L (98-107) Carbon Dioxide Level 33 MMOL/L (21-32) 34 MMOL/L (21-32) 38 MMOL/L (21-32) Anion Gap 6 mmol/L (5-15) 8 mmol/L (5-15) 2 mmol/L (5-15) Blood Urea Nitrogen 17 mg/dL (7-18) 18 mg/dL (7-18) 19 mg/dL (7-18) Creatinine 0.8 MG/DL (0.55-1.30) 0.7 MG/DL (0.55-1.30) 0.7 MG/DL (0.55-1.30) Estimat Glomerular Filtration Rate > 60 mL/min (>60) > 60 mL/min (>60) > 60 mL/min (>60) Glucose Level 169 MG/DL (74-106) 140 MG/DL (74-106) 111 MG/DL (74-106) Calcium Level 6.8 MG/DL (8.5-10.1) 7.1 MG/DL (8.5-10.1) 8.0 MG/DL (8.5-10.1) Differential Total Cells Counted 100 100 Neutrophils % (Manual) 90 % (45-75) 84 % (45-75) Lymphocytes % (Manual) 9 % (20-45) 9 % (20-45) Monocytes % (Manual) 1 % (1-10) 4 % (1-10) Eosinophils % (Manual) 0 % (0-3) 0 % (0-3) Basophils % (Manual) 0 % (0-2) 0 % (0-2) Band Neutrophils 0 % (0-8) 3 % (0-8) Platelet Estimate Decreased Decreased Platelet Morphology Normal Normal Hypochromasia 1+ Total Bilirubin 0.4 MG/DL (0.2-1.0) 0.3 MG/DL (0.2-1.0) Aspartate Amino Transf (AST/SGOT) 74 U/L (15-37) 58 U/L (15-37) Alanine Aminotransferase (ALT/SGPT) 57 U/L (12-78) 51 U/L (12-78) Alkaline Phosphatase 187 U/L (46-116) 167 U/L (46-116) Total Protein 5.2 G/DL (6.4-8.2) 5.4 G/DL (6.4-8.2) Albumin 1.2 G/DL (3.4-5.0) 1.2 G/DL (3.4-5.0) Globulin 4.0 g/dL 4.2 g/dL Albumin/Globulin Ratio 0.3 (1.0-2.7) 0.3 (1.0-2.7) Arterial Blood pH 7.466 (7.350-7.450) Arterial Blood Partial Pressure CO2 51.1 mmHg (35.0-45.0) Arterial Blood Partial Pressure O2 80.1 mmHg (75.0-100.0) Arterial Blood HCO3 36.0 mmol/L (22.0-26.0) Arterial Blood Oxygen Saturation 94.5 % (95-100) Arterial Blood Base Excess 11.1 (-2-2) Miki Test Positive Test 12/21/19 08:15 White Blood Count 7.6 K/UL (4.8-10.8) Red Blood Count 2.46 M/UL (4.20-5.40) Hemoglobin 6.7 G/DL (12.0-16.0) Hematocrit 20.4 % (37.0-47.0) Mean Corpuscular Volume 83 FL (80-99) Mean Corpuscular Hemoglobin 27.2 PG (27.0-31.0) Mean Corpuscular Hemoglobin Concent 32.8 G/DL (32.0-36.0) Red Cell Distribution Width 13.3 % (11.6-14.8) Platelet Count 110 K/UL (150-450) Mean Platelet Volume 8.3 FL (6.5-10.1) Neutrophils (%) (Auto) % (45.0-75.0) Lymphocytes (%) (Auto) % (20.0-45.0) Monocytes (%) (Auto) % (1.0-10.0) Eosinophils (%) (Auto) % (0.0-3.0) Basophils (%) (Auto) % (0.0-2.0) Differential Total Cells Counted 100 Neutrophils % (Manual) 87 % (45-75) Lymphocytes % (Manual) 10 % (20-45) Monocytes % (Manual) 3 % (1-10) Eosinophils % (Manual) 0 % (0-3) Basophils % (Manual) 0 % (0-2) Band Neutrophils 0 % (0-8) Platelet Estimate Decreased Platelet Morphology Normal Hypochromasia 4+ Anisocytosis 1+ Spherocytes 2+ Sodium Level 150 MMOL/L (136-145) Potassium Level 4.5 MMOL/L (3.5-5.1) Chloride Level 108 MMOL/L (98-107) Carbon Dioxide Level 39 MMOL/L (21-32) Blood Urea Nitrogen 23 mg/dL (7-18) Creatinine 0.6 MG/DL (0.55-1.30) Estimat Glomerular Filtration Rate > 60 mL/min (>60) Glucose Level 153 MG/DL (74-106) Calcium Level 8.0 MG/DL (8.5-10.1) Total Bilirubin 0.4 MG/DL (0.2-1.0) Aspartate Amino Transf (AST/SGOT) 64 U/L (15-37) Alanine Aminotransferase (ALT/SGPT) 48 U/L (12-78) Alkaline Phosphatase 159 U/L (46-116) Total Protein 5.3 G/DL (6.4-8.2) Albumin 1.1 G/DL (3.4-5.0) Globulin 4.2 g/dL Albumin/Globulin Ratio 0.3 (1.0-2.7) Objective: GENERAL: The patient is chronically ill. on fm oxygen HEENT: Overall negative. NECK: Supple. LUNGS: Moderate breath sounds. some rhonchi noted CARDIAC: S1 and S2, currently regular rate and rhythm. without MRG ABDOMEN: Overall soft, nontender. no distention EXTREMITIES: No significant edema. Decreased range of motion. G-tube in place. Depressed affect. Aphasic. reviewed and edited Accucheck: 143 Tonny Ramirez MD December 21, 2019 11:56
--- NOTE | 2019-12-21 12:00 | NUR ---
NURSE NOTES: Pt repositioned, noted afebrile. Remains on 55% O2 via Venturi mask with spO2 >94%. No actue distress. Will continue to monitor.
[2019-12-21] MEDS: Ertapenem 1gm in NS 55ml IVPB SCH (13:35)
--- NOTE | 2019-12-21 13:42 | Surgery Progress Note ---
Surgery Progress Note Subjective Procedure Performed left subclavian central venous catheter insertion Additional Comments ill appearing no n/v/ labs noted exam stable Objective Last 24 Hour Vital Signs Date Time Temp Pulse Resp B/P (MAP) Pulse Ox O2 Delivery O2 Flow Rate FiO2 12/21/19 13:00 96 45 115/59 (77) 95 12/21/19 12:00 98.7 95 36 112/58 (76) 94 12/21/19 12:00 96 12/21/19 12:00 Venturi Mask 15.0 Venturi Mask 15.0 Venturi Mask 12/21/19 12:00 15.0 55 12/21/19 11:00 94 38 117/61 (79) 99 12/21/19 10:00 83 28 120/63 (82) 96 12/21/19 10:00 Venturi Mask 15.0 Venturi Mask 15.0 Venturi Mask 15.0 12/21/19 09:00 15.0 55 12/21/19 09:00 92 39 109/55 (73) 95 12/21/19 08:57 99 Venturi Mask 12.0 50 12/21/19 08:00 Non-Rebreather 15.0 Non-Rebreather 15.0 Non-Rebreather 15.0 12/21/19 08:00 98.4 89 30 126/55 (78) 100 12/21/19 08:00 15.0 12/21/19 08:00 79 12/21/19 07:30 86 31 117/58 (77) 100 12/21/19 07:00 85 28 105/51 (69) 98 12/21/19 06:30 88 34 113/52 (72) 99 12/21/19 06:00 102 35 128/64 (85) 100 12/21/19 05:30 90 24 112/60 (77) 100 12/21/19 05:00 87 30 111/51 (71) 100 12/21/19 05:00 117/45 12/21/19 04:30 94 32 110/58 (75) 100 12/21/19 04:00 99.0 96 29 107/58 (74) 100 12/21/19 04:00 Non-Rebreather 15.0 Non-Rebreather 15.0 Non-Rebreather 15.0 12/21/19 04:00 90 12/21/19 04:00 123/57 12/21/19 03:30 97 30 124/59 (80) 100 12/21/19 03:00 110 31 126/59 (81) 100 12/21/19 03:00 123/57 12/21/19 02:30 102 35 147/59 (88) 96 12/21/19 02:30 102 35 147/59 (88) 96 12/21/19 02:15 95 37 160/71 (100) 99 12/21/19 02:00 92 27 156/78 (104) 100 12/21/19 02:00 92 27 156/78 (104) 100 12/21/19 02:00 160/71 12/21/19 01:45 89 27 134/69 (90) 100 12/21/19 01:30 90 27 116/62 (80) 100 12/21/19 01:30 90 27 116/62 (80) 100 12/21/19 01:15 90 27 118/58 (78) 100 12/21/19 01:00 87 25 119/60 (79) 100 12/21/19 01:00 160/71 12/21/19 01:00 87 25 119/60 (79) 100 12/21/19 00:45 87 25 110/55 (73) 100 12/21/19 00:30 93 24 109/55 (73) 100 12/21/19 00:30 93 24 109/55 (73) 100 12/21/19 00:15 89 27 121/60 (80) 100 12/21/19 00:00 89 12/21/19 00:00 88 30 112/51 (71) 100 12/21/19 00:00 99.5 88 30 112/51 (71) 100 12/21/19 00:00 88 30 112/51 (71) 100 12/21/19 00:00 Non-Rebreather 15.0 Non-Rebreather 15.0 Non-Rebreather 15.0 12/21/19 00:00 121/54 12/20/19 23:30 89 25 109/60 (76) 100 12/20/19 23:00 118/56 12/20/19 23:00 88 30 108/54 (72) 100 12/20/19 22:30 90 25 108/55 (72) 100 12/20/19 22:00 107/53 12/20/19 22:00 87 31 112/56 (74) 100 12/20/19 21:30 87 27 110/52 (71) 100 12/20/19 21:00 92 33 103/56 (72) 100 12/20/19 21:00 103/54 12/20/19 20:30 90 29 106/59 (75) 100 12/20/19 20:16 100 Non-Rebreather 15.0 100 12/20/19 20:00 84 12/20/19 20:00 98.5 90 26 109/59 (76) 100 12/20/19 20:00 Non-Rebreather 15.0 Non-Rebreather 15.0 Non-Rebreather 15.0 12/20/19 20:00 104/57 12/20/19 19:30 90 37 109/61 (77) 100 12/20/19 19:00 90 31 103/56 (72) 100 12/20/19 19:00 103/56 12/20/19 18:45 80 35 115/59 (77) 100 12/20/19 18:30 85 35 111/64 (80) 100 12/20/19 18:30 81 29 111/64 (80) 100 12/20/19 18:15 92 29 106/67 (80) 100 12/20/19 18:00 88 31 106/56 (73) 100 12/20/19 18:00 106/56 12/20/19 17:45 86 30 105/52 (69) 100 12/20/19 17:30 97 27 127/60 (82) 100 12/20/19 17:15 96 31 104/55 (71) 100 12/20/19 17:00 95 28 107/58 (74) 100 12/20/19 17:00 107/55 12/20/19 16:45 107 36 106/55 (72) 100 12/20/19 16:30 118 28 135/61 (85) 88 12/20/19 16:15 104 38 135/65 (88) 88 12/20/19 16:00 Non-Rebreather 15.0 Non-Rebreather 15.0 Non-Rebreather 15.0 12/20/19 16:00 15.0 12/20/19 16:00 151/67 5/21/20 16:00 92 12/20/19 16:00 98.7 94 36 151/67 (95) 90 12/20/19 15:45 91 31 155/72 (99) 92 12/20/19 15:30 94 19 127/70 (89) 95 12/20/19 15:15 89 30 128/65 (86) 97 12/20/19 15:00 90 40 124/69 (87) 95 12/20/19 15:00 124/69 12/20/19 14:45 85 26 122/57 (78) 98 12/20/19 14:30 87 27 116/63 (80) 97 12/20/19 14:15 87 25 113/60 (77) 95 12/20/19 14:00 114/51 12/20/19 14:00 87 26 114/51 (72) 95 12/20/19 13:45 91 26 108/60 (76) 96 I&O Intake and Output 12/20/19 12/21/19 19:00 07:00 Intake Total 655.00 ml 516.25 ml Output Total 550 ml 450 ml Balance 105.00 ml 66.25 ml Intake Free Water 150 ml IV Total 415.00 ml 26.25 ml Tube Feeding 240 ml 340 ml Output Urine Total 550 ml 450 ml # Bowel Movements 1 Dressing: other Wound: other Drains: other Cardiovascular: RSR Respiratory: decreased breath sounds Abdomen: soft, non-tender, present bowel sounds Extremities: no cyanosis Laboratory Tests Test 12/21/19 08:15 White Blood Count 7.6 K/UL (4.8-10.8) Red Blood Count 2.46 M/UL (4.20-5.40) L Hemoglobin 6.7 G/DL (12.0-16.0) *L Hematocrit 20.4 % (37.0-47.0) L Mean Corpuscular Volume 83 FL (80-99) Mean Corpuscular Hemoglobin 27.2 PG (27.0-31.0) Mean Corpuscular Hemoglobin Concent 32.8 G/DL (32.0-36.0) Red Cell Distribution Width 13.3 % (11.6-14.8) Platelet Count 110 K/UL (150-450) L Mean Platelet Volume 8.3 FL (6.5-10.1) Neutrophils (%) (Auto) % (45.0-75.0) Lymphocytes (%) (Auto) % (20.0-45.0) Monocytes (%) (Auto) % (1.0-10.0) Eosinophils (%) (Auto) % (0.0-3.0) Basophils (%) (Auto) % (0.0-2.0) Differential Total Cells Counted 100 Neutrophils % (Manual) 87 % (45-75) H Lymphocytes % (Manual) 10 % (20-45) L Monocytes % (Manual) 3 % (1-10) Eosinophils % (Manual) 0 % (0-3) Basophils % (Manual) 0 % (0-2) Band Neutrophils 0 % (0-8) Platelet Estimate Decreased L Platelet Morphology Normal Hypochromasia 4+ Anisocytosis 1+ Spherocytes 2+ Sodium Level 150 MMOL/L (136-145) H Potassium Level 4.5 MMOL/L (3.5-5.1) Chloride Level 108 MMOL/L (98-107) H Carbon Dioxide Level 39 MMOL/L (21-32) H Blood Urea Nitrogen 23 mg/dL (7-18) H Creatinine 0.6 MG/DL (0.55-1.30) Estimat Glomerular Filtration Rate > 60 mL/min (>60) Glucose Level 153 MG/DL (74-106) H Calcium Level 8.0 MG/DL (8.5-10.1) L Total Bilirubin 0.4 MG/DL (0.2-1.0) Aspartate Amino Transf (AST/SGOT) 64 U/L (15-37) H Alanine Aminotransferase (ALT/SGPT) 48 U/L (12-78) Alkaline Phosphatase 159 U/L (46-116) H Total Protein 5.3 G/DL (6.4-8.2) L Albumin 1.1 G/DL (3.4-5.0) L Globulin 4.2 g/dL Albumin/Globulin Ratio 0.3 (1.0-2.7) L Plan Problems: (1) Uncontrolled diabetes mellitus (2) Suspected 2019 novel coronavirus infection Assessment & Plan: neg (3) Septic shock Assessment & Plan: septic hypotension line placed see note resuscitation initiated discussed in detail with daughter at bedside for ome time tren dlabs fluids pressors will follow with recs DAILY ESTIMATED NEEDS: Needs based on Pulmonary, wounds, sepsis/ 51kg abw 25-30 kcals/kg 7424-3286 total kcals 1.25-2 g protein/kg 63-102 g total protein 25-30 mL/kg 8529-2663 total fluid mLs NUTRITION DIAGNOSIS: * Increased kcal/prot needs R/T wound healing as evidenced by pt admitted w/ multiple unstageable and DTPI wounds, refer to WC eval. * Swallowing difficulty R/T dysphagia as evidenced by PEG dep. ENTERAL NUTRITION RECOMMENDATIONS: Glucerna 1.5 @ 40ml/hr x 24 hrs to provide 960ml, 1440kcal, 79g prot, 729ml free water * W/ hemodynamic stability, initiate Glucerna 1.5 @ 20ml/hr x 6hrs * Advance 10ml q 4-6 hrs as tolerated to goal rate * HOB over 30 degrees/ water flush per MD. WITHOUT HEMODYNAMIC STABILITY: rec trophic feeding of Glucerna 1.5 @ 10ml/hr x 24 hrs ADDITIONAL RECOMMENDATIONS: * Per SNF: HT=61" [id number] ("October wts" per SNF) -> rec to re-calibrate bedscale wt * Monitor hemodynamic stability: on NE @ 20mcg * Monitor BGs closely: BG 798 upon adm -> improved rec D5 while NPO to prevent hypoglycemia. * Wound healing: add Vit C 500mg QD Sae BID w/ TF order (4) Lactic acidosis (5) Respiratory failure (6) Decubitus skin ulcer Assessment & Plan: Pt presented on admission with multiple pressure injuries. Unstageable Sacral Pressure injury with presents as open DTPI. Soft necrosis at Base of wound with marginal erythema along edges.Small opening noted to L sacrum. No odor or exudate noted. Periwound without evidence of further skin breakdown. DTPI noted to medial L malleolus. Base of wound is maroon with marginal erythema. DTPI medial L heel base of wound is maroon with fluctuance. DTPI L Hallux. Base of wound is maroon with marginal erythema along borders. Reabsorbing DTPI lateral L heel. Base of injury ids dry. Unstageable pressure injuries noted to distal/lateral R foot. Soft necrosis at base of wound. Unstageable pressure injury dorso/lateral R 5th metatarsal. Soft necrosis at base of wound. Unstageable pressure injury web space of R 4th metatarsal. Base of wound is necrotic and partially opened. no exudate noted. DTPI noted to R lateral malleolus. Base of wound is maroon and soft with marginal erythema along borders. Tx.Plan: Cleanse Sacral wound with Saline. Apply TheraHoney. Apply Moisture Barrier paste periwound. Cover with Optifoam drsg. Change every 3 days and prn. Apply Betadine to wounds Distal /lateral R foot, R 4th and 5th metatarsals. Cover with Optifoam drsg every 3 days and prn. Apply Cavilon to both heels, Both hallux and malleoli. Cover each site with Optifoam drgs. Change every 7 days and prn. Reposition at least every 2hours or as tolerated. Place Pillow between knees. Off-load heels with Pillow. APM/MELANIE Mattress overlay. Joce Campbell December 21, 2019 13:42
--- NOTE | 2019-12-21 14:00 | NUR ---
NURSE NOTES: 1 unit PRBC transfusion initiated at 30 cc/hr. Pt and blood unit both verified with Sunshine Resendiz RN before initiating transfusion.
--- NOTE | 2019-12-21 15:30 | NUR ---
NURSE NOTES: Pt noted desaturating with spO2 88% and was nasotracheally suctioned + placed back on non-rebreather mask per RT.
--- NOTE | 2019-12-21 17:00 | NUR ---
NURSE NOTES: Transfusion complete. Pt in no distress. VS noted stable and charted. Will continue to monitor.
--- NOTE | 2019-12-21 19:04 | NUR ---
HAND-OFF: Report given to LORNA Bojorquez. Pt in no acute distress.
--- NOTE | 2019-12-21 19:23 | NUR ---
NURSE NOTES: Received report from LORNA Proctor. Pt is resting on the bed and obtunded and able to open the eyes spontaneously. On monitoring analyst with ST with HR:100's. On O2 15L via non-rebreather mask and SaO2 100% noted. Pt has G-tube and running with Glucerna 1.5@ 40cc/hr. no residual noted. Pt has subclavian TLC and dressing is clean and dry. On Griffin cath and drainage well. Pt has multiple wound and dressing is clean and dryl and On P-200 mattress for wound management. Reposition. Pt will transfer to [facility] and awaiting room. Placed fall precaution. Will continue to care plan.
[2019-12-21] MEDS: Dyna-Hex 2% Top Sol 2oz TOPIC SCH (19:57)
[2019-12-21] MEDS: Norepinephrine Bitartrate 8 MG in D5W 500ml 492 ML IV SCH (21:30)
--- NOTE | 2019-12-21 22:00 | NUR ---
NURSE NOTES: Pt is resting on the bed and obtunded. able to open the eyes spontaneously. Given oral care and oral suction. Repositioned. SaO2 98-99% with O2 15L via Non-rebreather mask. Tolerated well with current Vent setting. Placed fall precaution. Will continue to care plan.
[2019-12-22] VITALS (14 sets, daily range): BP systolic 98–140; BP diastolic 44–76
--- NOTE | 2019-12-22 | NUR ---
NURSE NOTES: Pt is sleeping on the bed and no sign of acute distress noted. SaO2 95% with O2 15L via nasal cannula. No fever. Oral care and oral suction was done. Turn and reposition. Placed fall precaution. Will continue to care plan.
--- NOTE | 2019-12-22 02:00 | NUR ---
NURSE NOTES: Pt is sleeping on the bed and no sign of acute distress noted. Turn and reposition. Tolerated well with current G-tube feeding. SaO2 95% with O2 15L via Non-rebreathing mask. Will continue to monitor any change of condition.
--- NOTE | 2019-12-22 03:00 | Progress Note ---
DATE: 12/21/2019 CARDIOLOGY PROGRESS NOTE SUBJECTIVE: The patient's condition remains critical. Prognosis guarded. She is in the intensive care unit. She remains on non-rebreather oxygen mask. Blood pressure parameters have improved and pressors have been tapered off. Morphine is being administered for discomfort. Monitor, sinus and tachycardia. PHYSICAL EXAMINATION: VITAL SIGNS: Blood pressure 105/51, heart rate 85, respirations 28. LUNGS: Bilateral breath sounds. Scattered rhonchi. CARDIAC: Regular rhythm and rate. Normal S1, S2. ABDOMEN: Soft. EXTREMITIES: No edema. Condition is critical. Prognosis is guarded. LABORATORY DATA: White count is 7.6, hemoglobin 6.7. Sodium 150, potassium 4.5, bicarb 39, BUN 23, creatinine 0.6. Albumin 1.1. PLAN: 1. Respiratory support. 2. Oxygenation. 3. Antimicrobials. 4. Stress ulcer and DVT prophylaxis. 5. Off pressors. 6. Hypotonic hydration. 7. Cardiac monitoring. Critical care time is 50 minutes. Slava Hsu M.D. DR: ANTHONY JOB#: [id number] CC:
[2019-12-22] MEDS: NovoLOG Insulin Flexpen SUBQ SCH ×7 (03:54→23:20)
--- NOTE | 2019-12-22 04:00 | NUR ---
NURSE NOTES: Morning care was done. Collected blood sample. Noted small amount. Cleaned Pt and applied lotion and cream. Changed wound dressing. Suction and mouth care was done. Turn and reposition. Placed fall precaution. Will continue to care plan.
--- NOTE | 2019-12-22 05:00 | NUR ---
NURSE NOTES: Noted SaO2 85% with O2 15L via Non-rebreather mask. Her code status is DNR/ DNI. Will continue to monitor any change of condition.
[2019-12-22] MEDS: Morphine Sulfate 2mg/ml Inj(IV/IM USE ONLY) IVP PRN (05:38)
--- NOTE | 2019-12-22 06:00 | NUR ---
NURSE NOTES: Pt is sleeping on the bed and SaO2 91% with O2 15L via non-rebreather mask. Turn and reposition. Will continue to monitor any change of condition.
[2019-12-22 06:07] LABS: HEMATOCRIT 25.3 % (37.0-47.0); HEMOGLOBIN 8.4 G/DL (12.0-16.0); MEAN CORPUSCULAR VOLUME 83 FL (80-99); PLATELET COUNT 141 K/UL (150-450); RED BLOOD COUNT 3.04 M/UL (4.20-5.40); RED CELL DISTRIBUTION WIDTH 14.6 % (11.6-14.8); WHITE BLOOD COUNT 8.5 K/UL (4.8-10.8)
[2019-12-22 06:42] LABS: ALANINE AMINOTRANSFERASE 48 U/L (12-78); ALBUMIN 1.2 G/DL (3.4-5.0); ALBUMIN/GLOBULIN RATIO 0.3 (1.0-2.7); ALKALINE PHOSPHATASE 182 U/L (46-116); ANION GAP 1 mmol/L (5-15); ASPARTATE AMINO TRANSFERASE 54 U/L (15-37); BILIRUBIN,TOTAL 0.2 MG/DL (0.2-1.0); BLOOD UREA NITROGEN 26 mg/dL (7-18); CALCIUM 7.7 MG/DL (8.5-10.1); CHLORIDE 112 MMOL/L (98-107); CREATININE 0.7 MG/DL (0.55-1.30); POTASSIUM 4.1 MMOL/L (3.5-5.1); SODIUM 153 MMOL/L (136-145)
[2019-12-22 06:58] LABS: CARBON DIOXIDE 41 MMOL/L (21-32)
--- NOTE | 2019-12-22 07:10 | NUR ---
HAND-OFF: Report given to Moy Meyers. Pt is resting on the bed and SaO2 98% noted with O2 15L non-rebreather mask.
--- NOTE | 2019-12-22 07:11 | NUR ---
NURSE NOTES: Received report from LORNA Bojorquez. Patient is obtunded. On O2 15L/min via non-rebreather mask. O2 sat 95% on the monitor. Gtube intact and running with Glucerna 1.5 @ 40ml/hr. Left subclavian TLC intact and clean with TKO. Kept dry, clean, comfortable and HOB>30. Will continue plan of care.
--- NOTE | 2019-12-22 08:40 | NUR ---
NURSE NOTES: Seen by Dr. Humphrey and assessed patient. ABG ordered.
[2019-12-22] MEDS: Heparin 5000 units/ml inj SUBQ SCH ×2 (08:41→20:06)
[2019-12-22] MEDS: Levemir Flexpen SUBQ SCH ×2 (08:43→20:24)
--- NOTE | 2019-12-22 09:06 | NUR ---
NURSE NOTES: Paged Dr. Humphrey for F/U ABG.
--- NOTE | 2019-12-22 09:07 | Critical Care Progress Note ---
Assessment/Plan Assessment/Plan IMPRESSION: Respiratory distress, evidence of bilateral pulmonary infiltrates, hypernatremia, acute on chronic renal failure, severe protein-calorie malnutrition, toxic metabolic encephalopathy, dementia, metabolic acidosis, lactic acidemia, elevated troponin, possible demand ischemia, leukocytosis, probable sepsis, anemia. worsening hypoxemia with hypoxemic respiratory failure PLAN care noted taper fio2 as able d/w nursing in detail iv antibiotics noted imaging reviewed- none new monitor fluid status elevate head DNR replace lytes tube feeds monitor for residuals no intubation per advance directives monitor acid base and CO2 levels BIPAP if needed close follow up and monitoring and hope to transition out of ICU flow sheets reviewed off load position change critical with guarded prognosis medications/laboratory data/nursing notes/ICU care reviewed in detail note reviewed and edited care discussed with RN and RT ICU time spent >40 minutes Critical Care - Subjective Interval Events: unable reduced LOC on oxygen CO2 rising ROS Limited/Unobtainable: Yes Condition: improving EKG Rhythm: Sinus Rhythm Residuals: minimal Tube Feeding Tolerated: yes I&O: Intake and Output 12/21/19 12/22/19 19:00 07:00 Intake Total 829 ml 480 ml Output Total 490 ml 600 ml Balance 339 ml -120 ml Intake Free Water 20 ml IV Total 55 ml Tube Feeding 480 ml 480 ml Blood Product 274 ml Output Urine Total 490 ml 600 ml # Bowel Movements 2 Critical Care - Objective Last 24 Hour Vital Signs Date Time Temp Pulse Resp B/P (MAP) Pulse Ox O2 Delivery O2 Flow Rate FiO2 12/22/19 07:00 99 30 109/53 (71) 98 12/22/19 06:00 109 30 119/64 (82) 91 12/22/19 05:00 110 30 135/68 (90) 85 12/22/19 04:00 98.4 112 29 126/57 (80) 95 12/22/19 04:00 Non-Rebreather 15.0 Non-Rebreather 15.0 Non-Rebreather 15.0 12/22/19 04:00 112 12/22/19 03:00 104 28 127/62 (83) 95 12/22/19 02:00 108 28 113/45 (67) 95 12/22/19 01:00 96 28 134/76 (95) 95 12/22/19 00:00 98.4 83 29 124/44 (70) 98 12/22/19 00:00 83 12/22/19 00:00 Non-Rebreather 15.0 Non-Rebreather 15.0 Non-Rebreather 15.0 12/21/19 23:00 101 29 126/61 (82) 95 12/21/19 22:00 115 29 144/68 (93) 99 12/21/19 21:30 137/67 12/21/19 21:00 100 21 142/71 (94) 98 12/21/19 20:00 115 12/21/19 20:00 Non-Rebreather 15.0 Non-Rebreather 15.0 Non-Rebreather 15.0 12/21/19 20:00 98.8 105 23 110/48 (68) 98 12/21/19 19:29 99 Non-Rebreather 15.0 100 12/21/19 19:00 103 21 153/88 (109) 100 12/21/19 18:00 101 33 134/73 (93) 100 12/21/19 17:00 86 28 135/67 (89) 100 12/21/19 16:00 Non-Rebreather 15.0 Non-Rebreather 15.0 Non-Rebreather 15.0 12/21/19 16:00 98.8 106 28 118/62 (80) 100 12/21/19 16:00 119 12/21/19 15:30 15.0 12/21/19 15:00 107 28 165/70 (101) 87 12/21/19 14:00 101 29 123/60 (81) 96 12/21/19 13:00 96 30 115/59 (77) 95 12/21/19 12:00 98.7 95 36 112/58 (76) 94 12/21/19 12:00 96 12/21/19 12:00 Venturi Mask 15.0 Venturi Mask 15.0 Venturi Mask 15.0 12/21/19 12:00 15.0 55 12/21/19 11:00 94 38 117/61 (79) 99 12/21/19 10:00 83 28 120/63 (82) 96 12/21/19 10:00 Venturi Mask 15.0 Venturi Mask 15.0 Venturi Mask 15.0 Labs: Laboratory Tests Test 12/22/19 04:00 12/22/19 08:38 White Blood Count 8.5 K/UL (4.8-10.8) Red Blood Count 3.04 M/UL (4.20-5.40) L Hemoglobin 8.4 G/DL (12.0-16.0) L Hematocrit 25.3 % (37.0-47.0) L Mean Corpuscular Volume 83 FL (80-99) Mean Corpuscular Hemoglobin 27.6 PG (27.0-31.0) Mean Corpuscular Hemoglobin Concent 33.3 G/DL (32.0-36.0) Red Cell Distribution Width 14.6 % (11.6-14.8) Platelet Count 141 K/UL (150-450) L Mean Platelet Volume 7.5 FL (6.5-10.1) Neutrophils (%) (Auto) % (45.0-75.0) Lymphocytes (%) (Auto) % (20.0-45.0) Monocytes (%) (Auto) % (1.0-10.0) Eosinophils (%) (Auto) % (0.0-3.0) Basophils (%) (Auto) % (0.0-2.0) Neutrophils % (Manual) Pending Lymphocytes % (Manual) Pending Platelet Estimate Pending Platelet Morphology Pending Sodium Level 153 MMOL/L (136-145) H Potassium Level 4.1 MMOL/L (3.5-5.1) Chloride Level 112 MMOL/L (98-107) H Carbon Dioxide Level 41 MMOL/L (21-32) *H Anion Gap 1 mmol/L (5-15) L Blood Urea Nitrogen 26 mg/dL (7-18) H Creatinine 0.7 MG/DL (0.55-1.30) Estimat Glomerular Filtration Rate > 60 mL/min (>60) Glucose Level 135 MG/DL (74-106) H Calcium Level 7.7 MG/DL (8.5-10.1) L Total Bilirubin 0.2 MG/DL (0.2-1.0) Aspartate Amino Transf (AST/SGOT) 54 U/L (15-37) H Alanine Aminotransferase (ALT/SGPT) 48 U/L (12-78) Alkaline Phosphatase 182 U/L (46-116) H Total Protein 5.7 G/DL (6.4-8.2) L Albumin 1.2 G/DL (3.4-5.0) L Globulin 4.5 g/dL Albumin/Globulin Ratio 0.3 (1.0-2.7) L Arterial Blood pH 7.472 (7.350-7.450) Arterial Blood Partial Pressure CO2 63.6 mmHg (35.0-45.0) *H Arterial Blood Partial Pressure O2 62.4 mmHg (75.0-100.0) L Arterial Blood HCO3 45.5 mmol/L (22.0-26.0) *H Arterial Blood Oxygen Saturation 90.4 % (95-100) L Arterial Blood Base Excess 19.3 (-2-2) *H Miki Test Positive Objective: GENERAL: The patient is chronically ill. on fm oxygen HEENT: Overall negative. NECK: Supple. LUNGS: Moderate breath sounds. some rhonchi noted CARDIAC: S1 and S2, currently regular rate and rhythm. without MRG ABDOMEN: Overall soft, nontender. no distention EXTREMITIES: No significant edema. Decreased range of motion. G-tube in place. Depressed affect. Aphasic. reviewed and edited Accucheck: 114 Tonny Ramirez MD December 22, 2019 09:07
--- NOTE | 2019-12-22 09:50 | NUR ---
NURSE NOTES: Seen by Dr. Ramirez and assessed patient. Informed ABG results. No new order at this time.
--- NOTE | 2019-12-22 09:53 | General Progress Note ---
Assessment/Plan Problem List: (1) Respiratory failure ICD Codes: J96.90 - Respiratory failure, unspecified, unspecified whether with hypoxia or hypercapnia SNOMED: 139487432 (2) Lactic acidosis ICD Codes: E87.2 - Acidosis SNOMED: 93297494 (3) Uncontrolled diabetes mellitus ICD Codes: E11.65 - Type 2 diabetes mellitus with hyperglycemia SNOMED: 52266471, 448639448 (4) Suspected 2019 novel coronavirus infection ICD Codes: Z20.828 - Contact with and (suspected) exposure to other viral communicable diseases SNOMED: 450998429 (5) Septic shock ICD Codes: A41.9 - Sepsis, unspecified organism; R65.21 - Severe sepsis with septic shock SNOMED: 94857314 Status: stable, not improved Assessment/Plan: abg noted- resp acidosis with met comp +sob o2 as needed tube feeds- titrate up. monitor residuals follow up cultures dvt/stress ulcer prophylaxis monitor h/h transfuse as needed critical and guarded. prognosis poor dnr d/w cardiology poc time spent 60mins Subjective ROS Limited/Unobtainable: Yes Constitutional: Reports: malaise, weakness HEENT: Reports: no symptoms Cardiovascular: Reports: edema Respiratory: Reports: shortness of breath, SOB at rest Gastrointestinal/Abdominal: Reports: difficulty swallowing Genitourinary: Reports: no symptoms Neurologic/Psychiatric: Reports: pre-existing deficit Endocrine: Reports: no symptoms Hematologic/Lymphatic: Reports: anemia Allergies: Coded Allergies: PENICILLINS (Verified Allergy, Unknown, 12/14/19) All Systems: reviewed and negative except above Subjective stable overnight. very shallow rapid respirations. labs reviewed. Na trending up. h/h improved after transfusion. awake but nonverbal.doesnt track for follow commands. Objective Last 24 Hour Vital Signs Date Time Temp Pulse Resp B/P (MAP) Pulse Ox O2 Delivery O2 Flow Rate FiO2 12/22/19 08:00 15.0 12/22/19 08:00 Non-Rebreather 15.0 Non-Rebreather 15.0 Non-Rebreather 15.0 12/22/19 07:00 99 30 109/53 (71) 98 12/22/19 06:00 109 30 119/64 (82) 91 12/22/19 05:00 110 30 135/68 (90) 85 12/22/19 04:00 98.4 112 29 126/57 (80) 95 12/22/19 04:00 Non-Rebreather 15.0 Non-Rebreather 15.0 Non-Rebreather 15.0 12/22/19 04:00 112 12/22/19 03:00 104 28 127/62 (83) 95 12/22/19 02:00 108 28 113/45 (67) 95 12/22/19 01:00 96 28 134/76 (95) 95 12/22/19 00:00 98.4 83 29 124/44 (70) 98 12/22/19 00:00 83 12/22/19 00:00 Non-Rebreather 15.0 Non-Rebreather 15.0 Non-Rebreather 15.0 12/21/19 23:00 101 29 126/61 (82) 95 12/21/19 22:00 115 29 144/68 (93) 99 12/21/19 21:30 137/67 12/21/19 21:00 100 21 142/71 (94) 98 12/21/19 20:00 115 12/21/19 20:00 Non-Rebreather 15.0 Non-Rebreather 15.0 Non-Rebreather 15.0 12/21/19 20:00 98.8 105 23 110/48 (68) 98 12/21/19 19:29 99 Non-Rebreather 15.0 100 12/21/19 19:00 103 21 153/88 (109) 100 12/21/19 18:00 101 33 134/73 (93) 100 12/21/19 17:00 86 28 135/67 (89) 100 12/21/19 16:00 Non-Rebreather 15.0 Non-Rebreather 15.0 Non-Rebreather 15.0 12/21/19 16:00 98.8 106 28 118/62 (80) 100 12/21/19 16:00 119 12/21/19 15:30 15.0 12/21/19 15:00 107 28 165/70 (101) 87 12/21/19 14:00 101 29 123/60 (81) 96 12/21/19 13:00 96 30 115/59 (77) 95 12/21/19 12:00 98.7 95 36 112/58 (76) 94 12/21/19 12:00 96 12/21/19 12:00 Venturi Mask 15.0 Venturi Mask 15.0 Venturi Mask 15.0 12/21/19 12:00 15.0 55 12/21/19 11:00 94 38 117/61 (79) 99 12/21/19 10:00 83 28 120/63 (82) 96 12/21/19 10:00 Venturi Mask 15.0 Venturi Mask 15.0 Venturi Mask 15.0 Intake and Output 12/21/19 12/22/19 19:00 07:00 Intake Total 829 ml 480 ml Output Total 490 ml 600 ml Balance 339 ml -120 ml Intake Free Water 20 ml IV Total 55 ml Tube Feeding 480 ml 480 ml Blood Product 274 ml Output Urine Total 490 ml 600 ml # Bowel Movements 2 Laboratory Tests 12/22/19 04:00: White Blood Count 8.5, Red Blood Count 3.04L, Hemoglobin 8.4L, Hematocrit 25.3L , Mean Corpuscular Volume 83, Mean Corpuscular Hemoglobin 27.6, Mean Corpuscular Hemoglobin Concent 33.3, Red Cell Distribution Width 14.6, Platelet Count 141L, Mean Platelet Volume 7.5, Neutrophils (%) (Auto) , Lymphocytes (%) ( Auto) , Monocytes (%) (Auto) , Eosinophils (%) (Auto) , Basophils (%) (Auto) , Neutrophils % (Manual) [Pending], Lymphocytes % (Manual) [Pending], Platelet Estimate [Pending], Platelet Morphology [Pending], Sodium Level 153H, Potassium Level 4.1, Chloride Level 112H, Carbon Dioxide Level 41*H, Anion Gap 1L, Blood Urea Nitrogen 26H, Creatinine 0.7, Estimat Glomerular Filtration Rate > 60, Glucose Level 135H, Calcium Level 7.7L, Total Bilirubin 0.2, Aspartate Amino Transf (AST/SGOT) 54H, Alanine Aminotransferase (ALT/SGPT) 48, Alkaline Phosphatase 182H, Total Protein 5.7L, Albumin 1.2L, Globulin 4.5, Albumin/ Globulin Ratio 0.3L 12/22/19 08:38: Arterial Blood pH 7.472H, Arterial Blood Partial Pressure CO2 63.6*H, Arterial Blood Partial Pressure O2 62.4L, Arterial Blood HCO3 45.5*H, Arterial Blood Oxygen Saturation 90.4L, Arterial Blood Base Excess 19.3*H, Miki Test Positive Height (Feet): 5 Height (Inches): 6.00 Weight (Pounds): 140 Objective General Appearance: WD/WN, alert, confused. on venti mask EENT: PERRL/EOMI, normal ENT inspection Neck: non-tender, normal alignment, supple Cardiovascular: normal peripheral pulses, normal rate, regular rhythm Respiratory/Chest: chest wall non-tender, lungs clear, normal breath sounds, no respiratory distress, respiratory distress, accessory muscle use Abdomen: normal bowel sounds, non tender, soft, no organomegaly Edema: moderate edema Neurologic: disoriented, unresponsive, aphasia Skin: normal pigmentation Paxton Humphrey MD December 22, 2019 09:53
--- NOTE | 2019-12-22 10:10 | NUR ---
NURSE NOTES Started Bipap / with FiO2 50%.
[2019-12-22] MEDS ORDERED: NS 275ml ONE ×3 (10:27→14:10)
[2019-12-22] MEDS ORDERED: Tubing IV Secondary IV ONE ×3 (10:27→14:12)
[2019-12-22] MEDS ORDERED: Tubing IV Blood Pump IV ONE (10:28)
--- NOTE | 2019-12-22 10:32 | NUR ---
NURSE NOTES: Patient transferred from ICU to [facility] per Dr. Humphrey. Received report from LORNA Meyers. Patient arrived to unit in stable condition. No s/sx of SOB, breathing is even and unlabored, patient on BiPAP per ordered settings per Dr. Humphrey, no order for new ABG lab to be drawn per report from LORNA Meyers. Noted. Patient noted with left subclavian TLC, patent. Patient is nonverbal, observed no presence of discomfort or pain at this time. Bed is in lowest position, brakes engaged. Call light is kept within easy reach. Will continue to monitor patient.
--- NOTE | 2019-12-22 10:32 | NUR ---
TRANSFER TO FLOOR: Patient transferred to [facility]/234. Report given to LORNA Garcia. Inventory check done. Endorsed plan of care.
--- NOTE | 2019-12-22 10:57 | Surgery Progress Note ---
Surgery Progress Note Subjective Procedure Performed left subclavian central venous catheter insertion Additional Comments downgrade comfortable Objective Last 24 Hour Vital Signs Date Time Temp Pulse Resp B/P (MAP) Pulse Ox O2 Delivery O2 Flow Rate FiO2 12/22/19 10:54 102 25 100 Bi-Pap 100 12/22/19 10:35 102 25 100 100 12/22/19 10:00 109 40 122/73 (89) 97 12/22/19 09:00 101 33 129/61 (83) 97 12/22/19 08:00 15.0 12/22/19 08:00 Non-Rebreather 15.0 Non-Rebreather 15.0 Non-Rebreather 15.0 12/22/19 08:00 102 12/22/19 08:00 100 32 110/60 (77) 98 12/22/19 07:00 99 30 109/53 (71) 98 12/22/19 06:00 109 30 119/64 (82) 91 12/22/19 05:00 110 30 135/68 (90) 85 12/22/19 04:00 98.4 112 29 126/57 (80) 95 12/22/19 04:00 Non-Rebreather 15.0 Non-Rebreather 15.0 Non-Rebreather 15.0 12/22/19 04:00 112 12/22/19 03:00 104 28 127/62 (83) 95 12/22/19 02:00 108 28 113/45 (67) 95 12/22/19 01:00 96 28 134/76 (95) 95 12/22/19 00:00 98.4 83 29 124/44 (70) 98 12/22/19 00:00 83 12/22/19 00:00 Non-Rebreather 15.0 Non-Rebreather 15.0 Non-Rebreather 15.0 12/21/19 23:00 101 29 126/61 (82) 95 12/21/19 22:00 115 29 144/68 (93) 99 12/21/19 21:30 137/67 12/21/19 21:00 100 21 142/71 (94) 98 12/21/19 20:00 115 12/21/19 20:00 Non-Rebreather 15.0 Non-Rebreather 15.0 Non-Rebreather 15.0 12/21/19 20:00 98.8 105 23 110/48 (68) 98 12/21/19 19:29 99 Non-Rebreather 15.0 100 12/21/19 19:00 103 21 153/88 (109) 100 12/21/19 18:00 101 33 134/73 (93) 100 12/21/19 17:00 86 28 135/67 (89) 100 12/21/19 16:00 Non-Rebreather 15.0 Non-Rebreather 15.0 Non-Rebreather 15.0 12/21/19 16:00 98.8 106 28 118/62 (80) 100 12/21/19 16:00 119 12/21/19 15:30 15.0 12/21/19 15:00 107 28 165/70 (101) 87 12/21/19 14:00 101 29 123/60 (81) 96 12/21/19 13:00 96 30 115/59 (77) 95 12/21/19 12:00 98.7 95 36 112/58 (76) 94 12/21/19 12:00 96 12/21/19 12:00 Venturi Mask 15.0 Venturi Mask 15.0 Venturi Mask 15.0 12/21/19 12:00 15.0 55 12/21/19 11:00 94 38 117/61 (79) 99 I&O Intake and Output 12/21/19 12/22/19 19:00 07:00 Intake Total 829 ml 480 ml Output Total 490 ml 600 ml Balance 339 ml -120 ml Intake Free Water 20 ml IV Total 55 ml Tube Feeding 480 ml 480 ml Blood Product 274 ml Output Urine Total 490 ml 600 ml # Bowel Movements 2 Dressing: other Wound: other Drains: other Cardiovascular: RSR Respiratory: decreased breath sounds Abdomen: soft, non-tender, present bowel sounds Extremities: no cyanosis Laboratory Tests Test 12/22/19 04:00 12/22/19 08:38 White Blood Count 8.5 K/UL (4.8-10.8) Red Blood Count 3.04 M/UL (4.20-5.40) L Hemoglobin 8.4 G/DL (12.0-16.0) L Hematocrit 25.3 % (37.0-47.0) L Mean Corpuscular Volume 83 FL (80-99) Mean Corpuscular Hemoglobin 27.6 PG (27.0-31.0) Mean Corpuscular Hemoglobin Concent 33.3 G/DL (32.0-36.0) Red Cell Distribution Width 14.6 % (11.6-14.8) Platelet Count 141 K/UL (150-450) L Mean Platelet Volume 7.5 FL (6.5-10.1) Neutrophils (%) (Auto) % (45.0-75.0) Lymphocytes (%) (Auto) % (20.0-45.0) Monocytes (%) (Auto) % (1.0-10.0) Eosinophils (%) (Auto) % (0.0-3.0) Basophils (%) (Auto) % (0.0-2.0) Differential Total Cells Counted 100 Neutrophils % (Manual) 85 % (45-75) H Lymphocytes % (Manual) 11 % (20-45) L Monocytes % (Manual) 3 % (1-10) Eosinophils % (Manual) 1 % (0-3) Basophils % (Manual) 0 % (0-2) Band Neutrophils 0 % (0-8) Nucleated Red Blood Cells 1 /100 WBC Platelet Estimate Decreased L Platelet Morphology Normal Hypochromasia 2+ Anisocytosis 1+ Spherocytes 1+ Sodium Level 153 MMOL/L (136-145) H Potassium Level 4.1 MMOL/L (3.5-5.1) Chloride Level 112 MMOL/L (98-107) H Carbon Dioxide Level 41 MMOL/L (21-32) *H Anion Gap 1 mmol/L (5-15) L Blood Urea Nitrogen 26 mg/dL (7-18) H Creatinine 0.7 MG/DL (0.55-1.30) Estimat Glomerular Filtration Rate > 60 mL/min (>60) Glucose Level 135 MG/DL (74-106) H Calcium Level 7.7 MG/DL (8.5-10.1) L Total Bilirubin 0.2 MG/DL (0.2-1.0) Aspartate Amino Transf (AST/SGOT) 54 U/L (15-37) H Alanine Aminotransferase (ALT/SGPT) 48 U/L (12-78) Alkaline Phosphatase 182 U/L (46-116) H Total Protein 5.7 G/DL (6.4-8.2) L Albumin 1.2 G/DL (3.4-5.0) L Globulin 4.5 g/dL Albumin/Globulin Ratio 0.3 (1.0-2.7) L Arterial Blood pH 7.472 (7.350-7.450) Arterial Blood Partial Pressure CO2 63.6 mmHg (35.0-45.0) *H Arterial Blood Partial Pressure O2 62.4 mmHg (75.0-100.0) L Arterial Blood HCO3 45.5 mmol/L (22.0-26.0) *H Arterial Blood Oxygen Saturation 90.4 % (95-100) L Arterial Blood Base Excess 19.3 (-2-2) *H Miki Test Positive Plan Problems: (1) Uncontrolled diabetes mellitus (2) Suspected 2019 novel coronavirus infection Assessment & Plan: neg (3) Septic shock Assessment & Plan: septic hypotension line placed see note resuscitation initiated discussed in detail with daughter at bedside for ome time tren dlabs fluids pressors will follow with recs DAILY ESTIMATED NEEDS: Needs based on Pulmonary, wounds, sepsis/ 51kg abw 25-30 kcals/kg [id number] total kcals 1.25-2 g protein/kg 63-102 g total protein 25-30 mL/kg 0303-4172 total fluid mLs NUTRITION DIAGNOSIS: * Increased kcal/prot needs R/T wound healing as evidenced by pt admitted w/ multiple unstageable and DTPI wounds, refer to WC eval. * Swallowing difficulty R/T dysphagia as evidenced by PEG dep. ENTERAL NUTRITION RECOMMENDATIONS: Glucerna 1.5 @ 40ml/hr x 24 hrs to provide 960ml, 1440kcal, 79g prot, 729ml free water * W/ hemodynamic stability, initiate Glucerna 1.5 @ 20ml/hr x 6hrs * Advance 10ml q 4-6 hrs as tolerated to goal rate * HOB over 30 degrees/ water flush per MD. WITHOUT HEMODYNAMIC STABILITY: rec trophic feeding of Glucerna 1.5 @ 10ml/hr x 24 hrs ADDITIONAL RECOMMENDATIONS: * Per SNF: HT=61" UV=[id number] ("October wts" per SNF) -> rec to re-calibrate bedscale wt * Monitor hemodynamic stability: on NE @ 20mcg * Monitor BGs closely: BG 798 upon adm -> improved rec D5 while NPO to prevent hypoglycemia. * Wound healing: add Vit C 500mg QD Sae BID w/ TF order (4) Lactic acidosis (5) Respiratory failure (6) Decubitus skin ulcer Assessment & Plan: Pt presented on admission with multiple pressure injuries. Unstageable Sacral Pressure injury with presents as open DTPI. Soft necrosis at Base of wound with marginal erythema along edges.Small opening noted to L sacrum. No odor or exudate noted. Periwound without evidence of further skin breakdown. DTPI noted to medial L malleolus. Base of wound is maroon with marginal erythema. DTPI medial L heel base of wound is maroon with fluctuance. DTPI L Hallux. Base of wound is maroon with marginal erythema along borders. Reabsorbing DTPI lateral L heel. Base of injury ids dry. Unstageable pressure injuries noted to distal/lateral R foot. Soft necrosis at base of wound. Unstageable pressure injury dorso/lateral R 5th metatarsal. Soft necrosis at base of wound. Unstageable pressure injury web space of R 4th metatarsal. Base of wound is necrotic and partially opened. no exudate noted. DTPI noted to R lateral malleolus. Base of wound is maroon and soft with marginal erythema along borders. Tx.Plan: Cleanse Sacral wound with Saline. Apply TheraHoney. Apply Moisture Barrier paste periwound. Cover with Optifoam drsg. Change every 3 days and prn. Apply Betadine to wounds Distal /lateral R foot, R 4th and 5th metatarsals. Cover with Optifoam drsg every 3 days and prn. Apply Cavilon to both heels, Both hallux and malleoli. Cover each site with Optifoam drgs. Change every 7 days and prn. Reposition at least every 2hours or as tolerated. Place Pillow between knees. Off-load heels with Pillow. APM/MELANIE Mattress overlay. Joce Campbell December 22, 2019 10:57
[2019-12-22] MEDS ORDERED: Morphine Sulfate 2mg/ml Inj(IV/IM USE ONLY) IVP PRN (11:15)
[2019-12-22] MEDS ORDERED: Acetaminophen 650 MG SUPP RECTAL PRN (11:15)
[2019-12-22] MEDS ORDERED: Ertapenem 1 GM in NS 55 ML IVPB SCH (13:00)
[2019-12-22] MEDS ORDERED: D5W 275ml ONE (14:10)
[2019-12-22] MEDS ORDERED: 1/2 NS 1000ml IV ONE (14:10)
[2019-12-22] MEDS ORDERED: D5 1/2NS 1000ml IV ONE (14:10)
--- NOTE | 2019-12-22 14:43 | NUR ---
NURSE NOTES: Patient noted desaturating to 45% SpO2 while on BiPAP 12/5 with FiO2 100%. Called RT and titrated BiPAP setting to 25/18 FiO2 100% SpO2 elevated to 85%. Patient is DNR/DNI. Patient family at bedside. BP 126/85 HR 99. Contacted and informed Dr. Humphrey of assessments. Dr. Humphrey acknowledged and ordered ABG and chest x-ray. Orders entered, noted, and carried out. Will continue to monitor patient.
--- NOTE | 2019-12-22 16:10 | Diagnostic Imaging Report ---
EXAM: XR Chest, 1 View CLINICAL HISTORY: Shortness of breath TECHNIQUE: Frontal view of the chest. COMPARISON: Chest x-ray dated 12/19/19 FINDINGS: Lungs: No significant interval change in the patchy interstitial and airspace opacities in bilateral lungs, most prominent in the left mid and lower lung. Pleural space: Possible small left pleural effusion, not significantly changed. Heart: Unremarkable. No cardiomegaly. Mediastinum: Unremarkable. Bones/joints: Unremarkable. Vasculature: Atherosclerotic calcifications are noted within the aortic arch. Tubes, lines and devices: Stable positioning of a left subclavian central venous catheter with the tip in the region of the SVC. Telemetry leads overlie the thorax. IMPRESSION: 1. No significant interval change in the patchy interstitial and airspace opacities in bilateral lungs, most prominent in the left mid and lower lung. 2. Possible small left pleural effusion, not significantly changed.
--- NOTE | 2019-12-22 16:53 | NUR ---
NURSE NOTES: Dr. Humphrey called back nurse station and this nurse reported ABG results of pH 7.288, pCO2 97.2, pO2 69.6, HCO3 88.9, and base excess of 15.5 while on Bipap setting of 25/18 FiO2 100%. Also read back chest x-ray impressions. Dr. Humphrey acknowledged and ordered Bipap setting of 16/4 FiO2 100% and ABG lab 1 hour after Bipap setting changed. Dr. Humphrey also spoke with patient's daughter Lucia via telephone and clarified regarding patient's code status of DNR/DNI, patient's daughter verbalized understanding. No new orders given regarding patient's code status of DNR/DNI. Will continue to monitor patient.
--- NOTE | 2019-12-22 16:55 | NUR ---
NURSE NOTES: Per patient's daughter, Lucia, both she and brother Ibrahima agree on code status of DNR/DNI. Noted. Will continue to monitor patient.
--- NOTE | 2019-12-22 19:21 | NUR ---
HAND-OFF: Report given to LORNA Faria.
--- NOTE | 2019-12-22 19:33 | NUR ---
NURSE NOTES: Received report from LORNA Garcia, pt. in bed with eyes open- family at bedside, no tracking from eyes noted, pt. is sating at 80% on current BIPAP settings 14/11 at fio2 @100%- per endorsement DR. Humphrey is aware and RT is going to do ABG- notified Brandy RT- is aware. Pt. appears to be ST on monitor at 119, call light within easy reach, bed alarm on, side rails up x's 3 and safety brakes engaged, Glucerna 1.5 running at 40CC/hr- no residual noted, pt. appears clean and dry, pt. has left SUBCLAVIAN TLC- TKO- intact, will continue to monitor pt. and with plan of care. Addendum: 12/22/19 at 1943 by EDD ETIENNE RN RN Griffin intact and draining to gravity.
--- NOTE | 2019-12-22 19:55 | NUR ---
NURSE NOTES: pulse ox replaced to finger as the one on ear was loose- family at bedside- now pulse ox is at 98%- pt. appears to be sating well - and no distress noted.
[2019-12-22] MEDS: Dyna-Hex 2% Top Sol 2oz TOPIC SCH (20:10)
[2019-12-22] MEDS ORDERED: Norepinephrine Bitartrate 8 MG in D5W 500ml 492 ML IV SCH (21:30)
--- NOTE | 2019-12-22 21:37 | NUR ---
NURSE NOTES: left message for DR. Humphrey regarding ABG results- awaiting for call back from doctor.
[2019-12-23] VITALS: BP 95/47
--- NOTE | 2019-12-23 03:15 | Progress Note ---
DATE: 12/22/2019 CARDIOLOGY PROGRESS NOTE SUBJECTIVE: The patient remains in the intensive care unit. Condition remains critical. Prognosis guarded. The patient remains with poor respiratory effort on high-flow mask. Nonverbal. Poorly interactive. OBJECTIVE: VITAL SIGNS: Blood pressure 109/53, pulse 109, respirations 30, afebrile, and oxygen saturation 85 to 98% on a non-rebreather. NECK: Elevated jugular venous pressure. LUNGS: Diminished breath sounds. Rhonchi. CARDIAC: Regular rhythm. Rapid rate. Normal S1 and S2. ABDOMEN: Soft. EXTREMITIES: Trace edema. LABORATORY DATA: White count 8.5 and hemoglobin 8.4. Sodium 153, potassium 4.1, bicarb 41, BUN 26, and creatinine 0.7. Albumin 1.2. ABG, 7.4, 68, 98. IMPRESSION: 1. Anemia status post transfusion. 2. Non ST-elevation myocardial infarction. 3. Sepsis with shock. 4. Respiratory failure. 5. Hypernatremia. 6. Dehydration. 7. Metabolic alkalosis. 8. Severe protein-calorie malnutrition. PLAN: 1. Remain off pressors. 2. Hypotonic IV fluid hydration. 3. Antimicrobials. 4. Respiratory hygiene. 5. Prognosis is poor. Slava Hsu M.D. DR: MICHAEL JOB#: [id number] CC:
[2019-12-23] MEDS: NovoLOG Insulin Flexpen SUBQ SCH ×6 (03:35→23:28)
[2019-12-23 04:00] VITALS: BP 95/40
[2019-12-23 05:28] LABS: HEMATOCRIT 24.7 % (37.0-47.0); MEAN CORPUSCULAR VOLUME 85 FL (80-99); PLATELET COUNT 153 K/UL (150-450); RED BLOOD COUNT 2.93 M/UL (4.20-5.40); RED CELL DISTRIBUTION WIDTH 14.9 % (11.6-14.8)
[2019-12-23 05:39] LABS: ALANINE AMINOTRANSFERASE 38 U/L (12-78); ALBUMIN 1.2 G/DL (3.4-5.0); ALBUMIN/GLOBULIN RATIO 0.3 (1.0-2.7); ALKALINE PHOSPHATASE 155 U/L (46-116); ANION GAP -3 mmol/L (5-15); ASPARTATE AMINO TRANSFERASE 44 U/L (15-37); BILIRUBIN,TOTAL 0.3 MG/DL (0.2-1.0); BLOOD UREA NITROGEN 30 mg/dL (7-18); CHLORIDE 117 MMOL/L (98-107); CREATININE 0.7 MG/DL (0.55-1.30); POTASSIUM 4.1 MMOL/L (3.5-5.1); SODIUM 158 MMOL/L (136-145)
[2019-12-23 05:54] LABS: CARBON DIOXIDE 43 MMOL/L (21-32)
--- NOTE | 2019-12-23 06:07 | NUR ---
NURSE NOTES: Left message for DR. Humphrey regarding critical value CO2 43.7- awaiting for call back from doctor.
--- NOTE | 2019-12-23 06:58 | NUR ---
HAND-OFF: Report given to Andrea ROTHMAN, pt. remains stable and no signs of distress noted- Aware to f/u on Co2 trending up and any abnormal am labs.
--- NOTE | 2019-12-23 07:58 | Critical Care Progress Note ---
Assessment/Plan Assessment/Plan IMPRESSION: Respiratory distress, evidence of bilateral pulmonary infiltrates, hypernatremia, acute on chronic renal failure, severe protein-calorie malnutrition, toxic metabolic encephalopathy, dementia, metabolic acidosis, lactic acidemia, elevated troponin, possible demand ischemia, leukocytosis, probable sepsis, anemia. worsening hypoxemia with hypoxemic respiratory failure PLAN care noted BIPAP as needed taper fio2 as able- high needs d/w nursing in detail iv antibiotics noted imaging reviewed- no significant improvement monitor fluid status elevate head DNR replace lytes tube feeds monitor for residuals no intubation per advance directives monitor acid base and CO2 levels BIPAP if needed close follow up and monitoring - reviewed [facility] care flow sheets reviewed off load position change critical with guarded prognosis medications/laboratory data/nursing notes reviewed in detail note reviewed and edited care discussed with RN and RT time spent >40 minutes Critical Care - Subjective Interval Events: remains ill out of ICU in SDU on BIPAP back on 100% ROS Limited/Unobtainable: Yes Condition: critical EKG Rhythm: Sinus Rhythm Residuals: minimal Tube Feeding Tolerated: yes I&O: Intake and Output 12/22/19 12/23/19 19:00 07:00 Intake Total 680 ml 490 ml Output Total 420 ml 800 ml Balance 260 ml -310 ml Intake Free Water 200 ml 50 ml Tube Feeding 480 ml 440 ml Output Urine Total 420 ml 800 ml # Bowel Movements 1 Critical Care - Objective CXR: persistent infiltrates Last 24 Hour Vital Signs Date Time Temp Pulse Resp B/P (MAP) Pulse Ox O2 Delivery O2 Flow Rate FiO2 12/23/19 04:00 Non-Rebreather 15.0 Non-Rebreather 15.0 Non-Rebreather 15.0 12/23/19 04:00 100 12/23/19 04:00 98.1 97 30 95/40 (58) 100 12/23/19 03:57 93 12/23/19 03:29 98 33 99 100 12/23/19 00:00 98.6 84 28 95/47 (63) 100 12/23/19 00:00 100 12/23/19 00:00 Non-Rebreather 15.0 Non-Rebreather 15.0 Non-Rebreather 15.0 12/22/19 23:55 96 12/22/19 22:44 110 36 98 100 12/22/19 20:01 123 34 96 100 12/22/19 20:00 Non-Rebreather 15.0 Non-Rebreather 15.0 Non-Rebreather 15.0 12/22/19 20:00 98.1 106 30 98/73 (81) 99 12/22/19 20:00 100 12/22/19 19:35 96 Bi-Pap 100 12/22/19 19:26 105 12/22/19 17:25 115 35 90 100 12/22/19 16:00 Non-Rebreather 15.0 Non-Rebreather 15.0 Non-Rebreather 15.0 12/22/19 16:00 117 12/22/19 16:00 98.1 84 30 109/59 (76) 93 12/22/19 15:00 116 32 89 100 12/22/19 12:00 88 12/22/19 12:00 98.2 101 28 140/72 (94) 96 12/22/19 12:00 Non-Rebreather 15.0 Non-Rebreather 15.0 Non-Rebreather 15.0 12/22/19 10:54 102 25 100 Bi-Pap 100 12/22/19 10:35 102 25 100 100 12/22/19 10:32 105 12/22/19 10:00 109 40 122/73 (89) 97 12/22/19 09:00 101 33 129/61 (83) 97 12/22/19 08:00 15.0 12/22/19 08:00 Non-Rebreather 15.0 Non-Rebreather 15.0 Non-Rebreather 15.0 12/22/19 08:00 102 12/22/19 08:00 100 32 110/60 (77) 98 12/22/19 07:59 95 Non-Rebreather 15.0 100 Labs: Laboratory Tests Test 12/22/19 08:38 12/22/19 15:36 12/22/19 19:35 12/23/19 04:00 Arterial Blood pH 7.472 (7.350-7.450) 7.288 (7.350-7.450) 7.404 (7.350-7.450) Arterial Blood Partial Pressure CO2 63.6 mmHg (35.0-45.0) *H 97.2 mmHg (35.0-45.0) *H 68.2 mmHg (35.0-45.0) *H Arterial Blood Partial Pressure O2 62.4 mmHg (75.0-100.0) L 69.6 mmHg (75.0-100.0) L 97.9 mmHg (75.0-100.0) Arterial Blood HCO3 45.5 mmol/L (22.0-26.0) *H 45.5 mmol/L (22.0-26.0) *H 41.7 mmol/L (22.0-26.0) *H Arterial Blood Oxygen Saturation 90.4 % (95-100) L 88.9 % (95-100) *L 96.1 % (95-100) Arterial Blood Base Excess 19.3 (-2-2) *H 15.5 (-2-2) *H 14.7 (-2-2) *H Miki Test Positive Positive Positive White Blood Count 7.0 K/UL (4.8-10.8) Red Blood Count 2.93 M/UL (4.20-5.40) L Hemoglobin 8.0 G/DL (12.0-16.0) L Hematocrit 24.7 % (37.0-47.0) L Mean Corpuscular Volume 85 FL (80-99) Mean Corpuscular Hemoglobin 27.2 PG (27.0-31.0) Mean Corpuscular Hemoglobin Concent 32.1 G/DL (32.0-36.0) Red Cell Distribution Width 14.9 % (11.6-14.8) H Platelet Count 153 K/UL (150-450) Mean Platelet Volume 8.6 FL (6.5-10.1) Neutrophils (%) (Auto) % (45.0-75.0) Lymphocytes (%) (Auto) % (20.0-45.0) Monocytes (%) (Auto) % (1.0-10.0) Eosinophils (%) (Auto) % (0.0-3.0) Basophils (%) (Auto) % (0.0-2.0) Neutrophils % (Manual) Pending Lymphocytes % (Manual) Pending Platelet Estimate Pending Platelet Morphology Pending Sodium Level 158 MMOL/L (136-145) H Potassium Level 4.1 MMOL/L (3.5-5.1) Chloride Level 117 MMOL/L (98-107) H Carbon Dioxide Level 43 MMOL/L (21-32) *H Anion Gap -3 mmol/L (5-15) L Blood Urea Nitrogen 30 mg/dL (7-18) H Creatinine 0.7 MG/DL (0.55-1.30) Estimat Glomerular Filtration Rate > 60 mL/min (>60) Glucose Level 141 MG/DL (74-106) H Calcium Level 8.0 MG/DL (8.5-10.1) L Total Bilirubin 0.3 MG/DL (0.2-1.0) Aspartate Amino Transf (AST/SGOT) 44 U/L (15-37) H Alanine Aminotransferase (ALT/SGPT) 38 U/L (12-78) Alkaline Phosphatase 155 U/L (46-116) H Total Protein 5.7 G/DL (6.4-8.2) L Albumin 1.2 G/DL (3.4-5.0) L Globulin 4.5 g/dL Albumin/Globulin Ratio 0.3 (1.0-2.7) L Objective: GENERAL: The patient is chronically ill. on BIPAP HEENT: Overall negative. NECK: Supple. LUNGS: Moderate breath sounds. persistent rhonchi noted CARDIAC: S1 and S2, currently regular rate and rhythm. without MRG ABDOMEN: Overall soft, nontender. no distention EXTREMITIES: No significant edema. Decreased range of motion. G-tube in place. Depressed affect. Aphasic. reviewed and edited Accucheck: 139 Tonny Ramirez MD December 23, 2019 07:58
[2019-12-23 08:00] VITALS: BP 108/51
[2019-12-23] MEDS: Heparin 5000 units/ml inj SUBQ SCH ×2 (08:45→20:26)
[2019-12-23] MEDS: Levemir Flexpen SUBQ SCH ×2 (08:48→20:27)
--- NOTE | 2019-12-23 08:50 | General Progress Note ---
Assessment/Plan Problem List: (1) Respiratory failure ICD Codes: J96.90 - Respiratory failure, unspecified, unspecified whether with hypoxia or hypercapnia SNOMED: 077758386 (2) Lactic acidosis ICD Codes: E87.2 - Acidosis SNOMED: 12230901 (3) Uncontrolled diabetes mellitus ICD Codes: E11.65 - Type 2 diabetes mellitus with hyperglycemia SNOMED: 61633917, 343596108 (4) Suspected 2019 novel coronavirus infection ICD Codes: Z20.828 - Contact with and (suspected) exposure to other viral communicable diseases SNOMED: 041704280 (5) Septic shock ICD Codes: A41.9 - Sepsis, unspecified organism; R65.21 - Severe sepsis with septic shock SNOMED: 97263007 Status: stable, not improved Assessment/Plan: cont bipap hypotonic ivf o2 as needed tube feeds- titrate up. monitor residuals follow up cultures dvt/stress ulcer prophylaxis monitor h/h transfuse as needed critical and guarded. prognosis poor dnr d/w cardiology poc time spent 60mins Subjective ROS Limited/Unobtainable: No Constitutional: Reports: malaise, weakness HEENT: Reports: no symptoms Cardiovascular: Reports: no symptoms Respiratory: Reports: cough, shortness of breath Gastrointestinal/Abdominal: Reports: difficulty swallowing Genitourinary: Reports: no symptoms Neurologic/Psychiatric: Reports: no symptoms Endocrine: Reports: no symptoms Hematologic/Lymphatic: Reports: anemia Allergies: Coded Allergies: PENICILLINS (Verified Allergy, Unknown, 12/14/19) All Systems: reviewed and negative except above Subjective placed on bipap because of resp acidosis. Ph and pco2 improved. no distress. awake but nonverbal. no fever or chills. +sob. ?anxiety. d/w Dtr at [facility] x 20 mins. Objective Last 24 Hour Vital Signs Date Time Temp Pulse Resp B/P (MAP) Pulse Ox O2 Delivery O2 Flow Rate FiO2 12/23/19 04:00 Non-Rebreather 15.0 Non-Rebreather 15.0 Non-Rebreather 15.0 12/23/19 04:00 100 12/23/19 04:00 98.1 97 30 95/40 (58) 100 12/23/19 03:57 93 12/23/19 03:29 98 33 99 100 12/23/19 00:00 98.6 84 28 95/47 (63) 100 12/23/19 00:00 100 12/23/19 00:00 Non-Rebreather 15.0 Non-Rebreather 15.0 Non-Rebreather 15.0 12/22/19 23:55 96 12/22/19 22:44 110 36 98 100 12/22/19 20:01 123 34 96 100 12/22/19 20:00 Non-Rebreather 15.0 Non-Rebreather 15.0 Non-Rebreather 15.0 12/22/19 20:00 98.1 106 30 98/73 (81) 99 12/22/19 20:00 100 12/22/19 19:35 96 Bi-Pap 100 12/22/19 19:26 105 12/22/19 17:25 115 35 90 100 12/22/19 16:00 Non-Rebreather 15.0 Non-Rebreather 15.0 Non-Rebreather 15.0 12/22/19 16:00 117 12/22/19 16:00 98.1 84 30 109/59 (76) 93 12/22/19 15:00 116 32 89 100 12/22/19 12:00 88 12/22/19 12:00 98.2 101 28 140/72 (94) 96 12/22/19 12:00 Non-Rebreather 15.0 Non-Rebreather 15.0 Non-Rebreather 15.0 12/22/19 10:54 102 25 100 Bi-Pap 100 12/22/19 10:35 102 25 100 100 12/22/19 10:32 105 12/22/19 10:00 109 40 122/73 (89) 97 12/22/19 09:00 101 33 129/61 (83) 97 Intake and Output 12/22/19 12/23/19 19:00 07:00 Intake Total 680 ml 490 ml Output Total 420 ml 800 ml Balance 260 ml -310 ml Intake Free Water 200 ml 50 ml Tube Feeding 480 ml 440 ml Output Urine Total 420 ml 800 ml # Bowel Movements 1 Laboratory Tests 12/22/19 15:36: Arterial Blood pH 7.288L, Arterial Blood Partial Pressure CO2 97.2*H, Arterial Blood Partial Pressure O2 69.6L, Arterial Blood HCO3 45.5*H, Arterial Blood Oxygen Saturation 88.9*L, Arterial Blood Base Excess 15.5*H, Miki Test Positive 12/22/19 19:35: Arterial Blood pH 7.404, Arterial Blood Partial Pressure CO2 68.2*H, Arterial Blood Partial Pressure O2 97.9, Arterial Blood HCO3 41.7*H, Arterial Blood Oxygen Saturation 96.1, Arterial Blood Base Excess 14.7*H, Miki Test Positive 12/23/19 04:00: White Blood Count 7.0, Red Blood Count 2.93L, Hemoglobin 8.0L, Hematocrit 24.7L , Mean Corpuscular Volume 85, Mean Corpuscular Hemoglobin 27.2, Mean Corpuscular Hemoglobin Concent 32.1, Red Cell Distribution Width 14.9H, Platelet Count 153, Mean Platelet Volume 8.6, Neutrophils (%) (Auto) , Lymphocytes (%) (Auto) , Monocytes (%) (Auto) , Eosinophils (%) (Auto) , Basophils (%) (Auto) , Neutrophils % (Manual) [Pending], Lymphocytes % (Manual) [Pending], Platelet Estimate [Pending], Platelet Morphology [Pending], Sodium Level 158H, Potassium Level 4.1, Chloride Level 117H, Carbon Dioxide Level 43*H , Anion Gap -3L, Blood Urea Nitrogen 30H, Creatinine 0.7, Estimat Glomerular Filtration Rate > 60, Glucose Level 141H, Calcium Level 8.0L, Total Bilirubin 0.3, Aspartate Amino Transf (AST/SGOT) 44H, Alanine Aminotransferase (ALT/SGPT) 38, Alkaline Phosphatase 155H, Total Protein 5.7L, Albumin 1.2L, Globulin 4.5, Albumin/Globulin Ratio 0.3L Height (Feet): 5 Height (Inches): 6.00 Weight (Pounds): 141 Objective General Appearance: WD/WN, alert, confused. on venti mask EENT: PERRL/EOMI, normal ENT inspection Neck: non-tender, normal alignment, supple Cardiovascular: normal peripheral pulses, normal rate, regular rhythm Respiratory/Chest: chest wall non-tender, lungs clear, normal breath sounds, no respiratory distress, respiratory distress, accessory muscle use Abdomen: normal bowel sounds, non tender, soft, no organomegaly Edema: moderate edema Neurologic: disoriented, unresponsive, aphasia Skin: normal pigmentation Paxton Humphrey MD December 23, 2019 08:50
[2019-12-23] MEDS ORDERED: Tubing Blood Filter IV ONE (10:04)
[2019-12-23] MEDS ORDERED: NS 275ml ONE (10:04)
--- NOTE | 2019-12-23 11:36 | Infectious Diseases Prog Note ---
Assessment/Plan Assessment/Plan A 1. Pneumonia. COVID-19 test is negative x2 2. E.coli and Streptococcus urinary tract infection. 3. Positive blood cultures with coagulase-negative Staph likely a contaminant. 4. shock improving 5. Anemia 6. Hypoxic respiratory failure 7. MRSA carrier PLAN: 1. Discontinue Ertapenem. 2. Case was D/W patient's son Subjective ROS Limited/Unobtainable: Yes Constitutional: Denies: fever Allergies: Coded Allergies: PENICILLINS (Verified Allergy, Unknown, 12/14/19) Objective Vital Signs Last 24 Hour Vital Signs Date Time Temp Pulse Resp B/P (MAP) Pulse Ox O2 Delivery O2 Flow Rate FiO2 12/23/19 07:44 112 12/23/19 04:00 Non-Rebreather 15.0 Non-Rebreather 15.0 Non-Rebreather 15.0 12/23/19 04:00 100 12/23/19 04:00 98.1 97 30 95/40 (58) 100 12/23/19 03:57 93 12/23/19 03:29 98 33 99 100 12/23/19 00:00 98.6 84 28 95/47 (63) 100 12/23/19 00:00 100 12/23/19 00:00 Non-Rebreather 15.0 Non-Rebreather 15.0 Non-Rebreather 15.0 12/22/19 23:55 96 12/22/19 22:44 110 36 98 100 12/22/19 20:01 123 34 96 100 12/22/19 20:00 Non-Rebreather 15.0 Non-Rebreather 15.0 Non-Rebreather 15.0 12/22/19 20:00 98.1 106 30 98/73 (81) 99 12/22/19 20:00 100 12/22/19 19:35 96 Bi-Pap 100 12/22/19 19:26 105 12/22/19 17:25 115 35 90 100 12/22/19 16:00 Non-Rebreather 15.0 Non-Rebreather 15.0 Non-Rebreather 15.0 12/22/19 16:00 117 12/22/19 16:00 98.1 84 30 109/59 (76) 93 12/22/19 15:00 116 32 89 100 12/22/19 12:00 88 5/23/20 12:00 98.2 101 28 140/72 (94) 96 12/22/19 12:00 Non-Rebreather 15.0 Non-Rebreather 15.0 Non-Rebreather 15.0 Height (Feet): 5 Height (Inches): 6.00 Weight (Pounds): 141 HEENT: mucous membranes moist Respiratory/Chest: decreased breath sounds, other - on BIPAP Cardiovascular: tachycardia Abdomen: soft, non tender, other - GT feeding Extremities: other - SCD of legs Neurologic/Psychiatric: other - opens eyes Laboratory Tests Test 12/22/19 15:36 12/22/19 19:35 12/23/19 04:00 Arterial Blood pH 7.288 (7.350-7.450) 7.404 (7.350-7.450) Arterial Blood Partial Pressure CO2 97.2 mmHg (35.0-45.0) *H 68.2 mmHg (35.0-45.0) *H Arterial Blood Partial Pressure O2 69.6 mmHg (75.0-100.0) L 97.9 mmHg (75.0-100.0) Arterial Blood HCO3 45.5 mmol/L (22.0-26.0) *H 41.7 mmol/L (22.0-26.0) *H Arterial Blood Oxygen Saturation 88.9 % (95-100) *L 96.1 % (95-100) Arterial Blood Base Excess 15.5 (-2-2) *H 14.7 (-2-2) *H Miki Test Positive Positive White Blood Count 7.0 K/UL (4.8-10.8) Red Blood Count 2.93 M/UL (4.20-5.40) L Hemoglobin 8.0 G/DL (12.0-16.0) L Hematocrit 24.7 % (37.0-47.0) L Mean Corpuscular Volume 85 FL (80-99) Mean Corpuscular Hemoglobin 27.2 PG (27.0-31.0) Mean Corpuscular Hemoglobin Concent 32.1 G/DL (32.0-36.0) Red Cell Distribution Width 14.9 % (11.6-14.8) H Platelet Count 153 K/UL (150-450) Mean Platelet Volume 8.6 FL (6.5-10.1) Neutrophils (%) (Auto) % (45.0-75.0) Lymphocytes (%) (Auto) % (20.0-45.0) Monocytes (%) (Auto) % (1.0-10.0) Eosinophils (%) (Auto) % (0.0-3.0) Basophils (%) (Auto) % (0.0-2.0) Differential Total Cells Counted 100 Neutrophils % (Manual) 86 % (45-75) H Lymphocytes % (Manual) 9 % (20-45) L Monocytes % (Manual) 4 % (1-10) Eosinophils % (Manual) 1 % (0-3) Basophils % (Manual) 0 % (0-2) Band Neutrophils 0 % (0-8) Platelet Estimate Adequate Platelet Morphology Normal Hypochromasia 2+ Anisocytosis 1+ Sodium Level 158 MMOL/L (136-145) H Potassium Level 4.1 MMOL/L (3.5-5.1) Chloride Level 117 MMOL/L (98-107) H Carbon Dioxide Level 43 MMOL/L (21-32) *H Anion Gap -3 mmol/L (5-15) L Blood Urea Nitrogen 30 mg/dL (7-18) H Creatinine 0.7 MG/DL (0.55-1.30) Estimat Glomerular Filtration Rate > 60 mL/min (>60) Glucose Level 141 MG/DL (74-106) H Calcium Level 8.0 MG/DL (8.5-10.1) L Total Bilirubin 0.3 MG/DL (0.2-1.0) Aspartate Amino Transf (AST/SGOT) 44 U/L (15-37) H Alanine Aminotransferase (ALT/SGPT) 38 U/L (12-78) Alkaline Phosphatase 155 U/L (46-116) H Total Protein 5.7 G/DL (6.4-8.2) L Albumin 1.2 G/DL (3.4-5.0) L Globulin 4.5 g/dL Albumin/Globulin Ratio 0.3 (1.0-2.7) L Current Medications Medications (Trade) Dose Ordered Sig/Ebenezer Route PRN Reason Start Time Stop Time Status Last Admin Dose Admin Acetaminophen (Tylenol) 650 mg Q4H PRN RECTAL MILD/TEMP 12/22/19 11:15 01/12/20 11:14 Chlorhexidine Gluconate (Dee-Hex 2%) 1 applic DAILY@2000 TOPIC 12/22/19 20:00 03/12/20 19:59 12/22/19 20:10 Dextrose 1,000 ml @ 75 mls/hr [id number] IV 12/23/19 09:00 01/22/20 08:59 Dextrose (Dextrose 50%) 25 ml Q30M PRN IV Hypoglycemia 12/22/19 11:00 03/12/20 08:29 Dextrose (Dextrose 50%) 50 ml Q30M PRN IV Hypoglycemia 12/22/19 11:00 03/12/20 08:29 Ertapenem 1 gm/ Sodium Chloride 55 ml @ 110 mls/hr Q24H IVPB 12/22/19 13:00 12/23/19 12:59 12/22/19 13:08 Heparin Sodium (Porcine) (Heparin 5000 units/ml) 5,000 units EVERY 12 HOURS SUBQ 12/22/19 21:00 01/27/20 08:59 12/23/19 08:45 Insulin Aspart (NovoLOG) Q4H SUBQ 12/22/19 12:00 03/13/20 11:59 12/23/19 08:47 Insulin Detemir (Levemir) 10 units Q12HR SUBQ 12/22/19 21:00 03/13/20 08:59 12/23/19 08:48 Morphine Sulfate (Morphine Sulfate) 1 mg Q4H PRN IVP For Pain 12/22/19 11:15 12/26/19 11:14 Luciano Stevens MD December 23, 2019 11:36
[2019-12-23 12:00] VITALS: BP 101/53
--- NOTE | 2019-12-23 14:23 | Surgery Progress Note ---
Surgery Progress Note Subjective Procedure Performed left subclavian central venous catheter insertion Symptoms: other Objective Last 24 Hour Vital Signs Date Time Temp Pulse Resp B/P (MAP) Pulse Ox O2 Delivery O2 Flow Rate FiO2 12/23/19 11:57 116 32 96 100 12/23/19 11:38 111 12/23/19 07:44 112 12/23/19 07:10 98 Bi-Pap 100 12/23/19 07:05 105 35 98 100 12/23/19 04:00 Non-Rebreather 15.0 Non-Rebreather 15.0 Non-Rebreather 15.0 12/23/19 04:00 100 12/23/19 04:00 98.1 97 30 95/40 (58) 100 12/23/19 03:57 93 12/23/19 03:29 98 33 99 100 12/23/19 00:00 98.6 84 28 95/47 (63) 100 12/23/19 00:00 100 12/23/19 00:00 Non-Rebreather 15.0 Non-Rebreather 15.0 Non-Rebreather 15.0 12/22/19 23:55 96 12/22/19 22:44 110 36 98 100 12/22/19 20:01 123 34 96 100 12/22/19 20:00 Non-Rebreather 15.0 Non-Rebreather 15.0 Non-Rebreather 15.0 12/22/19 20:00 98.1 106 30 98/73 (81) 99 12/22/19 20:00 100 12/22/19 19:35 96 Bi-Pap 100 12/22/19 19:26 105 12/22/19 17:25 115 35 90 100 12/22/19 16:00 Non-Rebreather 15.0 Non-Rebreather 15.0 Non-Rebreather 15.0 12/22/19 16:00 117 12/22/19 16:00 98.1 84 30 109/59 (76) 93 12/22/19 15:00 116 32 89 100 I&O Intake and Output 12/22/19 12/23/19 19:00 07:00 Intake Total 680 ml 490 ml Output Total 420 ml 800 ml Balance 260 ml -310 ml Intake Free Water 200 ml 50 ml Tube Feeding 480 ml 440 ml Output Urine Total 420 ml 800 ml # Bowel Movements 1 Dressing: saturated Wound: other Cardiovascular: RSR Respiratory: decreased breath sounds Abdomen: soft, non-tender, present bowel sounds Extremities: no cyanosis Laboratory Tests Test 12/22/19 15:36 12/22/19 19:35 12/23/19 04:00 Arterial Blood pH 7.288 (7.350-7.450) 7.404 (7.350-7.450) Arterial Blood Partial Pressure CO2 97.2 mmHg (35.0-45.0) *H 68.2 mmHg (35.0-45.0) *H Arterial Blood Partial Pressure O2 69.6 mmHg (75.0-100.0) L 97.9 mmHg (75.0-100.0) Arterial Blood HCO3 45.5 mmol/L (22.0-26.0) *H 41.7 mmol/L (22.0-26.0) *H Arterial Blood Oxygen Saturation 88.9 % (95-100) *L 96.1 % (95-100) Arterial Blood Base Excess 15.5 (-2-2) *H 14.7 (-2-2) *H Miki Test Positive Positive White Blood Count 7.0 K/UL (4.8-10.8) Red Blood Count 2.93 M/UL (4.20-5.40) L Hemoglobin 8.0 G/DL (12.0-16.0) L Hematocrit 24.7 % (37.0-47.0) L Mean Corpuscular Volume 85 FL (80-99) Mean Corpuscular Hemoglobin 27.2 PG (27.0-31.0) Mean Corpuscular Hemoglobin Concent 32.1 G/DL (32.0-36.0) Red Cell Distribution Width 14.9 % (11.6-14.8) H Platelet Count 153 K/UL (150-450) Mean Platelet Volume 8.6 FL (6.5-10.1) Neutrophils (%) (Auto) % (45.0-75.0) Lymphocytes (%) (Auto) % (20.0-45.0) Monocytes (%) (Auto) % (1.0-10.0) Eosinophils (%) (Auto) % (0.0-3.0) Basophils (%) (Auto) % (0.0-2.0) Differential Total Cells Counted 100 Neutrophils % (Manual) 86 % (45-75) H Lymphocytes % (Manual) 9 % (20-45) L Monocytes % (Manual) 4 % (1-10) Eosinophils % (Manual) 1 % (0-3) Basophils % (Manual) 0 % (0-2) Band Neutrophils 0 % (0-8) Platelet Estimate Adequate Platelet Morphology Normal Hypochromasia 2+ Anisocytosis 1+ Sodium Level 158 MMOL/L (136-145) H Potassium Level 4.1 MMOL/L (3.5-5.1) Chloride Level 117 MMOL/L (98-107) H Carbon Dioxide Level 43 MMOL/L (21-32) *H Anion Gap -3 mmol/L (5-15) L Blood Urea Nitrogen 30 mg/dL (7-18) H Creatinine 0.7 MG/DL (0.55-1.30) Estimat Glomerular Filtration Rate > 60 mL/min (>60) Glucose Level 141 MG/DL (74-106) H Calcium Level 8.0 MG/DL (8.5-10.1) L Total Bilirubin 0.3 MG/DL (0.2-1.0) Aspartate Amino Transf (AST/SGOT) 44 U/L (15-37) H Alanine Aminotransferase (ALT/SGPT) 38 U/L (12-78) Alkaline Phosphatase 155 U/L (46-116) H Total Protein 5.7 G/DL (6.4-8.2) L Albumin 1.2 G/DL (3.4-5.0) L Globulin 4.5 g/dL Albumin/Globulin Ratio 0.3 (1.0-2.7) L Plan Problems: (1) Uncontrolled diabetes mellitus (2) Suspected 2019 novel coronavirus infection Assessment & Plan: neg (3) Septic shock Assessment & Plan: septic hypotension line placed see note resuscitation initiated discussed in detail with daughter at bedside for ome time tren dlabs fluids pressors will follow with recs DAILY ESTIMATED NEEDS: Needs based on Pulmonary, wounds, sepsis/ 51kg abw 25-30 kcals/kg 2908-6294 total kcals 1.25-2 g protein/kg 63-102 g total protein 25-30 mL/kg 1926-8306 total fluid mLs NUTRITION DIAGNOSIS: * Increased kcal/prot needs R/T wound healing as evidenced by pt admitted w/ multiple unstageable and DTPI wounds, refer to WC eval. * Swallowing difficulty R/T dysphagia as evidenced by PEG dep. ENTERAL NUTRITION RECOMMENDATIONS: Glucerna 1.5 @ 40ml/hr x 24 hrs to provide 960ml, 1440kcal, 79g prot, 729ml free water * W/ hemodynamic stability, initiate Glucerna 1.5 @ 20ml/hr x 6hrs * Advance 10ml q 4-6 hrs as tolerated to goal rate * HOB over 30 degrees/ water flush per MD. WITHOUT HEMODYNAMIC STABILITY: rec trophic feeding of Glucerna 1.5 @ 10ml/hr x 24 hrs ADDITIONAL RECOMMENDATIONS: * Per SNF: HT=61" UT=875wjg ("October wts" per SNF) -> rec to re-calibrate bedscale wt * Monitor hemodynamic stability: on NE @ 20mcg * Monitor BGs closely: BG 798 upon adm -> improved rec D5 while NPO to prevent hypoglycemia. * Wound healing: add Vit C 500mg QD Sae BID w/ TF order (4) Lactic acidosis (5) Respiratory failure (6) Decubitus skin ulcer Assessment & Plan: Pt presented on admission with multiple pressure injuries. Unstageable Sacral Pressure injury with presents as open DTPI. Soft necrosis at Base of wound with marginal erythema along edges.Small opening noted to L sacrum. No odor or exudate noted. Periwound without evidence of further skin breakdown. DTPI noted to medial L malleolus. Base of wound is maroon with marginal erythema. DTPI medial L heel base of wound is maroon with fluctuance. DTPI L Hallux. Base of wound is maroon with marginal erythema along borders. Reabsorbing DTPI lateral L heel. Base of injury ids dry. Unstageable pressure injuries noted to distal/lateral R foot. Soft necrosis at base of wound. Unstageable pressure injury dorso/lateral R 5th metatarsal. Soft necrosis at base of wound. Unstageable pressure injury web space of R 4th metatarsal. Base of wound is necrotic and partially opened. no exudate noted. DTPI noted to R lateral malleolus. Base of wound is maroon and soft with marginal erythema along borders. Tx.Plan: Cleanse Sacral wound with Saline. Apply TheraHoney. Apply Moisture Barrier paste periwound. Cover with Optifoam drsg. Change every 3 days and prn. Apply Betadine to wounds Distal /lateral R foot, R 4th and 5th metatarsals. Cover with Optifoam drsg every 3 days and prn. Apply Cavilon to both heels, Both hallux and malleoli. Cover each site with Optifoam drgs. Change every 7 days and prn. Reposition at least every 2hours or as tolerated. Place Pillow between knees. Off-load heels with Pillow. APM/MELANIE Mattress overlay. Joce Campbell December 23, 2019 14:23
[2019-12-23 16:00] VITALS: BP 101/56
--- NOTE | 2019-12-23 19:44 | NUR ---
HAND-OFF: Report given to Alla Constantino RN.
--- NOTE | 2019-12-23 19:45 | NUR ---
NURSE NOTES: received pt from Andrea ROTHMAN., pt is awake and resting on the bed AOx0 and eyes open. Bipap is on pt, O2sat is at 95% at this time. no pain s/s noted. no SOB noted. pt has Gtube intact, clean, and patent. Griffin cath is draining well with gravity. left Subclavian TLC intact, clean, and patent. call light within reach. bed at the lowest position, alarmed, and locked. will continue to monitor pt with plan of care. no active bleeding noted at this time.
[2019-12-23 20:00] VITALS: BP 128/70
[2019-12-23] MEDS: Dyna-Hex 2% Top Sol 2oz TOPIC SCH (20:24)
--- NOTE | 2019-12-23 23:10 | NUR ---
NURSE NOTES: notified Dr. Humphrey regarding D5W fluid is out of stock at this moment. and unable to administer that is scheduled on 2219. will wait for call back.
[2019-12-24] VITALS: BP 120/65
--- NOTE | 2019-12-24 01:45 | Progress Note ---
DATE: 12/23/2019 CARDIOLOGY PROGRESS NOTE SUBJECTIVE: Patient's condition deteriorated. She has developed worsening respiratory acidosis and is now on BiPAP support with some response. PHYSICAL EXAMINATION: VITAL SIGNS: Blood pressure tenuous 95/40, heart rate 97, respiratory rate 30, afebrile. LUNGS: Bilateral rhonchi. Diminished breath sounds. CARDIAC: Regular rhythm and rate. Normal S1, S2. Monitor, sinus rhythm without ectopy. ABDOMEN: Soft. EXTREMITIES: 1+ dependent edema. LABORATORY DATA: White count 7, hemoglobin 8. Sodium 158, potassium 4.1, chloride 117, bicarb 43, BUN 30, creatinine 0.7. IMPRESSION: 1. Acute respiratory acidosis, improved with BiPAP. 2. Compensatory metabolic alkalosis. 3. Severe dehydration. 4. Hypernatremia. 5. Hyperchloremia. 6. Prerenal azotemia. 7. Severe protein-calorie malnutrition. 8. Acute myocardial ischemia. 9. Sepsis with shock. 10. [id number]-[id number] myocardial infarction. PLAN: 1. Antimicrobials. 2. Respiratory hygiene. 3. BiPAP support as needed. 4. Insulin coverage by sliding scale. 5. Continue hypotonic IV fluids. 6. Avoid pressors. 7. DNR. Daughter aware of critical condition and guarded prognosis. Slava Hsu M.D. : ANTHONY JOB#: [id number] CC:
[2019-12-24 04:00] VITALS: BP 123/60
[2019-12-24] MEDS: NovoLOG Insulin Flexpen SUBQ SCH ×3 (04:00→12:00)
[2019-12-24 05:57] LABS: HEMATOCRIT 24.6 % (37.0-47.0); HEMOGLOBIN 7.8 G/DL (12.0-16.0); MEAN CORPUSCULAR VOLUME 85 FL (80-99); PLATELET COUNT 168 K/UL (150-450); RED BLOOD COUNT 2.88 M/UL (4.20-5.40); RED CELL DISTRIBUTION WIDTH 14.8 % (11.6-14.8); WHITE BLOOD COUNT 4.5 K/UL (4.8-10.8)
[2019-12-24 06:11] LABS: ANION GAP -2 mmol/L (5-15); BLOOD UREA NITROGEN 28 mg/dL (7-18); CALCIUM 7.8 MG/DL (8.5-10.1); CHLORIDE 119 MMOL/L (98-107); CREATININE 0.6 MG/DL (0.55-1.30); SODIUM 160 MMOL/L (136-145)
[2019-12-24 06:32] LABS: CARBON DIOXIDE 43 MMOL/L (21-32)
--- NOTE | 2019-12-24 06:37 | NUR ---
NURSE NOTES: notified Dr. Humphrey regarding Co2 43, sodium 160, hbg 7.8 will wait for call back. will continue to monitor pt.
--- NOTE | 2019-12-24 07:10 | NUR ---
NURSE NOTES: Dr. Humphrey at the bedside seeing pt.
--- NOTE | 2019-12-24 07:20 | NUR ---
HAND-OFF: Report given to Nilam boston RN., pt is stable condition, endorsed plan of care. no active bleeding noted. no SOB noted at this moment.
--- NOTE | 2019-12-24 07:30 | NUR ---
received pt on bipap lethergic skin warm and dry to touch ,vs stable no distress
[2019-12-24 08:00] VITALS: BP 112/63
--- NOTE | 2019-12-24 08:08 | General Progress Note ---
Assessment/Plan Problem List: (1) Respiratory failure ICD Codes: J96.90 - Respiratory failure, unspecified, unspecified whether with hypoxia or hypercapnia SNOMED: 541327135 (2) Lactic acidosis ICD Codes: E87.2 - Acidosis SNOMED: 20847288 (3) Uncontrolled diabetes mellitus ICD Codes: E11.65 - Type 2 diabetes mellitus with hyperglycemia SNOMED: 53863780, 642644428 (4) Suspected 2019 novel coronavirus infection ICD Codes: Z20.828 - Contact with and (suspected) exposure to other viral communicable diseases SNOMED: 340631403 (5) Septic shock ICD Codes: A41.9 - Sepsis, unspecified organism; R65.21 - Severe sepsis with septic shock SNOMED: 94420510 Status: stable, not improved Assessment/Plan: cont bipap hypotonic ivf- 1/2ns as hospital is out of d5w o2 as needed tube feeds- titrate up. monitor residuals increase water flush follow up cultures dvt/stress ulcer prophylaxis monitor h/h transfuse as needed critical and guarded. prognosis poor dnr d/w cardiology poc time spent 60mins Subjective ROS Limited/Unobtainable: Yes Constitutional: Reports: malaise, weakness HEENT: Reports: no symptoms Cardiovascular: Reports: no symptoms Respiratory: Reports: shortness of breath Gastrointestinal/Abdominal: Reports: difficulty swallowing Genitourinary: Reports: no symptoms Neurologic/Psychiatric: Reports: pre-existing deficit Endocrine: Reports: no symptoms Hematologic/Lymphatic: Reports: anemia Allergies: Coded Allergies: PENICILLINS (Verified Allergy, Unknown, 12/14/19) All Systems: reviewed and negative except above Subjective remains on bipap. tachypneic. awake. does not track. labs noted. Na remains elevated- on 1/2NS as hospital is out of d5w. on feeds and water flush q6 Objective Last 24 Hour Vital Signs Date Time Temp Pulse Resp B/P (MAP) Pulse Ox O2 Delivery O2 Flow Rate FiO2 12/24/19 07:31 110 43 98 100 12/24/19 07:30 98 Bi-Pap 100 12/24/19 04:00 98.5 110 30 123/60 (81) 94 12/24/19 04:00 Bi-pap Bi-pap Bi-pap 12/24/19 03:34 118 12/24/19 02:42 120 33 99 100 12/24/19 00:00 98.1 110 30 120/65 (83) 96 12/24/19 00:00 Bi-pap Bi-pap Bi-pap 12/24/19 00:00 115 12/23/19 22:55 112 30 93 100 12/23/19 20:00 Bi-pap Bi-pap Bi-pap 12/23/19 20:00 97.9 123 30 128/70 (89) 100 12/23/19 19:21 117 12/23/19 19:09 96 Bi-Pap 100 12/23/19 19:08 109 32 96 100 12/23/19 16:00 98.6 100 30 101/56 (71) 100 12/23/19 16:00 Non-Rebreather 15.0 Non-Rebreather 15.0 Non-Rebreather 15.0 12/23/19 15:21 113 12/23/19 15:15 100 30 98 100 12/23/19 12:00 Non-Rebreather 15.0 Non-Rebreather 15.0 Non-Rebreather 15.0 12/23/19 12:00 98.1 99 30 101/53 (69) 100 12/23/19 11:57 116 32 96 100 12/23/19 11:38 111 Intake and Output 12/23/19 12/24/19 19:00 07:00 Intake Total 90 ml 630 ml Output Total 650 ml Balance 90 ml -20 ml Intake Free Water 50 ml 150 ml Tube Feeding 40 ml 480 ml Output Urine Total 650 ml # Bowel Movements 12 Laboratory Tests 12/24/19 05:05: White Blood Count 4.5L, Red Blood Count 2.88L, Hemoglobin 7.8L, Hematocrit 24.6L , Mean Corpuscular Volume 85, Mean Corpuscular Hemoglobin 27.3, Mean Corpuscular Hemoglobin Concent 31.9L, Red Cell Distribution Width 14.8, Platelet Count 168, Mean Platelet Volume 7.8, Neutrophils (%) (Auto) , Lymphocytes (%) (Auto) , Monocytes (%) (Auto) , Eosinophils (%) (Auto) , Basophils (%) (Auto) , Sodium Level 160H, Potassium Level 4.0, Chloride Level 119H, Carbon Dioxide Level 43*H, Anion Gap -2L, Blood Urea Nitrogen 28H, Creatinine 0.6, Estimat Glomerular Filtration Rate > 60, Glucose Level 124H, Calcium Level 7.8L, Magnesium Level 2.6H, Pro-B-Type Natriuretic Peptide 1980H Height (Feet): 5 Height (Inches): 6.00 Weight (Pounds): 142 Objective General Appearance: WD/WN, alert, confused. on venti mask EENT: PERRL/EOMI, normal ENT inspection Neck: non-tender, normal alignment, supple Cardiovascular: normal peripheral pulses, normal rate, regular rhythm Respiratory/Chest: chest wall non-tender, lungs clear, normal breath sounds, no respiratory distress, respiratory distress, accessory muscle use Abdomen: normal bowel sounds, non tender, soft, no organomegaly Edema: moderate edema Neurologic: disoriented, unresponsive, aphasia Skin: normal pigmentation Paxton Humphrey MD December 24, 2019 08:08
[2019-12-24] MEDS: Levemir Flexpen SUBQ SCH (08:50)
[2019-12-24] MEDS: Heparin 5000 units/ml inj SUBQ SCH (08:50)
--- NOTE | 2019-12-24 08:56 | Critical Care Progress Note ---
Assessment/Plan Assessment/Plan IMPRESSION: Respiratory distress, evidence of bilateral pulmonary infiltrates, hypernatremia, acute on chronic renal failure, severe protein-calorie malnutrition, toxic metabolic encephalopathy, dementia, metabolic acidosis, lactic acidemia, elevated troponin, possible demand ischemia, leukocytosis, probable sepsis, anemia. worsening hypoxemia with hypoxemic respiratory failure PLAN care noted BIPAP - and tachypneic monitor oxygen needs d/w nursing in detail iv antibiotics noted imaging reviewed- no significant improvement monitor fluid status elevate head DNR tube feeds monitor for residuals no intubation per advance directives monitor acid base and CO2 levels- reviewed ABG prognosis poor close follow up and monitoring - reviewed [facility] care flow sheets reviewed off load position change critical at present; advanced directives reviewed medications/laboratory data/nursing notes reviewed in detail note reviewed and edited care discussed with RN and RT time spent >40 minutes Critical Care - Subjective Interval Events: doing poorly currently on BIPAP on high flow oxygen doing poorly ROS Limited/Unobtainable: Yes Condition: critical EKG Rhythm: Sinus Rhythm I&O: Intake and Output 12/23/19 12/24/19 19:00 07:00 Intake Total 90 ml 630 ml Output Total 650 ml Balance 90 ml -20 ml Intake Free Water 50 ml 150 ml Tube Feeding 40 ml 480 ml Output Urine Total 650 ml # Bowel Movements 12 Critical Care - Objective Last 24 Hour Vital Signs Date Time Temp Pulse Resp B/P (MAP) Pulse Ox O2 Delivery O2 Flow Rate FiO2 12/24/19 08:44 117 37 91 100 12/24/19 07:31 110 43 98 100 12/24/19 07:30 98 Bi-Pap 100 12/24/19 04:00 98.5 110 30 123/60 (81) 94 12/24/19 04:00 Bi-pap Bi-pap Bi-pap 12/24/19 03:34 118 12/24/19 02:42 120 33 99 100 12/24/19 00:00 98.1 110 30 120/65 (83) 96 12/24/19 00:00 Bi-pap Bi-pap Bi-pap 12/24/19 00:00 115 12/23/19 22:55 112 30 93 100 12/23/19 20:00 Bi-pap Bi-pap Bi-pap 12/23/19 20:00 97.9 123 30 128/70 (89) 100 12/23/19 19:21 117 12/23/19 19:09 96 Bi-Pap 100 12/23/19 19:08 109 32 96 100 12/23/19 16:00 98.6 100 30 101/56 (71) 100 12/23/19 16:00 Non-Rebreather 15.0 Non-Rebreather 15.0 Non-Rebreather 15.0 12/23/19 15:21 113 12/23/19 15:15 100 30 98 100 12/23/19 12:00 Non-Rebreather 15.0 Non-Rebreather 15.0 Non-Rebreather 15.0 12/23/19 12:00 98.1 99 30 101/53 (69) 100 12/23/19 11:57 116 32 96 100 12/23/19 11:38 111 Labs: Laboratory Tests Test 12/24/19 05:05 12/24/19 08:09 White Blood Count 4.5 K/UL (4.8-10.8) L Red Blood Count 2.88 M/UL (4.20-5.40) L Hemoglobin 7.8 G/DL (12.0-16.0) L Hematocrit 24.6 % (37.0-47.0) L Mean Corpuscular Volume 85 FL (80-99) Mean Corpuscular Hemoglobin 27.3 PG (27.0-31.0) Mean Corpuscular Hemoglobin Concent 31.9 G/DL (32.0-36.0) L Red Cell Distribution Width 14.8 % (11.6-14.8) Platelet Count 168 K/UL (150-450) Mean Platelet Volume 7.8 FL (6.5-10.1) Neutrophils (%) (Auto) % (45.0-75.0) Lymphocytes (%) (Auto) % (20.0-45.0) Monocytes (%) (Auto) % (1.0-10.0) Eosinophils (%) (Auto) % (0.0-3.0) Basophils (%) (Auto) % (0.0-2.0) Sodium Level 160 MMOL/L (136-145) H Potassium Level 4.0 MMOL/L (3.5-5.1) Chloride Level 119 MMOL/L (98-107) H Carbon Dioxide Level 43 MMOL/L (21-32) *H Anion Gap -2 mmol/L (5-15) L Blood Urea Nitrogen 28 mg/dL (7-18) H Creatinine 0.6 MG/DL (0.55-1.30) Estimat Glomerular Filtration Rate > 60 mL/min (>60) Glucose Level 124 MG/DL (74-106) H Calcium Level 7.8 MG/DL (8.5-10.1) L Magnesium Level 2.6 MG/DL (1.8-2.4) H Pro-B-Type Natriuretic Peptide 1980 pg/mL (0-125) H Arterial Blood pH 7.420 (7.350-7.450) Arterial Blood Partial Pressure CO2 69.3 mmHg (35.0-45.0) *H Arterial Blood Partial Pressure O2 60.7 mmHg (75.0-100.0) L Arterial Blood HCO3 43.9 mmol/L (22.0-26.0) *H Arterial Blood Oxygen Saturation 89.3 % (95-100) *L Arterial Blood Base Excess 17.1 (-2-2) *H Miki Test Positive Objective: GENERAL: The patient is chronically ill. on BIPAP and doing poorly tachypneic HEENT: Overall negative. NECK: Supple. LUNGS: Moderate breath sounds. persistent rhonchi noted CARDIAC: S1 and S2, currently regular rhythm. without MRG; tachy ABDOMEN: Overall soft, nontender. no distention EXTREMITIES: No significant edema. Decreased range of motion. G-tube in place. Depressed affect. Aphasic. reviewed and edited Accucheck: 119 Tonny Ramirez MD December 24, 2019 08:56
--- NOTE | 2019-12-24 09:38 | Infectious Diseases Prog Note ---
Assessment/Plan Assessment/Plan antibiotics ; none A 1. Possible pneumonia. COVID-19 test is negative x2 2. E.coli and Streptococcus urinary tract infection s/p rx 3. Positive blood cultures with coagulase-negative Staph is most likely a contaminant. 4. shock resolved 5. respiratory failure PLAN: 1. Continue off antibiotics 2. We will follow up cultures Subjective ROS Limited/Unobtainable: Yes Allergies: Coded Allergies: PENICILLINS (Verified Allergy, Unknown, 12/14/19) Objective Vital Signs Last 24 Hour Vital Signs Date Time Temp Pulse Resp B/P (MAP) Pulse Ox O2 Delivery O2 Flow Rate FiO2 12/24/19 08:44 117 37 91 100 12/24/19 07:31 110 43 98 100 12/24/19 07:30 98 Bi-Pap 100 12/24/19 04:00 98.5 110 30 123/60 (81) 94 12/24/19 04:00 Bi-pap Bi-pap Bi-pap 12/24/19 03:34 118 12/24/19 02:42 120 33 99 100 12/24/19 00:00 98.1 110 30 120/65 (83) 96 12/24/19 00:00 Bi-pap Bi-pap Bi-pap 12/24/19 00:00 115 12/23/19 22:55 112 30 93 100 12/23/19 20:00 Bi-pap Bi-pap Bi-pap 12/23/19 20:00 97.9 123 30 128/70 (89) 100 12/23/19 19:21 117 12/23/19 19:09 96 Bi-Pap 100 12/23/19 19:08 109 32 96 100 12/23/19 16:00 98.6 100 30 101/56 (71) 100 12/23/19 16:00 Non-Rebreather 15.0 Non-Rebreather 15.0 Non-Rebreather 15.0 12/23/19 15:21 113 12/23/19 15:15 100 30 98 100 12/23/19 12:00 Non-Rebreather 15.0 Non-Rebreather 15.0 Non-Rebreather 15.0 12/23/19 12:00 98.1 99 30 101/53 (69) 100 12/23/19 11:57 116 32 96 100 12/23/19 11:38 111 Height (Feet): 5 Height (Inches): 6.00 Weight (Pounds): 142 Respiratory/Chest: lungs clear Cardiovascular: normal rate, regular rhythm, no gallop/murmur Abdomen: soft, non tender, other - GT Laboratory Tests Test 12/24/19 05:05 12/24/19 08:09 White Blood Count 4.5 K/UL (4.8-10.8) L Red Blood Count 2.88 M/UL (4.20-5.40) L Hemoglobin 7.8 G/DL (12.0-16.0) L Hematocrit 24.6 % (37.0-47.0) L Mean Corpuscular Volume 85 FL (80-99) Mean Corpuscular Hemoglobin 27.3 PG (27.0-31.0) Mean Corpuscular Hemoglobin Concent 31.9 G/DL (32.0-36.0) L Red Cell Distribution Width 14.8 % (11.6-14.8) Platelet Count 168 K/UL (150-450) Mean Platelet Volume 7.8 FL (6.5-10.1) Neutrophils (%) (Auto) % (45.0-75.0) Lymphocytes (%) (Auto) % (20.0-45.0) Monocytes (%) (Auto) % (1.0-10.0) Eosinophils (%) (Auto) % (0.0-3.0) Basophils (%) (Auto) % (0.0-2.0) Sodium Level 160 MMOL/L (136-145) H Potassium Level 4.0 MMOL/L (3.5-5.1) Chloride Level 119 MMOL/L (98-107) H Carbon Dioxide Level 43 MMOL/L (21-32) *H Anion Gap -2 mmol/L (5-15) L Blood Urea Nitrogen 28 mg/dL (7-18) H Creatinine 0.6 MG/DL (0.55-1.30) Estimat Glomerular Filtration Rate > 60 mL/min (>60) Glucose Level 124 MG/DL (74-106) H Calcium Level 7.8 MG/DL (8.5-10.1) L Magnesium Level 2.6 MG/DL (1.8-2.4) H Pro-B-Type Natriuretic Peptide 1980 pg/mL (0-125) H Arterial Blood pH 7.420 (7.350-7.450) Arterial Blood Partial Pressure CO2 69.3 mmHg (35.0-45.0) *H Arterial Blood Partial Pressure O2 60.7 mmHg (75.0-100.0) L Arterial Blood HCO3 43.9 mmol/L (22.0-26.0) *H Arterial Blood Oxygen Saturation 89.3 % (95-100) *L Arterial Blood Base Excess 17.1 (-2-2) *H Miki Test Positive Current Medications Medications (Trade) Dose Ordered Sig/Ebenezer Route PRN Reason Start Time Stop Time Status Last Admin Dose Admin Acetaminophen (Tylenol) 650 mg Q4H PRN RECTAL MILD/TEMP 12/22/19 11:15 01/12/20 11:14 Chlorhexidine Gluconate (Dee-Hex 2%) 1 applic DAILY@2000 TOPIC 12/22/19 20:00 03/12/20 19:59 12/23/19 20:24 Dextrose (Dextrose 50%) 25 ml Q30M PRN IV Hypoglycemia 12/22/19 11:00 03/12/20 08:29 Dextrose (Dextrose 50%) 50 ml Q30M PRN IV Hypoglycemia 12/22/19 11:00 03/12/20 08:29 Heparin Sodium (Porcine) (Heparin 5000 units/ml) 5,000 units EVERY 12 HOURS SUBQ 12/22/19 21:00 01/27/20 08:59 12/24/19 08:50 Insulin Aspart (NovoLOG) Q4H SUBQ 12/22/19 12:00 03/13/20 11:59 12/23/19 23:28 Insulin Detemir (Levemir) 10 units Q12HR SUBQ 12/22/19 21:00 03/13/20 08:59 12/24/19 08:50 Morphine Sulfate (Morphine Sulfate) 1 mg Q4H PRN IVP For Pain 12/22/19 11:15 12/26/19 11:14 Sodium Chloride 1,000 ml @ 75 mls/hr [id number] IV 12/24/19 00:00 01/23/20 00:00 12/24/19 00:10 Albert Scanlon MD December 24, 2019 09:38
--- NOTE | 2019-12-24 10:27 | NUR ---
DR.. benson notefied with blood gas RESULT ,NO ORDER GIVEN
--- NOTE | 2019-12-24 11:09 | Surgery Progress Note ---
Surgery Progress Note Subjective Procedure Performed left subclavian central venous catheter insertion Additional Comments on bipap ill appearing labs noted exam stable Objective Last 24 Hour Vital Signs Date Time Temp Pulse Resp B/P (MAP) Pulse Ox O2 Delivery O2 Flow Rate FiO2 12/24/19 08:44 117 37 91 100 12/24/19 07:31 110 43 98 100 12/24/19 07:30 98 Bi-Pap 100 12/24/19 04:00 98.5 110 30 123/60 (81) 94 12/24/19 04:00 Bi-pap Bi-pap Bi-pap 12/24/19 03:34 118 12/24/19 02:42 120 33 99 100 12/24/19 00:00 98.1 110 30 120/65 (83) 96 12/24/19 00:00 Bi-pap Bi-pap Bi-pap 12/24/19 00:00 115 12/23/19 22:55 112 30 93 100 12/23/19 20:00 Bi-pap Bi-pap Bi-pap 12/23/19 20:00 97.9 123 30 128/70 (89) 100 12/23/19 19:21 117 12/23/19 19:09 96 Bi-Pap 100 12/23/19 19:08 109 32 96 100 12/23/19 16:00 98.6 100 30 101/56 (71) 100 12/23/19 16:00 Non-Rebreather 15.0 Non-Rebreather 15.0 Non-Rebreather 15.0 12/23/19 15:21 113 12/23/19 15:15 100 30 98 100 12/23/19 12:00 Non-Rebreather 15.0 Non-Rebreather 15.0 Non-Rebreather 15.0 12/23/19 12:00 98.1 99 30 101/53 (69) 100 12/23/19 11:57 116 32 96 100 12/23/19 11:38 111 I&O Intake and Output 12/23/19 12/24/19 19:00 07:00 Intake Total 90 ml 630 ml Output Total 650 ml Balance 90 ml -20 ml Intake Free Water 50 ml 150 ml Tube Feeding 40 ml 480 ml Output Urine Total 650 ml # Bowel Movements 12 Dressing: other Wound: other Drains: other Cardiovascular: RSR Respiratory: decreased breath sounds Abdomen: soft, non-tender, present bowel sounds Extremities: no cyanosis Laboratory Tests Test 12/24/19 05:05 12/24/19 08:09 White Blood Count 4.5 K/UL (4.8-10.8) L Red Blood Count 2.88 M/UL (4.20-5.40) L Hemoglobin 7.8 G/DL (12.0-16.0) L Hematocrit 24.6 % (37.0-47.0) L Mean Corpuscular Volume 85 FL (80-99) Mean Corpuscular Hemoglobin 27.3 PG (27.0-31.0) Mean Corpuscular Hemoglobin Concent 31.9 G/DL (32.0-36.0) L Red Cell Distribution Width 14.8 % (11.6-14.8) Platelet Count 168 K/UL (150-450) Mean Platelet Volume 7.8 FL (6.5-10.1) Neutrophils (%) (Auto) % (45.0-75.0) Lymphocytes (%) (Auto) % (20.0-45.0) Monocytes (%) (Auto) % (1.0-10.0) Eosinophils (%) (Auto) % (0.0-3.0) Basophils (%) (Auto) % (0.0-2.0) Sodium Level 160 MMOL/L (136-145) H Potassium Level 4.0 MMOL/L (3.5-5.1) Chloride Level 119 MMOL/L (98-107) H Carbon Dioxide Level 43 MMOL/L (21-32) *H Anion Gap -2 mmol/L (5-15) L Blood Urea Nitrogen 28 mg/dL (7-18) H Creatinine 0.6 MG/DL (0.55-1.30) Estimat Glomerular Filtration Rate > 60 mL/min (>60) Glucose Level 124 MG/DL (74-106) H Calcium Level 7.8 MG/DL (8.5-10.1) L Magnesium Level 2.6 MG/DL (1.8-2.4) H Pro-B-Type Natriuretic Peptide 1980 pg/mL (0-125) H Arterial Blood pH 7.420 (7.350-7.450) Arterial Blood Partial Pressure CO2 69.3 mmHg (35.0-45.0) *H Arterial Blood Partial Pressure O2 60.7 mmHg (75.0-100.0) L Arterial Blood HCO3 43.9 mmol/L (22.0-26.0) *H Arterial Blood Oxygen Saturation 89.3 % (95-100) *L Arterial Blood Base Excess 17.1 (-2-2) *H Miki Test Positive Plan Problems: (1) Uncontrolled diabetes mellitus (2) Suspected 2019 novel coronavirus infection Assessment & Plan: neg (3) Septic shock Assessment & Plan: septic hypotension line placed see note resuscitation initiated discussed in detail with daughter at bedside for ome time tren dlabs fluids pressors will follow with recs DAILY ESTIMATED NEEDS: Needs based on Pulmonary, wounds, sepsis/ 51kg abw 25-30 kcals/kg 0523-8056 total kcals 1.25-2 g protein/kg 63-102 g total protein 25-30 mL/kg 2707-0244 total fluid mLs NUTRITION DIAGNOSIS: * Increased kcal/prot needs R/T wound healing as evidenced by pt admitted w/ multiple unstageable and DTPI wounds, refer to eval. * Swallowing difficulty R/T dysphagia as evidenced by PEG dep. ENTERAL NUTRITION RECOMMENDATIONS: Glucerna 1.5 @ 40ml/hr x 24 hrs to provide 960ml, 1440kcal, 79g prot, 729ml free water * W/ hemodynamic stability, initiate Glucerna 1.5 @ 20ml/hr x 6hrs * Advance 10ml q 4-6 hrs as tolerated to goal rate * HOB over 30 degrees/ water flush per MD. WITHOUT HEMODYNAMIC STABILITY: rec trophic feeding of Glucerna 1.5 @ 10ml/hr x 24 hrs ADDITIONAL RECOMMENDATIONS: * Per SNF: HT=61" GU=363vno ("October wts" per SNF) -> rec to re-calibrate bedscale wt * Monitor hemodynamic stability: on NE @ 20mcg * Monitor BGs closely: BG 798 upon adm -> improved rec D5 while NPO to prevent hypoglycemia. * Wound healing: add Vit C 500mg QD Sae BID w/ TF order (4) Lactic acidosis (5) Respiratory failure (6) Decubitus skin ulcer Assessment & Plan: Pt presented on admission with multiple pressure injuries. Unstageable Sacral Pressure injury with presents as open DTPI. Soft necrosis at Base of wound with marginal erythema along edges.Small opening noted to L sacrum. No odor or exudate noted. Periwound without evidence of further skin breakdown. DTPI noted to medial L malleolus. Base of wound is maroon with marginal erythema. DTPI medial L heel base of wound is maroon with fluctuance. DTPI L Hallux. Base of wound is maroon with marginal erythema along borders. Reabsorbing DTPI lateral L heel. Base of injury ids dry. Unstageable pressure injuries noted to distal/lateral R foot. Soft necrosis at base of wound. Unstageable pressure injury dorso/lateral R 5th metatarsal. Soft necrosis at base of wound. Unstageable pressure injury web space of R 4th metatarsal. Base of wound is necrotic and partially opened. no exudate noted. DTPI noted to R lateral malleolus. Base of wound is maroon and soft with marginal erythema along borders. Tx.Plan: Cleanse Sacral wound with Saline. Apply TheraHoney. Apply Moisture Barrier paste periwound. Cover with Optifoam drsg. Change every 3 days and prn. Apply Betadine to wounds Distal /lateral R foot, R 4th and 5th metatarsals. Cover with Optifoam drsg every 3 days and prn. Apply Cavilon to both heels, Both hallux and malleoli. Cover each site with Optifoam drgs. Change every 7 days and prn. Reposition at least every 2hours or as tolerated. Place Pillow between knees. Off-load heels with Pillow. APM/MELANIE Mattress overlay. Joce Campbell December 24, 2019 11:09
[2019-12-24 12:00] VITALS: BP 119/64
[2019-12-24 16:00] VITALS: BP 126/50
--- NOTE | 2019-12-24 16:00 | NUR ---
VS STABLE ,STILL ON BIPAP 100% HAD SMALL BM MADE CLEAN
--- NOTE | 2019-12-24 17:12 | NUR ---
PT. WENT BRADYCARDIA HR DROP TO 32 THEN ASYSTOLE PT. DNR ,DNI
--- NOTE | 2019-12-24 19:12 | NUR ---
PRONOUNCEMENT: No Code. Called to pronounce patient. Absence of spontaneous respirations, no cardiac or breath sounds on auscultation. Pupils fixed and dilated. No carotid pulse or chest movement. Patient at 1911. Dr. Humphrey notified @ 1913 per [facility] [place]. Dr. Humphrey said he'll notify the family about the expiration. [address] Humphrey, family was notified and will come to view the body.
--- NOTE | 2019-12-24 19:14 | NUR ---
DR ESQUIVEL CALLED TO NOTIFY HIM ABOUT PT. .MESSAGE LEFT
--- NOTE | 2019-12-24 19:30 | NUR ---
NURSE NOTES: provided comfort position and provided new cover sheet. cleaned pt with nursing staffs.
--- NOTE | 2019-12-24 19:40 | NUR ---
DR ESQUIVEL NOTEFIED ABOUT PT. HE STATE HE WILL NOTIFY THE FAMILY
[2019-12-24] MEDS: Dyna-Hex 2% Top Sol 2oz TOPIC SCH (20:00)
--- NOTE | 2019-12-24 20:08 | NUR ---
NURSE NOTES: called [facility] spoke with Grover Whitfield. DNN number received. all information provided that were questioned.
--- NOTE | 2019-12-24 20:40 | NUR ---
NURSE NOTES: family members at the bedside next to pt.
[2019-12-24] MEDS ORDERED: 1/2 NS 1000ml IV ONE (20:50)
--- NOTE | 2019-12-24 21:37 | NUR ---
NURSE NOTES: pt's families at the bedside, and family already called mortuary. [phone] Tamela De Souza is number of mortuary. 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 will wait for update.
--- NOTE | 2019-12-24 23:00 | NUR ---
NURSE NOTES: pt picked up by Miguel from [facility]. Lucia Culvervez (pt's Daughter) signed paper of record of , checked belonging list together. answered all the questions that were asked from Lucia (daughter).
--- NOTE | 2019-12-24 23:00 | NUR ---
NURSE NOTES: pt picked up by Miguel from [facility] with . Lucia Shetty (pt's Daughter) signed paper of record of , checked belonging list together. answered all the questions that were asked from Lucia (daughter). Addendum: 12/24/[address] MCDERMOTT RN will add more details
--- NOTE | 2019-12-25 01:00 | Progress Note ---
DATE: 12/24/2019 CARDIOLOGY PROGRESS NOTE SUBJECTIVE: The case was reviewed and discussed with the primary care physician. Condition remains critical. Prognosis guarded. The patient remains on BiPAP support and is quite tachypneic, poorly responsive and with multiple electrolyte abnormalities. The patient had been on pressors as well. PHYSICAL EXAMINATION: VITAL SIGNS: Blood pressure 123/60, pulse 110, respiratory rate 30, afebrile. Monitored sinus tachycardia. LUNGS: Diminished breath sounds, rhonchi and rales. CARDIAC: Regular rhythm. Rapid rate. Normal S1, S2. ABDOMEN: Soft and slightly distended. A 1+ dependent edema. LABORATORY AND DIAGNOSTIC DATA: White count 4.5, hemoglobin 7.8, platelets 168. ABG 7.42, 69, and 61. Sodium 160, potassium 4, bicarb 43, BUN 28, creatinine 0.6. Pro natriuretic peptide 1980. IMPRESSION: 1. Remains critical and guarded. 2. Acute respiratory failure. 3. Healthcare-associated pneumonia. 4. Secondary sinus tachycardia. 5. Sepsis with recovering shock. 6. Dehydration. 7. Hypernatremia. 8. Hyperchloremia. 9. Acute myocardial ischemia. PLAN: 1. DNR/DNI. 2. Continue hypotonic IV fluids which were advanced last night. 3. Antimicrobials. 4. Respiratory hygiene with BiPAP support. 5. DVT prophylaxis. 6. Daughter aware of critical condition and poor prognosis. Slava Hsu M.D. DR: Leslie JOB#: [id number] CC:
--- NOTE | 2019-12-25 16:00 | Discharge Summary ---
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 Ramirez ID specialist Dr. 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 Campbell, resident of [facility], with past medical history of hypertension, dementia, pneumonia, BiPAP use, dysphagia, feeding by G -tube, diabetes mellitus type 2, was sent for evaluation due to of respiratory distress and hypotension. Patient was noted to have increased work of breathing. Per paperwork from the [facility] patient was a full code 3. Patient also noted to have a close blood sugar reading stated critical high while he was quite well she was hypotensive at the facility and had hypoxia in the 80s and room air. Patient started on supplemental oxygen. Patient remained tachycardic. Patient presented hypotensive and hypoxic Laboratory work-up revealed leukocytosis WBC 15.5, hemoglobin 10.6 hematocrit 34.1 platelet count 174. ABG on 4 L of nasal cannula revealed severe hypoxia with O2 sats 79% pH 7.31. CO2 28. Sodium 168, glucose 798. Anion gap 17. CO2 25. Lactic acid 5.2. BUN 126, creatinine 2.8 phosphorus 5.4 magnesium 3.4 AST 45, ALT 44. CK 650. Troponin 0 0.103 proBNP 827 albumin 1.8 urinalysis revealed +3 protein +3 glucose +1 ketone pyuria many bacteria and +3 leukocyte esterase. Chest x-ray demonstrated bibasilar infiltrates. In emergency department patient was swab for COVID-19 patient received insulin surgeon consulted for placement of central line in anticipation for pressors. Patient continue on supplemental oxygen titrated to keep pulse ox above 92% patient pancultured started on empiric antibiotic. Patient subsequently admitted to [facility] for further management. HOSPITAL COURSE: [] Patient admitted to [facility]. Patient started on empiric antibiotic as per ID specialist recommendation. Family agreed CODE STATUS to DNR/DNI. Clear and proceed with a conservative management. Family may consider hospice after discussion the rest of the hospital was as a family members. Patient was kept in isolation. Blood culture revealed staph hominis likely contaminant as per ID. Urine culture revealed Streptococcus viridans and E. coli ESBL Status post 2 by PCR on 514 and 518 was not detected. Influenza swab test was negative. Venous duplex bilateral lower extremity revealed no evidence of acute DVT. Patient was follow-up with a chest x-ray supplemental oxygen provided and titrated to keep pulse oximetry above 92%. Nebulizing pulmonary toilet provided. Patient was getting progressively more hypoxic patient was placed on the BiPAP oxygen needs for closely monitor. A strict aspiration precaution maintained volumes were closely monitored. Tube feeding provided as to feeding formula goal rate as per registered dietitian recommendation. Protein supplements provided. Acid-base and CO2 levels were closely monitored. Patient was placed on nonrebreathing mask and and subsequently on the BiPAP. ABG showed after ABG on 520 300 showed the CO2 of 97 BiPAP settings changed and CO2 went down to 69. Patient was on the IV fluids renal parameters electrolytes closely monitor electrolytes corrected as needed nephrotoxic's were avoided hemodynamic status was closely monitored with goal to keep keep mean arterial blood pressure above 65 patient was on levo fed initially from which he was able to she was able to be weaned 521. Patient completed antibiotic for possible pneumonia and UTI as per ID specialist recommendation. Respiratory status however was worsening patient developed patient initially leukocytosis resolved patient developed after worsening leukocytosis. All cardiac medications are on hold. Antiplatelet therapy with aspirin was continued. Blood sugar was initially managed with insulin drip as per protocol and then started on long-acting and short acting insulin. Glucose is a hemoglobin A1c 8.5. Elevated troponin was likely due to demand no changes in EKG troponin trending down the last troponin negative. Patient was on the IV fluids blood sugar was managed with long-acting Levemir. Patient condition was rapidly get 3018. Overall prognosis was poor. Patient was pronounced 1912 525 cause of cardiopulmonary arrest Hemoglobin hematocrit were closely monitored with goal to keep hemoglobin above 7. Patient undergone transfusion of 1 units of packed red blood cells while in the hospital for hemoglobin 6.7. Angy Renal parameters electrolytes were closely monitored patient was hydrated hyponatremia and creatinine improved acute kidney injury and hyponatremia was most likely due to severe dehydration Ent presented on admission with a multiply pressure injury unstageable sacral pressure injury along with outside once wound care provided per surgeon recommendation FINAL DIAGNOSES: Abscess Sepsis secondary to UTI pneumonia 1. [] Septic shock resolved UTI with E. coli and streptococci that was post treatment Pneumonia suspected COVID-19 infection rule out Respiratory distress Diabetes mellitus with diabetic ketoacidosis Hypertension history of hypertension Ischemic cardiomyopathy Dementia Hypernatremia Dehydration Acute myocardial ischemia Possible NSTEMI Severe protein calorie malnutrition Severe protein calorie malnutrition Acute on chronic renal failure Toxic metabolic encephalopathy Dementia Lactic acidosis: Possible demand ischemia Probable sepsis Leukocytosis Anemia Hypoxemic respiratory failure lactic acidosis Diabetes mellitus [id number] patient is feeding by G-tube Ischemic heart disease Chronic diastolic congestive heart failure Rhabdomyolysis Acute renal failure DISCHARGE MEDICATIONS: I have been assigned to dictate discharge summary for this account. I was not involved in the patient's management. Rajwinder Campos NP December 25, 2019 16:00
== END 2019-12-24 23:10 | disposition expired | DRG 871 ==
LOC: EDBD 01:02 → EMR 01:22 → ICU 01:46 → MERGE 01:46 → EDBEDREQ 02:57 → 2W 12-22 10:48
PROC: 05H633Z Insertion of Infusion Device into Left Subclavian Vein, Percutaneous Approach (ICD-10-PCS; principal; 2019-12-14)
DX: A41.9 Sepsis, unspecified organism (principal); E43 Unspecified severe protein-calorie malnutrition; G92 Toxic encephalopathy; J18.9 Pneumonia, unspecified organism; R65.21 Severe sepsis with septic shock; I21.4 Non-ST elevation (NSTEMI) myocardial infarction; I50.33 Acute on chronic diastolic (congestive) heart failure; J96.01 Acute respiratory failure with hypoxia; E11.10 Type 2 diabetes mellitus with ketoacidosis without coma; N17.9 Acute kidney failure, unspecified; N39.0 Urinary tract infection, site not specified; E87.0 Hyperosmolality and hypernatremia; M62.82 Rhabdomyolysis; I13.0 Hypertensive heart and chronic kidney disease with heart failure and stage 1 through stage 4 chronic kidney disease, or unspecified chronic kidney disease; D64.9 Anemia, unspecified; E11.65 Type 2 diabetes mellitus with hyperglycemia; E86.0 Dehydration; Z20.828 Contact with and (suspected) exposure to other viral communicable diseases; F03.90 Unspecified dementia, unspecified severity, without behavioral disturbance, psychotic disturbance, mood disturbance, and anxiety; E11.22 Type 2 diabetes mellitus with diabetic chronic kidney disease; N18.9 Chronic kidney disease, unspecified; B96.20 Unspecified Escherichia coli [E. coli] as the cause of diseases classified elsewhere; B95.5 Unspecified streptococcus as the cause of diseases classified elsewhere; Z66 Do not resuscitate; Z93.1 Gastrostomy status; Z68.23 Body mass index [BMI] 23.0-23.9, adult; I25.10 Atherosclerotic heart disease of native coronary artery without angina pectoris; I25.2 Old myocardial infarction; R13.10 Dysphagia, unspecified; E87.8 Other disorders of electrolyte and fluid balance, not elsewhere classified; E87.6 Hypokalemia; E83.42 Hypomagnesemia; L89.526 Pressure-induced deep tissue damage of left ankle; L89.896 Pressure-induced deep tissue damage of other site
CPT/HCPCS: 36415; 36600; 71045; 80048; 80053; 80202; 81003; 82009; 82550; 82553; 82803; 82962; 83036; 83605; 83735; 83880; 84100; 84484; 85007; 85025; 85610; 85730; 86710; 86850; 86870; 86900; 86901; 86904; 86920; 87040; 87081; 87086; 87181; 87635; 93970; 94660; 94664; 96365; 96366; 96368; 96375; 99291; J1815; J7030; J8499; S5561